=== PATIENT | male | born 1965 | race African-American/Black ===

== ENCOUNTER 2017-07-16 15:56 | Inpatient (IN) | payer OTHER ==
[~2017-07-16] VITALS: Ht 170.2 cm; Wt 66.2 kg
[2017-07-16 15:57] VITALS: BP 150/80; PULSE 122; RESP 24; TEMP 98.9; O2SAT 97
[2017-07-16] MEDS ORDERED: SODIUM CHLORIDE 0.9% FLUSH 10 ML FLUSH IV FLUSH PRN ×2 (16:00→19:00)
[2017-07-16 16:18] VITALS: RESP 24; O2SAT 97
--- NOTE | 2017-07-16 16:29 | PD ---
HPI Chief Complaint: Neuro Symptoms/ Deficits Time Seen by Provider: 16:00 Travel History International Travel<30 days: No Contact w/Intl Traveler<30days: No Traveled to known affect area: No History of Present Illness HPI Patient is a 51-year-old male who lives in abandoned house presents emergency department with 3 day history of right-sided extremity weakness, unclear as to when exactly his last seen normal time was. Patient's sister arrives and states that the family checks on him from time to time because he refuses to live with them they went to get him today to place [place] on his son's grave and found him to be significantly altered and was not able to ambulate and so they brought him into the emergency department to be seen. No headaches no nausea no vomiting no chest pain or shortness of breath. patient does not do regular checkups, he denies any head injury chest pain cough shortness of breath but he is a cigarette smoker. He had to be carried to the car so they can bring him in today. Symptoms are severe, right-sided, possibly for 3 days, context and associated signs symptoms as above. [facility] Past Medical History Medical History: Denies Significant Hx Past Surgical History Surgical History: No Previous Surgery Social History Alcohol Use: Yes (occassoanly ) Tobacco Use: Yes (1/2 pack ) Substance Use: No Allergies-Medications (Allergen,Severity, Reaction): Coded Allergies: No Known Allergies (Unverified , 07/16/17) Reported Meds & Prescriptions Reported Meds & Active Scripts Active No Active Prescriptions or Reported Medications Review of Systems Except as stated in HPI: all other systems reviewed are Neg Physical Exam Narrative GENERAL: Well-developed, thin but in no obvious distress, unkempt. SKIN: Focused skin assessment warm/dry. Fingernails on the left hand significantly longer than the right. HEAD: Atraumatic. Normocephalic. EYES: Pupils equal and round. No scleral icterus. No injection or drainage. ENT: No nasal bleeding or discharge. Mucous membranes pink and moist. NECK: Trachea midline. No JVD. CARDIOVASCULAR: Regular rate and rhythm. No murmur appreciated. RESPIRATORY: No accessory muscle use. Clear to auscultation. Breath sounds equal bilaterally. GASTROINTESTINAL: Abdomen soft, non-tender, nondistended. Hepatic and splenic margins not palpable. MUSCULOSKELETAL: No obvious deformities. No clubbing. No cyanosis. No edema. NEUROLOGICAL: Awake and alert. There is an obvious facial droop on the right side, patient having some confusion when asked to move his tongue side to side he moves his whole head, extraocular movements are intact. Patient is protecting his own airway and swallowing his secretions. Fermin significant weakness and pronator drift on the right upper extremity, he is able to move his right lower extremity against gravity but is not able to keep it elevated. His total NIH stroke scale is 7. PSYCHIATRIC: Appropriate mood and affect; insight and judgment normal. Data Data Last Documented VS Vital Signs Date Time Temp Pulse Resp B/P (MAP) Pulse Ox O2 Delivery O2 Flow Rate FiO2 07/16/17 16:18 24 97 07/16/17 15:57 98.9 122 150/80 (103) Orders Orders Electrocardiogram (07/16/17 16:00) Complete Blood Count With Diff (07/16/17 16:00) Comprehensive Metabolic Panel (07/16/17 16:00) Creatine Kinase (Cpk) (07/16/17 16:00) Prothrombin Time / Inr (Pt) (07/16/17 16:00) Act Partial Throm Time (Ptt) (07/16/17 16:00) Troponin I (07/16/17 16:00) Thyroid Stimulating Hormone (07/16/17 16:00) Urinalysis - C+S If Indicated (07/16/17 16:00) Chest, Single Ap (07/16/17 16:00) Ct Brain W/O Iv Contrast(Rout) (07/16/17 16:00) Blood Glucose (07/16/17 16:00) Ecg Monitoring (07/16/17 16:00) Iv Access Insert/Monitor (07/16/17 16:00) Oximetry (07/16/17 16:00) Sodium Chloride 0.9% Flush (Ns Flush) (07/16/17 16:00) Drug Screen, Random Urine (07/16/17 16:00) Alcohol (Ethanol) (07/16/17 16:00) Tylenol (Acetaminophen) (07/16/17 16:00) Salicylates (Aspirin) (07/16/17 16:00) Blood Culture (07/16/17 17:29) Ct Pulmonary Angiogram (07/16/17 ) Lactic Acid (07/16/17 17:29) Vancomycin Inj (Vancomycin Inj) (07/16/17 17:30) Piperacil-Tazo 4.5 Gm Premix (Zosyn 4.5 (07/16/17 17:30) Cath For Specimen (07/16/17 17:30) Dexamethasone Inj (Decadron Inj) (07/16/17 18:15) Type And Screen (07/16/17 18:12) Admit Order (Ed Use Only) (07/16/17 ) Consult Neurosurgery (07/16/17 ) Labs Laboratory Tests Test 07/16/17 16:15 07/16/17 18:05 07/16/17 18:15 White Blood Count 22.9 TH/MM3 Red Blood Count 3.12 MIL/MM3 Hemoglobin 7.7 GM/DL Hematocrit 24.6 % Mean Corpuscular Volume 78.8 FL Mean Corpuscular Hemoglobin 24.8 PG Mean Corpuscular Hemoglobin Concent 31.4 % Red Cell Distribution Width 19.9 % Platelet Count 942 TH/MM3 Mean Platelet Volume 6.0 FL Neutrophils (%) (Auto) 82.0 % Lymphocytes (%) (Auto) 11.9 % Monocytes (%) (Auto) 5.5 % Eosinophils (%) (Auto) 0.2 % Basophils (%) (Auto) 0.4 % Neutrophils # (Auto) 18.8 TH/MM3 Lymphocytes # (Auto) 2.7 TH/MM3 Monocytes # (Auto) 1.2 TH/MM3 Eosinophils # (Auto) 0.0 TH/MM3 Basophils # (Auto) 0.1 TH/MM3 CBC Comment DIFF FINAL Differential Comment Prothrombin Time 12.0 SEC Prothromb Time International Ratio 1.2 RATIO Activated Partial Thromboplast Time 34.9 SEC Blood Urea Nitrogen 3 MG/DL Creatinine 0.59 MG/DL Random Glucose 77 MG/DL Total Protein 8.2 GM/DL Albumin 2.1 GM/DL Calcium Level 8.9 MG/DL Alkaline Phosphatase 143 U/L Aspartate Amino Transf (AST/SGOT) 26 U/L Alanine Aminotransferase (ALT/SGPT) 11 U/L Total Bilirubin 0.2 MG/DL Sodium Level 134 MEQ/L Potassium Level 4.2 MEQ/L Chloride Level 98 MEQ/L Carbon Dioxide Level 24.0 MEQ/L Anion Gap 12 MEQ/L Estimat Glomerular Filtration Rate 176 ML/MIN Total Creatine Kinase 66 U/L Troponin I LESS THAN 0.02 NG/ML Thyroid Stimulating Hormone 3rd Gen 2.160 uIU/ML Salicylates Level 9.9 MG/DL Acetaminophen Level LESS THAN 2.0 MCG/ML Ethyl Alcohol Level 37 MG/DL Lactic Acid Level 1.3 mmol/L Urine Color YELLOW Urine Turbidity CLEAR Urine pH 5.5 Urine Specific [place] 1.006 Urine Protein NEG mg/dL Urine Glucose (UA) NEG mg/dL Urine Ketones NEG mg/dL Urine Occult Blood NEG Urine Nitrite NEG Urine Bilirubin NEG Urine Urobilinogen LESS THAN 2.0 MG/DL Urine Leukocyte Esterase NEG Urine RBC LESS THAN 1 /hpf Urine WBC LESS THAN 1 /hpf Urine Mucus FEW /lpf Microscopic Urinalysis Comment CATH-CULT NOT IND Urine Opiates Screen NEG Urine Barbiturates Screen NEG Urine Amphetamines Screen NEG Urine Benzodiazepines Screen NEG Urine Cocaine Screen NEG Urine Cannabinoids Screen NEG MDM Medical Decision Making Medical Screen Exam Complete: Yes Emergency Medical Condition: Yes Differential Diagnosis Acute stroke, hemorrhagic stroke, cerebral edema, lung cancer Narrative Course Patient room to the emergency department, again he lives in abandoned house and his family comes a check on him every few days, when they checked on him today they found him to have significant right-sided extremity weakness and inability to ambulate so they brought him to the emergency department. Unfortunately on workup of this patient has near white out of the upper lobe of his left chest, considerations were given for pneumonia and the patient was started on antibiotics as he does have a significantly elevated white blood cell count. He has not been febrile in the emergency department. The patient then underwent CAT scan of his head and his chest the chest shows complete atelectasis of the left upper lobe probably secondary to a proximal lung lesion , the patient also has a lesion on the left side of his brain with significant surrounding edema and some left to right shift. This certainly would explain his neurogenic findings. The patient was given 10 mg of Decadron. He was discussed with Dr. Megan Perez as well as Dr. Jordan Rushing for admission. The results were discussed with the patient and his family, the patient fairly flat affect after being told this information I do think he does have some mild encephalopathy, family is reasonably upset over the diagnosis, they are asking about prognosis in this time I am unable to provide him with a specific prognosis pending tissue diagnosis and metastatic workup. They verbalized understanding and agreement for admission. Critical Care Narrative Aggregate critical care time was 35 minutes. Time to perform other separately billable procedures was not included in the critical care time. My time did not include minutes spent treating any other patients simultaneously or on activities that did not directly contribute to the patient's treatment. The services I provided to this patient were to treat and/or prevent clinically significant deterioration that could result in: , disability, organ failure I provided critical care services requiring my management, as noted below: Chart data review, documentation time, medication orders and management, vital sign assessments/reviewing monitor data, ordering and reviewing lab tests, ordering and interpreting/reviewing x-rays and diagnostic studies, care of the patient and discussion of the patient with the admitting physicians. Diagnosis Primary Impression: Cerebral edema Additional Impression: Brain mass Admitting Information Admitting Physician Requests: Admit Scripts No Active Prescriptions or Reported Meds Condition: Will Cardenas MD Jul 16, 2017 16:29
--- NOTE | 2017-07-16 16:34 | RADRPT ---
EXAM DATE/TIME: 07/16/2017 16:10 [facility] COMPARISON: No previous studies available for comparison. INDICATIONS : Chest pain and shortness of breath. MEDICAL HISTORY : None. SURGICAL HISTORY : None. ENCOUNTER: Initial ACUITY: 1 day PAIN SCORE: 7/10 LOCATION: Right chest FINDINGS: Portable upright AP view of the chest demonstrates a normal-sized cardiac silhouette. There is comple te opacification of the left upper lung zone with mild volume loss. There is mild airspace opacity in the left lower lung zone. No pneumothorax or pleural effusion is identified. Right lung is clear. Shaw hue demonstrate no acute finding. CONCLUSION: Complete opacification of the left upper lung zone with mild left lung volume loss. Findings are susp icious for an obstructing mass or potentially severe consolidation. Suggest chest CT with IV contrast for further characterization. Oleg Green MD on July 16, 2017 at 16:28 Board Certified Radiologist. This report was verified electronically.
[2017-07-16 16:51] LABS: AUTOMATED NEUTROPHIL # 18.8 TH/MM3 (1.8-7.7); BASOPHIL # 0.1 TH/MM3 (0-0.2); BASOPHIL % 0.4 % (0.0-2.0); EOSINOPHIL % 0.2 % (0.0-4.0); HEMATOCRIT 24.6 % (39.0-51.0); HEMOGLOBIN 7.7 GM/DL (13.0-17.0); LYMPH % 11.9 % (9.0-44.0); LYMPHOCYTE # 2.7 TH/MM3 (1.0-4.8); MEAN CELL VOLUME 78.8 FL (80.0-100.0); MEAN CORPUSCULAR HEMOGLOBIN 24.8 PG (27.0-34.0); MEAN CORPUSCULAR HGB CONC 31.4 % (32.0-36.0); MONO % 5.5 % (0.0-8.0); MONOCYTE # 1.2 TH/MM3 (0-0.9); PLATELET COUNT 942 TH/MM3 (150-450); RED BLOOD COUNT 3.12 MIL/MM3 (4.50-5.90); RED CELL DISTRIBUTION WIDTH 19.9 % (11.6-17.2); WHITE BLOOD COUNT 22.9 TH/MM3 (4.0-11.0)
[2017-07-16 16:54] LABS: INTERNATIONAL NORMALIZED RATIO 1.2 RATIO
[2017-07-16 17:17] LABS: ALBUMIN 2.1 GM/DL (3.4-5.0); ALKALINE PHOSPHATASE 143 U/L (45-117); ALT (GPT) 11 U/L (12-78); AST (GOT) 26 U/L (15-37); BLOOD UREA NITROGEN 3 MG/DL (7-18); CALCIUM 8.9 MG/DL (8.5-10.1); CHLORIDE 98 MEQ/L (98-107); CREATININE 0.59 MG/DL (0.60-1.30); GLOMERULAR FILTRATION RATE 176 ML/MIN (>89); GLUCOSE,RANDOM 77 MG/DL (74-106); SODIUM (NA) 134 MEQ/L (136-145); TOTAL BILIRUBIN ADULT 0.2 MG/DL (0.2-1.0); TOTAL PROTEIN 8.2 GM/DL (6.4-8.2); TROPONIN I LESS THAN 0.02 NG/ML (0.02-0.05)
[2017-07-16 17:18] LABS: ACETAMINOPHEN LESS THAN 2.0 MCG/ML (10.0-30.0)
[2017-07-16] MEDS ORDERED: PIPERACIL-TAZO 4.5 GM PREMIX 100 ML IV ONE (17:30)
[2017-07-16] MEDS ORDERED: VANCOMYCIN INJ 1,000 MG in SODIUM CHLOR 0.9% 250 ML INJ 250 ML IV ONE (17:30)
[2017-07-16] MEDS ORDERED: IOHEXOL 350 MG/ML 10 ML VIAL (for RAD DIAG) IVCONTRAST ONE (17:45)
--- NOTE | 2017-07-16 18:03 | RADRPT ---
EXAM DATE/TIME: 07/16/2017 17:42 [facility] COMPARISON: CHEST SINGLE AP, July 16, 2017, 16:10. INDICATIONS : Right side weakness, right facial droop. RADIATION DOSE: 56.35 CTDIvol (mGy) MEDICAL HISTORY : None SURGICAL HISTORY : None. ENCOUNTER: Initial ACUITY: 3 days PAIN SCALE: 0/10 LOCATION: cranial TECHNIQUE: Multiple contiguous axial images were obtained of the head. Using automated exposure control and adj ustment of the mA and/or kV according to patient size, radiation dose was kept as low as reasonably a chievable to obtain optimal diagnostic quality images. DICOM format image data is available electro nically for review and comparison. FINDINGS: CEREBRUM: Ventricles are normal in size. There is a mild degree of atrophy. In the left frontoparietal high con vexity white matter there is an apparent mass measuring approximately 2.5 x 2.3 cm with surrounding v asogenic edema. The edema causes mild local mass effect. There is approximately 4 mm of [id number] midline shift superiorly. No downward herniation is present. No acute blood products are present. POSTERIOR FOSSA: The cerebellum and brainstem are intact. The 4th ventricle is midline. The cerebellopontine angle i s unremarkable. EXTRACRANIAL: Visualized sinuses are clear. SKULL: The calvaria is intact. No evidence of skull fracture. CONCLUSION: There is an apparent mass in the left frontoparietal high convexity white matter measuring approximat star 2.5 cm. There is marked surrounding vasogenic edema causing mild local mass effect and approximat star 4 mm of left to right midline shift. Given the chest x-ray findings, this is highly suspicious fo r a metastatic lesion. Oleg Green MD on July 16, 2017 at 17:58 Board Certified Radiologist. This report was verified electronically.
--- NOTE | 2017-07-16 18:10 | RADRPT ---
EXAM DATE/TIME: 07/16/2017 17:45 [facility] COMPARISON: CHEST SINGLE AP, July 16, 2017, 16:10. INDICATIONS : Shortness of breath; possible pulmonary embolus. IV CONTRAST: 70 cc Omnipaque 350 (iohexol) IV RADIATION DOSE: 9.88 CTDIvol (mGy) MEDICAL HISTORY : None SURGICAL HISTORY : None. ENCOUNTER: Initial ACUITY: 3 days PAIN SCALE: 0/10 LOCATION: chest TECHNIQUE: Volumetric scanning of the chest was performed using a pulmonary embolism protocol MIP images were re constructed. Using automated exposure control and adjustment of the mA and/or kV according to patien t size, radiation dose was kept as low as reasonably achievable to obtain optimal diagnostic quality images. DICOM format image data is available electronically for review and comparison. Follow-up recommendations for detected pulmonary nodules are based at a minimum on nodule size and pa tient risk factors according to Fleischner Society Guidelines. FINDINGS: PULMONARY ARTERIES: No filling defects are seen in the pulmonary arteries through the segmental level. LUNGS: The right lung is clear and well-aerated. There is evidence of central lobar emphysema. There is comp lete collapse of the left upper lung which is completely airless. The left lower lung is well-aerated . PLEURAE: There is no pleural thickening or pleural effusion. MEDIASTINUM: There is good visualization of the great vessels of the middle mediastinum. No evidence of mediastin al or hilar adenopathy/mass. MUSCULOSKELETAL: Within normal limits for patient age. MISCELLANEOUS: The visualized upper abdominal organs demonstrate no acute abnormality. CONCLUSION: 1. No evidence of pulmonary embolism. 2. Complete collapse and airlessness of the entire left upper lung. An endobronchial lesion in the le ft upper lobe bronchus causing obstruction is the primary consideration. Recommend bronchoscopy for f urther evaluation. 3. The right lung and left lower lung are grossly clear. There is some central lobar emphysema. Reginaldo Shahid MD on July 16, 2017 at 18:04 Board Certified Radiologist. This report was verified electronically.
[2017-07-16] MEDS ORDERED: DEXAMETHASONE SOD PHOS 20 MG/5 ML VIAL IV PUSH ONE (18:15)
[2017-07-16 18:38] VITALS: BP 123/84; PULSE 110; RESP 18; O2SAT 99
[2017-07-16 18:42] LABS: BILIRUBIN, URINE NEG (NEG); BLOOD, URINE NEG (NEG); GLUCOSE,URINE NEG (NEG); KETONE, URINE NEG (NEG); MUCUS URINE FEW /lpf (OCC); NITRITE,URINE NEG (NEG); PH, URINE 5.5 (5.0-8.5); URINE COLOR YELLOW (YELLW/STRAW); URINE LEUKOCYTE ESTERASE NEG (NEG)
[2017-07-16] MEDS ORDERED: MAGNESIUM HYDROXIDE SUSP 30 ML CUP PO PRN (19:00)
[2017-07-16] MEDS ORDERED: MISCELLANEOUS NURSING INFORMATION XX SCH (19:00)
[2017-07-16] MEDS ORDERED: LACTULOSE SYRUP 20 GM/30 ML CUP PO PRN (19:00)
[2017-07-16] MEDS ORDERED: ONDANSETRON HCL 4 MG/2 ML VIAL IV PUSH PRN (19:00)
[2017-07-16] MEDS ORDERED: BISACODYL 10 MG SUPP RECTAL PRN (19:00)
[2017-07-16] MEDS ORDERED: ACETAMINOPHEN 325 MG TAB PO PRN (19:00)
[2017-07-16] MEDS ORDERED: CHLORHEXIDINE GLUCONATE 2 % 1 PACK (2 CLOTHS) TOP PRN (19:00)
[2017-07-16] MEDS ORDERED: RESP: ALBUTEROL 2.5 MG/IPRATROPIUM 0.5 MG NEB (PRN) INH (19:00)
[2017-07-16] MEDS ORDERED: SENNOSIDES 8.6 MG TAB PO PRN (19:00)
[2017-07-16] MEDS ORDERED: TEMAZEPAM 15 MG CAP PO PRN (19:00)
[2017-07-16] MEDS ORDERED: HYDROmorphone HCL PF 2 MG/ML VIAL IV PRN (19:15)
[2017-07-16 20:08] VITALS: BP 123/84; PULSE 102; RESP 28; O2SAT 96
[2017-07-16] MEDS: SODIUM CHLOR 0.9% 1000 ML INJ 1,000 ML IV SCH (20:16)
--- NOTE | 2017-07-16 20:49 | HHI.HP ---
HPI Service Critical Care Medicine Primary Care Physician No Primary Care Physician Admission Diagnosis Brain mass, Lung mass, Cerebral edema. Diagnosis: Travel History International Travel<30 Days: No Contact w/Intl Traveler <30 Da: No Traveled to Known Affected Are: No History of Present Illness 51-year-old male who lives in abandoned house presents emergency department with 3 day history of right-sided extremity weakness, unclear as to when exactly his last seen normal time was. Patient's sister arrives and states that the family checks on him from time to time because he refuses to live with them they went to get him today to place barillas on his son's grave and found him to be significantly altered and was not able to ambulate and so they brought him into the emergency department to be seen. No headaches no nausea no vomiting no chest pain or shortness of breath. CT of the head shows a mass in the left frontoparietal white matter measuring approximately 2.5 cm with marked surrounding vasogenic edema. CT of the chest shows complete collapse and adolescence of the entire left upper lung due to most likely endobronchial lesion. Review of Systems Constitutional: DENIES: Diaphoretic episodes, Fatigue, Fever, Weight gain, Weight loss, Chills, Dizziness, Change in appetite, Night Sweats Endocrine: DENIES: Heat/cold intolerance, Polydipsia, Polyuria, Polyphagia Eyes: DENIES: Blurred vision, Diplopia, Eye inflammation, Eye pain, Vision loss , Photosensitivity, Double Vision Ears, nose, mouth, throat: DENIES: Tinnitus, Hearing loss, Vertigo, Nasal discharge, Oral lesions, Throat pain, Hoarseness, Ear Pain, Running Nose, Epistaxis, Sinus Pain, Toothache, Odynophagia Respiratory: COMPLAINS OF: Cough, Shortness of breath, DENIES: Apneas, Snoring , Wheezing, Hemoptysis, Sputum production Cardiovascular: DENIES: Chest pain, Palpitations, Syncope, Dyspnea on Exertion , PND, Lower Extremity Edema, Orthopnea, Claudication Gastrointestinal: DENIES: Abdominal pain, Black stools, Bloody stools, Constipation, Diarrhea, Nausea, Vomiting, Difficulty Swallowing, Anorexia Genitourinary: DENIES: Sexual dysfunction, Urinary frequency, Urinary incontinence, Urgency, Hematuria, Dysuria, Nocturia, Penile Discharge, Testicular Pain, Testicular Swelling Musculoskeletal: DENIES: Joint pain, Muscle aches, Stiffness, Joint Swelling, Back pain, Neck pain Integumentary: DENIES: Abnormal pigmentation, Nail changes, Pruritus, Rash Hematologic/lymphatic: DENIES: Bruising, Lymphadenopathy Immunologic/allergic: DENIES: Eczema, Urticaria Neurologic: COMPLAINS OF: Abnormal gait, Localized weakness, Paresthesias, Poor Balance, DENIES: Headache, Seizures, Speech Problems, Tremor Psychiatric: DENIES: Anxiety, Confusion, Mood changes, Depression, Hallucinations, Agitation, Suicidal Ideation, Homicidal Ideation, Delusions Past Family Social History Allergies: Coded Allergies: No Known Allergies (Unverified , 07/16/17) Past Medical History No past medical history Past Surgical History No past surgical history Reported Medications Reported Meds & Active Scripts Active No Active Prescriptions or Reported Medications Active Ordered Medications Current Medications Medications (Trade) Dose Ordered Sig/Dillan Route PRN Reason Start Time Stop Time Status Last Admin Dose Admin Sodium Chloride (NS Flush) 2 ml UNSCH PRN IV FLUSH FLUSH AFTER USING IV ACCESS 07/16/17 16:00 07/16/17 18:26 Sodium Chloride 1,000 ml @ 84 mls/hr [id number] IV 07/16/17 18:48 07/16/17 20:16 Sodium Chloride (NS Flush) 2 ml UNSCH PRN IV FLUSH FLUSH AFTER USING IV ACCESS 07/16/17 19:00 Sodium Chloride (NS Flush) 2 ml BID IV FLUSH 07/16/17 21:00 Acetaminophen (Tylenol) 650 mg Q6H PRN PO PAIN 1-5 AND/OR FEVER >101F 07/16/17 19:00 Hydromorphone HCl (Dilaudid Pf Inj) 1 mg Q4H PRN IV PAIN 6-10 07/16/17 19:15 Famotidine (Pepcid Inj) 20 mg Q12HR IV PUSH 07/16/17 21:00 Ondansetron HCl (Zofran Inj) 4 mg Q6H PRN IV PUSH NAUSEA OR VOMITING 07/16/17 19:00 Temazepam (Restoril) 15 mg HS PRN PO INSOMNIA 07/16/17 19:00 Albuterol/ Ipratropium (Duoneb Neb) 1 ampule Q2HR NEB PRN INH WHEEZING 07/16/17 19:00 Heparin Sodium (Porcine) (Heparin Inj) 5,000 units Q8H SQ 07/16/17 22:00 Miscellaneous Information 1 [id number] XX 07/16/17 19:00 Chlorhexidine Gluconate (Chlorhexidine 2% Cloth) 3 pack Taper DAILY@04 TOP 07/17/17 04:00 07/13/18 03:59 Chlorhexidine Gluconate (Chlorhexidine 2% Cloth) 3 pack UNSCH PRN TOP HYGIENIC CARE 07/16/17 19:00 Senna/Docusate Sodium (Karlie-Colace) 1 tab BID PO 07/16/17 21:00 Magnesium Hydroxide (Milk Of Magnesia Liq) 30 ml Q12H PRN PO Mild constipation 07/16/17 19:00 Sennosides (Senokot) 17.2 mg Q12H PRN PO Moderate constipation 07/16/17 19:00 Bisacodyl (Dulcolax Supp) 10 mg DAILY PRN RECTAL SEVERE CONSITIPATION 07/16/17 19:00 Lactulose (Lactulose Liq) 30 ml DAILY PRN PO SEVERE CONSITIPATION 07/16/17 19:00 Dexamethasone Sodium Phosphate (Decadron Inj) 4 mg Q6HR IV PUSH 07/17/17 00:00 Family History Family history significant for coronary artery disease Social History Active smoker Drinks occasionally No illicit drug abuse Physical Exam Vital Signs Vital Signs Date Time Temp Pulse Resp B/P (MAP) Pulse Ox O2 Delivery O2 Flow Rate FiO2 07/16/17 20:08 102 28 123/84 (97) 96 Room Air 07/16/17 18:38 110 18 123/84 (97) 99 Room Air 07/16/17 16:18 24 97 07/16/17 15:57 98.9 122 24 150/80 (103) 97 Physical Exam GENERAL: Well-developed, thin but in no obvious distress. SKIN: Focused skin assessment warm/dry. Fingernails on the left hand significantly longer than the right. HEAD: Atraumatic. Normocephalic. EYES: Pupils equal and round. No scleral icterus. No injection or drainage. ENT: No nasal bleeding or discharge. Mucous membranes pink and moist. NECK: Trachea midline. No JVD. CARDIOVASCULAR: Regular rate and rhythm. No murmur appreciated. RESPIRATORY: No accessory muscle use. Clear to auscultation. Breath sounds equal bilaterally. GASTROINTESTINAL: Abdomen soft, non-tender, nondistended. Hepatic and splenic margins not palpable. MUSCULOSKELETAL: No obvious deformities. No clubbing. No cyanosis. No edema. NEUROLOGICAL: Awake and alert. There is an obvious facial droop on the right side, patient having some confusion when asked to move his tongue side to side he moves his whole head, extraocular movements are intact. Patient is protecting his own airway and swallowing his secretions. Fermin significant weakness and pronator drift on the right upper extremity, he is able to move his right lower extremity against gravity but is not able to keep it elevated. His total NIH stroke scale is 7 Laboratory Laboratory Tests Test 07/16/17 16:15 07/16/17 18:05 07/16/17 18:15 White Blood Count 22.9 Red Blood Count 3.12 Hemoglobin 7.7 Hematocrit 24.6 Mean Corpuscular Volume 78.8 Mean Corpuscular Hemoglobin 24.8 Mean Corpuscular Hemoglobin Concent 31.4 Red Cell Distribution Width 19.9 Platelet Count 942 Mean Platelet Volume 6.0 Neutrophils (%) (Auto) 82.0 Lymphocytes (%) (Auto) 11.9 Monocytes (%) (Auto) 5.5 Eosinophils (%) (Auto) 0.2 Basophils (%) (Auto) 0.4 Neutrophils # (Auto) 18.8 Lymphocytes # (Auto) 2.7 Monocytes # (Auto) 1.2 Eosinophils # (Auto) 0.0 Basophils # (Auto) 0.1 CBC Comment DIFF FINAL Differential Comment Prothrombin Time 12.0 Prothromb Time International Ratio 1.2 Activated Partial Thromboplast Time 34.9 Blood Urea Nitrogen 3 Creatinine 0.59 Random Glucose 77 Total Protein 8.2 Albumin 2.1 Calcium Level 8.9 Alkaline Phosphatase 143 Aspartate Amino Transf (AST/SGOT) 26 Alanine Aminotransferase (ALT/SGPT) 11 Total Bilirubin 0.2 Sodium Level 134 Potassium Level 4.2 Chloride Level 98 Carbon Dioxide Level 24.0 Anion Gap 12 Estimat Glomerular Filtration Rate 176 Total Creatine Kinase 66 Troponin I LESS THAN 0.02 Thyroid Stimulating Hormone 3rd Gen 2.160 Salicylates Level 9.9 Acetaminophen Level LESS THAN 2.0 Ethyl Alcohol Level 37 Lactic Acid Level 1.3 Urine Color YELLOW Urine Turbidity CLEAR Urine pH 5.5 Urine Specific Cascade 1.006 Urine Protein NEG Urine Glucose (UA) NEG Urine Ketones NEG Urine Occult Blood NEG Urine Nitrite NEG Urine Bilirubin NEG Urine Urobilinogen LESS THAN 2.0 Urine Leukocyte Esterase NEG Urine RBC LESS THAN 1 Urine WBC LESS THAN 1 Urine Mucus FEW Microscopic Urinalysis Comment CATH-CULT NOT IND Urine Opiates Screen NEG Urine Barbiturates Screen NEG Urine Amphetamines Screen NEG Urine Benzodiazepines Screen NEG Urine Cocaine Screen NEG Urine Cannabinoids Screen NEG Date/Time Source Procedure Growth Status 07/16/17 18:05 Blood Peripheral Aerobic Blood Culture Pending Received 07/16/17 18:05 Blood Peripheral Anaerobic Blood Culture Pending Received Result Diagram: 07/16/17 1615 07/16/17 1615 Imaging Last [address] 07/16/17 1600 Signed Impressions: Service Date/Time: Sunday, July 16, 2017 17:42 - CONCLUSION: There is an apparent mass in the left frontoparietal high convexity white matter measuring approximately 2.5 cm. There is marked surrounding vasogenic edema causing mild local mass effect and approximately 4 mm of left to right midline shift. Given the chest x-ray findings, this is highly suspicious for a metastatic lesion. Oleg Green MD Chest X-Ray 07/16/17 1600 Signed Impressions: Service Date/Time: Sunday, July 16, 2017 16:10 - CONCLUSION: Complete opacification of the left upper lung zone with mild left lung volume loss. Findings are suspicious for an obstructing mass or potentially severe consolidation. Suggest chest CT with IV contrast for further characterization. Oleg Green MD CT Angiography 07/16/17 0000 Signed Impressions: Service Date/Time: Sunday, July 16, 2017 17:45 - CONCLUSION: 1. No evidence of pulmonary embolism. 2. Complete collapse and airlessness of the entire left upper lung. An endobronchial lesion in the left upper lobe bronchus causing obstruction is the primary consideration. Recommend bronchoscopy for further evaluation. 3. The right lung and left lower lung are grossly clear. There is some central lobar emphysema. Reginaldo Shahid MD Septic Shock Reassessment Septic shock perfusion: reassessment completed Caprini VTE Risk Assessment Caprini VTE Risk Assessment: Mod/High Risk (score >= 2) Caprini Risk Assessment Model Point Value = 1 Point Value = 2 Point Value = 3 Point Value = 5 Age 41-60 Minor surgery BMI > 25 kg/m2 Swollen legs Varicose veins or History of unexplained or recurrent spontaneous Oral contraceptives or hormone replacement Sepsis (< 1 month) Serious lung disease, including pneumonia (< 1 month) Abnormal pulmonary function Acute myocardial infarction Congestive heart failure (< 1 month) History of inflammatory bowel disease Medical patient at bed rest Age 61-74 Arthroscopic surgery Major open surgery (> 45 min) Laparoscopic surgery (> 45 min) Malignancy Confined to bed (> 72 hours) Immobilizing plaster cast Central venous access Age >= 75 History of VTE Family history of VTE Factor V Leiden Prothrombin [id number] Lupus anticoagulant Anticardiolipin antibodies Elevated serum homocysteine Heparin-induced thrombocytopenia Other congenital or acquired thrombophilia Stroke (< 1 month) Elective arthroplasty Hip, pelvis, or leg fracture Acute spinal cord injury (< 1 month) Prophylaxis Regimen Total Risk Factor Score Risk Level Prophylaxis Regimen 0-1 Low Early ambulation 2 Moderate Order ONE of the following: *Sequential Compression Device (SCD) *Heparin 5000 units SQ BID 3-4 Higher Order ONE of the following medications: *Heparin 5000 units SQ TID *Enoxaparin/Lovenox 40 mg SQ daily (WT < 150 kg, CrCl > 30 mL/min) *Enoxaparin/Lovenox 30 mg SQ daily (WT < 150 kg, CrCl > 10-29 mL/min) *Enoxaparin/Lovenox 30 mg SQ BID (WT < 150 kg, CrCl > 30 mL/min) AND/OR *Sequential Compression Device (SCD) 5 or more Highest Order ONE of the following medications: *Heparin 5000 units SQ TID (Preferred with Epidurals) *Enoxaparin/Lovenox 40 mg SQ daily (WT < 150 kg, CrCl > 30 mL/min) *Enoxaparin/Lovenox 30 mg SQ daily (WT < 150 kg, CrCl > 10-29 mL/min) *Enoxaparin/Lovenox 30 mg SQ BID (WT < 150 kg, CrCl > 30 mL/min) AND *Sequential Compression Device (SCD) Assessment and Plan Assessment and Plan Altered mental status with hemiplegia - Metastatic brain disease - Decadron bolus in the ED - Continue Decadron 4 mg every 6 hours - Neurosurgical and palliative care consultation Lung mass - Most likely endobronchial malignancy - Pulmonary consultation Tobacco use disorder - DuoNeb scheduled and when necessary DVT GI prophylaxis - Teds SCDs - Subcutaneous heparin - Pepcid Critical Care: The total critical care time was 35 minutes. Time to perform other separately billable procedures was not included in the critical care time. Voda,Jordan MD Jul 16, 2017 8:49 pm
--- NOTE | 2017-07-16 21:12 | EKG ---
Date Performed: 07/16/2017 Time Performed: 16:03:19 PTAGE: 51 years EKG: SINUS TACHYCARDIA ABNORMAL RHYTHM ECG NO PREVIOUS TRACING DOCTOR: Clayton Dacosta Interpretating Date/Time 07/16/2017 21:11:50
[2017-07-16 22:00] VITALS: BP 124/67; PULSE 106; RESP 28; TEMP 99.2; O2SAT 95
[2017-07-16 22:50] VITALS: O2SAT 95
[2017-07-16] MEDS: DEXAMETHASONE SOD PHOS 4 MG/ML VIAL IV PUSH SCH (22:58)
[2017-07-16] MEDS: FAMOTIDINE 20 MG/2 ML VIAL IV PUSH SCH (22:58)
[2017-07-16] MEDS: SODIUM CHLORIDE 0.9% FLUSH 10 ML FLUSH IV FLUSH SCH (22:59)
[2017-07-16] MEDS: DOCUSATE SODIUM 50 MG/SENNA 8.6 MG TAB PO SCH (22:59)
[2017-07-16] MEDS: HEPARIN SODIUM - SQ 10,000 UNITS/ML VIAL SQ SCH (22:59)
[2017-07-17] VITALS (10 sets, daily range): BP systolic 84–134; BP diastolic 32–71; PULSE 76–109; RESP 18–26; TEMP 97.2–98.7; O2SAT 95–99
[2017-07-17] MEDS: CHLORHEXIDINE GLUCONATE 2 % 1 PACK (2 CLOTHS) TOP SCH (04:00)
[2017-07-17] MEDS: DEXAMETHASONE SOD PHOS 4 MG/ML VIAL IV PUSH SCH ×3 (04:13→17:19)
[2017-07-17] MEDS: HEPARIN SODIUM - SQ 10,000 UNITS/ML VIAL SQ SCH ×3 (04:13→20:59)
[2017-07-17] MEDS: SODIUM CHLOR 0.9% 1000 ML INJ 1,000 ML IV SCH ×2 (04:14→08:36)
[2017-07-17 05:10] LABS: AUTOMATED NEUTROPHIL # 23.1 TH/MM3 (1.8-7.7); BASOPHIL % 0.2 % (0.0-2.0); HEMATOCRIT 24.3 % (39.0-51.0); HEMOGLOBIN 7.5 GM/DL (13.0-17.0); LYMPH % 6.5 % (9.0-44.0); LYMPHOCYTE # 1.6 TH/MM3 (1.0-4.8); MEAN CELL VOLUME 79.1 FL (80.0-100.0); MEAN CORPUSCULAR HEMOGLOBIN 24.6 PG (27.0-34.0); MEAN CORPUSCULAR HGB CONC 31.1 % (32.0-36.0); MEAN PLATELET VOLUME 5.9 FL (7.0-11.0); MONO % 0.8 % (0.0-8.0); MONOCYTE # 0.2 TH/MM3 (0-0.9); NEUT % 92.5 % (16.0-70.0); PLATELET COUNT 909 TH/MM3 (150-450); RED BLOOD COUNT 3.07 MIL/MM3 (4.50-5.90); RED CELL DISTRIBUTION WIDTH 19.4 % (11.6-17.2)
[2017-07-17 05:23] LABS: INTERNATIONAL NORMALIZED RATIO 1.1 RATIO; PROTHROMBIN TIME - PATIENT 11.6 SEC (9.8-11.6)
[2017-07-17 05:29] LABS: AST (GOT) 14 U/L (15-37); BICARBONATE 26.3 MEQ/L (21.0-32.0); BLOOD UREA NITROGEN 5 MG/DL (7-18); CALCIUM 8.5 MG/DL (8.5-10.1); CHLORIDE 102 MEQ/L (98-107); CREATININE 0.53 MG/DL (0.60-1.30); GLOMERULAR FILTRATION RATE 199 ML/MIN (>89); GLUCOSE,RANDOM 153 MG/DL (74-106); MAGNESIUM 2.1 MG/DL (1.5-2.5); SODIUM (NA) 136 MEQ/L (136-145)
[2017-07-17 05:32] LABS: ALKALINE PHOSPHATASE 136 U/L (45-117); ALT (GPT) LESS THAN 6 U/L (12-78); PHOSPHORUS 3.1 MG/DL (2.5-4.9); TOTAL BILIRUBIN ADULT 0.2 MG/DL (0.2-1.0); TOTAL PROTEIN 7.8 GM/DL (6.4-8.2)
[2017-07-17] MEDS: SODIUM CHLORIDE 0.9% FLUSH 10 ML FLUSH IV FLUSH SCH ×2 (08:37→20:57)
[2017-07-17] MEDS: DOCUSATE SODIUM 50 MG/SENNA 8.6 MG TAB PO SCH ×2 (08:39→20:58)
[2017-07-17] MEDS: FAMOTIDINE 20 MG/2 ML VIAL IV PUSH SCH ×2 (08:39→20:57)
--- NOTE | 2017-07-17 13:13 | HHI.CCPN ---
Subjective Remarks/Hospital Course 51-year-old male who lives in abandoned house presents emergency department with 3 day history of right-sided extremity weakness, unclear as to when exactly his last seen normal time was. Patient's sister arrives and states that the family checks on him from time to time because he refuses to live with them they went to get him today to place barillas on his son's grave and found him to be significantly altered and was not able to ambulate and so they brought him into the emergency department to be seen. No headaches no nausea no vomiting no chest pain or shortness of breath. CT of the head shows a mass in the left frontoparietal white matter measuring approximately 2.5 cm with marked surrounding vasogenic edema. CT of the chest shows complete collapse and adolescence of the entire left upper lung due to most likely endobronchial lesion. 07/17: Patient appears to be new to our Health System. The left sided brain mass has considerable surrounding vasogenic edema, possible primary tumor or infection. Met from lung is also possible. Presently breathing comfortably and protecting airway. Evaluations are underway. Right arm weakness persists and cognitive function is impaired. Objective Vital Signs Date Time Temp Pulse Resp B/P (MAP) Pulse Ox O2 Delivery O2 Flow Rate FiO2 07/17/17 10:00 89 07/17/17 08:00 98.5 24 106/66 (79) 95 07/17/17 07:00 Room Air 21 Intake and Output 07/17/17 07/17/17 07/18/17 08:00 16:00 00:00 Intake Total 240 ml Balance 240 ml Result Diagram: 07/17/17 0405 07/17/17 0405 Imaging Last [address] 07/16/17 1600 Signed Impressions: Service Date/Time: Sunday, July 16, 2017 17:42 - CONCLUSION: There is an apparent mass in the left frontoparietal high convexity white matter measuring approximately 2.5 cm. There is marked surrounding vasogenic edema causing mild local mass effect and approximately 4 mm of left to right midline shift. Given the chest x-ray findings, this is highly suspicious for a metastatic lesion. Oleg Green MD Chest X-Ray 07/16/17 1600 Signed Impressions: Service Date/Time: Sunday, July 16, 2017 16:10 - CONCLUSION: Complete opacification of the left upper lung zone with mild left lung volume loss. Findings are suspicious for an obstructing mass or potentially severe consolidation. Suggest chest CT with IV contrast for further characterization. Oleg Green MD CT Angiography 07/16/17 0000 Signed Impressions: Service Date/Time: Sunday, July 16, 2017 17:45 - CONCLUSION: 1. No evidence of pulmonary embolism. 2. Complete collapse and airlessness of the entire left upper lung. An endobronchial lesion in the left upper lobe bronchus causing obstruction is the primary consideration. Recommend bronchoscopy for further evaluation. 3. The right lung and left lower lung are grossly clear. There is some central lobar emphysema. Reginaldo Shahid MD Objective Remarks GENERAL: Well-developed, no agitation or distress. SKIN: Focused skin assessment warm/dry. Fingernails on the left hand much longer than the right. HEAD: Atraumatic. Normocephalic. EYES: Pupils equal and round. No scleral icterus. No injection or drainage. ENT: No nasal bleeding or discharge. Mucous membranes pink and moist. NECK: Trachea midline. [place] widely patent. CARDIOVASCULAR: Regular rate and rhythm. No murmur appreciated. No JVD. RESPIRATORY: No accessory muscle use. Clear to auscultation. Breath sounds equal bilaterally. GASTROINTESTINAL: Abdomen soft, non-tender, nondistended. No guarding. MUSCULOSKELETAL: No obvious deformities. No clubbing. No cyanosis. No edema. NEUROLOGICAL: Awake and alert. Facial droop on the right side, patient confused. Has significant weakness and pronator drift on the right upper extremity, he is able to move his right lower extremity against gravity but is not able to keep it elevated. A/P Assessment and Plan Altered mental status with hemiplegia - Metastatic brain disease or primary tumor. Possibly infection. - Decadron bolus in the ED - Continue Decadron 4 mg every 6 hours - Neurosurgical and palliative care consultation Lung mass - Most AIRAM endobronchial malignancy - Pulmonary consultation - Possible lobar pneumonia, postobstructive or otherwise. - Check HIV status. - ABX coverage. Tobacco use disorder - DuoNeb scheduled and when necessary DVT GI prophylaxis - Teds SCDs - Subcutaneous heparin - Pepcid Overall impression: New to our system and no antecedent data available. Lots of edema around left hemispheric lesion. Tissue diagnosis required. Lung metastasis likely but isolated infection or primary malignancy possible. Transfer to floor, continue steroids. Maycol Mars MD Jul 17, 2017 13:13
[2017-07-17] MEDS ORDERED: Vancomycin Consult Pharmacy 1 EA OTHER SCH (13:15)
[2017-07-17] MEDS: CEFEPIME INJ 2,000 MG in SODIUM CHLORIDE 0.9% INJ 100 ML IV SCH (13:30)
[2017-07-17] MEDS ORDERED: VANCOMYCIN INJ 1,250 MG in SODIUM CHLOR 0.9% 250 ML INJ 250 ML IV SCH (14:00)
[2017-07-17] MEDS ORDERED: GADODIAMIDE PF 287 MG/ML 20 ML VIAL (for RAD MRI) IVCONTRAST ONE (14:46)
--- NOTE | 2017-07-17 15:16 | RADRPT ---
EXAM DATE/TIME: 07/17/2017 14:35 [facility] COMPARISON: CHEST SINGLE AP, July 16, 2017, 16:10. CT BRAIN W/O CONTRAST, July 16, 2017, 17:42. INDICATIONS : Right sided weakness. Inabilty to ambulate. CONTRAST: 15 cc Omniscan (gadodiamide) IV MEDICAL HISTORY : None. SURGICAL HISTORY : None. ENCOUNTER: Initial ACUITY: 2 day PAIN SCORE: 0/10 LOCATION: cranial TECHNIQUE: Multiplanar, multisequence MRI of the brain was performed both prior to and following the administrat ion of paramagnetic contrast. FINDINGS: CEREBRUM: The ventricles are normal for age. There is a prominent area of vasogenic edema involving the left po sterior parietal lobe. There is a ring enhancing mass occupying lesion in the left posterior parietal lobe measuring approximately 3.4 x 2.5 x 2.6 cm. This is highly suspicious for neoplastic disease. N o other enhancing mass occupying lesions are demonstrated. There is mild mass effect and midline shif t to the right by approximately 5 mm. No acute infarction is seen. WHITE MATTER: Prominent vasogenic edema in the left posterior parietal lobe. POSTERIOR FOSSA: The cerebellum and brainstem are intact. The 4th ventricle is midline. The cerebellopontine angle is unremarkable. The cerebellar tonsils are normal in position. DIFFUSION IMAGING: No focal areas of restricted diffusion are seen. No evidence of acute infarction. EXTRACRANIAL: The visualized portions of the orbits and paranasal sinuses are unremarkable. POST-CONTRAST: Large irregular ring-enhancing mass lesion in the left posterior parietal lobe surrounded by vasogeni c edema characteristic for neoplastic disease. CONCLUSION: 1. There is a irregular ring-enhancing lesion measuring approximately 3.4 cm in the left posterior pa rietal lobe surrounded by prominent vasogenic edema characteristic for neoplastic disease. Primary ve rsus metastatic disease are considerations. 2. Mild mass effect and midline shift to the right by approximately 5 mm. Reginaldo Shahid MD on July 17, 2017 at 15:10 Board Certified Radiologist. This report was verified electronically.
[2017-07-17] MEDS: VANCOMYCIN INJ 1,400 MG in SODIUM CHLORID 0.9% 500 ML INJ 500 ML IV SCH (15:46)
--- NOTE | 2017-07-17 15:47 | MB ---
cc: LILIANA MICHELLE M.D. DATE OF CONSULTATION: 07/17/2017. REASON FOR CONSULTATION: HISTORY OF PRESENT ILLNESS: The patient is a 51-year-old who is an active smoker who presented to the [facility] Emergency Department with a three day history of right-sided extremity weakness and with altered mental status. In addition, the patient had difficulty ambulating. He had a CT scan of the brain on arrival which showed a 2.5 cm mass in the left frontoparietal area with surrounding vasogenic edema and approximately 4 mm [id number] midline shift. Chest x-ray in the emergency department showed complete opacification of the left upper lung zone. He subsequently underwent a CT angiogram of the chest which showed no evidence of pulmonary embolism; however it showed complete collapse of the left upper lung and possible endobronchial lesion in the left upper lobe bronchus causing obstruction. The patient is an active smoker and he smokes three packs a week for about twenty years. He denies any prior history of lung disease. In addition, he denies any shortness of breath or hemoptysis. However he reports weight loss and decreased p.o. intake. Furthermore, he denies any nausea, vomiting or abdominal pain. His laboratory data on arrival showed leukocytosis with a WBC of 22.9 and anemia with hemoglobin level of 7.7. The patient was admitted to the surgical ICU where he was started on Decadron 4 milligrams IV q. 6 for his brain mass. He was evaluated by neurosurgery and the plan was to proceed with MRI of the brain with and without contrast. PAST MEDICAL HISTORY: The patient has not seen a physician for years and denies any history of hypertension or diabetes. PAST SURGICAL HISTORY: Unremarkable. ALLERGIES: NO KNOWN DRUG ALLERGIES. SOCIAL HISTORY: Active smoker where he smokes three packs of cigarettes a week for about twenty years. Occasional drinker. Denies any illicit drug use. FAMILY HISTORY: Significant for coronary artery disease. In addition, his father had breast cancer. REPORTED MEDICATIONS: None. REVIEW OF SYSTEMS: The review of systems is as per the history of present illness, and the rest of the review of systems is unremarkable. PHYSICAL EXAMINATION: GENERAL: A 51-year-old male lying in bed in no acute distress. VITAL SIGNS: Temperature 98.5, pulse of 89, respiratory rate 24, blood pressure 106/56, saturation 95% on room air. HEAD, EYES, EARS, NOSE, THROAT: Normocephalic and atraumatic. Pupils equal, round and reactive to light and accommodation. Extraocular muscles intact. Conjunctivae are pink. Nonicteric sclerae. Oral mucosa within normal limits. NECK: The neck is supple. No jugular venous distention, adenopathy or thyromegaly. Trachea in the midline. CARDIOVASCULAR: Regular rate and rhythm. Normal S1-S2. No murmurs, rubs or gallops noted. PULMONARY: Diminished breath sounds on the left. No crackles or wheezing. ABDOMEN: The abdomen is soft, nontender and no distention. Positive bowel sounds. EXTREMITIES: No cyanosis, clubbing or edema. NEUROLOGIC: Awake, alert, weakness in the right lower extremity noted. LABORATORY DATA: White blood cell count 25, hemoglobin 7.5, hematocrit 24, platelet count of 909,000. Sodium 136, potassium 4.2, chloride 102, carbon dioxide 26, BUN 5, creatinine 0.5, glucose 153. INR 1.1. PT 36. PTT 11.6. RADIOGRAPHIC STUDIES: CT angiogram of the chest showed no evidence of PE. Complete collapse of the left upper lobe. CT scan of the brain showed a 2.5 cm mass in the left frontoparietal area with surrounding vasogenic edema and 4 mm midline shift left to right. IMPRESSION: 1. 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 Need to rule out endobronchial lesion in the left upper lobe bronchus causing obstruction. 2. 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 3. active tobacco use. 4. Leukocytosis. 5. Post obstructive pneumonia. 6. Anemia. RECOMMENDATIONS: 1. Discussed the CT chest findings with the patient and he is agreeable to proceed with a fiberoptic bronchoscopy with bronchial brushing and transbronchial biopsy. We will need to rule out endobronchial lesion in left upper lobe bronchus causing obstruction. 2. Continue with bronchodilators on a p.r.n. basis. 3. Continue with IV steroids for the brain mass with surrounding vasogenic edema. He is currently on Decadron 4 mg IV q. 6. 4. Agree with broad-spectrum antibiotics for possible postobstructive pneumonia. He was placed on cefepime and vancomycin. Monitor for signs of infection which include fever and WBC. Follow up on blood cultures from July 16. Will obtain Strep pneumoniae and Legionella urinary antigen. 5. Patient was seen by neurosurgery and scheduled to undergo MRI of the brain with and without contrast. He will likely need resection of his brain mass if it is an isolated lesion. Discussed with Dr. Perez. 6. Will consult the medical oncology service and continue with staging workup. 7. The patient was counseled regarding smoking cessation. 8. Will keep the patient n.p.o. after midnight for bronchoscopy tomorrow. Case was discussed with the nursing staff. Thank you for consultation and for allowing us participate in this patient's care. MD MEGAN Souza/NATIVIDAD /1:54 PM /3:30 PM MTDD
--- NOTE | 2017-07-17 15:57 | MB ---
cc: RAMIRO WEBER M.D. DATE OF CONSULTATION: 07/17/2017. REASON FOR CONSULTATION: Left brain mass. HISTORY OF PRESENT ILLNESS: This is a 51-year-old -[place] gentleman who presented to the emergency room last night with complaints of right-sided weakness along with confusion. He relates that the symptoms started about ten days ago, although worse over the last three days. CT of the head obtained reveals a 2.5 cm left posterior frontoparietal lobe mass with surrounding vasogenic edema. A CT angiography of the chest reveals a collapse of the left upper lobe with an endotracheal mass likely obstructing the bronchus, although no pulmonary embolus was seen. He also appears to have some emphysematous changes. He has been admitted to the intensive care unit and started on Decadron and neurosurgery consultation requested. PAST MEDICAL HISTORY: He denies any medical problems. MEDICATIONS: None. SOCIAL HISTORY: Reportedly he is homeless. He does smoke a pack of cigarettes a day and relates that he drinks alcohol on an occasional basis, although admits to the emergency room physician that he has six alcohol beverages a day. He is single. REVIEW OF SYSTEMS: Complains of shortness of breath and cough. Complains of right-sided weakness. Complaints of headache. Complains of unsteadiness in his gait. The rest of the review of systems is negative. FAMILY HISTORY: Significant for coronary artery disease. No reported history of cancer. LABORATORY FINDINGS: White blood cell count 25, hemoglobin 7.5, platelet count 909,000. PT 11.6, INR 1.1, PTT 36. Sodium 136, potassium 4.2, BUN 5, creatinine 0.53, glucose 153. PHYSICAL EXAMINATION: VITAL SIGNS: Temperature 98.5, pulse is 89, respiratory rate 24, blood pressure 106/66, oxygen saturations 95% on room air. HEAD, EYES, EARS, NOSE, THROAT: Normocephalic, atraumatic with no Cleaning or raccoon sign. NECK: Neck is supple with no guarding or rigidity. Trachea midline. No lymphadenopathy. CHEST: Clear bilaterally. HEART: Regular rate rhythm, normal S1-S2. ABDOMEN: Abdomen soft and nontender. No hepatosplenomegaly. EXTREMITIES: No cyanosis, edema or deformities. SKIN: Warm and dry with no rash or pustules. GENERAL: He has extensive elongated nails with dirt and an unkempt appearance. This is a middle-aged -[place] gentleman laying in bed in no acute distress eating his lunch with his left hand. NEUROLOGICAL EXAMINATION: He is awake, alert. He knows he is in the hospital but not the exact date. He states his name. Pupils are equal and reactive. He has a right facial droop. Tongue is midline. He moves his left arm and leg with roughly good strength. His right upper extremity is 2/5 strength. Unable to extend his hand or wrist. The right lower extremity is 4-/5 strength. Positive Babinski. Appreciates light touch sensation bilaterally. Slight dysarthric speech. IMPRESSION: 1. Left posterior frontoparietal lobe mass with surrounding vasogenic edema. This is very concerning for a metastatic lesion especially given the possibility of a left lung mass along with obstructive pneumonia and collapsed lung. The possibilities include an abscess with primary brain mass also needs to be entertained. 2. Left upper lobe collapse with obstruction and COPD. The patient is a chronic smoker, which increases his risk for lung cancer. PLAN: 1. He will be continued on Decadron for the vasogenic edema along with gastrointestinal stress ulcer prophylaxis and DVT prophylaxis. 2. MRI scan of the brain will be obtained to rule out any additional masses as well as systemic workup with abdomen and pelvis CT scan. 3. Physical therapy and occupational therapy consult to prevent further deconditioning and weakness. 4. Further treatment plan will be outlined depending on the systemic workup as well as MRI scan of the brain. MD LEONARD Garcia/NATIVIDAD /2:33 PM /3:44 PM
[2017-07-17 17:30] LABS: INTERNATIONAL NORMALIZED RATIO 1.2 RATIO; PROTHROMBIN TIME - PATIENT 11.9 SEC (9.8-11.6)
[2017-07-17] MEDS: levETIRAcetam 500 MG TAB PO SCH (20:57)
[2017-07-18] VITALS: BP 105/60; PULSE 92; RESP 18; TEMP 97.2; O2SAT 95
[2017-07-18] MEDS: CEFEPIME INJ 2,000 MG in SODIUM CHLORIDE 0.9% INJ 100 ML IV SCH ×2 (00:30→12:02)
[2017-07-18] MEDS: DEXAMETHASONE SOD PHOS 4 MG/ML VIAL IV PUSH SCH ×4 (00:30→17:42)
[2017-07-18 04:00] VITALS: BP 118/71; PULSE 95; RESP 18; TEMP 97.5; O2SAT 97
[2017-07-18] MEDS: CHLORHEXIDINE GLUCONATE 2 % 1 PACK (2 CLOTHS) TOP SCH (04:00)
[2017-07-18] MEDS: VANCOMYCIN INJ 1,400 MG in SODIUM CHLORID 0.9% 500 ML INJ 500 ML IV SCH ×2 (05:30→18:00)
[2017-07-18] MEDS: HEPARIN SODIUM - SQ 10,000 UNITS/ML VIAL SQ SCH ×3 (05:31→20:40)
[2017-07-18] MEDS: SODIUM CHLOR 0.9% 1000 ML INJ 1,000 ML IV SCH ×2 (06:08→11:56)
[2017-07-18] MEDS: DOCUSATE SODIUM 50 MG/SENNA 8.6 MG TAB PO SCH ×2 (07:09→20:38)
[2017-07-18] MEDS: SODIUM CHLORIDE 0.9% FLUSH 10 ML FLUSH IV FLUSH SCH ×2 (07:09→20:37)
[2017-07-18 07:15] LABS: RETIC # 131.4 MIL/L (20.0-150.0); RETIC % 4.4 % (0.4-3.0)
[2017-07-18] MEDS: levETIRAcetam 500 MG TAB PO SCH ×2 (07:18→20:38)
[2017-07-18] MEDS: FAMOTIDINE 20 MG/2 ML VIAL IV PUSH SCH ×2 (07:18→20:38)
--- NOTE | 2017-07-18 07:35 | MB ---
cc: JANET BOYKIN DATE OF CONSULTATION 07/17/2017 DATE OF 1965 REASON FOR CONSULTATION Patient with brain mass and lung mass. HISTORY OF PRESENT ILLNESS This is a 51-year-old homeless male who has not had medical care for quite some time. He has a history of tobacco abuse of approximately one pack per years for greater than 30 years. He now presents to the emergency department with right-sided weakness, confusion and difficulty with his gait. In the emergency department, he had CT imaging of the head which revealed a 2.5 cm left posterior frontotemporal mass with surrounding lymphogenic edema. He had a CT angiogram as well off the chest which showed a collapse of the left upper lobe with an endotracheal mass obstructing the bronchus. Pulmonary embolism was not seen. The patient was admitted to the hospital and he has been started on steroids. The patient has had an evaluation by neurosurgery. Currently he is awake and alert. He denies any pain. He denies any dyspnea. He has not had any hemoptysis. He has not had any cough. REVIEW OF SYSTEMS A comprehensive review of systems was completed which is negative except as described in the HPI. PAST MEDICAL HISTORY None. He has not had seen a physician for quite some time. PAST SURGICAL HISTORY None MEDICATIONS Inpatient medications include: 1. Keppra 500 mg p.o. q.12 h. 2. Vancomycin q.12 h 3. Cefepime 4. Dexamethasone 4 mg q.6 h. 5. Pepcid 20 mg IV q.12 h 6. Senna Docusate 1 tablet p.o. b.i.d. 7. Dilaudid 1 mg IV q.4 h. 8. Tylenol 650 p.o. q.6 h. 9. Zofran 4 mg IV q.6 h 10. Restoril 15 mg p.o. q.h.s. 11. DuoNebs 1 ampule 2 hours as needed 12. Milk of magnesia 30 cc p.o. q.12 h 13. Senna 17.2 mg p.o. q. 12 hours. 14. Bisacodyl 10 mg p.r.n. 15. Lactulose p.r.n. ALLERGIES NO KNOWN DRUG ALLERGIES. FAMILY HISTORY Reviewed and is noncontributory. SOCIAL HISTORY He smokes one-pack of cigarettes per day. Occasional alcohol use. No illicit drug use. He is homeless. PHYSICAL EXAMINATION VITAL SIGNS: Blood pressure is 120/71, pulse is in the 100's, temperature is 97.5, O2 sats are 99% on room air. GENERAL: Well-developed, well-nourished male in no apparent distress. HEENT: Pupils are equal, round, react to light. EOMI. No oral thrush. No oral lesions. NECK: Supple. No JVD, no bruits or lymphadenopathy. CHEST: Clear is clear to auscultation bilaterally. CARDIAC: S1-S2 regular rate and rhythm. ABDOMEN: Soft, nontender, nondistended. Bowel sounds are present. EXTREMITIES: Right lower extremity strength 4/5, left lower extremity strength 5/5, upper extremities are both 5/5 in strength. No loss of proprioception. LYMPH NODE EXAM: No lymphadenopathy noted on exam. IMAGING STUDIES Brain MRI was reviewed. There is a prominent area of vasogenic edema involving the left posterior parietal lobe. There is a ring-enhancing lesion occupying the left posterior parietal lobe measuring 3.4 x 2.5 x 2.6 cm. There is mild mass effect and midline shift to the right approximately [address] angiogram was also reviewed. There is no evidence of pulmonary embolism. There is collapse of the entire left upper lung. Endobronchial lesion is in the left upper lobe. There is no mediastinal adenopathy. ASSESSMENT/PLAN This is a 51-year-old male with a history of tobacco abuse and no other past medical history. He is homeless. He came to the emergency room with right lower extremity weakness and difficulty with his gait. 1. Intracranial mass which is 3.4 x 2.5 x 2.6 cm. There is vasogenic edema in the left posterior parietal lobe. There is a small amount of midline shift approximately 5 mm. The patient also has a bronchiogenic mass involving the left upper lobe. Given his past smoking history, this is highly suspicious for metastatic bronchogenic carcinoma. He has a solitary lesion in the brain. I had a long discussion with him. I explained to him that he likely has metastatic carcinoma. I believe that the best approach to treating his brain lesion would be consideration for resection. I will defer this to Dr. Perez. Continue antiseizure medications and steroids. I would hold off on biopsying the lung lesion if he is considered for craniotomy and resection of the mass which we will be able to obtain a diagnosis. He will also require radiation treatment postoperatively. I did discuss with him the fact that this appears to be stage IV disease which is not curative. He want to pursue aggressive therapy. I explained to him that stage IV lung carcinoma is treated with systemic chemotherapy. I will have further conversation with the patient once we have established a diagnosis. Continued supportive care. Further evaluation per neurosurgery. 2. Tobacco abuse counseling was done 3. Severe microcytic anemia, hemoglobin is 7.5 and MCV 79. We will obtain anemia studies. He is likely iron deficient. Also obtain a stool hemoccult. There is no evidence of hemolysis. His total bilirubin is 0.2. We will check LDH and haptoglobin. 4. Thrombocythemia. This is likely reactive from anemia as well as underlying malignancy. 5. Leukocytosis with a white blood cell count of 25, reactive versus underlying infection. I agree with IV antibiotics. Thank you for allowing me to participate in the care of this patient. I will continue to follow this patient along. MD ANABEL Garcia/RONNY /11:52 PM /7:18 AM
[2017-07-18 07:44] LABS: % SATURATION IRON PROFILE 11.5 % (20-50); IRON (FE) 27 MCG/DL (65-175); TOTAL IRON BINDING CAPACITY 235 MCG/DL (250-450)
[2017-07-18 08:00] VITALS: BP 114/69; PULSE 84; RESP 18; TEMP 98.4; O2SAT 98
[2017-07-18] MEDS ORDERED: DIATRIZOATE MEGLUM/DIATRIZOATE SOD 9 ML CUP PO ONE (08:51)
[2017-07-18 10:23] LABS: HEPATITIS B CORE AB IGM NEGATIVE (NEGATIVE)
--- NOTE | 2017-07-18 11:07 | HHI.PR ---
Subjective Remarks f/u for AMS due to mass patient is AAO X2. Patient stated he is doing better. weakness has improved. his niece and sister at the bedside during the interview. denied any changes in sensation but his sister said he still has abnormal sensation. denied any N/V, emesis, new focal neurological deficits, or visual changes. no other events. Objective Vitals Vital Signs Date Time Temp Pulse Resp B/P (MAP) Pulse Ox O2 Delivery O2 Flow Rate FiO2 07/18/17 08:00 98.4 84 18 114/69 (84) 98 07/18/17 04:00 97.5 95 18 118/71 (87) 97 07/18/17 00:00 97.2 92 18 105/60 (75) 95 07/17/17 20:00 97.2 101 18 109/59 (76) 97 07/17/17 19:10 Room Air 07/17/17 17:30 97.5 104 18 120/71 (87) 99 07/17/17 16:00 101 07/17/17 16:00 98.3 89 22 134/68 (90) 96 07/17/17 12:00 98.5 84 26 84/32 (49) 99 07/17/17 12:00 109 I/O 07/17/17 07/17/17 07/17/17 07/18/17 07/18/17 07/18/17 07:00 15:00 23:00 07:00 15:00 23:00 Intake Total 240 ml 600 ml 500 ml Output Total 500 ml Balance 240 ml 100 ml 500 ml Intake Oral 240 ml 600 ml IV Total 500 ml Output Urine Total 500 ml # Voids 2 # Bowel Movements 0 Result Diagram: 07/17/17 0405 07/17/17 0405 Objective Remarks GENERAL: in NAD CARDIOVASCULAR: Regular rate and rhythm without murmurs, gallops, or rubs. RESPIRATORY: Breath sounds equal bilaterally. No accessory muscle use. GASTROINTESTINAL: Abdomen soft, non-tender, nondistended. MUSCULOSKELETAL: NEURO: AAO x2. did not know date. patient grossly moves all extremity. Medications and IVs Current Medications Sodium Chloride (NS Flush) 2 ml UNSCH PRN IV FLUSH FLUSH AFTER USING IV ACCESS Last administered on 07/16/17at 18:26; Start 07/16/17 at 16:00; Stop 07/17/17 at 13:30; Status DC Vancomycin HCl 1000 mg/Sodium Chloride 250 ml @ 250 mls/hr ONCE ONCE IV Last administered on 07/16/17at 18:26; Start 07/16/17 at 17:30; Stop 07/16/17 at 18:29 ; Status DC Piperacillin Sod/ Tazobactam Sod 100 ml @ 200 mls/hr ONCE ONCE IV Last administered on 07/16/17at 18:10; Start 07/16/17 at 17:30; Stop 07/16/17 at 17:59 ; Status DC Dexamethasone Sodium Phosphate (Decadron Inj) 10 mg ONCE ONCE IV PUSH Last administered on 07/16/17at 18:25; Start 07/16/17 at 18:15; Stop 07/16/17 at 18:16 ; Status DC Sodium Chloride 1,000 ml @ 84 mls/hr [id number] IV Last administered on at 08:36; Start 07/16/17 at 18:48 Sodium Chloride (NS Flush) 2 ml UNSCH PRN IV FLUSH FLUSH AFTER USING IV ACCESS ; Start 07/16/17 at 19:00 Sodium Chloride (NS Flush) 2 ml BID IV FLUSH Last administered on 07/17/17at 20: 57; Start 07/16/17 at 21:00 Acetaminophen (Tylenol) 650 mg Q6H PRN PO PAIN 1-5 AND/OR FEVER >101F; Start at 19:00 Hydromorphone HCl (Dilaudid Pf Inj) 1 mg Q4H PRN IV PAIN 6-10; Start 07/16/17 at 19:15 Famotidine (Pepcid Inj) 20 mg Q12HR IV PUSH Last administered on 07/18/17at 07: 18; Start 07/16/17 at 21:00 Ondansetron HCl (Zofran Inj) 4 mg Q6H PRN IV PUSH NAUSEA OR VOMITING; Start at 19:00 Temazepam (Restoril) 15 mg HS PRN PO INSOMNIA; Start 07/16/17 at 19:00 Albuterol/ Ipratropium (Duoneb Neb) 1 ampule Q2HR NEB PRN INH WHEEZING; Start 07/16/17 at 19:00 Heparin Sodium (Porcine) (Heparin Inj) 5,000 units Q8H SQ Last administered on 07/18/17at 05:31; Start 07/16/17 at 22:00 Miscellaneous Information 1 [id number] Last administered on 07/16/17at 22:59; Start 07/16/17 at 19:00 Chlorhexidine Gluconate (Chlorhexidine 2% Cloth) 3 pack Taper DAILY@04 TOP ; Start 07/17/17 at 04:00; Stop 07/13/18 at 03:59 Chlorhexidine Gluconate (Chlorhexidine 2% Cloth) 3 pack UNSCH PRN TOP HYGIENIC CARE; Start 07/16/17 at 19:00 Senna/Docusate Sodium (Karlie-Colace) 1 tab BID PO Last administered on at 20:58; Start 07/16/17 at 21:00 Magnesium Hydroxide (Milk Of Magnesia Liq) 30 ml Q12H PRN PO Mild constipation ; Start 07/16/17 at 19:00 Sennosides (Senokot) 17.2 mg Q12H PRN PO Moderate constipation; Start 07/16/17 at 19:00 Bisacodyl (Dulcolax Supp) 10 mg DAILY PRN RECTAL SEVERE CONSITIPATION; Start at 19:00 Lactulose (Lactulose Liq) 30 ml DAILY PRN PO SEVERE CONSITIPATION; Start at 19:00 Dexamethasone Sodium Phosphate (Decadron Inj) 4 mg Q6HR IV PUSH Last administered on 07/18/17at 05:31; Start 07/17/17 at 00:00 Pharmacy Profile Note 0 ml @ 0 mls/hr UNSCH OTHER ; Start 07/17/17 at 13:15 Cefepime HCl 2000 mg/Sodium Chloride 100 ml @ 200 mls/hr Q12H IV Last administered on 07/18/17at 00:30; Start 07/17/17 at 13:30 Vancomycin HCl 1250 mg/Sodium Chloride 262.5 ml @ 250 mls/hr Q12H IV ; Start at 14:00; Status Cancel Vancomycin HCl 1400 mg/Sodium Chloride 514 ml @ 250 mls/hr Q12H IV Last administered on 07/18/17at 05:30; Start 07/17/17 at 15:00 Miscellaneous Information SPECIFIC LAB TO BE ... ONCE ONCE .XX ; Start 07/19 at 02:45; Stop 07/19/17 at 02:46 Gadodiamide (Omniscan Pf Inj) 15 ml STK-MED ONCE IVCONTRAST Last administered on 07/17/17at 14:46; Start 07/17/17 at 14:46; Stop 07/17/17 at 14:47; Status DC Levetriacetam (Keppra) 500 mg Q12HR PO Last administered on 07/18/17at 07:18; Start 07/17/17 at 21:00 Diatrizoate Meglum/ Diatrizoate Sod ( Gastrojamila Liq) 18 ml ONCE ONCE PO Last administered on 07/18/17at 10:05; Start 07/18/17 at 08:51; Stop 07/18/17 at 09:31; Status DC A/P Assessment and Plan Altered mental status with hemiplegia due to brain mass -improving. on decadron. MRI of brain ordered and reviewed. Neurosurgeon on board and ff. -per NS not a candidate for surgery and radiation oncologist consulted. - Continue Decadron 4 mg every 6 hours - pending palliative care consult. Lung mass, most likely mets - pulm and oncologist consulted. -patient consulted for bronch today. Tobacco use disorder - DuoNeb scheduled and when necessary DVT GI prophylaxis - Teds SCDs - Subcutaneous heparin - Pepcid extensive discussion with patient's sister Dana Umanzor who stated she signed papers for healthy care proxy if he cannot make the medical decision. Saray Noble MD Jul 18, 2017 11:07
[2017-07-18 12:00] VITALS: BP 114/62; PULSE 82; RESP 18; TEMP 98.7; O2SAT 96
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
--- NOTE | 2017-07-18 14:54 | HHI.NSPN ---
(Amari He) History Chief Complaint: Weakness RUE more than RLE. Brain mass. (Amari He) Interval History This is a 51-year-old -Chinese gentleman who presented to the emergency room last night with complaints of right-sided weakness along with confusion. He relates that the symptoms started about ten days ago, although worse over the last three days. CT of the head obtained reveals a 2.5 cm left posterior frontoparietal lobe mass with surrounding vasogenic edema. A CT angiography of the chest reveals a collapse of the left upper lobe with an endotracheal mass likely obstructing the bronchus, although no pulmonary embolus was seen. He also appears to have some emphysematous changes. He has been admitted to the intensive care unit and started on Decadron and neurosurgery consultation requested. 07/18/17: Pt awake and alert. Denies any headaches or paresthesias. No n/v. Strength in RUE improving. (Amari He) Review of Systems General: Negative for: fever, chills, insomnia Respiratory: Negative for: cough, sputum Cardiovascular: Negative for: chest pain Gastrointestinal: Negative for: nausea, vomitting, diarrhea, constipation ( Amari He) Exam Results Vital Signs Date Time Temp Pulse Resp B/P (MAP) Pulse Ox O2 Delivery O2 Flow Rate FiO2 07/18/17 12:00 98.7 82 18 114/62 (79) 96 07/17/17 19:10 Room Air 07/17/17 07:00 21 Intake and Output 07/18/17 07/18/17 07/19/17 08:00 16:00 00:00 Intake Total 600 ml Balance 600 ml (Amari He) Physical Examination General: Pt resting comfortably in bed in NAD. Eyes: Pupils 3mm bilaterally reactive bilaterally. Resp: CTA bilaterally. Heart: NSR no murmurs Abd: Soft positive bs Skin: No cyanosis or erythema Muscle: Weakness in RUE more than RLE. Neuro: Pt awake and alert. Pupils 3mm bilaterally reactive bilaterally. Follows commands well. Answers questions appropriately. (Amari He) Lab, Micro, Other Results Last Impressions Brain MRI 07/17/17 0000 Signed Impressions: Service Date/Time: Monday, July 17, 2017 14:35 - CONCLUSION: 1. There is a irregular ring-enhancing lesion measuring approximately 3.4 cm in the left posterior parietal lobe surrounded by prominent vasogenic edema characteristic for neoplastic disease. Primary versus metastatic disease are considerations. 2. Mild mass effect and midline shift to the right by approximately 5 mm. Reginaldo Shahid MD Head CT 07/16/17 1600 Signed Impressions: Service Date/Time: Sunday, July 16, 2017 17:42 - CONCLUSION: There is an apparent mass in the left frontoparietal high convexity white matter measuring approximately 2.5 cm. There is marked surrounding vasogenic edema causing mild local mass effect and approximately 4 mm of left to right midline shift. Given the chest x-ray findings, this is highly suspicious for a metastatic lesion. Oleg Green MD Chest X-Ray 07/16/17 1600 Signed Impressions: Service Date/Time: Sunday, July 16, 2017 16:10 - CONCLUSION: Complete opacification of the left upper lung zone with mild left lung volume loss. Findings are suspicious for an obstructing mass or potentially severe consolidation. Suggest chest CT with IV contrast for further characterization. Oleg Green MD CT Angiography 07/16/17 0000 Signed Impressions: Service Date/Time: Sunday, July 16, 2017 17:45 - CONCLUSION: 1. No evidence of pulmonary embolism. 2. Complete collapse and airlessness of the entire left upper lung. An endobronchial lesion in the left upper lobe bronchus causing obstruction is the primary consideration. Recommend bronchoscopy for further evaluation. 3. The right lung and left lower lung are grossly clear. There is some central lobar emphysema. Reginaldo Shahid MD Laboratory Tests Test 07/17/17 16:46 07/18/17 06:47 Prothrombin Time 11.9 SEC Prothromb Time International Ratio 1.2 RATIO HIV (1&2) Antibody NEGATIVE Reticulocyte Count 4.4 % Absolute Reticulocyte Count 131.4 MIL/L Haptoglobin 381 MG/DL Iron Level 27 MCG/DL Total Iron Binding Capacity 235 MCG/DL Percent Iron Saturation 11.5 % Transferrin 168 MG/DL Lactate Dehydrogenase 125 U/L Hepatitis B Surface Antigen NEGATIVE Hepatitis B Core IgM Antibody NEGATIVE Hepatitis C Antibody NEGATIVE 07/18/17 07/18/17 07/19/17 15:00 23:00 07:00 Intake Total 600 ml Balance 600 ml IV Total 600 ml (Amari He) Medical Decision Making Impression and Plan A: 51 y/o M with left posterior frontoparietal lobe mass with surrounding vasogenic edema. This is very concerning for a metastatic lesion especially given the possibility of a left lung mass along with obstructive pneumonia and collapsed lung. The possibilities include an abscess with primary brain mass also needs to be entertained. 2. Left upper lobe collapse with obstruction and COPD. The patient is a chronic smoker, which increases his risk for lung cancer. PLAN: 1. He will be continued on Decadron for the vasogenic edema along with gastrointestinal stress ulcer prophylaxis and DVT prophylaxis. 2. Pt going for Bronchoscopy with biopsy of lung mass today. He is also going for a CT for further workup. 3. Physical therapy and occupational therapy consult to prevent further deconditioning and weakness. 4. Radiation oncology consult We would not recommend brain mass resection given that the mass is on the motor cortex and surgery would carry a risk of worsening weakness. Pt will have a bronchoscopy today with biopsy for pathology. Radiation oncology will be consulted and pts brain mass can be treated with possibly SRS radiation treatment. Plan was formulated with Dr. Perez. (Amari He) Attending Statement The exam, history, and the medical decision-making described in the above note were completed with the assistance of the mid-level provider. I reviewed and agree with the findings presented. I attest that I had a [id number] encounter with the patient on the same day, and personally performed and documented my assessment and findings in the medical record. The left posterior frontal parietal mass is the subcortical approaching of the ventricle involving the motor cortex in the dominant hemisphere. Surgical resection carries significant risks for speech and motor deficits. We'll consult radiation oncology to see if he is a candidate for radiosurgery or IMRT. Consider biopsying pulmonary or any systemic lesions for pathologic confirmation and obtain CT abdomen/pelvis for evaluation of metastatic disease. (Chaim Perez MD) Amari He Jul 18, 2017 14:54 Cahim Perez MD Jul 18, 2017 18:05
--- NOTE | 2017-07-18 15:55 | PD.ONC.PN ---
Objective Data Date Time Temp Pulse Resp B/P (MAP) Pulse Ox O2 Delivery O2 Flow Rate FiO2 07/18/17 12:00 98.7 82 18 114/62 (79) 96 07/18/17 08:00 98.4 84 18 114/69 (84) 98 07/18/17 04:00 97.5 95 18 118/71 (87) 97 07/18/17 00:00 97.2 92 18 105/60 (75) 95 07/17/17 20:00 97.2 101 18 109/59 (76) 97 07/17/17 19:10 Room Air 07/17/17 17:30 97.5 104 18 120/71 (87) 99 07/17/17 16:00 101 07/17/17 16:00 98.3 89 22 134/68 (90) 96 07/18/17 07/18/17 07/18/17 07:00 15:00 23:00 Intake Total 600 ml Balance 600 ml Result Diagram: 07/17/17 0405 07/17/17 0405 Laboratory Results Laboratory Tests Test 07/17/17 16:46 07/18/17 06:47 Prothrombin Time 11.9 SEC Prothromb Time International Ratio 1.2 RATIO HIV (1&2) Antibody NEGATIVE Reticulocyte Count 4.4 % Absolute Reticulocyte Count 131.4 MIL/L Haptoglobin 381 MG/DL Iron Level 27 MCG/DL Total Iron Binding Capacity 235 MCG/DL Percent Iron Saturation 11.5 % Transferrin 168 MG/DL Lactate Dehydrogenase 125 U/L Hepatitis B Surface Antigen NEGATIVE Hepatitis B Core IgM Antibody NEGATIVE Hepatitis C Antibody NEGATIVE Culture Results Microbiology Date/Time Source Procedure Growth Status 07/16/17 18:05 Blood Peripheral Aerobic Blood Culture - Preliminary NO GROWTH IN 2 DAYS Resulted 07/16/17 18:05 Blood Peripheral Anaerobic Blood Culture - Preliminary NO GROWTH IN 2 DAYS Resulted 07/16/17 18:00 Blood Peripheral Aerobic Blood Culture - Preliminary NO GROWTH IN 2 DAYS Resulted 07/16/17 18:00 Blood Peripheral Anaerobic Blood Culture - Preliminary NO GROWTH IN 2 DAYS Resulted Administered Medications Medications (Trade) Dose Ordered Sig/Dillan Route PRN Reason Start Time Stop Time Status Last Admin Dose Admin Sodium Chloride 1,000 ml @ 84 mls/hr [id number] IV 07/16/17 18:48 07/18/17 11:56 Sodium Chloride (NS Flush) 2 ml BID IV FLUSH 2/24/18 21:00 07/17/17 20:57 Famotidine (Pepcid Inj) 20 mg Q12HR IV PUSH 07/16/17 21:00 07/18/17 07:18 Heparin Sodium (Porcine) (Heparin Inj) 5,000 units Q8H SQ 07/16/17 22:00 07/18/17 05:31 Miscellaneous Information 1 Q361D XX 07/16/17 19:00 07/16/17 22:59 Senna/Docusate Sodium (Karlie-Colace) 1 tab BID PO 07/16/17 21:00 07/17/17 20:58 Dexamethasone Sodium Phosphate (Decadron Inj) 4 mg Q6HR IV PUSH 07/17/17 00:00 07/18/17 11:56 Cefepime HCl 2000 mg/Sodium Chloride 100 ml @ 200 mls/hr Q12H IV 07/17/17 13:30 07/18/17 12:02 Vancomycin HCl 1400 mg/Sodium Chloride 514 ml @ 250 mls/hr Q12H IV 07/17/17 15:00 07/18/17 05:30 Levetriacetam (Keppra) 500 mg Q12HR PO 07/17/17 21:00 07/18/17 07:18 Objective Remarks GENERAL: Well-nourished, well-developed patient. SKIN: Warm and dry. HEAD: Normocephalic. EYES: No scleral icterus. No injection or drainage. NECK: Supple, trachea midline. No JVD or lymphadenopathy. LYMPHATIC: No adenopathy. CARDIOVASCULAR: Regular rate and rhythm without murmurs. RESPIRATORY: Breath sounds equal bilaterally. No accessory muscle use. GASTROINTESTINAL: Abdomen soft, non-tender, nondistended. EXTREMITIES: No cyanosis, or edema. MUSCULOSKELETAL: Adequate muscle tone. NEUROLOGICAL: No obvious focal deficit. Awake, alert, and oriented x3. PSYCHIATRIC: Appropriate mood and affect; insight and judgment normal. Stephane Sexton MD Jul 18, 2017 15:55
--- NOTE | 2017-07-18 16:22 | HHI.PR ---
Subjective Remarks ALERT NO SOB Objective Vital Signs Date Time Temp Pulse Resp B/P (MAP) Pulse Ox O2 Delivery O2 Flow Rate FiO2 07/18/17 12:00 98.7 82 18 114/62 (79) 96 07/18/17 08:00 98.4 84 18 114/69 (84) 98 07/18/17 04:00 97.5 95 18 118/71 (87) 97 07/18/17 00:00 97.2 92 18 105/60 (75) 95 07/17/17 20:00 97.2 101 18 109/59 (76) 97 07/17/17 19:10 Room Air 07/17/17 17:30 97.5 104 18 120/71 (87) 99 I/O 07/17/17 07/17/17 07/17/17 07/18/17 07/18/17 07/18/17 07:00 15:00 23:00 07:00 15:00 23:00 Intake Total 240 ml 600 ml 600 ml Output Total 500 ml Balance 240 ml 100 ml 600 ml Intake Oral 240 ml 600 ml IV Total 600 ml Output Urine Total 500 ml # Voids 2 3 # Bowel Movements 0 2 Result Diagram: 07/17/1740407/17/17404 Objective Remarks GENERAL: SKIN: Warm and dry. HEAD: Atraumatic. Normocephalic. EYES: Pupils equal and round. No scleral icterus. No injection or drainage. ENT: No nasal bleeding or discharge. Mucous membranes pink and moist. NECK: Trachea midline. No JVD. CARDIOVASCULAR: Regular rate and rhythm. RESPIRATORY: No accessory muscle use. Clear to auscultation. Breath sounds equal bilaterally. GASTROINTESTINAL: Abdomen soft, non-tender, nondistended. Hepatic and splenic margins not palpable. MUSCULOSKELETAL: Extremities without clubbing, cyanosis, or edema. No obvious deformities. NEUROLOGICAL: Awake and alert. No obvious cranial nerve deficits. Motor grossly within normal limits. Five out of 5 muscle strength in the arms and legs. Normal speech. PSYCHIATRIC: Appropriate mood and affect; insight and judgment normal. Assessment and Plan Assessment and Plan Vital Signs Date Time Temp Pulse Resp B/P (MAP) Pulse Ox O2 Delivery O2 Flow Rate FiO2 07/18/17 12:00 98.7 82 18 114/62 (79) 96 07/18/17 08:00 98.4 84 18 114/69 (84) 98 07/18/17 04:00 97.5 95 18 118/71 (87) 97 07/18/17 00:00 97.2 92 18 105/60 (75) 95 07/17/17 20:00 97.2 101 18 109/59 (76) 97 07/17/17 19:10 Room Air 07/17/17 17:30 97.5 104 18 120/71 (87) 99 GENERAL: SKIN: Warm and dry. HEAD: Atraumatic. Normocephalic. EYES: Pupils equal and round. No scleral icterus. No injection or drainage. ENT: No nasal bleeding or discharge. Mucous membranes pink and moist. NECK: Trachea midline. No JVD. CARDIOVASCULAR: Regular rate and rhythm. RESPIRATORY: No accessory muscle use. Clear to auscultation. Breath sounds equal bilaterally. GASTROINTESTINAL: Abdomen soft, non-tender, nondistended. Hepatic and splenic margins not palpable. MUSCULOSKELETAL: Extremities without clubbing, cyanosis, or edema. No obvious deformities. NEUROLOGICAL: Awake and alert. No obvious cranial nerve deficits. Motor grossly within normal limits. Five out of 5 muscle strength in the arms and legs. Normal speech. PSYCHIATRIC: Appropriate mood and affect; insight and judgment normal. 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
[2017-07-18 16:35] VITALS: O2SAT 98
[2017-07-18] MEDS ORDERED: DO NOT ADM ANY ANTICOAGULANT DRUGS PRN (16:36)
[2017-07-18] MEDS ORDERED: MIDAZOLAM HCL 2 MG/2 ML VIAL ONE (16:44)
[2017-07-18] MEDS ORDERED: IRON SUCROSE INJ 200 MG in SODIUM CHLORIDE 0.9% INJ 100 ML IV SCH (17:00)
--- NOTE | 2017-07-18 17:27 | RADRPT ---
EXAM DATE/TIME: 07/18/2017 16:50 [facility] COMPARISON: CT PULMONARY ANGIOGRAM, July 16, 2017, 17:45. CHEST SINGLE AP, July 16, 2017, 16:10. INDICATIONS : Status post bronchoscopy. MEDICAL HISTORY : None. SURGICAL HISTORY : None. ENCOUNTER: Subsequent ACUITY: 3 days PAIN SCORE: Non-responsive. LOCATION: Bilateral chest FINDINGS: Portable upright AP view of the chest demonstrates a normal-sized cardiac silhouette. Endotracheal tu be distal tip measures 5.8 centimeters from the fernandez. There is persistent complete opacification of the left upper lobe with signs of volume loss. There is mild consolidation in the left lower lung zo ne. These findings are stable. Right lung is clear. No pneumothorax is visualized. Bones demonstrate no acute finding. CONCLUSION: Stable appearance of the chest with complete consolidation of the left upper lobe with volume loss. T here is no pneumothorax. Oleg Green MD on July 18, 2017 at 17:24 Board Certified Radiologist. This report was verified electronically.
--- NOTE | 2017-07-18 18:34 | MR ---
cc: Carol Medina MD DATE: 07/18/2017 PROCEDURE: Fiberoptic bronchoscopy, flexible. REASON FOR BRONCHOSCOPY: Left upper lung mass, underlying malignancy suspect. Fiberoptic bronchoscopy performed via LMA. Vocal cords intact. Trachea mildly hyperemic, fernandez sharp, thick mucoid secretions throughout the tracheobronchial tree noted. Right mainstem bronchus, right upper, middle and lower lobes, left main bronchus above the bifurcation of upper and lower lobes is near totally occluded by mass lesion originating from the left upper lung. The left lower lung appears patent from a distance. Did not attempt to pass the scope past the mass. Washings, brushings, biopsy of the mass lesion for cytology for both brush and wash and pathology for the biopsy, which was done x 2 with minimal bleeding. Procedure was terminated. Patient transferred to recovery in stable condition. IMPRESSION: 1. Mass, left main bronchus as above. 2. Samples obtained as above. 3. Procedure well tolerated. 4. Patient transferred to recovery in stable condition. Carol Medina MD WWW/MESFIN , 04:24 PM , 06:32 PM MTDD
[2017-07-18] MEDS: IRON SUCROSE INJ 200 MG in SODIUM CHLORIDE 0.9% INJ 100 ML IV SCH (20:37)
[2017-07-18] MEDS ORDERED: IOHEXOL 350 MG/ML 10 ML VIAL (for RAD DIAG) IVCONTRAST ONE (21:08)
[2017-07-18 21:27] VITALS: BP 124/74; PULSE 92; RESP 18; TEMP 97.2; O2SAT 95
--- NOTE | 2017-07-18 21:46 | RADRPT ---
EXAM DATE/TIME: 07/18/2017 20:57 [facility] COMPARISON: No previous studies available for comparison. INDICATIONS : Brain mass, evalaute for metastatic disease. IV CONTRAST: 90 cc Omnipaque 350 (iohexol) IV ORAL CONTRAST: Prescribed oral contrast ingested. RADIATION DOSE: 6.45 CTDIvol (mGy) ; Patient motion MEDICAL HISTORY : Brain mass. SURGICAL HISTORY : None. ENCOUNTER: Initial ACUITY: 1 day PAIN SCALE: 0/10 LOCATION: Abdomen. TECHNIQUE: Volumetric scanning of the abdomen and pelvis was performed. Using automated exposure control and ad justment of the mA and/or kV according to patient size, radiation dose was kept as low as reasonably achievable to obtain optimal diagnostic quality images. DICOM format image data is available electro nically for review and comparison. FINDINGS: Lung bases demonstrate atelectasis within the lingula. Mild emphysema. No acute findings in the liver, spleen, adrenals, kidneys or pancreas. Tiny nonobstructing bilateral renal calculi. No calcified gallstones. No free fluid. No bowel obstruction. No adenopathy. There is abnormal periosteal reaction along the proximal femoral and to lesser extent in the pelvis p robably representing hypertrophic pulmonary osteoarthropathy which is associated with bronchogenic ca rcinoma. CONCLUSION: 1. No acute findings within the abdomen and pelvis. 2. 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 3. Tiny nonobstructing bilateral renal calculi. Jaquan Norton MD on July 18, 2017 at 21:41 Board Certified Radiologist. This report was verified electronically.
[2017-07-19 01:00] VITALS: BP 100/55; PULSE 92; RESP 18; TEMP 97.3; O2SAT 96
[2017-07-19] MEDS: DEXAMETHASONE SOD PHOS 4 MG/ML VIAL IV PUSH SCH ×4 (01:03→17:59)
[2017-07-19] MEDS: CEFEPIME INJ 2,000 MG in SODIUM CHLORIDE 0.9% INJ 100 ML IV SCH ×2 (01:04→13:16)
[2017-07-19] MEDS ORDERED: PHARMACY ORDERED LAB ONE (02:45)
[2017-07-19] MEDS: VANCOMYCIN INJ 1,400 MG in SODIUM CHLORID 0.9% 500 ML INJ 500 ML IV SCH (03:10)
[2017-07-19] MEDS: CHLORHEXIDINE GLUCONATE 2 % 1 PACK (2 CLOTHS) TOP SCH (04:00)
[2017-07-19 05:41] VITALS: BP 119/67; PULSE 86; RESP 18; TEMP 98.3; O2SAT 96
[2017-07-19] MEDS: SODIUM CHLOR 0.9% 1000 ML INJ 1,000 ML IV SCH ×2 (06:23→18:00)
[2017-07-19] MEDS: HEPARIN SODIUM - SQ 10,000 UNITS/ML VIAL SQ SCH ×3 (06:31→20:50)
[2017-07-19 07:29] LABS: CREATININE 0.65 MG/DL (0.60-1.30)
[2017-07-19 07:59] VITALS: BP 122/78; PULSE 80; RESP 19; TEMP 98; O2SAT 96
[2017-07-19] MEDS: SODIUM CHLORIDE 0.9% FLUSH 10 ML FLUSH IV FLUSH SCH ×2 (09:00→20:49)
[2017-07-19] MEDS: levETIRAcetam 500 MG TAB PO SCH ×2 (10:24→20:49)
[2017-07-19] MEDS: FAMOTIDINE 20 MG/2 ML VIAL IV PUSH SCH ×2 (10:24→20:50)
[2017-07-19] MEDS: DOCUSATE SODIUM 50 MG/SENNA 8.6 MG TAB PO SCH ×2 (10:24→20:50)
--- NOTE | 2017-07-19 11:07 | HHI.PR ---
Subjective Remarks f/u for brain mass patient feels like he is getting stronger. no complaints. Denied any GOLDSMITH, visual changes, N/V or new focal neurological deficits. Objective Vitals Vital Signs Date Time Temp Pulse Resp B/P (MAP) Pulse Ox O2 Delivery O2 Flow Rate FiO2 07/19/17 07:59 98.0 80 19 122/78 (93) 96 07/19/17 05:41 98.3 86 18 119/67 (84) 96 07/19/17 01:00 97.3 92 18 100/55 (70) 96 07/18/17 21:27 97.2 92 18 124/74 (91) 95 07/18/17 17:45 97.8 93 18 120/73 (89) 99 Nasal Cannula 3 07/18/17 17:30 91 18 108/71 (83) 99 Nasal Cannula 3 07/18/17 17:15 93 17 110/73 (85) 99 Nasal Cannula 3 07/18/17 17:00 92 17 101/60 (74) 99 Nasal Cannula 3 07/18/17 16:45 92 14 101/60 (74) 99 Mechanical Ventilator 40 07/18/17 16:35 98 50 07/18/17 16:31 97.7 91 14 105/63 (77) 99 Mechanical Ventilator 50 07/18/17 12:00 98.7 82 18 114/62 (79) 96 I/O 07/18/17 07/18/17 07/18/17 07/19/17 07/19/17 07/19/17 07:00 15:00 23:00 07:00 15:00 23:00 Intake Total 600 ml 110 ml 1220 ml Output Total 500 ml Balance 600 ml 110 ml 720 ml IV Total 600 ml 110 ml 1220 ml Output Urine Total 500 ml # Voids 3 1 # Bowel Movements 2 1 Result Diagram: 07/17/17 0405 07/19/17 0250 Objective Remarks GENERAL: in NAD CARDIOVASCULAR: Regular rate and rhythm without murmurs, gallops, or rubs. RESPIRATORY: Breath sounds equal bilaterally. No accessory muscle use. GASTROINTESTINAL: Abdomen soft, non-tender, nondistended. MUSCULOSKELETAL: NEURO: AAO x2. did not know date. patient grossly moves all extremity. Medications and IVs Current Medications Sodium Chloride (NS Flush) 2 ml UNSCH PRN IV FLUSH FLUSH AFTER USING IV ACCESS Last administered on 07/16/17at 18:26; Start 07/16/17 at 16:00; Stop 07/17/17 at 13:30; Status DC Vancomycin HCl 1000 mg/Sodium Chloride 250 ml @ 250 mls/hr ONCE ONCE IV Last administered on 07/16/17at 18:26; Start 07/16/17 at 17:30; Stop 07/16/17 at 18:29 ; Status DC Piperacillin Sod/ Tazobactam Sod 100 ml @ 200 mls/hr ONCE ONCE IV Last administered on 07/16/17at 18:10; Start 07/16/17 at 17:30; Stop 07/16/17 at 17:59 ; Status DC Dexamethasone Sodium Phosphate (Decadron Inj) 10 mg ONCE ONCE IV PUSH Last administered on 07/16/17at 18:25; Start 07/16/17 at 18:15; Stop 07/16/17 at 18:16 ; Status DC Sodium Chloride 1,000 ml @ 84 mls/hr [id number] IV Last administered on at 11:56; Start 07/16/17 at 18:48 Sodium Chloride (NS Flush) 2 ml UNSCH PRN IV FLUSH FLUSH AFTER USING IV ACCESS ; Start 07/16/17 at 19:00 Sodium Chloride (NS Flush) 2 ml BID IV FLUSH Last administered on 07/19/17at 09: 00; Start 07/16/17 at 21:00 Acetaminophen (Tylenol) 650 mg Q6H PRN PO PAIN 1-5 AND/OR FEVER >101F; Start at 19:00 Hydromorphone HCl (Dilaudid Pf Inj) 1 mg Q4H PRN IV PAIN 6-10; Start 07/16/17 at 19:15 Famotidine (Pepcid Inj) 20 mg Q12HR IV PUSH Last administered on 07/19/17at 10: 24; Start 07/16/17 at 21:00 Ondansetron HCl (Zofran Inj) 4 mg Q6H PRN IV PUSH NAUSEA OR VOMITING; Start at 19:00 Temazepam (Restoril) 15 mg HS PRN PO INSOMNIA; Start 07/16/17 at 19:00 Albuterol/ Ipratropium (Duoneb Neb) 1 ampule Q2HR NEB PRN INH WHEEZING Last administered on 07/18/17at 16:49; Start 07/16/17 at 19:00 Heparin Sodium (Porcine) (Heparin Inj) 5,000 units Q8H SQ Last administered on 07/19/17at 06:31; Start 07/16/17 at 22:00 Miscellaneous Information 1 Q361D XX Last administered on 07/16/17at 22:59; Start 07/16/17 at 19:00 Chlorhexidine Gluconate (Chlorhexidine 2% Cloth) 3 pack Taper DAILY@04 TOP ; Start 07/17/17 at 04:00; Stop 07/13/18 at 03:59 Chlorhexidine Gluconate (Chlorhexidine 2% Cloth) 3 pack UNSCH PRN TOP HYGIENIC CARE; Start 07/16/17 at 19:00 Senna/Docusate Sodium (Karlie-Colace) 1 tab BID PO Last administered on at 10:24; Start 07/16/17 at 21:00 Magnesium Hydroxide (Milk Of Magnesia Liq) 30 ml Q12H PRN PO Mild constipation ; Start 07/16/17 at 19:00 Sennosides (Senokot) 17.2 mg Q12H PRN PO Moderate constipation; Start 07/16/17 at 19:00 Bisacodyl (Dulcolax Supp) 10 mg DAILY PRN RECTAL SEVERE CONSITIPATION; Start at 19:00 Lactulose (Lactulose Liq) 30 ml DAILY PRN PO SEVERE CONSITIPATION; Start at 19:00 Dexamethasone Sodium Phosphate (Decadron Inj) 4 mg Q6HR IV PUSH Last administered on 07/19/17at 06:31; Start 07/17/17 at 00:00 Pharmacy Profile Note 0 ml @ 0 mls/hr UNSCH OTHER ; Start 07/17/17 at 13:15 Cefepime HCl 2000 mg/Sodium Chloride 100 ml @ 200 mls/hr Q12H IV Last administered on 07/19/17at 01:04; Start 07/17/17 at 13:30 Vancomycin HCl 1250 mg/Sodium Chloride 262.5 ml @ 250 mls/hr Q12H IV ; Start at 14:00; Status Cancel Vancomycin HCl 1400 mg/Sodium Chloride 514 ml @ 250 mls/hr Q12H IV Last administered on 07/19/17at 03:10; Start 07/17/17 at 15:00; Stop 07/19/17 at 09:09 ; Status DC Miscellaneous Information SPECIFIC LAB TO BE CITLALI... ONCE ONCE .XX Last administered on 07/19/17at 03:10; Start 07/19/17 at 02:45; Stop 07/19/17 at 02:46 ; Status DC Gadodiamide (Omniscan Pf Inj) 15 ml STK-MED ONCE IVCONTRAST Last administered on 07/17/17at 14:46; Start 07/17/17 at 14:46; Stop 07/17/17 at 14:47; Status DC Levetriacetam (Keppra) 500 mg Q12HR PO Last administered on 07/19/17at 10:24; Start 07/17/17 at 21:00 Diatrizoate Meglum/ Diatrizoate Sod ( Gastroview Liq) 18 ml ONCE ONCE PO Last administered on 07/18/17at 10:05; Start 07/18/17 at 08:51; Stop 07/18/17 at 09:31; Status DC Iron Sucrose 200 mg/Sodium Chloride 110 ml @ 110 mls/hr DAILY IV ; Start at 17:00; Stop 07/18/17 at 18:08; Status DC Midazolam HCl (Versed Inj) 2 mg STK-MED ONCE .ROUTE ; Start 07/18/17 at 16:44; Stop 07/18/17 at 16:45; Status DC Fentanyl Citrate (fentaNYL INJ) 100 mcg STK-MED ONCE .ROUTE ; Start 07/18/17 at 16:44; Stop 07/18/17 at 16:45; Status DC Miscellaneous Information ALL NURSING DEPARTME... UNSCH PRN .XX SEE LABEL COMMENTS; Start 07/18/17 at 16:36; Stop 07/19/17 at 16:35 Iron Sucrose 200 mg/Sodium Chloride 110 ml @ 110 mls/hr HS IV Last administered on 07/18/17at 20:37; Start 07/18/17 at 21:00; Stop 07/20/17 at 21:59 Iohexol (Omnipaque 350 Inj) 90 ml STK-MED ONCE IVCONTRAST ; Start 07/18/17 at 21 :08; Stop 07/18/17 at 21:09; Status DC Vancomycin HCl 1250 mg/Sodium Chloride 262.5 ml @ 250 mls/hr Q12H IV ; Start at 15:00 Miscellaneous Information SPECIFIC LAB TO BE DRAWN:VANCO TROUGH DATE... ONCE ONCE .XX ; Start 07/21/17 at 02:45; Stop 07/21/17 at 02:46 A/P Assessment and Plan Altered mental status with hemiplegia due to brain mass -improving. on decadron. MRI of brain ordered and reviewed. Neurosurgeon on board and ff. -per NS not a candidate for surgery and radiation oncologist consulted. - Continue Decadron 4 mg every 6 hours - palliative care ff. Lung mass, most likely mets - pulm and oncologist consulted. -s/p bronchoscopy on 07/18. Tobacco use disorder - DuoNeb scheduled and when necessary DVT GI prophylaxis - Teds SCDs - Subcutaneous heparin - Pepcid Discharge Planning in the event patient can no longer make decision his sister Dana Umanzor is the health care proxy Saray Noble MD Jul 19, 2017 11:07
--- NOTE | 2017-07-19 11:23 | HHI.HCPN ---
Reason for visit a. To assist with evaluation and management of symptoms including:Confusion , pain, debility b. To assist medical decision maker(s) with: better understanding of current medical conditions; weighing benefits/burdens of medical treatment options; making medical treatment decisions. Subjective/Interval History Patient seen and examined in his room on 5 N. Patient is awake, alert and oriented to self, place, situation but was unable to name the president, situation with some confusion. Patient was able to answer most questions appropriately like knowing that the javier is blue. Patient is able to follow commands with all 4 extremities, he has noticeable weakness to the right upper extremity and right lower extremity. Speech is clear. Patient denies pain or headache. Vital signs are stable and currently he is on room air saturating 96% , no signs of dyspnea noted. Patient underwent bronchoscopy and lung biopsy on 07/19/2017 without complications. Pathology pending. 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 Addressed code status, discussed CPR limitations and benefits. Patient elected to be a full code at this time. Patient said, "i would not like to be kept alive if i am suffering. My sister knows me well and she will know to do what is best for me". Encouraged patient to continue having conversations with his sister regarding what his wishes are regarding end of life. Patient confirmed that he has never completed advance directives. At this time patient is interested in completing the Health care surrogate (HCS) form. Patient designated his sister Dana Umanzor as his HCS and his nierce Tammy Umanzor as his alternate HCS. Patient`s sister thought that patient had signed HCS form before but the only form signed were consents for procedure. Assisted patient with completing HCS form and he signed. At this time, patient is hopeful that he can go through treatment that he will be offered.Telephone conversation with patient`s sister updating her on patient`s status. Family/friend interactions Family at bedside . Advance Directives Living Will: Never completed Health Care Surrogate: Copy in medical record Durable Power of Machine Tack Puller: Never completed Advance Directive Specifics Date completed: 07/19/2017 . Health Care Surrogate(s): Sister-healthcare surrogate-Dana Umanzor-[phone] /[phone] Critical access hospital surrogate-Dana Umanzor [phone] . Objective Vital Signs Date Time Temp Pulse Resp B/P (MAP) Pulse Ox O2 Delivery O2 Flow Rate FiO2 07/19/17 07:59 98.0 80 19 122/78 (93) 96 07/19/17 05:41 98.3 86 18 119/67 (84) 96 07/19/17 01:00 97.3 92 18 100/55 (70) 96 07/18/17 21:27 97.2 92 18 124/74 (91) 95 07/18/17 17:45 97.8 93 18 120/73 (89) 99 Nasal Cannula 3 07/18/17 17:30 91 18 108/71 (83) 99 Nasal Cannula 3 07/18/17 17:15 93 17 110/73 (85) 99 Nasal Cannula 3 07/18/17 17:00 92 17 101/60 (74) 99 Nasal Cannula 3 07/18/17 16:45 92 14 101/60 (74) 99 Mechanical Ventilator 40 07/18/17 16:35 98 50 07/18/17 16:31 97.7 91 14 105/63 (77) 99 Mechanical Ventilator 50 07/18/17 12:00 98.7 82 18 114/62 (79) 96 Intake & Output 07/19/17 07/19/17 07:00 19:00 Intake Total 1330 ml Output Total 500 ml Balance 830 ml IV Total 1330 ml Output Urine Total 500 ml # Voids 1 # Bowel Movements 1 Physical Exam CONSTITUTIONAL/GENERAL: This is an adequately nourished patient, in no apparent distress. TUBES/LINES/DRAINS: PIV SKIN: No jaundice, rashes, or lesions. Ecchymoses on upper extremities. No wounds seen anteriorly. Skin temperature appropriate. Not diaphoretic. HEAD: Atraumatic. Normocephalic. EYES: Pupils equal and round and reactive. Extraocular motions intact. No scleral icterus. No injection or drainage. Fundi not examined. ENT: Hearing grossly normal. Nose without bleeding or purulent drainage. NECK: Trachea midline. Supple, nontender. CARDIOVASCULAR: Regular rate and rhythm without murmurs, gallops, or rubs. No JVD. Peripheral pulses symmetric. RESPIRATORY/CHEST: Symmetric, unlabored respirations. Unable to auscultate breath sounds to AIRAM otherwise diminished in other crocker. No wheezes, rales, or rhonchi. GASTROINTESTINAL: Abdomen soft, non-tender, nondistended No guarding. Bowel sounds present. GENITOURINARY: Without palpable bladder distension. Finley catheter in place. MUSCULOSKELETAL: Extremities without clubbing, cyanosis, or edema. No joint tenderness or effusion noted. No calf tenderness. No mottling or clubbing. NEUROLOGICAL: Awake and alert. Motor and sensory grossly within normal limits. Follows commands with left side. RUE weaker than RLE PSYCHIATRIC: No obvious anxiety/depression. no apparent hallucinations or other psychotic thought process. Diagnostic Tests Laboratory Laboratory Tests Test 07/16/17 16:15 07/16/17 18:05 07/16/17 18:15 07/16/17 22:00 White Blood Count 22.9 TH/MM3 (4.0-11.0) Red Blood Count 3.12 MIL/MM3 (4.50-5.90) Hemoglobin 7.7 GM/DL (13.0-17.0) Hematocrit 24.6 % (39.0-51.0) Mean Corpuscular Volume 78.8 FL (80.0-100.0) Mean Corpuscular Hemoglobin 24.8 PG (27.0-34.0) Mean Corpuscular Hemoglobin Concent 31.4 % (32.0-36.0) Red Cell Distribution Width 19.9 % (11.6-17.2) Platelet Count 942 TH/MM3 (150-450) Mean Platelet Volume 6.0 FL (7.0-11.0) Neutrophils (%) (Auto) 82.0 % (16.0-70.0) Lymphocytes (%) (Auto) 11.9 % (9.0-44.0) Monocytes (%) (Auto) 5.5 % (0.0-8.0) Eosinophils (%) (Auto) 0.2 % (0.0-4.0) Basophils (%) (Auto) 0.4 % (0.0-2.0) Neutrophils # (Auto) 18.8 TH/MM3 (1.8-7.7) Lymphocytes # (Auto) 2.7 TH/MM3 (1.0-4.8) Monocytes # (Auto) 1.2 TH/MM3 (0-0.9) Eosinophils # (Auto) 0.0 TH/MM3 (0-0.4) Basophils # (Auto) 0.1 TH/MM3 (0-0.2) CBC Comment DIFF FINAL Differential Comment Prothrombin Time 12.0 SEC (9.8-11.6) Prothromb Time International Ratio 1.2 RATIO Activated Partial Thromboplast Time 34.9 SEC (24.3-30.1) Blood Urea Nitrogen 3 MG/DL (7-18) Creatinine 0.59 MG/DL (0.60-1.30) Random Glucose 77 MG/DL (74-106) Total Protein 8.2 GM/DL (6.4-8.2) Albumin 2.1 GM/DL (3.4-5.0) Calcium Level 8.9 MG/DL (8.5-10.1) Alkaline Phosphatase 143 U/L (45-117) Aspartate Amino Transf (AST/SGOT) 26 U/L (15-37) Alanine Aminotransferase (ALT/SGPT) 11 U/L (12-78) Total Bilirubin 0.2 MG/DL (0.2-1.0) Sodium Level 134 MEQ/L (136-145) Potassium Level 4.2 MEQ/L (3.5-5.1) Chloride Level 98 MEQ/L (98-107) Carbon Dioxide Level 24.0 MEQ/L (21.0-32.0) Anion Gap 12 MEQ/L (5-15) Estimat Glomerular Filtration Rate 176 ML/MIN (>89) Total Creatine Kinase 66 U/L (39-308) Troponin I LESS THAN 0.02 NG/ML Thyroid Stimulating Hormone 3rd Gen 2.160 uIU/ML (0.358-3.740) Salicylates Level 9.9 MG/DL (2.8-20.0) Acetaminophen Level LESS THAN 2.0 MCG/ML Ethyl Alcohol Level 37 MG/DL (0-5) Lactic Acid Level 1.3 mmol/L (0.4-2.0) Urine Color YELLOW (YELLW/STRAW) Urine Turbidity CLEAR (CLEAR) Urine pH 5.5 (5.0-8.5) Urine Specific [place] 1.006 (1.002-1.035) Urine Protein NEG mg/dL (NEG-TRACE) Urine Glucose (UA) NEG mg/dL (NEG) Urine Ketones NEG mg/dL (NEG) Urine Occult Blood NEG (NEG) Urine Nitrite NEG (NEG) Urine Bilirubin NEG (NEG) Urine Urobilinogen LESS THAN 2.0 MG/DL (LESS Urine Leukocyte Esterase NEG (NEG) Urine RBC LESS THAN 1 /hpf (0-3) Urine WBC LESS THAN 1 /hpf (0-5) Urine Mucus FEW /lpf (OCC) Microscopic Urinalysis Comment CATH-CULT NOT IND Urine Opiates Screen NEG (NEG) Urine Barbiturates Screen NEG (NEG) Urine Amphetamines Screen NEG (NEG) Urine Benzodiazepines Screen NEG (NEG) Urine Cocaine Screen NEG (NEG) Urine Cannabinoids Screen NEG (NEG) Nasal Screen MRSA (PCR) MRSA NOT DETECTED (NOT Test 07/17/17 04:05 07/17/17 16:46 07/18/17 06:47 07/19/17 02:50 White Blood Count 25.0 TH/MM3 (4.0-11.0) Red Blood Count 3.07 MIL/MM3 (4.50-5.90) Hemoglobin 7.5 GM/DL (13.0-17.0) Hematocrit 24.3 % (39.0-51.0) Mean Corpuscular Volume 79.1 FL (80.0-100.0) Mean Corpuscular Hemoglobin 24.6 PG (27.0-34.0) Mean Corpuscular Hemoglobin Concent 31.1 % (32.0-36.0) Red Cell Distribution Width 19.4 % (11.6-17.2) Platelet Count 909 TH/MM3 (150-450) Mean Platelet Volume 5.9 FL (7.0-11.0) Neutrophils (%) (Auto) 92.5 % (16.0-70.0) Lymphocytes (%) (Auto) 6.5 % (9.0-44.0) Monocytes (%) (Auto) 0.8 % (0.0-8.0) Eosinophils (%) (Auto) 0.0 % (0.0-4.0) Basophils (%) (Auto) 0.2 % (0.0-2.0) Neutrophils # (Auto) 23.1 TH/MM3 (1.8-7.7) Lymphocytes # (Auto) 1.6 TH/MM3 (1.0-4.8) Monocytes # (Auto) 0.2 TH/MM3 (0-0.9) Eosinophils # (Auto) 0.0 TH/MM3 (0-0.4) Basophils # (Auto) 0.0 TH/MM3 (0-0.2) CBC Comment DIFF FINAL Differential Comment Prothrombin Time 11.6 SEC (9.8-11.6) 11.9 SEC (9.8-11.6) Prothromb Time International Ratio 1.1 RATIO 1.2 RATIO Activated Partial Thromboplast Time 36.0 SEC (24.3-30.1) Blood Urea Nitrogen 5 MG/DL (7-18) Creatinine 0.53 MG/DL (0.60-1.30) 0.65 MG/DL (0.60-1.30) Random Glucose 153 MG/DL (74-106) Total Protein 7.8 GM/DL (6.4-8.2) Albumin 2.0 GM/DL (3.4-5.0) Calcium Level 8.5 MG/DL (8.5-10.1) Phosphorus Level 3.1 MG/DL (2.5-4.9) Magnesium Level 2.1 MG/DL (1.5-2.5) Alkaline Phosphatase 136 U/L (45-117) Aspartate Amino Transf (AST/SGOT) 14 U/L (15-37) Alanine Aminotransferase (ALT/SGPT) LESS THAN 6 U/L (12-78) Total Bilirubin 0.2 MG/DL (0.2-1.0) Sodium Level 136 MEQ/L (136-145) Potassium Level 4.2 MEQ/L (3.5-5.1) Chloride Level 102 MEQ/L (98-107) Carbon Dioxide Level 26.3 MEQ/L (21.0-32.0) Anion Gap 8 MEQ/L (5-15) Estimat Glomerular Filtration Rate 199 ML/MIN (>89) 157 ML/MIN (>89) HIV (1&2) Antibody NEGATIVE (NEGATIVE) Reticulocyte Count 4.4 % (0.4-3.0) Absolute Reticulocyte Count 131.4 MIL/L (20.0-150.0) Haptoglobin 381 MG/DL (30-200) Iron Level 27 MCG/DL (65-175) Total Iron Binding Capacity 235 MCG/DL (250-450) Percent Iron Saturation 11.5 % (20-50) Transferrin 168 MG/DL (200-360) Lactate Dehydrogenase 125 U/L (87-241) Hepatitis B Surface Antigen NEGATIVE (NEGATIVE) Hepatitis B Core IgM Antibody NEGATIVE (NEGATIVE) Hepatitis C Antibody NEGATIVE (NEGATIVE) Vancomycin Level Trough 17.1 MCG/ML (5.0-10.0) Result Diagram: 07/17/17 0405 07/19/17 0250 Microbiology Microbiology Date/Time Source Procedure Growth Status 07/16/17 18:05 Blood Peripheral Aerobic Blood Culture - Preliminary NO GROWTH IN 2 DAYS Resulted 07/16/17 18:05 Blood Peripheral Anaerobic Blood Culture - Preliminary NO GROWTH IN 2 DAYS Resulted 07/16/17 18:00 Blood Peripheral Aerobic Blood Culture - Preliminary NO GROWTH IN 2 DAYS Resulted 07/16/17 18:00 Blood Peripheral Anaerobic Blood Culture - Preliminary NO GROWTH IN 2 DAYS Resulted 07/18/17 19:05 Stool Stool Stool Occult Blood (LIDIA) - Final HEMOCCULT POSITIVE Complete Imaging Last Impressions Chest X-Ray 07/18/17 0000 Signed Impressions: Service Date/Time: Tuesday, July 18, 2017 16:50 - CONCLUSION: Stable appearance of the chest with complete consolidation of the left upper lobe with volume loss. There is no pneumothorax. Oleg Green MD Abdomen/Pelvis CT 07/18/17 0000 Signed Impressions: Service Date/Time: Tuesday, July 18, 2017 20:57 - CONCLUSION: 1. No acute findings within the abdomen and pelvis. 2. 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 3. Tiny nonobstructing bilateral renal calculi. Jaquan Norton MD Brain MRI 07/17/17 0000 Signed Impressions: Service Date/Time: Monday, July 17, 2017 14:35 - CONCLUSION: 1. There is a irregular ring-enhancing lesion measuring approximately 3.4 cm in the left posterior parietal lobe surrounded by prominent vasogenic edema characteristic for neoplastic disease. Primary versus metastatic disease are considerations. 2. Mild mass effect and midline shift to the right by approximately 5 mm. Reginaldo Shahid MD Head CT 07/16/17 1600 Signed Impressions: Service Date/Time: Sunday, July 16, 2017 17:42 - CONCLUSION: There is an apparent mass in the left frontoparietal high convexity white matter measuring approximately 2.5 cm. There is marked surrounding vasogenic edema causing mild local mass effect and approximately 4 mm of left to right midline shift. Given the chest x-ray findings, this is highly suspicious for a metastatic lesion. Oleg Green MD CT Angiography 07/16/17 0000 Signed Impressions: Service Date/Time: Tuesday, July 16, 2017 17:45 - CONCLUSION: 1. No evidence of pulmonary embolism. 2. Complete collapse and airlessness of the entire left upper lung. An endobronchial lesion in the left upper lobe bronchus causing obstruction is the primary consideration. Recommend bronchoscopy for further evaluation. 3. The right lung and left lower lung are grossly clear. There is some central lobar emphysema. Reginaldo Shahid MD Procedures 07/18/17-bronchoscopy with biopsy . Assessment and Plan Disease Oriented Problem List: (1) Brain mass (2) Lung mass (3) Tobacco use disorder Symptom Scale: (1) Confusion 0-10 Scale: Unable to quantify (2) Debility 0-10 Scale: Unable to quantify Comment: Progressive . Pertinent Non-Medical Issues Psychosocial:Patient was born and raised in [place]. Patient's highest level of education is sixth-grade. Patient has 4 brothers and 1 sister. Patient never . He had 2 sons both name after him. One son Virgil Umanzor Jr mostly at age 32 from a motor cycle accident. His other son who is also named Virgil Umanzor Jr is currently incarcerated at [facility]. Spiritual: No islam affiliation Legal: Completed healthcare surrogate form Ethical issues impacting care: None identified at this time . Important Contacts Sister-healthcare surrogate-Dana Umanzor-[phone] /[phone] Niece-alternate healthcare surrogate-Dana Umanzor [phone] . Prognosis Mr. Umanzor is a 51 years old male was brought to the emergency department by his family on 07/16/17 after they noted that he had right sided extremity weakness with confusion and difficulty with ambulation. Patient was found to have an endobronchial lesion in his left upper lobe is well is seen intracranial lesion with vasogenic edema. Patient remains at risk for further complications, deterioration and decline. . Code Status: Full Code Plan PLAN: Legal decision maker: Given that patient came in with some confusion, though slightly improving. Recommending shared decision making with his sister Dana Umanzor who is his designated Health Care Surrogate. Goals: Remain Aggressive CODE STATUS: Full Code Addressed code status, discussed CPR limitations and benefits. Patient elected to be a full code at this time. Patient said, "i would not like to be kept alive if i am suffering. My sister knows me well and she will know to do what is best for me". Encouraged patient to continue having conversations with his sister regarding what his wishes are regarding end of life. Patient confirmed that he has never completed advance directives. At this time patient is interested in completing the Health care surrogate (HCS) form. Patient designated his sister Dana Umanzor as his HCS and his nierce Tammy Umanzor as his alternate HCS. Patient`s sister thought that patient had signed HCS form before but the only form signed were consents for procedure. Assisted patient with completing HCS form and he signed. At this time, patient is hopeful that he can go through treatment that he will be offered.Telephone conversation with patient`s sister updating her on patient`s status. SYMPTOMS: * Confusion: Patient came in with complaints of confusion. CT head revealed eft posterior frontoparietal lobe mass with surrounding vasogenic edema causing 4mm of left to right midline shift. Patient oriented to self, place, situation with some confusion. Patient was able to answer more questions appropriately today. Patient on Decadron. no recommendations at this time. * Pain: Patient has a brain mass and lung mass. Patient is at risk for headaches. Hydromorphone 1 mg Q 4 HRS PRN available. Patient has not required use of hydromorphone. Patient denies pain at this time. No recommendations at this time * Debility: Progressive. Patient has been increasingly getting weak and having difficulty with ambulation. Came in with right sided weakness. Weight loss he has been reported. Patient is showing some improvement with his right side. Recommending consulting physical therapy . Patient may also benefit from occupational therapy services. Palliative care will continue to follow the patient during hospital course as condition evolves, to assist patient/decision-maker with understanding of their medical conditions, weighing benefits/burdens of treatment options, for clarification of goals of treatment. Additionally will assist with any symptoms of palliative concern. Attestation To help prompt me to consider important information that might be impacting today's encounter and assessment, information from prior notes written by myself or my colleagues may have been "brought forward" into today's note. My signature on this note, however, is an attestation that I personally performed the exam, history, and/or decision-making noted today, and, unless otherwise indicated, the interactions with patient, family, and staff as well as the review of records all occurred today. I also attest that the listed assessment and stated plan reflect my best clinical judgment today based on the combination of historical information, prior notes, and today's exam/ interactions. When time spent is documented, it refers only to time spent today by the signer, or if indicated, combined time spent today by collaborating physician/nurse practitioner. Brian Valadez Jul 19, 2017 11:23
[2017-07-19 12:00] VITALS: BP 112/59; PULSE 94; RESP 16; TEMP 97.6; O2SAT 96
--- NOTE | 2017-07-19 15:45 | HHI.NSPN ---
(Amari He) History Chief Complaint: Weakness RUE more than RLE. Brain mass. (Amari He) Interval History This is a 51-year-old -[place] gentleman who presented to the emergency room last night with complaints of right-sided weakness along with confusion. He relates that the symptoms started about ten days ago, although worse over the last three days. CT of the head obtained reveals a 2.5 cm left posterior frontoparietal lobe mass with surrounding vasogenic edema. A CT angiography of the chest reveals a collapse of the left upper lobe with an endotracheal mass likely obstructing the bronchus, although no pulmonary embolus was seen. He also appears to have some emphysematous changes. He has been admitted to the intensive care unit and started on Decadron and neurosurgery consultation requested. 07/18/17: Pt awake and alert. Denies any headaches or paresthesias. No n/v. Strength in RUE improving. 07/19/17: Pt awake and alert. Denies headaches, n/v. He has right sided weakness. (Amari He) Review of Systems General: Negative for: fever, chills, insomnia Respiratory: Negative for: shortness of breath, cough, sputum Cardiovascular: Negative for: chest pain Gastrointestinal: Negative for: nausea, vomitting, diarrhea, constipation ( Amari He) Exam Results Vital Signs Date Time Temp Pulse Resp B/P (MAP) Pulse Ox O2 Delivery O2 Flow Rate FiO2 07/19/17 12:00 97.6 94 16 112/59 (76) 96 07/18/17 17:45 Nasal Cannula 3 07/18/17 16:45 40 Intake and Output 07/19/17 07/19/17 07/20/17 08:00 16:00 00:00 Intake Total 1220 ml Output Total 500 ml Balance 720 ml (Amari He) Physical Examination General: Pt resting comfortably in bed in NAD. Eyes: Pupils 3mm bilaterally reactive bilaterally. Resp: CTA bilaterally. Heart: NSR no murmurs Abd: Soft positive bs Skin: No cyanosis or erythema Muscle: Weakness in RUE more than RLE. Neuro: Pt awake and alert. Pupils 3mm bilaterally reactive bilaterally. Follows commands well. Answers questions appropriately. (Amari He) Lab, Micro, Other Results Last Impressions Chest X-Ray 07/18/17 0000 Signed Impressions: Service Date/Time: Tuesday, July 18, 2017 16:50 - CONCLUSION: Stable appearance of the chest with complete consolidation of the left upper lobe with volume loss. There is no pneumothorax. Oleg Green MD Abdomen/Pelvis CT 07/18/17 0000 Signed Impressions: Service Date/Time: Tuesday, July 18, 2017 20:57 - CONCLUSION: 1. No acute findings within the abdomen and pelvis. 2. 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 3. Tiny nonobstructing bilateral renal calculi. Jaquan Norton MD Brain MRI 07/17/17 0000 Signed Impressions: Service Date/Time: Monday, July 17, 2017 14:35 - CONCLUSION: 1. There is a irregular ring-enhancing lesion measuring approximately 3.4 cm in the left posterior parietal lobe surrounded by prominent vasogenic edema characteristic for neoplastic disease. Primary versus metastatic disease are considerations. 2. Mild mass effect and midline shift to the right by approximately 5 mm. Reginaldo Shahid MD Head CT 07/16/17 1600 Signed Impressions: Service Date/Time: Sunday, July 16, 2017 17:42 - CONCLUSION: There is an apparent mass in the left frontoparietal high convexity white matter measuring approximately 2.5 cm. There is marked surrounding vasogenic edema causing mild local mass effect and approximately 4 mm of left to right midline shift. Given the chest x-ray findings, this is highly suspicious for a metastatic lesion. Oleg Green MD CT Angiography 07/16/17 0000 Signed Impressions: Service Date/Time: Sunday, July 16, 2017 17:45 - CONCLUSION: 1. No evidence of pulmonary embolism. 2. Complete collapse and airlessness of the entire left upper lung. An endobronchial lesion in the left upper lobe bronchus causing obstruction is the primary consideration. Recommend bronchoscopy for further evaluation. 3. The right lung and left lower lung are grossly clear. There is some central lobar emphysema. Reginaldo Shahid MD Laboratory Tests Test 07/19/17 02:50 Creatinine 0.65 MG/DL Estimat Glomerular Filtration Rate 157 ML/MIN Vancomycin Level Trough 17.1 MCG/ML (Amari He) Medical Decision Making Impression and Plan A: 51 y/o M with left posterior frontoparietal lobe mass with surrounding vasogenic edema. This is very concerning for a metastatic lesion especially given the possibility of a left lung mass along with obstructive pneumonia and collapsed lung. The possibilities include an abscess with primary brain mass also needs to be entertained. 2. Left upper lobe collapse with obstruction and COPD. The patient is a chronic smoker, which increases his risk for lung cancer. PLAN: 1. He will be continued on Decadron for the vasogenic edema along with gastrointestinal stress ulcer prophylaxis and DVT prophylaxis. 2. Pt going for Bronchoscopy with biopsy of lung mass today. He is also going for a CT for further workup. 3. Physical therapy and occupational therapy consult to prevent further deconditioning and weakness. 4. Follow pathology results. We would not recommend brain mass resection given that the mass is on the motor cortex and surgery would carry a risk of worsening weakness. (Amari He) Attending Statement The exam, history, and the medical decision-making described in the above note were completed with the assistance of the mid-level provider. I reviewed and agree with the findings presented. I attest that I had a [id number] encounter with the patient on the same day, and personally performed and documented my assessment and findings in the medical record. Await endobronchial biopsy results. Continue with current treatment. (Chaim Perez MD) Amari He Jul 19, 2017 15:45 Chaim Perez MD Jul 19, 2017 16:58
[2017-07-19] MEDS: VANCOMYCIN INJ 1,250 MG in SODIUM CHLOR 0.9% 250 ML INJ 250 ML IV SCH (16:28)
[2017-07-19 16:35] VITALS: BP 121/75; PULSE 99; RESP 18; TEMP 98; O2SAT 97
--- NOTE | 2017-07-19 16:50 | HHI.PR ---
Subjective Remarks ALERT NO SOB Objective Vital Signs Date Time Temp Pulse Resp B/P (MAP) Pulse Ox O2 Delivery O2 Flow Rate FiO2 07/19/17 16:35 98.0 99 18 121/75 (90) 97 07/19/17 12:00 97.6 94 16 112/59 (76) 96 07/19/17 07:59 98.0 80 19 122/78 (93) 96 07/19/17 05:41 98.3 86 18 119/67 (84) 96 07/19/17 01:00 97.3 92 18 100/55 (70) 96 07/18/17 21:27 97.2 92 18 124/74 (91) 95 07/18/17 17:45 97.8 93 18 120/73 (89) 99 Nasal Cannula 3 07/18/17 17:30 91 18 108/71 (83) 99 Nasal Cannula 3 07/18/17 17:15 93 17 110/73 (85) 99 Nasal Cannula 3 07/18/17 17:00 92 17 101/60 (74) 99 Nasal Cannula 3 I/O 07/18/17 07/18/17 07/18/17 07/19/17 07/19/17 07/19/17 07:00 15:00 23:00 07:00 15:00 23:00 Intake Total 600 ml 110 ml 1220 ml Output Total 500 ml Balance 600 ml 110 ml 720 ml IV Total 600 ml 110 ml 1220 ml Output Urine Total 500 ml # Voids 3 1 # Bowel Movements 2 1 Result Diagram: 07/17/17 0405 07/19/17 0250 Objective Remarks GENERAL: SKIN: Warm and dry. HEAD: Atraumatic. Normocephalic. EYES: Pupils equal and round. No scleral icterus. No injection or drainage. ENT: No nasal bleeding or discharge. Mucous membranes pink and moist. NECK: Trachea midline. No JVD. CARDIOVASCULAR: Regular rate and rhythm. RESPIRATORY: No accessory muscle use. Clear to auscultation. Breath sounds equal bilaterally. GASTROINTESTINAL: Abdomen soft, non-tender, nondistended. Hepatic and splenic margins not palpable. MUSCULOSKELETAL: Extremities without clubbing, cyanosis, or edema. No obvious deformities. NEUROLOGICAL: Awake and alert. No obvious cranial nerve deficits. Motor grossly within normal limits. Five out of 5 muscle strength in the arms and legs. Normal speech. PSYCHIATRIC: Appropriate mood and affect; insight and judgment normal. Assessment and Plan Assessment and Plan Vital Signs Date Time Temp Pulse Resp B/P (MAP) Pulse Ox O2 Delivery O2 Flow Rate FiO2 07/18/17 12:00 98.7 82 18 114/62 (79) 96 07/18/17 08:00 98.4 84 18 114/69 (84) 98 07/18/17 04:00 97.5 95 18 118/71 (87) 97 07/18/17 00:00 97.2 92 18 105/60 (75) 95 07/17/17 20:00 97.2 101 18 109/59 (76) 97 07/17/17 19:10 Room Air 07/17/17 17:30 97.5 104 18 120/71 (87) 99 GENERAL: SKIN: Warm and dry. HEAD: Atraumatic. Normocephalic. EYES: Pupils equal and round. No scleral icterus. No injection or drainage. ENT: No nasal bleeding or discharge. Mucous membranes pink and moist. NECK: Trachea midline. No JVD. CARDIOVASCULAR: Regular rate and rhythm. RESPIRATORY: No accessory muscle use. Clear to auscultation. Breath sounds equal bilaterally. GASTROINTESTINAL: Abdomen soft, non-tender, nondistended. Hepatic and splenic margins not palpable. MUSCULOSKELETAL: Extremities without clubbing, cyanosis, or edema. No obvious deformities. NEUROLOGICAL: Awake and alert. No obvious cranial nerve deficits. Motor grossly within normal limits. Five out of 5 muscle strength in the arms and legs. Normal speech. PSYCHIATRIC: Appropriate mood and affect; insight and judgment normal. Carol Medina MD Jul 19, 2017 16:50
--- NOTE | 2017-07-19 18:51 | HHI.PR ---
Subjective Remarks ALERT NO SOB Objective GENERAL: SKIN: Warm and dry. HEAD: Atraumatic. Normocephalic. EYES: Pupils equal and round. No scleral icterus. No injection or drainage. ENT: No nasal bleeding or discharge. Mucous membranes pink and moist. NECK: Trachea midline. No JVD. CARDIOVASCULAR: Regular rate and rhythm. RESPIRATORY: No accessory muscle use. Clear to auscultation. Breath sounds equal bilaterally. GASTROINTESTINAL: Abdomen soft, non-tender, nondistended. Hepatic and splenic margins not palpable. MUSCULOSKELETAL: Extremities without clubbing, cyanosis, or edema. No obvious deformities. NEUROLOGICAL: Awake and alert. No obvious cranial nerve deficits. Motor grossly within normal limits. Five out of 5 muscle strength in the arms and legs. Normal speech. PSYCHIATRIC: Appropriate mood and affect; insight and judgment normal. Vital Signs Date Time Temp Pulse Resp B/P (MAP) Pulse Ox O2 Delivery O2 Flow Rate FiO2 07/19/17 16:35 98.0 99 18 121/75 (90) 97 07/19/17 12:00 97.6 94 16 112/59 (76) 96 07/19/17 07:59 98.0 80 19 122/78 (93) 96 07/19/17 05:41 98.3 86 18 119/67 (84) 96 07/19/17 01:00 97.3 92 18 100/55 (70) 96 07/18/17 21:27 97.2 92 18 124/74 (91) 95 I/O 07/18/17 07/18/17 07/18/17 07/19/17 07/19/17 07/19/17 07:00 15:00 23:00 07:00 15:00 23:00 Intake Total 600 ml 110 ml 1220 ml Output Total 500 ml Balance 600 ml 110 ml 720 ml IV Total 600 ml 110 ml 1220 ml Output Urine Total 500 ml # Voids 3 1 # Bowel Movements 2 1 Result Diagram: 07/17/17 0405 07/19/17 0250 Objective Remarks GENERAL: SKIN: Warm and dry. HEAD: Atraumatic. Normocephalic. EYES: Pupils equal and round. No scleral icterus. No injection or drainage. ENT: No nasal bleeding or discharge. Mucous membranes pink and moist. NECK: Trachea midline. No JVD. CARDIOVASCULAR: Regular rate and rhythm. RESPIRATORY: No accessory muscle use. Clear to auscultation. Breath sounds equal bilaterally. GASTROINTESTINAL: Abdomen soft, non-tender, nondistended. Hepatic and splenic margins not palpable. MUSCULOSKELETAL: Extremities without clubbing, cyanosis, or edema. No obvious deformities. NEUROLOGICAL: Awake and alert. No obvious cranial nerve deficits. Motor grossly within normal limits. Five out of 5 muscle strength in the arms and legs. Normal speech. PSYCHIATRIC: Appropriate mood and affect; insight and judgment normal. Assessment and Plan Assessment and Plan Vital Signs Date Time Temp Pulse Resp B/P (MAP) Pulse Ox O2 Delivery O2 Flow Rate FiO2 07/18/17 12:00 98.7 82 18 114/62 (79) 96 07/18/17 08:00 98.4 84 18 114/69 (84) 98 07/18/17 04:00 97.5 95 18 118/71 (87) 97 07/18/17 00:00 97.2 92 18 105/60 (75) 95 07/17/17 20:00 97.2 101 18 109/59 (76) 97 07/17/17 19:10 Room Air 07/17/17 17:30 97.5 104 18 120/71 (87) 99 GENERAL: SKIN: Warm and dry. HEAD: Atraumatic. Normocephalic. EYES: Pupils equal and round. No scleral icterus. No injection or drainage. ENT: No nasal bleeding or discharge. Mucous membranes pink and moist. NECK: Trachea midline. No JVD. CARDIOVASCULAR: Regular rate and rhythm. RESPIRATORY: No accessory muscle use. Clear to auscultation. Breath sounds equal bilaterally. GASTROINTESTINAL: Abdomen soft, non-tender, nondistended. Hepatic and splenic margins not palpable. MUSCULOSKELETAL: Extremities without clubbing, cyanosis, or edema. No obvious deformities. NEUROLOGICAL: Awake and alert. No obvious cranial nerve deficits. Motor grossly within normal limits. Five out of 5 muscle strength in the arms and legs. Normal speech. PSYCHIATRIC: Appropriate mood and affect; insight and judgment normal. Carol Medina MD Jul 19, 2017 18:51
[2017-07-19 20:00] VITALS: BP 114/64; PULSE 92; RESP 18; TEMP 98.3; O2SAT 97
[2017-07-19] MEDS: IRON SUCROSE INJ 200 MG in SODIUM CHLORIDE 0.9% INJ 100 ML IV SCH (20:49)
[2017-07-20] VITALS (9 sets, daily range): BP systolic 108–139; BP diastolic 64–84; PULSE 67–93; RESP 17–18; TEMP 97.4–97.8; O2SAT 94–99
[2017-07-20] MEDS: CEFEPIME INJ 2,000 MG in SODIUM CHLORIDE 0.9% INJ 100 ML IV SCH ×2 (00:19→15:57)
[2017-07-20] MEDS: DEXAMETHASONE SOD PHOS 4 MG/ML VIAL IV PUSH SCH ×2 (00:20→05:21)
[2017-07-20] MEDS: VANCOMYCIN INJ 1,250 MG in SODIUM CHLOR 0.9% 250 ML INJ 250 ML IV SCH (03:21)
[2017-07-20] MEDS: CHLORHEXIDINE GLUCONATE 2 % 1 PACK (2 CLOTHS) TOP SCH ×2 (03:25→22:13)
[2017-07-20] MEDS: HEPARIN SODIUM - SQ 10,000 UNITS/ML VIAL SQ SCH (05:20)
[2017-07-20] MEDS: SODIUM CHLOR 0.9% 1000 ML INJ 1,000 ML IV SCH ×2 (05:24→18:08)
[2017-07-20] MEDS: levETIRAcetam 500 MG TAB PO SCH ×2 (08:14→22:13)
[2017-07-20] MEDS: DOCUSATE SODIUM 50 MG/SENNA 8.6 MG TAB PO SCH ×2 (08:14→22:13)
[2017-07-20] MEDS: SODIUM CHLORIDE 0.9% FLUSH 10 ML FLUSH IV FLUSH SCH ×2 (09:00→22:12)
[2017-07-20] MEDS: FAMOTIDINE 20 MG/2 ML VIAL IV PUSH SCH (09:00)
--- NOTE | 2017-07-20 10:32 | MB ---
cc: Skip Hong MD DATE OF CONSULT: 07/19/2017 PREOPERATIVE DIAGNOSIS: 1. 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 CHIEF COMPLAINT: Left-sided weakness. REASON FOR VISIT: Patient being evaluated for salvage therapeutic options. HISTORY OF PRESENT ILLNESS: This is a 51-year-old -[place] male who was noted to have weakness of the right upper and lower extremities where the weakening became worse over time. Upon evaluation in the emergency room, he was noted to have a mass within the brain. He has had further workup with CTs of the chest, which have revealed a possible endobronchial mass on the right lung with collapse of part of the lung. Patient has had biopsies of the lung mass, which are pending. Patient has been evaluated by neurosurgery, which had not recommended any surgical resection of the brain mass and they have recommended evaluation by radiation. Consult has been placed for me to evaluate the patient regarding possible therapeutic options. PAST MEDICAL HISTORY: As above, although patient has not had any other pertinent history. MEDICATIONS: Acetaminophen, albuterol, Dulcolax, dexamethasone, Pepcid, heparin, Dilaudid, lactulose, Keppra, ondansetron, Karlie-Colace, Senokot, Restoril, vancomycin. ALLERGIES: NO KNOWN DRUG ALLERGIES. FAMILY HISTORY: No history of carcinoma in the family. SOCIAL HISTORY: The patient has smoked a pack of cigarettes per day for over 20 years. Denies any major ETOH intake. REVIEW OF SYSTEMS: CONSTITUTIONAL: Patient denies any major decrease of appetite or decrease of weight in the recent months. ALLERGIC: no allergic reactions. EYES: Denies any double vision. ENT: Denies any difficulty or pain on swallowing. NECK: Unremarkable. INTEGUMENTARY: Unremarkable. CARDIOVASCULAR: Denies any chest pain or signs of VT. RESPIRATORY: Unremarkable. Denies any shortness of breath or hemoptysis. GASTROINTESTINAL: Unremarkable. GENITOURINARY: Unremarkable. MUSCULOSKELETAL: Unremarkable. NEUROLOGICAL: Patient admits to weakness of the right upper and lower extremity. He said the right lower extremity has recovered some. He has had some difficulty with the right upper extremity. Family member, which is a niece in the room says that he also has some issues with memory and some confusion, which is intermittent. PSYCHIATRIC: Unremarkable. ENDOCRINE: Unremarkable. HEMATOLOGIC: Unremarkable. PHYSICAL EXAMINATION: GENERAL: Patient oriented x3, in no acute distress or discomfort at time of the evaluation. VITAL SIGNS: Temperature 97.6, pulse 94, respiratory rate 16, blood pressure 112/59, pulse ox 96% on room air. BACK: On palpation and percussion of posterior back, no pain was elicited within joints or muscles. LUNGS: Clear to auscultation with decreased ventilatory respiratory effort, more so on the right upper lobe. HEART: Regular in rate and rhythm without murmurs. NECK: Palpation of neck and bilateral supraclavicular areas reveals no lymph nodes. ABDOMEN: Palpation of abdominal cavity reveals no hepatosplenomegaly, no pain elicited, and no periumbilical masses. EXTREMITIES: No lower extremity edema detected. On the upper extremities, there is clubbing of the fingers of the hands. The hands seem to be slightly swollen, but no clinical signs of DVT are detected. No clinical signs of superior vena cava syndrome noted. NEUROLOGICAL: No decrease in cognitive function. 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 Sensation is normal. SKIN: No rash. No other positive findings. SURGICAL PATHOLOGY: Pending. RADIOLOGY: CT of the brain on 07/16/2017 reviewed. MRI of the brain 07/17/2017. Impression: There is an irregular brain-enhancing lesion measuring approximately 3.4 cm in the left posterior parietal lobe surrounding by pulmonary and vascular edema characteristic for neoplastic disease. mass effect and midline shift to the right by approximately 5 mm. This imaging study has been independently reviewed by me. CT angiography 07/16/2017. Impression: No evidence of pulmonary embolism. Complete collapse and airlessness of the entire left upper lung. An endobronchial lesion in the left upper lobe bronchus causing obstruction is the primary consideration. The right lung and left lower lung are grossly clear. There is some central lobular emphysema. This imaging study has been independently reviewed my me. CT abdomen and pelvis 07/18/2017. 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 ASSESSMENT: A 51-year-old -[place] male with a diagnosis of metastatic disease of the brain, probably lung primary. Pathology pending. Patient being evaluated for salvage therapeutic options. PLAN: I had a discussion with the patient and his niece in regards to his presenting condition. I advised him that I would like to move ahead with radiosurgery to the brain. I will have to probably fractionate due to size and I will do 3 treatments. He was advised that at some point may have to do some radiation to the lung. I would like to wait for the surgical pathology to be positive in order to proceed with the radiation therapy, but I will move forward with the planning process for the radiation therapy. I discussed the merits of radiation therapy side effects and complications that include but not limited to weakness and fatigue, decreased blood counts, edema of the skin, necrosis of the skin, loss of hair which may be permanent, bone damage and fracture, brain damage, brain necrosis which may require long use of steroids or resection, brain leukoencephalopathy, changes in short-term and long-term memory. He says he already has problems with short-term and long-term memory, also pain and decreased or loss of hearing, loss of vision, decrease vision. After a thorough discussion they understood everything that was explained, and the patient wanted to move forward with treatments. The patient is to come to our department with simulation treatment planning consent. He was advised if I could be of any further assistance that please let me know, otherwise will proceed as above. MD TERRI Jerome/naldo , 03:28 PM , 04:17 PM YUMIKO
--- NOTE | 2017-07-20 11:17 | HHI.HCPN ---
Reason for visit a. To assist with evaluation and management of symptoms including:Confusion , pain, debility b. To assist medical decision maker(s) with: better understanding of current medical conditions; weighing benefits/burdens of medical treatment options; making medical treatment decisions. Subjective/Interval History Patient seen and examined in his room in the presence of a friend. Patient is in bed, awake, alert and oriented to self, place, situation with some forgetfulness. 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 Patient denies pain and shortness of breath. Radiation oncology Dr. Hui consulted, recommended radiation therapy. Patient and his sister Dana who is his HCS agreeable with treatment plan. Pathology for lung biopsy still pending. Vital signs stable. Telephone conversation with patient`s HCS- Updated on medical status. Pulmonology, Oncology, Neurosurgery following. Family/friend interactions Telephone conversation with patient`s sister. . Advance Directives Living Will: Never completed Health Care Surrogate: Copy in medical record Durable Power of Office Machine Installer: Never completed Advance Directive Specifics Date completed: 07/19/2017 . Health Care Surrogate(s): Sister-healthcare surrogate-aDna Umanzor-[phone] /[phone] Niece-alternate healthcare surrogate-Dana Umanzor [phone] . Objective Vital Signs Date Time Temp Pulse Resp B/P (MAP) Pulse Ox O2 Delivery O2 Flow Rate FiO2 07/20/17 08:31 97.4 67 17 139/84 (102) 94 07/20/17 04:00 97.8 74 18 126/79 (95) 96 07/20/17 00:00 97.7 86 18 114/70 (85) 96 07/19/17 20:00 98.3 92 18 114/64 (81) 97 07/19/17 16:35 98.0 99 18 121/75 (90) 97 07/19/17 12:00 97.6 94 16 112/59 (76) 96 Intake & Output 07/20/17 07/20/17 07:00 19:00 Intake Total 1210 ml Balance 1210 ml IV Total 1210 ml # Voids 3 Physical Exam CONSTITUTIONAL/GENERAL: This is an adequately nourished patient, in no apparent distress. Denies pain. TUBES/LINES/DRAINS: PIV SKIN: No jaundice, rashes, or lesions. Ecchymoses on upper extremities. No wounds seen anteriorly. Skin temperature appropriate. Not diaphoretic. HEAD: Atraumatic. Normocephalic. EYES: Pupils equal and round and reactive. Extraocular motions intact. No scleral icterus. No injection or drainage. Fundi not examined. ENT: Hearing grossly normal. Nose without bleeding or purulent drainage. Throat without visible erythema, exudates, masses, or lesions. NECK: Trachea midline. Supple, nontender. CARDIOVASCULAR: Regular rate and rhythm without murmurs, gallops, or rubs. No JVD. Peripheral pulses symmetric. RESPIRATORY/CHEST: Symmetric, unlabored respirations. Unable to auscultate breath sounds to AIRAM otherwise diminished in other crocker. No wheezes, rales, or rhonchi. GASTROINTESTINAL: Abdomen soft, non-tender, nondistended No guarding. Bowel sounds present. GENITOURINARY: Without palpable bladder distension. Finley catheter in place. MUSCULOSKELETAL: Extremities without clubbing, cyanosis, or edema. No joint tenderness or effusion noted. No calf tenderness. No mottling or clubbing. NEUROLOGICAL: Awake and alert. Motor and sensory grossly within normal limits. Follows commands with left side. RUE weaker than RLE PSYCHIATRIC: No obvious anxiety/depression. no apparent hallucinations or other psychotic thought process. Diagnostic Tests Laboratory Laboratory Tests Test 07/17/17 16:46 07/18/17 06:47 07/19/17 02:50 Prothrombin Time 11.9 SEC (9.8-11.6) Prothromb Time International Ratio 1.2 RATIO HIV (1&2) Antibody NEGATIVE (NEGATIVE) Reticulocyte Count 4.4 % (0.4-3.0) Absolute Reticulocyte Count 131.4 MIL/L (20.0-150.0) Haptoglobin 381 MG/DL (30-200) Iron Level 27 MCG/DL (65-175) Total Iron Binding Capacity 235 MCG/DL (250-450) Percent Iron Saturation 11.5 % (20-50) Transferrin 168 MG/DL (200-360) Lactate Dehydrogenase 125 U/L (87-241) Hepatitis B Surface Antigen NEGATIVE (NEGATIVE) Hepatitis B Core IgM Antibody NEGATIVE (NEGATIVE) Hepatitis C Antibody NEGATIVE (NEGATIVE) Creatinine 0.65 MG/DL (0.60-1.30) Estimat Glomerular Filtration Rate 157 ML/MIN (>89) Vancomycin Level Trough 17.1 MCG/ML (5.0-10.0) Result Diagram: 07/17/17 0405 07/19/17 0250 Microbiology Microbiology Date/Time Source Procedure Growth Status 07/19/17 06:52 Stool Stool Stool Occult Blood ([facility]) - Final HEMOCCULT NEGATIVE Complete 07/18/17 19:05 Stool Stool Stool Occult Blood ([facility]) - Final HEMOCCULT POSITIVE Complete Procedures 07/18/17-bronchoscopy with biopsy . Assessment and Plan Disease Oriented Problem List: (1) Brain mass (2) Lung mass (3) Tobacco use disorder Symptom Scale: (1) Confusion 0-10 Scale: Unable to quantify (2) Debility 0-10 Scale: Unable to quantify Comment: Progressive . Pertinent Non-Medical Issues Psychosocial:Patient was born and raised in [place]. Patient's highest level of education is sixth-grade. Patient has 4 brothers and 1 sister. Patient never . He had 2 sons both name after him. One son Virgil Umanzor Jr mostly at age 32 from a motor cycle accident. His other son who is also named Virgil Umanzor Jr is currently incarcerated at [facility]. Spiritual: No yarsanism affiliation Legal: Completed healthcare surrogate form Ethical issues impacting care: None identified at this time . Important Contacts Sister-healthcare surrogate-Dana Umanzor-[phone] /[phone] Niece-alternate healthcare surrogate-Dana Umanzor [phone] . Prognosis Mr. Umanzor is a 51 years old male was brought to the emergency department by his family on 07/16/17 after they noted that he had right sided extremity weakness with confusion and difficulty with ambulation. Patient was found to have an endobronchial lesion in his left upper lobe is well is seen intracranial lesion with vasogenic edema. Patient remains at risk for further complications, deterioration and decline. . Code Status: Full Code Plan PLAN: Legal decision maker: Given that patient came in with some confusion, though slightly improving. Recommending shared decision making with his sister Dana Umanzor who is his designated Health Care Surrogate. Goals: Remain Aggressive CODE STATUS: Full Code Patient and his HCS want to proceed with radiation therapy. SYMPTOMS: * Confusion: Patient came in with complaints of confusion. CT head revealed eft posterior frontoparietal lobe mass with surrounding vasogenic edema causing 4mm of left to right midline shift. Patient oriented to self, place, situation with some confusion. Patient on Decadron. no recommendations at this time. * Pain: Patient has a brain mass and lung mass. Patient is at risk for headaches. Hydromorphone 1 mg Q 4 HRS PRN available. Patient has not required use of hydromorphone. Patient denies pain at this time. No recommendations at this time * Debility: Progressive. Patient has been increasingly getting weak and having difficulty with ambulation. Came in with right sided weakness. Weight loss he has been reported. Patient is showing some improvement with his right side. Recommending consulting physical therapy and occupational therapy services. Palliative care will continue to follow the patient during hospital course as condition evolves, to assist patient/decision-maker with understanding of their medical conditions, weighing benefits/burdens of treatment options, for clarification of goals of treatment. Additionally will assist with any symptoms of palliative concern. Attestation To help prompt me to consider important information that might be impacting today's encounter and assessment, information from prior notes written by myself or my colleagues may have been "brought forward" into today's note. My signature on this note, however, is an attestation that I personally performed the exam, history, and/or decision-making noted today, and, unless otherwise indicated, the interactions with patient, family, and staff as well as the review of records all occurred today. I also attest that the listed assessment and stated plan reflect my best clinical judgment today based on the combination of historical information, prior notes, and today's exam/ interactions. When time spent is documented, it refers only to time spent today by the signer, or if indicated, combined time spent today by collaborating physician/nurse practitioner. Brian Valadez Jul 20, 2017 11:17
--- NOTE | 2017-07-20 12:21 | HHI.PR ---
Subjective Remarks Follow-up for brain lung mass with right-sided weakness Patient has no complaints. Denies any GI bleed. Fecal occult blood was ordered last night unsure why since he denied any bloody stools. Denies any headache, visual changes, nausea, vomiting, or no new focal neurological deficits. Objective Vitals Vital Signs Date Time Temp Pulse Resp B/P (MAP) Pulse Ox O2 Delivery O2 Flow Rate FiO2 07/20/17 12:15 97.6 90 17 108/64 (79) 94 07/20/17 08:31 97.4 67 17 139/84 (102) 94 07/20/17 04:00 97.8 74 18 126/79 (95) 96 07/20/17 00:00 97.7 86 18 114/70 (85) 96 07/19/17 20:00 98.3 92 18 114/64 (81) 97 07/19/17 16:35 98.0 99 18 121/75 (90) 97 I/O 07/19/17 07/19/17 07/19/17 07/20/17 07/20/17 07/20/17 07:00 15:00 23:00 07:00 15:00 23:00 Intake Total 1220 ml 110 ml 1100 ml Output Total 500 ml 250 ml Balance 720 ml 110 ml 1100 ml -250 ml IV Total 1220 ml 110 ml 1100 ml Output Urine Total 500 ml 250 ml # Voids 1 3 # Bowel Movements 1 Result Diagram: 07/17/17 0405 07/19/17 0250 Objective Remarks GENERAL: in NAD CARDIOVASCULAR: Regular rate and rhythm without murmurs, gallops, or rubs. RESPIRATORY: Breath sounds equal bilaterally. No accessory muscle use. GASTROINTESTINAL: Abdomen soft, non-tender, nondistended. MUSCULOSKELETAL: NEURO: AAO x2. did not know date. patient grossly moves all extremity. 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 right LE 4/5 strength. left sided strength 5/5. Medications and IVs Current Medications Sodium Chloride (NS Flush) 2 ml UNSCH PRN IV FLUSH FLUSH AFTER USING IV ACCESS Last administered on 07/16/17at 18:26; Start 07/16/17 at 16:00; Stop 07/17/17 at 13:30; Status DC Vancomycin HCl 1000 mg/Sodium Chloride 250 ml @ 250 mls/hr ONCE ONCE IV Last administered on 07/16/17 18:26; Start 07/16/17 at 17:30; Stop 07/16/17 at 18:29 ; Status DC Piperacillin Sod/ Tazobactam Sod 100 ml @ 200 mls/hr ONCE ONCE IV Last administered on 07/16/17at 18:10; Start 07/16/17 at 17:30; Stop 07/16/17 at 17:59 ; Status DC Dexamethasone Sodium Phosphate (Decadron Inj) 10 mg ONCE ONCE IV PUSH Last administered on 07/16/17at 18:25; Start 07/16/17 at 18:15; Stop 07/16/17 at 18:16 ; Status DC Sodium Chloride 1,000 ml @ 84 mls/hr [id number] IV Last administered on at 05:24; Start 07/16/17 at 18:48 Sodium Chloride (NS Flush) 2 ml UNSCH PRN IV FLUSH FLUSH AFTER USING IV ACCESS ; Start 07/16/17 at 19:00 Sodium Chloride (NS Flush) 2 ml BID IV FLUSH Last administered on 07/19/17at 20: 49; Start 07/16/17 at 21:00 Acetaminophen (Tylenol) 650 mg Q6H PRN PO PAIN 1-5 AND/OR FEVER >101F; Start at 19:00 Hydromorphone HCl (Dilaudid Pf Inj) 1 mg Q4H PRN IV PAIN 6-10; Start 07/16/17 at 19:15 Famotidine (Pepcid Inj) 20 mg Q12HR IV PUSH Last administered on 07/19/17at 20: 50; Start 07/16/17 at 21:00 Ondansetron HCl (Zofran Inj) 4 mg Q6H PRN IV PUSH NAUSEA OR VOMITING; Start at 19:00 Temazepam (Restoril) 15 mg HS PRN PO INSOMNIA; Start 07/16/17 at 19:00 Albuterol/ Ipratropium (Duoneb Neb) 1 ampule Q2HR NEB PRN INH WHEEZING Last administered on 07/18/17at 16:49; Start 07/16/17 at 19:00 Heparin Sodium (Porcine) (Heparin Inj) 5,000 units Q8H SQ Last administered on 07/20/17at 05:20; Start 07/16/17 at 22:00 Miscellaneous Information 1 Q361D XX Last administered on 07/16/17at 22:59; Start 07/16/17 at 19:00 Chlorhexidine Gluconate (Chlorhexidine 2% Cloth) 3 pack Taper DAILY@04 TOP ; Start 07/17/17 at 04:00; Stop 07/13/18 at 03:59 Chlorhexidine Gluconate (Chlorhexidine 2% Cloth) 3 pack UNSCH PRN TOP HYGIENIC CARE; Start 07/16/17 at 19:00 Senna/Docusate Sodium (Karlie-Colace) 1 tab BID PO Last administered on at 08:14; Start 07/16/17 at 21:00 Magnesium Hydroxide (Milk Of Magnesia Liq) 30 ml Q12H PRN PO Mild constipation ; Start 07/16/17 at 19:00 Sennosides (Senokot) 17.2 mg Q12H PRN PO Moderate constipation; Start 07/16/17 at 19:00 Bisacodyl (Dulcolax Supp) 10 mg DAILY PRN RECTAL SEVERE CONSITIPATION; Start at 19:00 Lactulose (Lactulose Liq) 30 ml DAILY PRN PO SEVERE CONSITIPATION; Start at 19:00 Dexamethasone Sodium Phosphate (Decadron Inj) 4 mg Q6HR IV PUSH Last administered on 07/20/17at 05:21; Start 07/17/17 at 00:00; Stop 07/20/17 at 09:52 ; Status DC Pharmacy Profile Note 0 ml @ 0 mls/hr UNSCH OTHER ; Start 07/17/17 at 13:15 Cefepime HCl 2000 mg/Sodium Chloride 100 ml @ 200 mls/hr Q12H IV Last administered on 07/20/17at 00:19; Start 07/17/17 at 13:30 Vancomycin HCl 1250 mg/Sodium Chloride 262.5 ml @ 250 mls/hr Q12H IV ; Start at 14:00; Status Cancel Vancomycin HCl 1400 mg/Sodium Chloride 514 ml @ 250 mls/hr Q12H IV Last administered on 07/19/17at 03:10; Start 07/17/17 at 15:00; Stop 07/19/17 at 09:09 ; Status DC Miscellaneous Information SPECIFIC LAB TO BE CITLALI... ONCE ONCE .XX Last administered on 07/19/17at 03:10; Start 07/19/17 at 02:45; Stop 07/19/17 at 02:46 ; Status DC Gadodiamide (Omniscan Pf Inj) 15 ml STK-MED ONCE IVCONTRAST Last administered on 07/17/17at 14:46; Start 07/17/17 at 14:46; Stop 07/17/17 at 14:47; Status DC Levetriacetam (Keppra) 500 mg Q12HR PO Last administered on 07/20/17at 08:14; Start 07/17/17 at 21:00 Diatrizoate Meglum/ Diatrizoate Sod ( Gastrojamila Liq) 18 ml ONCE ONCE PO Last administered on 07/18/17at 10:05; Start 07/18/17 at 08:51; Stop 07/18/17 at 09:31; Status DC Iron Sucrose 200 mg/Sodium Chloride 110 ml @ 110 mls/hr DAILY IV ; Start at 17:00; Stop 07/18/17 at 18:08; Status DC Midazolam HCl (Versed Inj) 2 mg STK-MED ONCE .ROUTE ; Start 07/18/17 at 16:44; Stop 07/18/17 at 16:45; Status DC Fentanyl Citrate (fentaNYL INJ) 100 mcg STK-MED ONCE .ROUTE ; Start 07/18/17 at 16:44; Stop 07/18/17 at 16:45; Status DC Miscellaneous Information ALL NURSING DEPARTME... UNSCH PRN .XX SEE LABEL COMMENTS; Start 07/18/17 at 16:36; Stop 07/19/17 at 16:35; Status DC Iron Sucrose 200 mg/Sodium Chloride 110 ml @ 110 mls/hr HS IV Last administered on 07/19/17at 20:49; Start 07/18/17 at 21:00; Stop 07/20/17 at 21:59 Iohexol (Omnipaque 350 Inj) 90 ml STK-MED ONCE IVCONTRAST ; Start 07/18/17 at 21 :08; Stop 07/18/17 at 21:09; Status DC Vancomycin HCl 1250 mg/Sodium Chloride 262.5 ml @ 250 mls/hr Q12H IV Last administered on 07/20/17at 03:21; Start 07/19/17 at 15:00 Miscellaneous Information SPECIFIC LAB TO BE DRAWN:VANCO TROUGH DATE... ONCE ONCE .XX ; Start 07/21/17 at 02:45; Stop 07/21/17 at 02:46 Iohexol (Omnipaque 350 Inj) 80 ml STK-MED ONCE IVCONTRAST Last administered on 07/16/17at 17:45; Start 07/16/17 at 17:45; Stop 07/19/17 at 13:28; Status DC Dexamethasone (Decadron) 4 mg Q8HR PO ; Start 07/20/17 at 14:00 A/P Assessment and Plan Altered mental status with hemiplegia due to brain mass -improving. on decadron. MRI of brain shows brain mass. Neurosurgeon on board and ff. -per NS not a candidate for surgery and radiation oncologist consulted. - Continue Decadron 4 mg every 6 hours - palliative care ff. Lung mass, most likely mets - pulm and oncologist consulted. -s/p bronchoscopy on 07/18 pending biopsy results. Severe microcytic anemia, hemoglobin is 7.5 and MCV 79. -Stable. No active bleeding. -Oncologist following. Most likely iron deficiency. Management per oncologist. Leukocytosis -Most likely reactive due to malignancy. No signs of infection. Thrombocytosis -Most likely secondary to malignancy. Tobacco use disorder - DuoNeb scheduled and when necessary DVT GI prophylaxis - Teds SCDs - Subcutaneous heparin - Pepcid Discharge Planning in the event patient can no longer make decision his sister Dana Umanzor is the health care proxy Saray Noble MD Jul 20, 2017 12:21
[2017-07-20 14:17] LABS: HEMATOCRIT 22.5 % (39.0-51.0); MEAN CORPUSCULAR HEMOGLOBIN 24.6 PG (27.0-34.0); MEAN CORPUSCULAR HGB CONC 30.4 % (32.0-36.0); MEAN PLATELET VOLUME 5.9 FL (7.0-11.0); PLATELET COUNT 876 TH/MM3 (150-450); RED BLOOD COUNT 2.78 MIL/MM3 (4.50-5.90); RED CELL DISTRIBUTION WIDTH 19.6 % (11.6-17.2); WHITE BLOOD COUNT 52.9 TH/MM3 (4.0-11.0)
[2017-07-20 14:21] LABS: HEMOGLOBIN 6.8 GM/DL (13.0-17.0)
[2017-07-20 15:02] LABS: BICARBONATE 26.9 MEQ/L (21.0-32.0); CALCIUM 8.4 MG/DL (8.5-10.1); CREATININE 0.63 MG/DL (0.60-1.30)
[2017-07-20] MEDS: DEXAMETHASONE 4 MG TAB PO SCH ×2 (16:02→22:13)
--- NOTE | 2017-07-20 16:05 | HHI.PR ---
Subjective Remarks ALERT NO SOB Objective Vital Signs Date Time Temp Pulse Resp B/P (MAP) Pulse Ox O2 Delivery O2 Flow Rate FiO2 07/20/17 12:15 97.6 90 17 108/64 (79) 94 07/20/17 08:31 97.4 67 17 139/84 (102) 94 07/20/17 04:00 97.8 74 18 126/79 (95) 96 07/20/17 00:00 97.7 86 18 114/70 (85) 96 07/19/17 20:00 98.3 92 18 114/64 (81) 97 07/19/17 16:35 98.0 99 18 121/75 (90) 97 I/O 07/19/17 07/19/17 07/19/17 07/20/17 07/20/17 07/20/17 07:00 15:00 23:00 07:00 15:00 23:00 Intake Total 1220 ml 110 ml 1100 ml Output Total 500 ml 250 ml Balance 720 ml 110 ml 1100 ml -250 ml IV Total 1220 ml 110 ml 1100 ml Output Urine Total 500 ml 250 ml # Voids 1 3 # Bowel Movements 1 Result Diagram: 07/20/17 1350 07/20/17 1350 Objective Remarks GENERAL: SKIN: Warm and dry. HEAD: Atraumatic. Normocephalic. EYES: Pupils equal and round. No scleral icterus. No injection or drainage. ENT: No nasal bleeding or discharge. Mucous membranes pink and moist. NECK: Trachea midline. No JVD. CARDIOVASCULAR: Regular rate and rhythm. RESPIRATORY: No accessory muscle use. Clear to auscultation. Breath sounds equal bilaterally. GASTROINTESTINAL: Abdomen soft, non-tender, nondistended. Hepatic and splenic margins not palpable. MUSCULOSKELETAL: Extremities without clubbing, cyanosis, or edema. No obvious deformities. NEUROLOGICAL: Awake and alert. No obvious cranial nerve deficits. Motor grossly within normal limits. Five out of 5 muscle strength in the arms and legs. Normal speech. PSYCHIATRIC: Appropriate mood and affect; insight and judgment normal. Assessment and Plan Assessment and Plan Vital Signs Date Time Temp Pulse Resp B/P (MAP) Pulse Ox O2 Delivery O2 Flow Rate FiO2 07/18/17 12:00 98.7 82 18 114/62 (79) 96 07/18/17 08:00 98.4 84 18 114/69 (84) 98 07/18/17 04:00 97.5 95 18 118/71 (87) 97 07/18/17 00:00 97.2 92 18 105/60 (75) 95 07/17/17 20:00 97.2 101 18 109/59 (76) 97 07/17/17 19:10 Room Air 07/17/17 17:30 97.5 104 18 120/71 (87) 99 GENERAL: SKIN: Warm and dry. HEAD: Atraumatic. Normocephalic. EYES: Pupils equal and round. No scleral icterus. No injection or drainage. ENT: No nasal bleeding or discharge. Mucous membranes pink and moist. NECK: Trachea midline. No JVD. CARDIOVASCULAR: Regular rate and rhythm. RESPIRATORY: No accessory muscle use. Clear to auscultation. Breath sounds equal bilaterally. GASTROINTESTINAL: Abdomen soft, non-tender, nondistended. Hepatic and splenic margins not palpable. MUSCULOSKELETAL: Extremities without clubbing, cyanosis, or edema. No obvious deformities. NEUROLOGICAL: Awake and alert. No obvious cranial nerve deficits. Motor grossly within normal limits. Five out of 5 muscle strength in the arms and legs. Normal speech. PSYCHIATRIC: Appropriate mood and affect; insight and judgment normal. PATH , PROBABLE [place] [facility] CYTOLOGY PENDING Carol Medina MD Jul 20, 2017 16:05
[2017-07-20] MEDS ORDERED: SODIUM CHLOR 0.9% 250 ML INJ 250 ML IV ONE (16:15)
[2017-07-20] MEDS ORDERED: POTASSIUM CHLORIDE 25 MEQ EFFERVESCENT TAB PO ONE (16:30)
[2017-07-20] MEDS: IRON SUCROSE INJ 200 MG in SODIUM CHLORIDE 0.9% INJ 100 ML IV SCH (21:00)
[2017-07-20] MEDS: FAMOTIDINE 20 MG TAB PO SCH (22:13)
[2017-07-21] VITALS: BP_SYST 119; BP_SYST 130; BP_DIAS 68; BP_DIAS 74; PULSE 79; PULSE 93; RESP 18; TEMP 97.4; TEMP 97.6; O2SAT 96; O2SAT 99
[2017-07-21 02:06] LABS: HEMATOCRIT 23.8 % (39.0-51.0); HEMOGLOBIN 7.7 GM/DL (13.0-17.0); MEAN CELL VOLUME 80.9 FL (80.0-100.0); MEAN CORPUSCULAR HEMOGLOBIN 26.1 PG (27.0-34.0); MEAN CORPUSCULAR HGB CONC 32.3 % (32.0-36.0); MEAN PLATELET VOLUME 5.9 FL (7.0-11.0); PLATELET COUNT 764 TH/MM3 (150-450); RED BLOOD COUNT 2.94 MIL/MM3 (4.50-5.90); RED CELL DISTRIBUTION WIDTH 18.9 % (11.6-17.2)
[2017-07-21 02:21] LABS: CALCIUM 8.6 MG/DL (8.5-10.1); CREATININE 0.57 MG/DL (0.60-1.30)
[2017-07-21] MEDS ORDERED: PHARMACY ORDERED LAB ONE (02:45)
[2017-07-21 04:00] VITALS: BP 127/74; PULSE 72; RESP 18; TEMP 97.3; O2SAT 100
[2017-07-21] MEDS: DEXAMETHASONE 4 MG TAB PO SCH ×4 (05:23→22:01)
[2017-07-21] MEDS: SODIUM CHLOR 0.9% 1000 ML INJ 1,000 ML IV SCH ×3 (06:03→17:58)
[2017-07-21 08:00] VITALS: BP 106/59; PULSE 72; RESP 16; TEMP 97.5; O2SAT 96
[2017-07-21] MEDS: levETIRAcetam 500 MG TAB PO SCH ×2 (08:01→22:00)
[2017-07-21] MEDS: SODIUM CHLORIDE 0.9% FLUSH 10 ML FLUSH IV FLUSH SCH ×2 (08:01→21:00)
[2017-07-21] MEDS: DOCUSATE SODIUM 50 MG/SENNA 8.6 MG TAB PO SCH ×2 (08:01→22:00)
[2017-07-21] MEDS: FAMOTIDINE 20 MG TAB PO SCH ×2 (08:02→22:01)
--- NOTE | 2017-07-21 08:49 | HHI.PR ---
Subjective Remarks in no acute distress. denies pain. somewhat weak on the right side. Objective Vitals Vital Signs Date Time Temp Pulse Resp B/P (MAP) Pulse Ox O2 Delivery O2 Flow Rate FiO2 07/21/17 04:00 97.3 72 18 127/74 (91) 100 07/21/17 00:00 97.6 79 18 119/74 (89) 99 07/20/17 23:00 97.4 77 17 119/71 96 07/20/17 22:30 97.4 86 17 121/69 96 07/20/17 22:08 97.6 90 18 122/72 97 07/20/17 20:00 97.4 93 18 130/68 (88) 96 07/20/17 16:33 97.7 82 18 124/76 (92) 99 07/20/17 12:15 97.6 90 17 108/64 (79) 94 I/O 07/20/17 07/20/17 07/20/17 07/21/17 07/21/17 07/21/17 07:00 15:00 23:00 07:00 15:00 23:00 Intake Total 1100 ml 245 ml 405 ml Output Total 250 ml Balance 1100 ml -250 ml 245 ml 405 ml Intake Oral 240 ml IV Total 1100 ml Packed Cells 400 ml Blood Product IV Normal Saline Flush 5 ml 5 ml Output Urine Total 250 ml # Voids 3 3 5 # Bowel Movements 1 3 Result Diagram: 07/21/17 0139 07/21/17 0139 Imaging Last Impressions Chest X-Ray 07/18/17 0000 Signed Impressions: Service Date/Time: Tuesday, July 18, 2017 16:50 - CONCLUSION: Stable appearance of the chest with complete consolidation of the left upper lobe with volume loss. There is no pneumothorax. Oleg Green MD Abdomen/Pelvis CT 07/18/17 0000 Signed Impressions: Service Date/Time: Tuesday, July 18, 2017 20:57 - CONCLUSION: 1. No acute findings within the abdomen and pelvis. 2. 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 3. Tiny nonobstructing bilateral renal calculi. Jaquan Norton MD Brain MRI 07/17/17 0000 Signed Impressions: Service Date/Time: Monday, July 17, 2017 14:35 - CONCLUSION: 1. There is a irregular ring-enhancing lesion measuring approximately 3.4 cm in the left posterior parietal lobe surrounded by prominent vasogenic edema characteristic for neoplastic disease. Primary versus metastatic disease are considerations. 2. Mild mass effect and midline shift to the right by approximately 5 mm. Reginaldo Shahid MD Head CT 07/16/17 1600 Signed Impressions: Service Date/Time: Sunday, July 16, 2017 17:42 - CONCLUSION: There is an apparent mass in the left frontoparietal high convexity white matter measuring approximately 2.5 cm. There is marked surrounding vasogenic edema causing mild local mass effect and approximately 4 mm of left to right midline shift. Given the chest x-ray findings, this is highly suspicious for a metastatic lesion. Oleg Green MD CT Angiography 07/16/17 0000 Signed Impressions: Service Date/Time: Sunday, July 16, 2017 17:45 - CONCLUSION: 1. No evidence of pulmonary embolism. 2. Complete collapse and airlessness of the entire left upper lung. An endobronchial lesion in the left upper lobe bronchus causing obstruction is the primary consideration. Recommend bronchoscopy for further evaluation. 3. The right lung and left lower lung are grossly clear. There is some central lobar emphysema. Reginaldo Shahid MD Objective Remarks GENERAL: This is a well-nourished, well-developed patient, in no apparent distress. CARDIOVASCULAR: Regular rate and regular rhythm without murmurs, gallops, or rubs. RESPIRATORY: Clear to auscultation. Breath sounds equal bilaterally. No wheezes , rales, or rhonchi. GASTROINTESTINAL: Abdomen soft, non-tender, nondistended. Normal, active bowel sounds MUSCULOSKELETAL: Extremities without clubbing, cyanosis, or edema. NEURO: awake and alert- mildly weak on the right side. Medications and IVs Inpatient Medications Acetaminophen (Tylenol) 650 mg Q6H PRN PO PAIN 1-5 AND/OR FEVER >101F; Start at 19:00 Albuterol/ Ipratropium (Duoneb Neb) 1 ampule Q2HR NEB PRN INH WHEEZING Last administered on 07/18/17at 16:49; Start 07/16/17 at 19:00 Bisacodyl (Dulcolax Supp) 10 mg DAILY PRN RECTAL SEVERE CONSITIPATION; Start at 19:00 Cefepime HCl 2000 mg/Sodium Chloride 100 ml @ 200 mls/hr Q12H IV Last administered on 07/20/17at 15:57; Start 07/17/17 at 13:30; Stop 07/20/17 at 16:12 ; Status DC Chlorhexidine Gluconate (Chlorhexidine 2% Cloth) 3 pack UNSCH PRN TOP HYGIENIC CARE; Start 07/16/17 at 19:00 Dexamethasone (Decadron) 4 mg Q8HR PO Last administered on 07/21/17at 05:23; Start 07/20/17 at 14:00 Dexamethasone Sodium Phosphate (Decadron Inj) 4 mg Q6HR IV PUSH Last administered on 07/20/17at 05:21; Start 07/17/17 at 00:00; Stop 07/20/17 at 09:52 ; Status DC Diatrizoate Meglum/ Diatrizoate Sod ( Gastroview Liq) 18 ml ONCE ONCE PO Last administered on 07/18/17at 10:05; Start 07/18/17 at 08:51; Stop 07/18/17 at 09:31; Status DC Famotidine (Pepcid Inj) 20 mg Q12HR IV PUSH Last administered on 07/20/17at 09: 00; Start 07/16/17 at 21:00; Stop 07/20/17 at 14:24; Status DC Famotidine (Pepcid) 20 mg BID PO Last administered on 07/21/17at 08:02; Start at 21:00 Heparin Sodium (Porcine) (Heparin Inj) 5,000 units Q8H SQ Last administered on 07/20/17at 05:20; Start 07/16/17 at 22:00; Stop 07/20/17 at 16:12; Status DC Hydromorphone HCl (Dilaudid Pf Inj) 1 mg Q4H PRN IV PAIN 6-10; Start 07/16/17 at 19:15 Iron Sucrose 200 mg/Sodium Chloride 110 ml @ 110 mls/hr HS IV Last administered on 07/19/17at 20:49; Start 07/18/17 at 21:00; Stop 07/20/17 at 21:59 ; Status DC Lactulose (Lactulose Liq) 30 ml DAILY PRN PO SEVERE CONSITIPATION; Start at 19:00 Levetriacetam (Keppra) 500 mg Q12HR PO Last administered on 07/21/17at 08:01; Start 07/17/17 at 21:00 Magnesium Hydroxide (Milk Of Magnmarika Liq) 30 ml Q12H PRN PO Mild constipation ; Start 07/16/17 at 19:00 Miscellaneous Information ALL NURSING DEPARTME... UNSCH PRN .XX SEE LABEL COMMENTS; Start 07/18/17 at 16:36; Stop 07/19/17 at 16:35; Status DC Ondansetron HCl (Zofran Inj) 4 mg Q6H PRN IV PUSH NAUSEA OR VOMITING; Start at 19:00 Pharmacy Profile Note 0 ml @ 0 mls/hr UNSCH OTHER ; Start 07/17/17 at 13:15; Stop 07/20/17 at 16:12; Status DC Piperacillin Sod/ Tazobactam Sod 100 ml @ 200 mls/hr ONCE ONCE IV Last administered on 07/16/17at 18:10; Start 07/16/17 at 17:30; Stop 07/16/17 at 17:59 ; Status DC Potassium Bicarb/ Potassium Chloride (K-Lyte Cl Eff) 50 meq ONCE ONCE PO Last administered on 07/20/17at 18:37; Start 07/20/17 at 16:30; Stop 07/20/17 at 16:37; Status DC Senna/Docusate Sodium (Karlie-Colace) 1 tab BID PO Last administered on at 22:13; Start 07/16/17 at 21:00 Sennosides (Senokot) 17.2 mg Q12H PRN PO Moderate constipation; Start 07/16/17 at 19:00 Sodium Chloride 250 ml @ 15 mls/hr ONCE ONCE IV Last administered on at 22:12; Start 07/20/17 at 16:15; Stop 07/21/17 at 08:54 Sodium Chloride (NS Flush) 2 ml BID IV FLUSH Last administered on 07/20/17at 22: 12; Start 07/16/17 at 21:00 Temazepam (Restoril) 15 mg HS PRN PO INSOMNIA; Start 07/16/17 at 19:00 Vancomycin HCl 1000 mg/Sodium Chloride 250 ml @ 250 mls/hr ONCE ONCE IV Last administered on 07/16/17at 18:26; Start 07/16/17 at 17:30; Stop 07/16/17 at 18:29 ; Status DC Vancomycin HCl 1250 mg/Sodium Chloride 262.5 ml @ 250 mls/hr Q12H IV Last administered on 07/20/17at 03:21; Start 07/19/17 at 15:00; Stop 07/20/17 at 16:12 ; Status DC Vancomycin HCl 1400 mg/Sodium Chloride 514 ml @ 250 mls/hr Q12H IV Last administered on 07/19/17at 03:10; Start 07/17/17 at 15:00; Stop 07/19/17 at 09:09 ; Status DC A/P Assessment and Plan Altered mental status with hemiplegia due to brain mass -improving. - MRI of brain shows brain mass. Neurosurgeon on board and ff. -per NS not a candidate for surgery and radiation oncologist consulted. - Continue Decadron and Keppra - palliative care ff. -consult PT/OT. Lung mass, most likely mets - pulm and oncologist consulted. -s/p bronchoscopy on 07/18 - pathology ; suspicious for adneocarcinoma. Severe microcytic anemia, hemoglobin is 7.5 and MCV 79. -Stable. No active bleeding. -Oncologist following. Most likely iron deficiency. Management per oncologist. Leukocytosis -Most likely reactive due to malignancy. No signs of infection. Thrombocytosis -Most likely secondary to malignancy. Tobacco use disorder - DuoNeb scheduled and when necessary DVT GI prophylaxis - Teds SCDs - Pepcid Discharge Planning pending PT/OT evaluation and clearance from the consultants. Quyen Doshi MD Jul 21, 2017 08:49
--- NOTE | 2017-07-21 10:59 | PD.ONC.PN ---
Subjective Subjective Remarks Afebrile overnight. Patient resting in bed in nad. No visitors at bedside. No complaints. Objective Data Date Time Temp Pulse Resp B/P (MAP) Pulse Ox O2 Delivery O2 Flow Rate FiO2 07/21/17 08:00 97.5 72 16 106/59 (75) 96 07/21/17 04:00 97.3 72 18 127/74 (91) 100 07/21/17 00:00 97.6 79 18 119/74 (89) 99 07/20/17 23:00 97.4 77 17 119/71 96 07/20/17 22:30 97.4 86 17 121/69 96 07/20/17 22:08 97.6 90 18 122/72 97 07/20/17 20:00 97.4 93 18 130/68 (88) 96 07/20/17 16:33 97.7 82 18 124/76 (92) 99 07/20/17 12:15 97.6 90 17 108/64 (79) 94 07/21/17 07/21/17 07/21/17 07:00 15:00 23:00 Intake Total 405 ml 450 ml Balance 405 ml 450 ml Result Diagram: 07/21/17 0139 07/21/17138 Laboratory Results Laboratory Tests Test 07/20/17 13:50 07/21/17 01:39 White Blood Count 52.9 TH/MM3 51.0 TH/MM3 Red Blood Count 2.78 MIL/MM3 2.94 MIL/MM3 Hemoglobin 6.8 GM/DL 7.7 GM/DL Hematocrit 22.5 % 23.8 % Mean Corpuscular Volume 81.0 FL 80.9 FL Mean Corpuscular Hemoglobin 24.6 PG 26.1 PG Mean Corpuscular Hemoglobin Concent 30.4 % 32.3 % Red Cell Distribution Width 19.6 % 18.9 % Platelet Count 876 TH/MM3 764 TH/MM3 Mean Platelet Volume 5.9 FL 5.9 FL Blood Urea Nitrogen 8 MG/DL 9 MG/DL Creatinine 0.63 MG/DL 0.57 MG/DL Random Glucose 103 MG/DL 108 MG/DL Calcium Level 8.4 MG/DL 8.6 MG/DL Sodium Level 141 MEQ/L 139 MEQ/L Potassium Level 3.1 MEQ/L 4.2 MEQ/L Chloride Level 106 MEQ/L 105 MEQ/L Carbon Dioxide Level 26.9 MEQ/L 27.0 MEQ/L Anion Gap 8 MEQ/L 7 MEQ/L Estimat Glomerular Filtration Rate 163 ML/MIN 183 ML/MIN Culture Results Microbiology Date/Time Source Procedure Growth Status 07/19/17 06:52 Stool Stool Stool Occult Blood (LIDIA) - Final HEMOCCULT NEGATIVE Complete 07/18/17 19:05 Stool Stool Stool Occult Blood ([facility]IDIA) - Final HEMOCCULT POSITIVE Complete Administered Medications Medications (Trade) Dose Ordered Sig/Dillan Route PRN Reason Start Time Stop Time Status Last Admin Dose Admin Sodium Chloride 1,000 ml @ 84 mls/hr [id number] IV 07/16/17 18:48 07/20/17 18:08 Sodium Chloride (NS Flush) 2 ml BID IV FLUSH 07/16/17 21:00 07/20/17 22:12 Albuterol/ Ipratropium (Duoneb Neb) 1 ampule Q2HR NEB PRN INH WHEEZING 07/16/17 19:00 07/18/17 16:49 Miscellaneous Information 1 Q361D XX 07/16/17 19:00 07/16/17 22:59 Senna/Docusate Sodium (Karlie-Colace) 1 tab BID PO 07/16/17 21:00 07/20/17 22:13 Levetriacetam (Keppra) 500 mg Q12HR PO 07/17/17 21:00 07/21/17 08:01 Dexamethasone (Decadron) 4 mg Q8HR PO 07/20/17 14:00 07/21/17 10:46 Famotidine (Pepcid) 20 mg BID PO 07/20/17 21:00 07/21/17 08:02 Objective Remarks GENERAL: Middle aged male, sitting up in bed in [facility]. SKIN: Warm and dry. HEAD: Normocephalic. EYES: No injection or drainage. NECK: Supple, trachea midline. CARDIOVASCULAR: Regular rate and rhythm RESPIRATORY: Breath sounds equal bilaterally. No accessory muscle use. GASTROINTESTINAL: Abdomen soft, non-tender, nondistended. EXTREMITIES: No cyanosis, MUSCULOSKELETAL: Adequate muscle tone. NEUROLOGICAL: awake and alert, normal speech. 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 --will need systemic chemotherapy and lung irradiation at some point as well. (2) Microcytic anemia ICD Codes: D50.9 - Iron deficiency anemia, unspecified Plan: --iron studies show low TIBC, serum iron and percent saturation and mildly elevated ferritin, more consistent with anemia of chronic disease or a mixed picture. --monitor and transfuse as needed. --Hemoccult negative. (3) Thrombocythemia ICD Codes: D47.3 - Essential (hemorrhagic) thrombocythemia Plan: -- likely reactive from anemia as well as underlying malignancy. (4) Leukocytosis ICD Codes: D72.829 - Elevated white blood cell count, unspecified Plan: --reactive versus underlying infection. --also contributing PO Decadron. Assessment 51y/o male with new diagnosis stage IV adenocarcinoma of lung primary. HPI (brought forward for continuity of care): 51-year-old homeless male who has not had medical care for quite some time. +tobacco abuse 30 pack years. presented to the emergency department with right-sided weakness, confusion and difficulty with his gait. CT head + 2.5 cm left posterior frontotemporal mass with surrounding lymphogenic edema. CT angiogram chest showed a collapse of the left upper lobe with an endotracheal mass obstructing the bronchus. Plan 1. discussed pathology with patient. discussed plan for brain irradiation and that he will also need systemic chemotherapy and eventual lung irradiation as well. Patient expressed understanding and agreement with plan. 2. we discussed that bc he does not currently have insurance, it might take him awhile to get into the clinic. therefore, we may start chemotherapy inpatient. 3. continue Decadron. monitor neurology status. Attending Statement The exam, history, and the medical decision-making described in the above note were completed with the assistance of the mid-level provider. I reviewed and agree with the findings presented. I attest that I had a [id number] encounter with the patient on the same day, and personally performed and documented my assessment and findings in the medical record. Port placement for anticipated systemic chemotherapy stereotactic XRT to brain lesion d/w with dr. [place] d/w patient and his family CoLinda burr Jul 21, 2017 10:59 Stephane Sexton MD Jul 21, 2017 22:41
--- NOTE | 2017-07-21 11:31 | HHI.HCPN ---
Reason for visit a. To assist with evaluation and management of symptoms including:Confusion , pain, debility b. To assist medical decision maker(s) with: better understanding of current medical conditions; weighing benefits/burdens of medical treatment options; making medical treatment decisions. Subjective/Interval History Patient awake, oriented to self, place and confused to time. Patient denies pain or headache during this visit. Pathology results showing atypical glandular epithelial cells, highly suspicious for adenocarcinoma. Per hematology oncology note, there is plan for brain irradiation and systemic chemotherapy which may be started inpatient. Occupational therapy following recommended continued therapy in rehab. Activity increased to out of bed with assistance. Pulmonology, Oncology following. . Family/friend interactions No family at bedside. . Advance Directives Living Will: Never completed Health Care Surrogate: Copy in medical record Durable Power of Pluck Trimmer: Never completed Advance Directive Specifics Date completed: 07/19/2017 . Health Care Surrogate(s): Sister-healthcare surrogate-Dana Umanzor-[phone] /[phone] Niece-alternate healthcare surrogate-Noé, Dana [phone] . Objective Vital Signs Date Time Temp Pulse Resp B/P (MAP) Pulse Ox O2 Delivery O2 Flow Rate FiO2 07/21/17 08:00 97.5 72 16 106/59 (75) 96 07/21/17 04:00 97.3 72 18 127/74 (91) 100 07/21/17 00:00 97.6 79 18 119/74 (89) 99 07/20/17 23:00 97.4 77 17 119/71 96 07/20/17 22:30 97.4 86 17 121/69 96 07/20/17 22:08 97.6 90 18 122/72 97 07/20/17 20:00 97.4 93 18 130/68 (88) 96 07/20/17 16:33 97.7 82 18 124/76 (92) 99 07/20/17 12:15 97.6 90 17 108/64 (79) 94 Intake & Output 07/21/17 07/21/17 07:00 19:00 Intake Total 410 ml 450 ml Balance 410 ml 450 ml IV Total 450 ml Packed Cells 400 ml Blood Product IV Normal Saline Flush 10 ml # Voids 5 # Bowel Movements 1 3 Physical Exam CONSTITUTIONAL/GENERAL: This is an adequately nourished patient, in no apparent distress. Denies pain. TUBES/LINES/DRAINS: PIV SKIN: No jaundice, rashes, or lesions. Ecchymoses on upper extremities. No wounds seen anteriorly. Skin temperature appropriate. Not diaphoretic. HEAD: Atraumatic. Normocephalic. EYES: Pupils equal and round and reactive. Extraocular motions intact. No scleral icterus. No injection or drainage. Fundi not examined. ENT: Hearing grossly normal. Nose without bleeding or purulent drainage. Throat without visible erythema, exudates, masses, or lesions. NECK: Trachea midline. Supple, nontender. CARDIOVASCULAR: Regular rate and rhythm without murmurs, gallops, or rubs. No JVD. Peripheral pulses symmetric. RESPIRATORY/CHEST: Symmetric, unlabored respirations. Unable to auscultate breath sounds to AIRAM otherwise diminished in other crocker. No wheezes, rales, or rhonchi. GASTROINTESTINAL: Abdomen soft, non-tender, nondistended No guarding. Bowel sounds present. GENITOURINARY: Without palpable bladder distension. Finley catheter in place. MUSCULOSKELETAL: Extremities without clubbing, cyanosis, or edema. No joint tenderness or effusion noted. No calf tenderness. No mottling or clubbing. NEUROLOGICAL: Awake and alert. Motor and sensory grossly within normal limits. Follows commands with left side. RUE weaker than RLE PSYCHIATRIC: No obvious anxiety/depression. no apparent hallucinations or other psychotic thought process. Diagnostic Tests Laboratory Laboratory Tests Test 07/19/17 02:50 07/20/17 13:50 07/21/17 01:39 Creatinine 0.65 MG/DL (0.60-1.30) 0.63 MG/DL (0.60-1.30) 0.57 MG/DL (0.60-1.30) Estimat Glomerular Filtration Rate 157 ML/MIN (>89) 163 ML/MIN (>89) 183 ML/MIN (>89) Vancomycin Level Trough 17.1 MCG/ML (5.0-10.0) White Blood Count 52.9 TH/MM3 (4.0-11.0) 51.0 TH/MM3 (4.0-11.0) Red Blood Count 2.78 MIL/MM3 (4.50-5.90) 2.94 MIL/MM3 (4.50-5.90) Hemoglobin 6.8 GM/DL (13.0-17.0) 7.7 GM/DL (13.0-17.0) Hematocrit 22.5 % (39.0-51.0) 23.8 % (39.0-51.0) Mean Corpuscular Volume 81.0 FL (80.0-100.0) 80.9 FL (80.0-100.0) Mean Corpuscular Hemoglobin 24.6 PG (27.0-34.0) 26.1 PG (27.0-34.0) Mean Corpuscular Hemoglobin Concent 30.4 % (32.0-36.0) 32.3 % (32.0-36.0) Red Cell Distribution Width 19.6 % (11.6-17.2) 18.9 % (11.6-17.2) Platelet Count 876 TH/MM3 (150-450) 764 TH/MM3 (150-450) Mean Platelet Volume 5.9 FL (7.0-11.0) 5.9 FL (7.0-11.0) Blood Urea Nitrogen 8 MG/DL (7-18) 9 MG/DL (7-18) Random Glucose 103 MG/DL (74-106) 108 MG/DL (74-106) Calcium Level 8.4 MG/DL (8.5-10.1) 8.6 MG/DL (8.5-10.1) Sodium Level 141 MEQ/L (136-145) 139 MEQ/L (136-145) Potassium Level 3.1 MEQ/L (3.5-5.1) 4.2 MEQ/L (3.5-5.1) Chloride Level 106 MEQ/L (98-107) 105 MEQ/L (98-107) Carbon Dioxide Level 26.9 MEQ/L (21.0-32.0) 27.0 MEQ/L (21.0-32.0) Anion Gap 8 MEQ/L (5-15) 7 MEQ/L (5-15) Result Diagram: 07/21/1713807/21/17 0139 Microbiology Microbiology Date/Time Source Procedure Growth Status 07/19/17 06:52 Stool Stool Stool Occult Blood (LIDIA) - Final HEMOCCULT NEGATIVE Complete 07/18/17 19:05 Stool Stool Stool Occult Blood (LIDIA) - Final HEMOCCULT POSITIVE Complete Procedures 07/18/17-bronchoscopy with biopsy . Other Pathology LUNG, LEFT MAIN BRONCHUS, BRUSHIN07/19/17 - ATYPICAL GLANDULAR EPITHELIAL CELLS, SUSPICIOUS FOR ADENOCARCINOMA. . Assessment and Plan Disease Oriented Problem List: (1) Brain mass (2) Lung mass (3) Tobacco use disorder Symptom Scale: (1) Confusion 0-10 Scale: Unable to quantify (2) Debility 0-10 Scale: Unable to quantify Comment: Progressive . Pertinent Non-Medical Issues Psychosocial:Patient was born and raised in [place]. Patient's highest level of education is sixth-grade. Patient has 4 brothers and 1 sister. Patient never . He had 2 sons both name after him. One son Virgil Umanzor Jr mostly at age 32 from a motor cycle accident. His other son who is also named Virgil Umanzor Jr is currently incarcerated [facility]. Spiritual: No amish affiliation Legal: Completed healthcare surrogate form Ethical issues impacting care: None identified at this time . Important Contacts Sister-healthcare surrogate-Dana Umanzor-[phone] /[phone] Niece-alternate healthcare surrogate-Dana Umanzor [phone] . Prognosis Mr. Umanzor is a 51 years old male was brought to the emergency department by his family on 07/16/17 after they noted that he had right sided extremity weakness with confusion and difficulty with ambulation. Patient was found to have an endobronchial lesion in his left upper lobe is well is seen intracranial lesion with vasogenic edema. Patient remains at risk for further complications, deterioration and decline. . Code Status: Full Code Plan PLAN: Legal decision maker: Given that patient came in with some confusion, though slightly improving. Recommending shared decision making with his sister Dana Umanzor who is his designated Health Care Surrogate. Goals: Remain Aggressive CODE STATUS: Full Code SYMPTOMS: * Confusion: Patient came in with complaints of confusion. CT head revealed eft posterior frontoparietal lobe mass with surrounding vasogenic edema causing 4mm of left to right midline shift. Patient oriented to self, place with some confusion. Plan for brain irradiation therapy. Patient on Decadron. no recommendations at this time. * Pain: Patient has a brain mass and lung mass. Patient is at risk for headaches. Hydromorphone 1 mg Q 4 HRS PRN available. Patient has not required use of hydromorphone. No recommendations at this time * Debility: Progressive. Patient has been increasingly getting weak and having difficulty with ambulation. Weight loss he has been reported. Occupational therapy consulted. Activity increased to out of bed with assistance. Recommending consulting physical therapy. Palliative care will continue to follow the patient during hospital course as condition evolves, to assist patient/decision-maker with understanding of their medical conditions, weighing benefits/burdens of treatment options, for clarification of goals of treatment. Additionally will assist with any symptoms of palliative concern. Attestation To help prompt me to consider important information that might be impacting today's encounter and assessment, information from prior notes written by myself or my colleagues may have been "brought forward" into today's note. My signature on this note, however, is an attestation that I personally performed the exam, history, and/or decision-making noted today, and, unless otherwise indicated, the interactions with patient, family, and staff as well as the review of records all occurred today. I also attest that the listed assessment and stated plan reflect my best clinical judgment today based on the combination of historical information, prior notes, and today's exam/ interactions. When time spent is documented, it refers only to time spent today by the signer, or if indicated, combined time spent today by collaborating physician/nurse practitioner. Brian Valadez Jul 21, 2017 11:31
[2017-07-21 12:00] VITALS: BP 112/64; PULSE 84; RESP 18; TEMP 97.5; O2SAT 94
[2017-07-21] MEDS: IRON SUCROSE INJ 200 MG in SODIUM CHLORIDE 0.9% INJ 100 ML IV SCH (12:26)
[2017-07-21 16:00] VITALS: BP 115/71; PULSE 87; RESP 16; TEMP 97.4; O2SAT 96
--- NOTE | 2017-07-21 17:38 | HHI.PR ---
Subjective Remarks ALERT NO SOB Objective Vital Signs Date Time Temp Pulse Resp B/P (MAP) Pulse Ox O2 Delivery O2 Flow Rate FiO2 07/21/17 12:00 97.5 84 18 112/64 (80) 94 07/21/17 08:00 97.5 72 16 106/59 (75) 96 07/21/17 04:00 97.3 72 18 127/74 (91) 100 07/21/17 00:00 97.6 79 18 119/74 (89) 99 07/20/17 23:00 97.4 77 17 119/71 96 07/20/17 22:30 97.4 86 17 121/69 96 07/20/17 22:08 97.6 90 18 122/72 97 07/20/17 20:00 97.4 93 18 130/68 (88) 96 I/O 07/20/17 07/20/17 07/20/17 07/21/17 07/21/17 07/21/17 07:00 15:00 23:00 07:00 15:00 23:00 Intake Total 1100 ml 245 ml 405 ml 450 ml Output Total 250 ml Balance 1100 ml -250 ml 245 ml 405 ml 450 ml Intake Oral 240 ml IV Total 1100 ml 450 ml Packed Cells 400 ml Blood Product IV Normal Saline Flush 5 ml 5 ml Output Urine Total 250 ml # Voids 3 3 5 # Bowel Movements 1 3 Result Diagram: 07/21/1713807/21/17138 Objective Remarks GENERAL: SKIN: Warm and dry. HEAD: Atraumatic. Normocephalic. EYES: Pupils equal and round. No scleral icterus. No injection or drainage. ENT: No nasal bleeding or discharge. Mucous membranes pink and moist. NECK: Trachea midline. No JVD. CARDIOVASCULAR: Regular rate and rhythm. RESPIRATORY: No accessory muscle use. Clear to auscultation. Breath sounds equal bilaterally. GASTROINTESTINAL: Abdomen soft, non-tender, nondistended. Hepatic and splenic margins not palpable. MUSCULOSKELETAL: Extremities without clubbing, cyanosis, or edema. No obvious deformities. NEUROLOGICAL: Awake and alert. No obvious cranial nerve deficits. Motor grossly within normal limits. Five out of 5 muscle strength in the arms and legs. Normal speech. PSYCHIATRIC: Appropriate mood and affect; insight and judgment normal. Assessment and Plan Assessment and Plan Vital Signs Date Time Temp Pulse Resp B/P (MAP) Pulse Ox O2 Delivery O2 Flow Rate FiO2 07/18/17 12:00 98.7 82 18 114/62 (79) 96 07/18/17 08:00 98.4 84 18 114/69 (84) 98 07/18/17 04:00 97.5 95 18 118/71 (87) 97 07/18/17 00:00 97.2 92 18 105/60 (75) 95 07/17/17 20:00 97.2 101 18 109/59 (76) 97 07/17/17 19:10 Room Air 07/17/17 17:30 97.5 104 18 120/71 (87) 99 GENERAL: SKIN: Warm and dry. HEAD: Atraumatic. Normocephalic. EYES: Pupils equal and round. No scleral icterus. No injection or drainage. ENT: No nasal bleeding or discharge. Mucous membranes pink and moist. NECK: Trachea midline. No JVD. CARDIOVASCULAR: Regular rate and rhythm. RESPIRATORY: No accessory muscle use. Clear to auscultation. Breath sounds equal bilaterally. GASTROINTESTINAL: Abdomen soft, non-tender, nondistended. Hepatic and splenic margins not palpable. MUSCULOSKELETAL: Extremities without clubbing, cyanosis, or edema. No obvious deformities. NEUROLOGICAL: Awake and alert. No obvious cranial nerve deficits. Motor grossly within normal limits. Five out of 5 muscle strength in the arms and legs. Normal speech. PSYCHIATRIC: Appropriate mood and affect; insight and judgment normal. ADENO CA LUNG, BRAIN MEDS , STAGE 4 PLAN FOR RT, CHEMOTHERAPY WILL SIIGN OFF F/U O/P Carol Medina MD Jul 21, 2017 17:38
[2017-07-21 21:58] VITALS: BP 113/75; PULSE 88; RESP 18; TEMP 97.1; O2SAT 96
[2017-07-22 00:30] VITALS: BP 117/67; PULSE 67; RESP 17; TEMP 98.7; O2SAT 97
[2017-07-22] MEDS: CHLORHEXIDINE GLUCONATE 2 % 1 PACK (2 CLOTHS) TOP SCH (04:00)
[2017-07-22 04:50] VITALS: BP 115/70; PULSE 66; RESP 18; TEMP 98.2; O2SAT 96
[2017-07-22] MEDS: SODIUM CHLOR 0.9% 1000 ML INJ 1,000 ML IV SCH ×2 (05:03→17:53)
[2017-07-22] MEDS: DEXAMETHASONE 4 MG TAB PO SCH ×3 (06:14→20:49)
[2017-07-22] MEDS: IRON SUCROSE INJ 200 MG in SODIUM CHLORIDE 0.9% INJ 100 ML IV SCH (07:36)
[2017-07-22] MEDS: levETIRAcetam 500 MG TAB PO SCH ×2 (07:36→20:49)
[2017-07-22] MEDS: FAMOTIDINE 20 MG TAB PO SCH ×2 (07:36→20:49)
[2017-07-22] MEDS: SODIUM CHLORIDE 0.9% FLUSH 10 ML FLUSH IV FLUSH SCH ×2 (07:37→20:49)
[2017-07-22] MEDS: DOCUSATE SODIUM 50 MG/SENNA 8.6 MG TAB PO SCH ×2 (07:37→20:49)
[2017-07-22 08:00] VITALS: BP 117/74; PULSE 79; RESP 16; TEMP 97.3; O2SAT 97
[2017-07-22 08:31] LABS: AUTOMATED NEUTROPHIL # 42.9 TH/MM3 (1.8-7.7); BASOPHIL % 0.1 % (0.0-2.0); HEMATOCRIT 24.4 % (39.0-51.0); HEMOGLOBIN 7.6 GM/DL (13.0-17.0); LYMPH % 4.4 % (9.0-44.0); LYMPHOCYTE # 2.1 TH/MM3 (1.0-4.8); MEAN CELL VOLUME 83.7 FL (80.0-100.0); MEAN CORPUSCULAR HEMOGLOBIN 26.2 PG (27.0-34.0); MEAN CORPUSCULAR HGB CONC 31.3 % (32.0-36.0); MONOCYTE # 1.9 TH/MM3 (0-0.9); NEUT % 91.5 % (16.0-70.0); PLATELET COUNT 769 TH/MM3 (150-450); RED BLOOD COUNT 2.91 MIL/MM3 (4.50-5.90); RED CELL DISTRIBUTION WIDTH 19.3 % (11.6-17.2); WHITE BLOOD COUNT 46.8 TH/MM3 (4.0-11.0)
--- NOTE | 2017-07-22 09:19 | HHI.PR ---
Subjective Remarks in no acute distress. denies pain. no new complaints. Objective Vitals Vital Signs Date Time Temp Pulse Resp B/P (MAP) Pulse Ox O2 Delivery O2 Flow Rate FiO2 07/22/17 04:50 98.2 66 18 115/70 (85) 96 07/22/17 00:30 98.7 67 17 117/67 (84) 97 07/21/17 21:58 97.1 88 18 113/75 (88) 96 07/21/17 16:00 97.4 87 16 115/71 (86) 96 07/21/17 12:00 97.5 84 18 112/64 (80) 94 I/O 07/21/17 07/21/17 07/21/17 07/22/17 07/22/17 07/22/17 07:00 15:00 23:00 07:00 15:00 23:00 Intake Total 405 ml 450 ml 500 ml 1850 ml Output Total 400 ml Balance 405 ml 450 ml 100 ml 1850 ml Intake Oral 500 ml 1850 ml IV Total 450 ml Packed Cells 400 ml Blood Product IV Normal Saline Flush 5 ml Output Urine Total 400 ml # Voids 5 3 # Bowel Movements 1 3 0 0 Result Diagram: 07/22/17 0652 07/21/17 0139 Imaging Last Impressions Chest X-Ray 07/18/17 0000 Signed Impressions: Service Date/Time: Tuesday, July 18, 2017 16:50 - CONCLUSION: Stable appearance of the chest with complete consolidation of the left upper lobe with volume loss. There is no pneumothorax. Oleg Green MD Abdomen/Pelvis CT 07/18/17 0000 Signed Impressions: Service Date/Time: Tuesday, July 18, 2017 20:57 - CONCLUSION: 1. No acute findings within the abdomen and pelvis. 2. 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 3. Tiny nonobstructing bilateral renal calculi. Jaquan Norton MD Brain MRI 07/17/17 0000 Signed Impressions: Service Date/Time: Monday, July 17, 2017 14:35 - CONCLUSION: 1. There is a irregular ring-enhancing lesion measuring approximately 3.4 cm in the left posterior parietal lobe surrounded by prominent vasogenic edema characteristic for neoplastic disease. Primary versus metastatic disease are considerations. 2. Mild mass effect and midline shift to the right by approximately 5 mm. Reginaldo Shahid MD Head CT 07/16/17 1600 Signed Impressions: Service Date/Time: Sunday, July 16, 2017 17:42 - CONCLUSION: There is an apparent mass in the left frontoparietal high convexity white matter measuring approximately 2.5 cm. There is marked surrounding vasogenic edema causing mild local mass effect and approximately 4 mm of left to right midline shift. Given the chest x-ray findings, this is highly suspicious for a metastatic lesion. Oleg Green MD CT Angiography 07/16/17 0000 Signed Impressions: Service Date/Time: Sunday, July 16, 2017 17:45 - CONCLUSION: 1. No evidence of pulmonary embolism. 2. Complete collapse and airlessness of the entire left upper lung. An endobronchial lesion in the left upper lobe bronchus causing obstruction is the primary consideration. Recommend bronchoscopy for further evaluation. 3. The right lung and left lower lung are grossly clear. There is some central lobar emphysema. Reginaldo Shahid MD Objective Remarks GENERAL: This is a well-nourished, well-developed patient, in no apparent distress. CARDIOVASCULAR: Regular rate and regular rhythm without murmurs, gallops, or rubs. RESPIRATORY: Clear to auscultation. Breath sounds equal bilaterally. No wheezes , rales, or rhonchi. GASTROINTESTINAL: Abdomen soft, non-tender, nondistended. Normal, active bowel sounds MUSCULOSKELETAL: Extremities without clubbing, cyanosis, or edema. NEURO: awake and alert- mildly weak on the right side. Medications and IVs Inpatient Medications Acetaminophen (Tylenol) 650 mg Q6H PRN PO PAIN 1-5 AND/OR FEVER >101F; Start at 19:00 Albuterol/ Ipratropium (Duoneb Neb) 1 ampule Q2HR NEB PRN INH WHEEZING Last administered on 07/18/17at 16:49; Start 07/16/17 at 19:00 Bisacodyl (Dulcolax Supp) 10 mg DAILY PRN RECTAL SEVERE CONSITIPATION; Start at 19:00 Cefepime HCl 2000 mg/Sodium Chloride 100 ml @ 200 mls/hr Q12H IV Last administered on 07/20/17at 15:57; Start 07/17/17 at 13:30; Stop 07/20/17 at 16:12 ; Status DC Chlorhexidine Gluconate (Chlorhexidine 2% Cloth) 3 pack UNSCH PRN TOP HYGIENIC CARE; Start 07/16/17 at 19:00 Dexamethasone (Decadron) 4 mg Q8HR PO Last administered on 07/22/17at 06:14; Start 07/20/17 at 14:00 Dexamethasone Sodium Phosphate (Decadron Inj) 4 mg Q6HR IV PUSH Last administered on 07/20/17at 05:21; Start 07/17/17 at 00:00; Stop 07/20/17 at 09:52 ; Status DC Diatrizoate Meglum/ Diatrizoate Sod ( Gastroview Liq) 18 ml ONCE ONCE PO Last administered on 07/18/17at 10:05; Start 07/18/17 at 08:51; Stop 07/18/17 at 09:31; Status DC Famotidine (Pepcid Inj) 20 mg Q12HR IV PUSH Last administered on 07/20/17at 09: 00; Start 07/16/17 at 21:00; Stop 07/20/17 at 14:24; Status DC Famotidine (Pepcid) 20 mg BID PO Last administered on 07/22/17at 07:36; Start at 21:00 Heparin Sodium (Porcine) (Heparin Inj) 5,000 units Q8H SQ Last administered on 07/20/17at 05:20; Start 07/16/17 at 22:00; Stop 07/20/17 at 16:12; Status DC Hydromorphone HCl (Dilaudid Pf Inj) 1 mg Q4H PRN IV PAIN 6-10; Start 07/16/17 at 19:15 Iron Sucrose 200 mg/Sodium Chloride 110 ml @ 110 mls/hr DAILY IV Last administered on 07/22/17at 07:36; Start 07/21/17 at 13:00; Stop 07/23/17 at 09:59 Lactulose (Lactulose Liq) 30 ml DAILY PRN PO SEVERE CONSITIPATION; Start at 19:00 Levetriacetam (Keppra) 500 mg Q12HR PO Last administered on 07/22/17at 07:36; Start 07/17/17 at 21:00 Magnesium Hydroxide (Milk Of Magnesia Liq) 30 ml Q12H PRN PO Mild constipation ; Start 07/16/17 at 19:00 Miscellaneous Information ALL NURSING DEPARTME... UNSCH PRN .XX SEE LABEL COMMENTS; Start 07/18/17 at 16:36; Stop 07/19/17 at 16:35; Status DC Ondansetron HCl (Zofran Inj) 4 mg Q6H PRN IV PUSH NAUSEA OR VOMITING; Start at 19:00 Pharmacy Profile Note 0 ml @ 0 mls/hr UNSCH OTHER ; Start 07/17/17 at 13:15; Stop 07/20/17 at 16:12; Status DC Piperacillin Sod/ Tazobactam Sod 100 ml @ 200 mls/hr ONCE ONCE IV Last administered on 07/16/17at 18:10; Start 07/16/17 at 17:30; Stop 07/16/17 at 17:59 ; Status DC Potassium Bicarb/ Potassium Chloride (K-Lyte Cl Eff) 50 meq ONCE ONCE PO Last administered on 07/20/17at 18:37; Start 07/20/17 at 16:30; Stop 07/20/17 at 16:37; Status DC Senna/Docusate Sodium (Karlie-Colace) 1 tab BID PO Last administered on at 22:13; Start 07/16/17 at 21:00 Sennosides (Senokot) 17.2 mg Q12H PRN PO Moderate constipation; Start 07/16/17 at 19:00 Sodium Chloride 250 ml @ 15 mls/hr ONCE ONCE IV Last administered on at 22:12; Start 07/20/17 at 16:15; Stop 07/21/17 at 08:54; Status DC Sodium Chloride (NS Flush) 2 ml BID IV FLUSH Last administered on 07/20/17at 22: 12; Start 07/16/17 at 21:00 Temazepam (Restoril) 15 mg HS PRN PO INSOMNIA; Start 07/16/17 at 19:00 Vancomycin HCl 1000 mg/Sodium Chloride 250 ml @ 250 mls/hr ONCE ONCE IV Last administered on 07/16/17at 18:26; Start 07/16/17 at 17:30; Stop 07/16/17 at 18:29 ; Status DC Vancomycin HCl 1250 mg/Sodium Chloride 262.5 ml @ 250 mls/hr Q12H IV Last administered on 07/20/17at 03:21; Start 07/19/17 at 15:00; Stop 07/20/17 at 16:12 ; Status DC Vancomycin HCl 1400 mg/Sodium Chloride 514 ml @ 250 mls/hr Q12H IV Last administered on 07/19/17at 03:10; Start 07/17/17 at 15:00; Stop 07/19/17 at 09:09 ; Status DC A/P Assessment and Plan Altered mental status with hemiplegia due to brain mass -improving. - MRI of brain shows brain mass. Neurosurgeon on board and ff. -per NS not a candidate for surgery and radiation oncologist consulted. - Continue Decadron and Keppra - palliative care ff. -consulted PT/OT. lung cancer ( adenocarcinoma) with mets. - pulmonary and oncologist consulted. -s/p bronchoscopy on 07/18 - pathology ; suspicious for adenocarcinoma. -oncology and radiation oncology following; for chemo and radiation. -IR consulted for port placement. Severe microcytic anemia, hemoglobin is 7.5 and MCV 79. -Stable. No active bleeding. -Oncologist following. Most likely iron deficiency. -started on IV Iron. Leukocytosis -Most likely reactive due to malignancy/steroids. No signs of infection. Thrombocytosis -Most likely secondary to malignancy. Tobacco use disorder - DuoNeb scheduled and when necessary DVT GI prophylaxis - Teds SCDs - Pepcid Discharge Planning possible chemo as inpatient since the patient doesn't have insurance. d/w . Quyen Doshi MD Jul 22, 2017 09:19
[2017-07-22 10:08] LABS: BANDS 1 % (0-6); CORRECTED NUCLEATED RBC 2 /100 WBC (0-0); LYMPHOCYTES 7 % (9-44); MONOCYTES 6 % (0-8); MYELOCYTES 1 % (0-0); NEUTROPHIL # MANUAL DIFF 40.7 TH/MM3 (1.8-7.7); NUCLEATED RED BLOOD CELL 2 (0-0); POLYS (SEG NEUTROPHILS) 85 % (16-70); TOXIC GRANULATION 1+ (NORMAL)
[2017-07-22 12:00] VITALS: BP 114/71; PULSE 77; RESP 17; TEMP 97.9; O2SAT 98
--- NOTE | 2017-07-22 13:39 | HHI.HCPN ---
Reason for visit a. To assist with evaluation and management of symptoms including:Confusion , pain, debility b. To assist medical decision maker(s) with: better understanding of current medical conditions; weighing benefits/burdens of medical treatment options; making medical treatment decisions. Subjective/Interval History Patient awake, alert and oriented to self and place confused to time. Patient is in bed watching TV. Denies pain. Physical therapy with occupational therapy consulted. Vital signs stable. Patient awaiting transfer to hematology oncology floor. . Family/friend interactions No family at bedside . Advance Directives Living Will: Never completed Health Care Surrogate: Copy in medical record Durable Power of Tool Engineer: Never completed Advance Directive Specifics Date completed: 07/19/2017 . Health Care Surrogate(s): Sister-healthcare surrogate-Dana Umanzor-[phone] /[phone] Niece-alternate healthcare surrogate-Dana Umanzor [phone] . Objective Vital Signs Date Time Temp Pulse Resp B/P (MAP) Pulse Ox O2 Delivery O2 Flow Rate FiO2 07/22/17 08:00 97.3 79 16 117/74 (88) 97 07/22/17 04:50 98.2 66 18 115/70 (85) 96 07/22/17 00:30 98.7 67 17 117/67 (84) 97 07/21/17 21:58 97.1 88 18 113/75 (88) 96 07/21/17 16:00 97.4 87 16 115/71 (86) 96 Intake & Output 07/22/17 07/22/17 07:00 19:00 Intake Total 2350 ml Output Total 400 ml Balance 1950 ml Intake Oral 2350 ml Output Urine Total 400 ml # Voids 3 # Bowel Movements 0 Physical Exam CONSTITUTIONAL/GENERAL: This is an adequately nourished patient, in no apparent distress. Denies pain. TUBES/LINES/DRAINS: PIV SKIN: No jaundice, rashes, or lesions. Ecchymoses on upper extremities. No wounds seen anteriorly. Skin temperature appropriate. Not diaphoretic. HEAD: Atraumatic. Normocephalic. EYES: Pupils equal and round and reactive. Extraocular motions intact. No scleral icterus. No injection or drainage. Fundi not examined. ENT: Hearing grossly normal. Nose without bleeding or purulent drainage. Throat without visible erythema, exudates, masses, or lesions. NECK: Trachea midline. Supple, nontender. CARDIOVASCULAR: Regular rate and rhythm without murmurs, gallops, or rubs. No JVD. Peripheral pulses symmetric. RESPIRATORY/CHEST: Symmetric, unlabored respirations. Unable to auscultate breath sounds to AIRAM otherwise diminished in other crocker. No wheezes, rales, or rhonchi. GASTROINTESTINAL: Abdomen soft, non-tender, nondistended No guarding. Bowel sounds present. GENITOURINARY: Without palpable bladder distension. Finley catheter in place. MUSCULOSKELETAL: Extremities without clubbing, cyanosis, or edema. No joint tenderness or effusion noted. No calf tenderness. No mottling or clubbing. NEUROLOGICAL: Awake and alert. Motor and sensory grossly within normal limits. Follows commands with left side. RUE weaker than RLE PSYCHIATRIC: No obvious anxiety/depression. no apparent hallucinations or other psychotic thought process. Diagnostic Tests Laboratory Laboratory Tests Test 07/20/17 13:50 07/21/17 01:39 07/22/17 06:52 White Blood Count 52.9 TH/MM3 (4.0-11.0) 51.0 TH/MM3 (4.0-11.0) 46.8 TH/MM3 (4.0-11.0) Red Blood Count 2.78 MIL/MM3 (4.50-5.90) 2.94 MIL/MM3 (4.50-5.90) 2.91 MIL/MM3 (4.50-5.90) Hemoglobin 6.8 GM/DL (13.0-17.0) 7.7 GM/DL (13.0-17.0) 7.6 GM/DL (13.0-17.0) Hematocrit 22.5 % (39.0-51.0) 23.8 % (39.0-51.0) 24.4 % (39.0-51.0) Mean Corpuscular Volume 81.0 FL (80.0-100.0) 80.9 FL (80.0-100.0) 83.7 FL (80.0-100.0) Mean Corpuscular Hemoglobin 24.6 PG (27.0-34.0) 26.1 PG (27.0-34.0) 26.2 PG (27.0-34.0) Mean Corpuscular Hemoglobin Concent 30.4 % (32.0-36.0) 32.3 % (32.0-36.0) 31.3 % (32.0-36.0) Red Cell Distribution Width 19.6 % (11.6-17.2) 18.9 % (11.6-17.2) 19.3 % (11.6-17.2) Platelet Count 876 TH/MM3 (150-450) 764 TH/MM3 (150-450) 769 TH/MM3 (150-450) Mean Platelet Volume 5.9 FL (7.0-11.0) 5.9 FL (7.0-11.0) 6.0 FL (7.0-11.0) Blood Urea Nitrogen 8 MG/DL (7-18) 9 MG/DL (7-18) Creatinine 0.63 MG/DL (0.60-1.30) 0.57 MG/DL (0.60-1.30) Random Glucose 103 MG/DL (74-106) 108 MG/DL (74-106) Calcium Level 8.4 MG/DL (8.5-10.1) 8.6 MG/DL (8.5-10.1) Sodium Level 141 MEQ/L (136-145) 139 MEQ/L (136-145) Potassium Level 3.1 MEQ/L (3.5-5.1) 4.2 MEQ/L (3.5-5.1) Chloride Level 106 MEQ/L (98-107) 105 MEQ/L (98-107) Carbon Dioxide Level 26.9 MEQ/L (21.0-32.0) 27.0 MEQ/L (21.0-32.0) Anion Gap 8 MEQ/L (5-15) 7 MEQ/L (5-15) Estimat Glomerular Filtration Rate 163 ML/MIN (>89) 183 ML/MIN (>89) Neutrophils (%) (Auto) 91.5 % (16.0-70.0) Lymphocytes (%) (Auto) 4.4 % (9.0-44.0) Monocytes (%) (Auto) 4.0 % (0.0-8.0) Eosinophils (%) (Auto) 0.0 % (0.0-4.0) Basophils (%) (Auto) 0.1 % (0.0-2.0) Neutrophils # (Auto) 42.9 TH/MM3 (1.8-7.7) Lymphocytes # (Auto) 2.1 TH/MM3 (1.0-4.8) Monocytes # (Auto) 1.9 TH/MM3 (0-0.9) Eosinophils # (Auto) 0.0 TH/MM3 (0-0.4) Basophils # (Auto) 0.0 TH/MM3 (0-0.2) CBC Comment AUTO DIFF Differential Total Cells Counted 100 Neutrophils % (Manual) 85 % (16-70) Band Neutrophils % 1 % (0-6) Lymphocytes % 7 % (9-44) Monocytes % 6 % (0-8) Neutrophils # (Manual) 40.7 TH/MM3 (1.8-7.7) Myelocytes 1 % (0-0) Nucleated Red Blood Cells 2 /100 WBC (0-0) Differential Comment FINAL DIFF MANUAL Toxic Granulation 1+ (NORMAL) Platelet Estimate HIGH (NORMAL) Platelet Morphology Comment NORMAL (NORMAL) Polychromasia 3.0 % (0.0-1.9) Result Diagram: 07/22/17 0652 07/21/17 0139 Procedures 07/18/17-bronchoscopy with biopsy . Assessment and Plan Disease Oriented Problem List: (1) Brain mass (2) Lung mass (3) Tobacco use disorder Symptom Scale: (1) Confusion 0-10 Scale: Unable to quantify (2) Debility 0-10 Scale: Unable to quantify Comment: Progressive . Pertinent Non-Medical Issues Psychosocial:Patient was born and raised in [place]. Patient's highest level of education is sixth-grade. Patient has 4 brothers and 1 sister. Patient never . He had 2 sons both name after him. One son Virgil Umanzor Jr mostly at age 32 from a motor cycle accident. His other son who is also named Virgil Umanzor Jr is currently incarcerated at [facility]. Spiritual: No zoroastrianism affiliation Legal: Completed healthcare surrogate form Ethical issues impacting care: None identified at this time . Important Contacts Sister-healthcare surrogate-Noé, Kngfjop-[phone] /[phone] Niece-alternate healthcare surrogate-Dana Umanzor [phone] . Prognosis Mr. Umanzor is a 51 years old male was brought to the emergency department by his family on 07/16/17 after they noted that he had right sided extremity weakness with confusion and difficulty with ambulation. Patient was found to have an endobronchial lesion in his left upper lobe is well is seen intracranial lesion with vasogenic edema. Patient remains at risk for further complications, deterioration and decline. . Code Status: Full Code Plan PLAN: Legal decision maker: Given that patient came in with some confusion, though slightly improving. Recommending shared decision making with his sister Dana Umanzor who is his designated Health Care Surrogate. Goals: No change in goals, remain Aggressive CODE STATUS: Full Code SYMPTOMS: * Confusion: Patient came in with complaints of confusion. CT head revealed eft posterior frontoparietal lobe mass with surrounding vasogenic edema causing 4mm of left to right midline shift. Patient oriented to self, place with some confusion. Plan for brain irradiation therapy. Patient on Decadron. no recommendations at this time. * Pain: Patient has a brain mass and lung mass. Newly diagnosed stage IV lung cancer with metastases to the brain. Patient is at risk for headaches. Hydromorphone 1 mg Q 4 HRS PRN available. Patient has not required use of hydromorphone. No recommendations at this time * Debility: Progressive. Patient has been increasingly getting weak and having difficulty with ambulation. Weight loss he has been reported. Occupational therapy consulted. Activity increased to out of bed with assistance. Physical therapy consulted. Palliative care will continue to follow the patient during hospital course as condition evolves, to assist patient/decision-maker with understanding of their medical conditions, weighing benefits/burdens of treatment options, for clarification of goals of treatment. Additionally will assist with any symptoms of palliative concern. Attestation To help prompt me to consider important information that might be impacting today's encounter and assessment, information from prior notes written by myself or my colleagues may have been "brought forward" into today's note. My signature on this note, however, is an attestation that I personally performed the exam, history, and/or decision-making noted today, and, unless otherwise indicated, the interactions with patient, family, and staff as well as the review of records all occurred today. I also attest that the listed assessment and stated plan reflect my best clinical judgment today based on the combination of historical information, prior notes, and today's exam/ interactions. When time spent is documented, it refers only to time spent today by the signer, or if indicated, combined time spent today by collaborating physician/nurse practitioner. Brian Valadez Jul 22, 2017 13:39
--- NOTE | 2017-07-22 15:47 | HHI.PR ---
Subjective Remarks ALERT NO SOB SITTING UP IN CHAIR Objective Vital Signs Date Time Temp Pulse Resp B/P (MAP) Pulse Ox O2 Delivery O2 Flow Rate FiO2 07/22/17 12:00 97.9 77 17 114/71 (85) 98 07/22/17 08:00 97.3 79 16 117/74 (88) 97 07/22/17 04:50 98.2 66 18 115/70 (85) 96 07/22/17 00:30 98.7 67 17 117/67 (84) 97 07/21/17 21:58 97.1 88 18 113/75 (88) 96 07/21/17 16:00 97.4 87 16 115/71 (86) 96 I/O 07/21/17 07/21/17 07/21/17 07/22/17 07/22/17 07/22/17 07:00 15:00 23:00 07:00 15:00 23:00 Intake Total 405 ml 450 ml 500 ml 1850 ml Output Total 400 ml Balance 405 ml 450 ml 100 ml 1850 ml Intake Oral 500 ml 1850 ml IV Total 450 ml Packed Cells 400 ml Blood Product IV Normal Saline Flush 5 ml Output Urine Total 400 ml # Voids 5 3 # Bowel Movements 1 3 0 0 Result Diagram: 07/22/17 0652 07/21/17 0139 Objective Remarks GENERAL: SKIN: Warm and dry. HEAD: Atraumatic. Normocephalic. EYES: Pupils equal and round. No scleral icterus. No injection or drainage. ENT: No nasal bleeding or discharge. Mucous membranes pink and moist. NECK: Trachea midline. No JVD. CARDIOVASCULAR: Regular rate and rhythm. RESPIRATORY: No accessory muscle use. Clear to auscultation. Breath sounds equal bilaterally. GASTROINTESTINAL: Abdomen soft, non-tender, nondistended. Hepatic and splenic margins not palpable. MUSCULOSKELETAL: Extremities without clubbing, cyanosis, or edema. No obvious deformities. NEUROLOGICAL: Awake and alert. No obvious cranial nerve deficits. Motor grossly within normal limits. Five out of 5 muscle strength in the arms and legs. Normal speech. PSYCHIATRIC: Appropriate mood and affect; insight and judgment normal. Assessment and Plan Assessment and Plan Vital Signs Date Time Temp Pulse Resp B/P (MAP) Pulse Ox O2 Delivery O2 Flow Rate FiO2 07/18/17 12:00 98.7 82 18 114/62 (79) 96 07/18/17 08:00 98.4 84 18 114/69 (84) 98 07/18/17 04:00 97.5 95 18 118/71 (87) 97 07/18/17 00:00 97.2 92 18 105/60 (75) 95 07/17/17 20:00 97.2 101 18 109/59 (76) 97 07/17/17 19:10 Room Air 07/17/17 17:30 97.5 104 18 120/71 (87) 99 GENERAL: SKIN: Warm and dry. HEAD: Atraumatic. Normocephalic. EYES: Pupils equal and round. No scleral icterus. No injection or drainage. ENT: No nasal bleeding or discharge. Mucous membranes pink and moist. NECK: Trachea midline. No JVD. CARDIOVASCULAR: Regular rate and rhythm. RESPIRATORY: No accessory muscle use. Clear to auscultation. Breath sounds equal bilaterally. GASTROINTESTINAL: Abdomen soft, non-tender, nondistended. Hepatic and splenic margins not palpable. MUSCULOSKELETAL: Extremities without clubbing, cyanosis, or edema. No obvious deformities. NEUROLOGICAL: Awake and alert. No obvious cranial nerve deficits. Motor grossly within normal limits. Five out of 5 muscle strength in the arms and legs. Normal speech. PSYCHIATRIC: Appropriate mood and affect; insight and judgment normal. ADENO CA LUNG, BRAIN MEDS , STAGE 4 PLAN FOR RT, CHEMOTHERAPY WILL SIIGN OFF F/U O/P Carol Medina MD Jul 22, 2017 15:47
[2017-07-22 16:00] VITALS: BP 115/69; PULSE 69; RESP 17; TEMP 97.6; O2SAT 99
[2017-07-22 20:00] VITALS: BP 112/69; PULSE 76; RESP 17; TEMP 97; O2SAT 96
[2017-07-23] VITALS (20 sets, daily range): BP systolic 112–121; BP diastolic 69–81; PULSE 69–94; RESP 16–18; TEMP 97.4–98.2; O2SAT 96–99
[2017-07-23] MEDS: CHLORHEXIDINE GLUCONATE 2 % 1 PACK (2 CLOTHS) TOP SCH (04:00)
[2017-07-23] MEDS: DEXAMETHASONE 4 MG TAB PO SCH ×3 (06:27→21:46)
[2017-07-23] MEDS: SODIUM CHLOR 0.9% 1000 ML INJ 1,000 ML IV SCH ×2 (06:28→17:30)
[2017-07-23] MEDS: FAMOTIDINE 20 MG TAB PO SCH ×2 (08:01→21:46)
[2017-07-23] MEDS: levETIRAcetam 500 MG TAB PO SCH ×2 (08:01→21:46)
[2017-07-23] MEDS: SODIUM CHLORIDE 0.9% FLUSH 10 ML FLUSH IV FLUSH SCH ×2 (08:03→21:47)
[2017-07-23] MEDS: DOCUSATE SODIUM 50 MG/SENNA 8.6 MG TAB PO SCH ×2 (08:03→21:46)
[2017-07-23] MEDS: IRON SUCROSE INJ 200 MG in SODIUM CHLORIDE 0.9% INJ 100 ML IV SCH (10:31)
--- NOTE | 2017-07-23 12:40 | HHI.PR ---
Subjective Remarks Patient seen this morning around 10 AM. Says he is feeling all right. Denies any chest pain or shortness of breath. Denies any headache. Objective Vital Signs Date Time Temp Pulse Resp B/P (MAP) Pulse Ox O2 Delivery O2 Flow Rate FiO2 07/23/17 12:01 75 07/23/17 11:23 97.4 91 18 117/81 (93) 97 07/23/17 11:00 77 07/23/17 10:00 82 07/23/17 09:00 74 07/23/17 08:00 76 07/23/17 07:57 97.5 79 18 121/81 (94) 97 07/23/17 07:00 73 07/23/17 05:03 98.1 78 16 115/75 (88) 96 07/23/17 04:00 81 07/23/17 02:17 72 07/23/17 00:30 98.2 77 18 117/79 (92) 96 07/23/17 00:00 98.0 69 17 112/69 (83) 96 07/22/17 20:00 97.0 76 17 112/69 (83) 96 07/22/17 16:00 97.6 69 17 115/69 (84) 99 I/O 07/22/17 07/22/17 07/22/17 07/23/17 07/23/17 07/23/17 07:00 15:00 23:00 07:00 15:00 23:00 Intake Total 1850 ml 992 ml 975 ml 120 ml Output Total 700 ml 625 ml Balance 1850 ml 992 ml 275 ml -505 ml Intake Oral 1850 ml 975 ml 120 ml IV Total 992 ml Output Urine Total 700 ml 625 ml # Voids 3 2 # Bowel Movements 0 1 Result Diagram: 07/22/17 0652 07/21/17 0139 Objective Remarks GENERAL: Patient sitting up in chair. Appears comfortable. SKIN: Warm and dry. HEAD: Normocephalic. EYES: No scleral icterus. No injection or drainage. NECK: Supple, trachea midline. No JVD. CARDIOVASCULAR: Regular rate and rhythm without murmurs, gallops, or rubs. RESPIRATORY: Breath sounds equal bilaterally. No accessory muscle use. GASTROINTESTINAL: Abdomen soft, non-tender, nondistended. MUSCULOSKELETAL: No cyanosis, or edema. BACK: Nontender without obvious deformity. No CVA tenderness. A/P Assessment and Plan //Altered mental status with hemiplegia due to brain mass -improving. - MRI of brain shows brain mass. Neurosurgeon on board and ff. -per NS not a candidate for surgery and radiation oncologist consulted. - Continue Decadron and Keppra - palliative care ff. -consulted PT/OT. //lung cancer ( adenocarcinoma) with mets. - pulmonary and oncologist consulted. -s/p bronchoscopy on 07/18 - pathology ; suspicious for adenocarcinoma. -oncology and radiation oncology following; for chemo and radiation. -IR consulted for port placement. Pending. = Likely to receive chemotherapy during inpatient stay. Appreciate oncology assistance. //Severe microcytic anemia, hemoglobin is 7.5 and MCV 79. -Stable. No active bleeding. -Oncologist following. Most likely iron deficiency. -started on IV Iron. //Leukocytosis -Most likely reactive due to malignancy/steroids. No signs of infection. //Thrombocytosis -Most likely secondary to malignancy. //Tobacco use disorder - DuoNeb scheduled and when necessary //Anemia. Hemoglobin stable at 7.6. Secondary to cancer. Hematology following. Appreciate assistance. DVT GI prophylaxis - Teds SCDs - Pepcid Discharge Planning Pending oncology clearance. Atif Greenberg MD Jul 23, 2017 12:40
[2017-07-24] VITALS (26 sets, daily range): BP systolic 109–118; BP diastolic 68–84; PULSE 72–98; RESP 16–18; TEMP 97.7–98.8; O2SAT 96–99
[2017-07-24] MEDS: CHLORHEXIDINE GLUCONATE 2 % 1 PACK (2 CLOTHS) TOP SCH ×2 (04:00→21:33)
[2017-07-24] MEDS: SODIUM CHLOR 0.9% 1000 ML INJ 1,000 ML IV SCH (04:52)
[2017-07-24] MEDS: DEXAMETHASONE 4 MG TAB PO SCH ×3 (06:34→21:29)
[2017-07-24] MEDS: SODIUM CHLORIDE 0.9% FLUSH 10 ML FLUSH IV FLUSH SCH ×2 (07:22→20:29)
[2017-07-24] MEDS: DOCUSATE SODIUM 50 MG/SENNA 8.6 MG TAB PO SCH ×2 (08:06→20:29)
[2017-07-24] MEDS: levETIRAcetam 500 MG TAB PO SCH ×2 (09:27→20:28)
[2017-07-24] MEDS: FAMOTIDINE 20 MG TAB PO SCH ×2 (09:27→20:28)
[2017-07-24 09:39] LABS: HEMATOCRIT 30.4 % (39.0-51.0); HEMOGLOBIN 9.5 GM/DL (13.0-17.0); MEAN CELL VOLUME 84.2 FL (80.0-100.0); MEAN CORPUSCULAR HEMOGLOBIN 26.3 PG (27.0-34.0); MEAN CORPUSCULAR HGB CONC 31.2 % (32.0-36.0); MEAN PLATELET VOLUME 5.7 FL (7.0-11.0); PLATELET COUNT 766 TH/MM3 (150-450); RED BLOOD COUNT 3.61 MIL/MM3 (4.50-5.90); RED CELL DISTRIBUTION WIDTH 20.1 % (11.6-17.2); WHITE BLOOD COUNT 46.7 TH/MM3 (4.0-11.0)
[2017-07-24 10:09] LABS: BANDS 3 % (0-6); LYMPHOCYTES 1 % (9-44); NEUTROPHIL # MANUAL DIFF 46.2 TH/MM3 (1.8-7.7); POLYS (SEG NEUTROPHILS) 96 % (16-70); TOXIC VACUOLATION PRESENT (NONE SEEN)
[2017-07-24 10:11] LABS: TOXIC GRANULATION 1+ (NORMAL)
[2017-07-24 10:14] LABS: ALBUMIN 2.7 GM/DL (3.4-5.0); BICARBONATE 28.2 MEQ/L (21.0-32.0); CALCIUM 8.9 MG/DL (8.5-10.1); CREATININE 0.6 MG/DL (0.60-1.30); PHOSPHORUS 3.4 MG/DL (2.5-4.9)
--- NOTE | 2017-07-24 22:03 | HHI.PR ---
Subjective Remarks Patient seen this morning around 10 AM. Says he is feeling all right. Denies any chest pain or shortness of breath. Denies any nausea or vomiting. No acute issues per nursing. Objective Vital Signs Date Time Temp Pulse Resp B/P (MAP) Pulse Ox O2 Delivery O2 Flow Rate FiO2 07/24/17 20:20 98.8 84 18 117/79 (92) 99 07/24/17 18:05 80 07/24/17 17:07 90 07/24/17 16:00 90 07/24/17 15:17 97.7 88 18 113/68 (83) 98 07/24/17 15:00 85 07/24/17 14:00 98 07/24/17 13:00 90 07/24/17 12:00 88 07/24/17 11:29 98.3 88 18 109/84 (92) 97 07/24/17 11:00 85 07/24/17 10:00 89 07/24/17 09:00 88 07/24/17 08:00 78 07/24/17 07:35 98.1 77 18 113/76 (88) 98 07/24/17 07:00 75 07/24/17 04:48 98.1 72 16 112/77 (89) 96 07/24/17 04:00 80 07/24/17 00:26 98.2 81 16 118/77 (91) 99 07/24/17 00:00 81 I/O 07/23/17 07/23/17 07/23/17 07/24/17 07/24/17 07/24/17 07:00 15:00 23:00 07:00 15:00 23:00 Intake Total 120 ml 110 ml 2320 ml 620 ml 600 ml 840 ml Output Total 625 ml 1550 ml 1350 ml 500 ml Balance -505 ml 110 ml 770 ml -730 ml 600 ml 340 ml Intake Oral 120 ml 1320 ml 460 ml 840 ml IV Total 110 ml 1000 ml 160 ml 600 ml Output Urine Total 625 ml 1550 ml 1350 ml 500 ml # Voids 2 # Bowel Movements 2 1 Result Diagram: 07/24/17 0932 07/24/17 0932 Objective Remarks GENERAL: Patient sitting up in chair. Appears comfortable.exam unchanged. SKIN: Warm and dry. HEAD: Normocephalic. EYES: No scleral icterus. No injection or drainage. NECK: Supple, trachea midline. No JVD. CARDIOVASCULAR: Regular rate and rhythm without murmurs, gallops, or rubs. RESPIRATORY: Breath sounds equal bilaterally. No accessory muscle use. GASTROINTESTINAL: Abdomen soft, non-tender, nondistended. MUSCULOSKELETAL: No cyanosis, or edema. BACK: Nontender without obvious deformity. No CVA tenderness. A/P Assessment and Plan //Altered mental status with hemiplegia due to brain mass -improving. - MRI of brain shows brain mass. Neurosurgeon on board and ff. -per NS not a candidate for surgery and radiation oncologist consulted. - Continue Decadron and Keppra - palliative care ff. -consulted PT/OT. Recommends home health. //lung cancer ( adenocarcinoma) with mets. - pulmonary and oncologist consulted. -s/p bronchoscopy on 07/18 - pathology ; suspicious for adenocarcinoma. -oncology and radiation oncology following; for chemo and radiation. -IR consulted for port placement. Pending. = Likely to receive chemotherapy during inpatient stay. Appreciate oncology assistance. //Severe microcytic anemia, hemoglobin is 7.5 and MCV 79. -Stable. No active bleeding. -Oncologist following. Most likely iron deficiency. -started on IV Iron. = 3/. Hemoglobin improved to the nines after IV iron supplementation. Appreciate hematology assistance. //Leukocytosis -Most likely reactive due to malignancy/steroids. No signs of infection. //Thrombocytosis -Most likely secondary to malignancy. //Tobacco use disorder - DuoNeb scheduled and when necessary //Anemia. Hemoglobin stable at 7.6. Secondary to cancer. Hematology following. Appreciate assistance. DVT GI prophylaxis - Teds SCDs - Pepcid Discharge Planning difficult discharge due to self pay. SSI pending. Pending oncology clearance. Atif Greenberg MD Jul 24, 2017 22:03
[2017-07-25] VITALS (26 sets, daily range): BP systolic 99–118; BP diastolic 62–82; PULSE 68–103; RESP 16–20; TEMP 97.3–98.9; O2SAT 92–98
[2017-07-25] MEDS: DEXAMETHASONE 4 MG TAB PO SCH ×3 (06:18→22:34)
[2017-07-25] MEDS ORDERED: VANCOMYCIN INJ 1,000 MG in SODIUM CHLOR 0.9% 250 ML INJ 250 ML IV SCH (08:30)
[2017-07-25] MEDS ORDERED: ceFAZolin 2 GM PREMIX 50 ML IV SCH (08:30)
[2017-07-25] MEDS: FAMOTIDINE 20 MG TAB PO SCH ×2 (09:00→22:34)
[2017-07-25] MEDS: SODIUM CHLORIDE 0.9% FLUSH 10 ML FLUSH IV FLUSH SCH ×2 (09:00→22:39)
[2017-07-25] MEDS: DOCUSATE SODIUM 50 MG/SENNA 8.6 MG TAB PO SCH ×2 (09:00→22:34)
[2017-07-25] MEDS: levETIRAcetam 500 MG TAB PO SCH ×2 (09:06→22:34)
[2017-07-25] MEDS ORDERED: MIDAZOLAM HCL 2 MG/2 ML VIAL ONE (10:34)
[2017-07-25] MEDS ORDERED: LIDOCAINE 1%/EPINEPHrine 1:100,000 SOLN 30 ML VIAL ONE (10:53)
--- NOTE | 2017-07-25 12:45 | PD.RAD ---
Post Procedure Progress Note Pre Procedure Diagnosis: (1) Leukocytosis Post Procedure Diagnosis: (1) Leukocytosis Procedure Date: Jul 25, 2017 Supervising Radiologist: Fredy Quinn Proceduralist/Assist: RT Layla(R), RT Jackie(R) Anesthesia: Conscious Sedation Plan of Activity Patient to Unit: Nursing Unit Patient Condition: Fair See PACS Report for procedural detail/treatment Central Venous Access Device Procedure 1 Right Internal Jugular Infusaport Placement single lumen Fredy Quinn MD Jul 25, 2017 12:45
--- NOTE | 2017-07-25 13:48 | RADRPT ---
EXAM DATE/TIME: 07/25/2017 11:38 [facility] COMPARISON: No previous studies available for comparison. INDICATIONS : Patient presents with lung cancer in need of port placement. MEDICAL HISTORY : NA SURGICAL HISTORY : NA ENCOUNTER: Initial ACUITY: 2 weeks PAIN SCORE: 0/10 FLUORO TIME: 0.5 minutes IMAGE SERIES: 1 SEDATION TIME: 15 minutes ACCESS: Right internal jugular vein SEDATION: 1.) 3 mg midazolam (Versed) IV 2.) 150 mcg fentanyl (Sublimaze) IV Prophylactic antibiotics were administered with appropriate pre-procedure timing. Vancomycin within 2 hours of procedure, Ancef (or alternative) within 1 hour of procedure. DEVICE: 1. 8 Turk[place] single lumen cm Bard Power Port PROCEDURE : 1. Continuous pulse oximetry and EKG monitoring. 2. Intravenous conscious sedation. 3. Ultrasound guidance for venous access. 4. Fluoroscopic guided implantable central venous port placement. The patient was placed supine. The neck was prepped in sterile fashion. Full sterile technique was u sed, including cap, mask, sterile gloves and gown, and a large sterile sheet. Hand hygiene and 2% ch lorhexidine Betadine was utilized per protocol for cutaneous antisepsis with appropriate dry time for site. Sterile gel and sterile probe cover were utilized for ultrasound guidance. The skin and sub cutaneous tissues were infiltrated with local anesthetic solution. Under direct ultrasound guidance, central venous access was accomplished in the targeted vessel. The ultrasound images depicting access guidance were stored and saved to PACS for permanent record. A s ubcutaneous pocket was created using blunt dissection. The port was introduced to the pocket. The c atheter tubing was fed through a subcutaneous tunnel to the venotomy site. The catheter tubing was c ut to a suitable length and then was introduced through a valved Peel-Away sheath and positioned with catheter tubing tip at the cavo-atrial junction level. The pocket incision was closed with subcutic ular Vicryl suture. Steri-Strips were applied. The port was flushed and locked with heparin solutio n per protocol. Sterile dressing was applied to the site. The patient tolerated the procedure well. Conscious sedation was performed with the prescribed dosages and duration as above in the presence of an independent trained radiology nurse to assist in the monitoring of the patient. EKG and oximetry remained stable throughout the procedure. The patient tolerated the procedure well and there were no complications. The patient was sent to post anesthesia recovery in stable condition. CONCLUSION: Uncomplicated ultrasound and fluoroscopic guided implanted central venous port catheter placement as described in detail above. An 8 Turkmen Power port was placed. Fredy Quinn MD on July 25, 2017 at 13:46 Board Certified Radiologist. This report was verified electronically.
--- NOTE | 2017-07-25 15:42 | HHI.HCPN ---
Reason for visit a. To assist with evaluation and management of symptoms including:Confusion , pain, debility b. To assist medical decision maker(s) with: better understanding of current medical conditions; weighing benefits/burdens of medical treatment options; making medical treatment decisions. Subjective/Interval History Patient is alert and oriented to self, place and confused to time. Patient was transferred to heme-oncology floor. Patient is eating lunch. Patient endorsing good appetite. Showing no signs of distress or discomfort. Patient denies pain. Patient has not required Hydromorphone since 07/16/17. Vital signs stable. Patient underwent placement of right internal jugular Infusa-Port by interventional radiology today. Case discussed with Linda Beltran PA-C. Patient will most likely receive stereotactic XRT to brain lesion and systemic chemotherapy outpatient. Case management following. [employer] assisting with application for disability. Telephone conversation with patient`s sister Dana. Updated her on patient`s status. . Family/friend interactions Telephone conversation with patient's sister. . Advance Directives Living Will: Never completed Health Care Surrogate: Copy in medical record Durable Power of Feltmaker And Weigher: Never completed Advance Directive Specifics Date completed: 07/19/2017 . Health Care Surrogate(s): Sister-healthcare surrogate-Dana Umanzor-[phone] /[phone] Niece-alternate healthcare surrogate-Dana Umanzor [phone] . Objective Vital Signs Date Time Temp Pulse Resp B/P (MAP) Pulse Ox O2 Delivery O2 Flow Rate FiO2 07/25/17 12:45 69 19 99/65 (76) 93 07/25/17 12:15 68 19 104/63 (77) 92 07/25/17 11:45 70 19 102/67 (79) 95 07/25/17 11:30 97.9 69 18 113/67 (82) 92 07/25/17 09:01 98.9 76 20 103/72 (82) 97 07/25/17 08:00 74 07/25/17 06:10 73 07/25/17 05:04 69 07/25/17 04:05 73 07/25/17 03:48 98.2 78 16 108/82 (91) 98 07/25/17 03:03 68 07/25/17 02:00 81 07/25/17 01:06 81 07/25/17 00:00 84 07/24/17 23:57 97.9 81 16 114/77 (89) 97 07/24/17 23:08 79 07/24/17 22:01 84 07/24/17 21:10 79 07/24/17 20:20 98.8 84 18 117/79 (92) 99 07/24/17 20:06 93 07/24/17 19:04 94 07/24/17 18:05 80 07/24/17 17:07 90 07/24/17 16:00 90 07/24/17 15:17 97.7 88 18 113/68 (83) 98 Intake & Output 07/25/17 07/25/17 07:00 19:00 Intake Total 240 ml Output Total 1100 ml 401 ml Balance -860 ml -401 ml Intake Oral 240 ml Output Urine Total 1100 ml 400 ml Stool Total 1 ml Physical Exam CONSTITUTIONAL/GENERAL: This is an adequately nourished patient, in no apparent distress. Denies pain. TUBES/LINES/DRAINS: PIV, Right IJ Infusaport SKIN: No jaundice, rashes, or lesions. Ecchymoses on upper extremities. No wounds seen anteriorly. Skin temperature appropriate. Not diaphoretic. HEAD: Atraumatic. Normocephalic. EYES: Pupils equal and round and reactive. Extraocular motions intact. No scleral icterus. No injection or drainage. Fundi not examined. ENT: Hearing grossly normal. Nose without bleeding or purulent drainage. Throat without visible erythema, exudates, masses, or lesions. NECK: Trachea midline. Supple, nontender. CARDIOVASCULAR: Regular rate and rhythm without murmurs, gallops, or rubs. No JVD. Peripheral pulses symmetric. RESPIRATORY/CHEST: Symmetric, unlabored respirations. Unable to auscultate breath sounds to AIRAM otherwise diminished in other crocker. No wheezes, rales, or rhonchi. GASTROINTESTINAL: Abdomen soft, non-tender, nondistended No guarding. Bowel sounds present. GENITOURINARY: Without palpable bladder distension. MUSCULOSKELETAL: Extremities without clubbing, cyanosis, or edema. No joint tenderness or effusion noted. No calf tenderness. No mottling or clubbing. NEUROLOGICAL: Awake and alert. Motor and sensory grossly within normal limits. Follows commands with left side. RUE weaker than RLE PSYCHIATRIC: No obvious anxiety/depression. no apparent hallucinations or other psychotic thought process. . Diagnostic Tests Laboratory Laboratory Tests Test 07/24/17 09:32 White Blood Count 46.7 TH/MM3 (4.0-11.0) Red Blood Count 3.61 MIL/MM3 (4.50-5.90) Hemoglobin 9.5 GM/DL (13.0-17.0) Hematocrit 30.4 % (39.0-51.0) Mean Corpuscular Volume 84.2 FL (80.0-100.0) Mean Corpuscular Hemoglobin 26.3 PG (27.0-34.0) Mean Corpuscular Hemoglobin Concent 31.2 % (32.0-36.0) Red Cell Distribution Width 20.1 % (11.6-17.2) Platelet Count 766 TH/MM3 (150-450) Mean Platelet Volume 5.7 FL (7.0-11.0) CBC Comment AUTO DIFF Differential Total Cells Counted 100 Neutrophils % (Manual) 96 % (16-70) Band Neutrophils % 3 % (0-6) Lymphocytes % 1 % (9-44) Neutrophils # (Manual) 46.2 TH/MM3 (1.8-7.7) Differential Comment FINAL DIFF MANUAL Toxic Granulation 1+ (NORMAL) Toxic Vacuolation PRESENT (NONE SEEN) Platelet Estimate HIGH (NORMAL) Platelet Morphology Comment NORMAL (NORMAL) Polychromasia 2.0 % (0.0-1.9) Blood Urea Nitrogen 11 MG/DL (7-18) Creatinine 0.60 MG/DL (0.60-1.30) Random Glucose 116 MG/DL (74-106) Albumin 2.7 GM/DL (3.4-5.0) Calcium Level 8.9 MG/DL (8.5-10.1) Phosphorus Level 3.4 MG/DL (2.5-4.9) Magnesium Level 2.0 MG/DL (1.5-2.5) Sodium Level 137 MEQ/L (136-145) Potassium Level 4.1 MEQ/L (3.5-5.1) Chloride Level 101 MEQ/L (98-107) Carbon Dioxide Level 28.2 MEQ/L (21.0-32.0) Anion Gap 8 MEQ/L (5-15) Estimat Glomerular Filtration Rate 172 ML/MIN (>89) Result Diagram: 07/24/17 0932 07/24/17 0932 Imaging Last 48 hours Impressions Port Line Insertion 07/25/17 0000 Signed Impressions: Service Date/Time: Tuesday, July 25, 2017 11:38 - CONCLUSION: Uncomplicated ultrasound and fluoroscopic guided implanted central venous port catheter placement as described in detail above. An 8 Thai Power port was placed. Fredy Quinn MD Procedures 07/18/17-bronchoscopy with biopsy 07/25/2017-Right IJ [id number] placement . Assessment and Plan Disease Oriented Problem List: (1) Brain mass (2) Lung mass (3) Tobacco use disorder Symptom Scale: (1) Confusion 0-10 Scale: Unable to quantify Comment: Brain mass . (2) Debility 0-10 Scale: Unable to quantify Comment: Progressive . (3) Pain Comment: Patient has a brain and lung masses. Patient is at risk for headaches. . Pertinent Non-Medical Issues Psychosocial:Patient was born and raised in [place]. Patient's highest level of education is sixth-grade. Patient has 4 brothers and 1 sister. Patient never . He had 2 sons both name after him. One son Virgil Umanzor Jr mostly at age 32 from a motor cycle accident. His other son who is also named Virgil Umanzor Jr is [facility]. Spiritual: No hinduism affiliation Legal: Completed healthcare surrogate form Ethical issues impacting care: None identified at this time . Important Contacts Sister-healthcare surrogate-Dana Umanzor-[phone] /[phone] Niece-alternate healthcare surrogate-Dana Umanzor [phone] . Prognosis Mr. Umanzor is a 51 years old male was brought to the emergency department by his family on 07/16/17 after they noted that he had right sided extremity weakness with confusion and difficulty with ambulation. Patient was found to have an endobronchial lesion in his left upper lobe is well is seen intracranial lesion with vasogenic edema. Patient remains at risk for further complications, deterioration and decline. . Code Status: Full Code Plan PLAN: Legal decision maker: Given that patient came in with some confusion, though slightly improving. Recommending shared decision making with his sister Dana Umanzor who is his designated Health Care Surrogate. Goals: No change in goals, remain Aggressive CODE STATUS: Full Code SYMPTOMS: * Confusion: Patient came in with complaints of confusion. CT head revealed eft posterior frontoparietal lobe mass with surrounding vasogenic edema causing 4mm of left to right midline shift. Patient oriented to self, place with some confusion. Plan for brain irradiation therapy. Patient on Decadron. no recommendations at this time. * Pain: Patient has a brain mass and lung mass. Patient is at risk for headaches. Hydromorphone 1 mg Q 4 HRS PRN available. Patient has not required use of hydromorphone. No recommendations at this time * Debility: Progressive. Patient has been increasingly getting weak and having difficulty with ambulation. Weight loss he has been reported. Occupational therapy consulted. Activity increased to out of bed with assistance. Physical therapy consulted. Palliative care will continue to follow the patient during hospital course as condition evolves, to assist patient/decision-maker with understanding of their medical conditions, weighing benefits/burdens of treatment options, for clarification of goals of treatment. Additionally will assist with any symptoms of palliative concern. Attestation To help prompt me to consider important information that might be impacting today's encounter and assessment, information from prior notes written by myself or my colleagues may have been "brought forward" into today's note. My signature on this note, however, is an attestation that I personally performed the exam, history, and/or decision-making noted today, and, unless otherwise indicated, the interactions with patient, family, and staff as well as the review of records all occurred today. I also attest that the listed assessment and stated plan reflect my best clinical judgment today based on the combination of historical information, prior notes, and today's exam/ interactions. When time spent is documented, it refers only to time spent today by the signer, or if indicated, combined time spent today by collaborating physician/nurse practitioner. Brian Valadez Jul 25, 2017 15:42
--- NOTE | 2017-07-25 16:43 | HHI.PR ---
Subjective Remarks Follow-up for brain and lung cancer Patient has no complaints. He just got back from radiation. He stated he feels like he is getting stronger. His nurse at the bedside during the interview. She stated that he can walk to the restroom but there is assistance. Objective Vitals Vital Signs Date Time Temp Pulse Resp B/P (MAP) Pulse Ox O2 Delivery O2 Flow Rate FiO2 07/25/17 12:45 69 19 99/65 (76) 93 07/25/17 12:15 68 19 104/63 (77) 92 07/25/17 11:45 70 19 102/67 (79) 95 07/25/17 11:30 97.9 69 18 113/67 (82) 92 07/25/17 09:01 98.9 76 20 103/72 (82) 97 07/25/17 08:00 74 07/25/17 06:10 73 07/25/17 05:04 69 07/25/17 04:05 73 07/25/17 03:48 98.2 78 16 108/82 (91) 98 07/25/17 03:03 68 07/25/17 02:00 81 07/25/17 01:06 81 07/25/17 00:00 84 07/24/17 23:57 97.9 81 16 114/77 (89) 97 07/24/17 23:08 79 07/24/17 22:01 84 07/24/17 21:10 79 07/24/17 20:20 98.8 84 18 117/79 (92) 99 07/24/17 20:06 93 07/24/17 19:04 94 07/24/17 18:05 80 07/24/17 17:07 90 I/O 07/24/17 07/24/17 07/24/17 07/25/17 07/25/17 07/25/17 07:00 15:00 23:00 07:00 15:00 23:00 Intake Total 620 ml 600 ml 840 ml 240 ml 240 ml Output Total 1350 ml 500 ml 1100 ml 401 ml 300 ml Balance -730 ml 600 ml 340 ml -860 ml -401 ml -60 ml Intake Oral 460 ml 840 ml 240 ml 240 ml IV Total 160 ml 600 ml Output Urine Total 1350 ml 500 ml 1100 ml 400 ml 300 ml Stool Total 1 ml # Voids 2 # Bowel Movements 1 Result Diagram: 07/24/17 0932 07/24/17 0932 Objective Remarks GENERAL: in NAD CARDIOVASCULAR: Regular rate and rhythm without murmurs, gallops, or rubs. RESPIRATORY: Breath sounds equal bilaterally. No accessory muscle use. GASTROINTESTINAL: Abdomen soft, non-tender, nondistended. MUSCULOSKELETAL: NEURO: AAO x2. did not know date. patient grossly moves all extremity. right hand rawhide bone roller decrease. right LE 4/5 strength. left sided strength 5/5. Medications and IVs Current Medications Sodium Chloride (NS Flush) 2 ml UNSCH PRN IV FLUSH FLUSH AFTER USING IV ACCESS Last administered on 07/16/17at 18:26; Start 07/16/17 at 16:00; Stop 07/17/17 at 13:30; Status DC Vancomycin HCl 1000 mg/Sodium Chloride 250 ml @ 250 mls/hr ONCE ONCE IV Last administered on 07/16/17at 18:26; Start 07/16/17 at 17:30; Stop 07/16/17 at 18:29 ; Status DC Piperacillin Sod/ Tazobactam Sod 100 ml @ 200 mls/hr ONCE ONCE IV Last administered on 07/16/17at 18:10; Start 07/16/17 at 17:30; Stop 07/16/17 at 17:59 ; Status DC Dexamethasone Sodium Phosphate (Decadron Inj) 10 mg ONCE ONCE IV PUSH Last administered on 07/16/17at 18:25; Start 07/16/17 at 18:15; Stop 07/16/17 at 18:16 ; Status DC Sodium Chloride 1,000 ml @ 84 mls/hr [id number] IV Last administered on 07/24/17at 04:52; Start 07/16/17 at 18:48; Stop 07/24/17 at 10:39; Status DC Sodium Chloride (NS Flush) 2 ml UNSCH PRN IV FLUSH FLUSH AFTER USING IV ACCESS ; Start 07/16/17 at 19:00 Sodium Chloride (NS Flush) 2 ml BID IV FLUSH Last administered on 07/25/17at 09: 00; Start 07/16/17 at 21:00 Acetaminophen (Tylenol) 650 mg Q6H PRN PO PAIN 1-5 AND/OR FEVER >101F; Start at 19:00 Hydromorphone HCl (Dilaudid Pf Inj) 1 mg Q4H PRN IV PAIN 6-10; Start 07/16/17 at 19:15 Famotidine (Pepcid Inj) 20 mg Q12HR IV PUSH Last administered on 07/20/17at 09: 00; Start 07/16/17 at 21:00; Stop 07/20/17 at 14:24; Status DC Ondansetron HCl (Zofran Inj) 4 mg Q6H PRN IV PUSH NAUSEA OR VOMITING; Start at 19:00 Temazepam (Restoril) 15 mg HS PRN PO INSOMNIA; Start 07/16/17 at 19:00 Albuterol/ Ipratropium (Duoneb Neb) 1 ampule Q2HR NEB PRN INH WHEEZING Last administered on 07/18/17at 16:49; Start 07/16/17 at 19:00 Heparin Sodium (Porcine) (Heparin Inj) 5,000 units Q8H SQ Last administered on 07/20/17at 05:20; Start 07/16/17 at 22:00; Stop 07/20/17 at 16:12; Status DC Miscellaneous Information 1 [id number] Last administered on 07/16/17at 22:59; Start 07/16/17 at 19:00 Chlorhexidine Gluconate (Chlorhexidine 2% Cloth) Taper DAILY@04 TOP ; Start at 04:00; Stop 07/13/18 at 03:59 Chlorhexidine Gluconate (Chlorhexidine 2% Cloth) 3 pack UNSCH PRN TOP HYGIENIC CARE; Start 07/16/17 at 19:00 Senna/Docusate Sodium (Karlie-Colace) 1 tab BID PO Last administered on 07/24/17at 20:29; Start 07/16/17 at 21:00 Magnesium Hydroxide (Milk Of Magnesia Liq) 30 ml Q12H PRN PO Mild constipation ; Start 07/16/17 at 19:00 Sennosides (Senokot) 17.2 mg Q12H PRN PO Moderate constipation; Start 07/16/17 at 19:00 Bisacodyl (Dulcolax Supp) 10 mg DAILY PRN RECTAL SEVERE CONSITIPATION; Start at 19:00 Lactulose (Lactulose Liq) 30 ml DAILY PRN PO SEVERE CONSITIPATION; Start at 19:00 Dexamethasone Sodium Phosphate (Decadron Inj) 4 mg Q6HR IV PUSH Last administered on 07/20/17at 05:21; Start 07/17/17 at 00:00; Stop 07/20/17 at 09:52 ; Status DC Pharmacy Profile Note 0 ml @ 0 mls/hr UNSCH OTHER ; Start 07/17/17 at 13:15; Stop 07/20/17 at 16:12; Status DC Cefepime HCl 2000 mg/Sodium Chloride 100 ml @ 200 mls/hr Q12H IV Last administered on 07/20/17at 15:57; Start 07/17/17 at 13:30; Stop 07/20/17 at 16:12 ; Status DC Vancomycin HCl 1250 mg/Sodium Chloride 262.5 ml @ 250 mls/hr Q12H IV ; Start at 14:00; Status Cancel Vancomycin HCl 1400 mg/Sodium Chloride 514 ml @ 250 mls/hr Q12H IV Last administered on 07/19/17at 03:10; Start 07/17/17 at 15:00; Stop 07/19/17 at 09:09 ; Status DC Miscellaneous Information SPECIFIC LAB TO BE CITLALI... ONCE ONCE .XX Last administered on 07/19/17at 03:10; Start 07/19/17 at 02:45; Stop 07/19/17 at 02:46 ; Status DC Gadodiamide (Omniscan Pf Inj) 15 ml STK-MED ONCE IVCONTRAST Last administered on 07/17/17at 14:46; Start 07/17/17 at 14:46; Stop 07/17/17 at 14:47; Status DC Levetriacetam (Keppra) 500 mg Q12HR PO Last administered on 07/25/17at 09:06; Start 07/17/17 at 21:00 Diatrizoate Meglum/ Diatrizoate Sod ( Gastrojamila Liq) 18 ml ONCE ONCE PO Last administered on 07/18/17at 10:05; Start 07/18/17 at 08:51; Stop 07/18/17 at 09:31; Status DC Iron Sucrose 200 mg/Sodium Chloride 110 ml @ 110 mls/hr DAILY IV ; Start at 17:00; Stop 07/18/17 at 18:08; Status DC Midazolam HCl (Versed Inj) 2 mg STK-MED ONCE .ROUTE ; Start 07/18/17 at 16:44; Stop 07/18/17 at 16:45; Status DC Fentanyl Citrate (fentaNYL INJ) 100 mcg STK-MED ONCE .ROUTE ; Start 07/18/17 at 16:44; Stop 07/18/17 at 16:45; Status DC Miscellaneous Information ALL NURSING DEPARTME... UNSCH PRN .XX SEE LABEL COMMENTS; Start 07/18/17 at 16:36; Stop 07/19/17 at 16:35; Status DC Iron Sucrose 200 mg/Sodium Chloride 110 ml @ 110 mls/hr HS IV Last administered on 07/19/17at 20:49; Start 07/18/17 at 21:00; Stop 07/20/17 at 21:59 ; Status DC Iohexol (Omnipaque 350 Inj) 90 ml STK-MED ONCE IVCONTRAST ; Start 07/18/17 at 21 :08; Stop 07/18/17 at 21:09; Status DC Vancomycin HCl 1250 mg/Sodium Chloride 262.5 ml @ 250 mls/hr Q12H IV Last administered on 07/20/17at 03:21; Start 07/19/17 at 15:00; Stop 07/20/17 at 16:12 ; Status DC Miscellaneous Information SPECIFIC LAB TO BE DRAWN:VANCO TROUGH DATE... ONCE ONCE .XX ; Start 07/21/17 at 02:45; Stop 07/21/17 at 02:46; Status Cancel Iohexol (Omnipaque 350 Inj) 80 ml STK-MED ONCE IVCONTRAST Last administered on 07/16/17at 17:45; Start 07/16/17 at 17:45; Stop 07/19/17 at 13:28; Status DC Dexamethasone (Decadron) 4 mg Q8HR PO Last administered on 07/25/17at 15:17; Start 07/20/17 at 14:00 Famotidine (Pepcid) 20 mg BID PO Last administered on 07/24/17at 20:28; Start at 21:00 Sodium Chloride 250 ml @ 15 mls/hr ONCE ONCE IV Last administered on at 22:12; Start 07/20/17 at 16:15; Stop 07/21/17 at 08:54; Status DC Potassium Bicarb/ Potassium Chloride (K-Lyte Cl Eff) 50 meq ONCE ONCE PO Last administered on 07/20/17 18:37; Start 07/20/17 at 16:30; Stop 07/20/17 at 16:37; Status DC Iron Sucrose 200 mg/Sodium Chloride 110 ml @ 110 mls/hr DAILY IV Last administered on 07/23/17 10:31; Start 07/21/17 at 13:00; Stop 07/23/17 at 09:59; Status DC Cefazolin Sodium/ Dextrose 50 ml @ 100 mls/hr INTERNATIONAL RECRUITER IV Last administered on 07/25/17 10:56; Start 07/25/17 at 08:30; Stop 07/28/17 at 08:29 Vancomycin HCl 1000 mg/Sodium Chloride 250 ml @ 250 mls/hr INTERNATIONAL RECRUITER IV Last administered on 07/25/17 09:32; Start 07/25/17 at 08:30; Stop 07/28/17 at 08:29 Heparin Sodium (Porcine) (*HEPARIN CENTRAL FLUSH PERIprocedural ONLY) 500 units STK-MED ONCE IV FLUSH Last administered on 07/25/17 11:10; Start 07/25/17 at 10: 30; Stop 07/25/17 at 10:31; Status DC Fentanyl Citrate (fentaNYL INJ) 200 mcg STK-MED ONCE .ROUTE Last administered on 07/25/17 10:34; Start 07/25/17 at 10:34; Stop 07/25/17 at 10:35; Status DC Midazolam HCl (Versed Inj) 4 mg STK-MED ONCE .ROUTE Last administered on 10:34; Start 07/25/17 at 10:34; Stop 07/25/17 at 10:35; Status DC Lidocaine/ Epinephrine (Xylocaine-Epi 1%-1:100,000 Inj) 30 ml STK-MED ONCE .ROUTE Last administered on 07/25/17 11:00; Start 07/25/17 at 10:53; Stop at 10:54; Status DC A/P Assessment and Plan This is a 51-year-old male presented with altered mental status and right hemiplegia Altered mental status with hemiplegia due to brain mass -improving. - MRI of brain shows brain mass. Neurosurgeon on board and ff. -per NS not a candidate for surgery and radiation oncologist consulted. - Continue Decadron and Keppra - palliative care ff. -consulted PT/OT. Recommends home health. lung cancer ( adenocarcinoma) with mets. - pulmonary and oncologist consulted. -s/p bronchoscopy on 07/18 - pathology ; suspicious for adenocarcinoma. -oncology and radiation oncology following; for chemo and radiation. -IR consulted for port placement. Pending. - Likely to receive chemotherapy during inpatient stay. Appreciate oncology assistance. Severe microcytic anemia, hemoglobin is 7.5 and MCV 79. -Stable. No active bleeding. -Oncologist following. Most likely iron deficiency. -started on IV Iron. Hemoglobin improving now 9.5. Leukocytosis -Most likely reactive due to malignancy/steroids. No signs of infection. Thrombocytosis -Most likely secondary to malignancy. Tobacco use disorder - DuoNeb scheduled and when necessary DVT GI prophylaxis - Teds SCDs - Pepcid Discharge Planning SSI pending. Patient is homeless and we need to remain in the hospital for treatment. Saray Noble MD Jul 25, 2017 16:43
[2017-07-25] MEDS: CHLORHEXIDINE GLUCONATE 2 % 1 PACK (2 CLOTHS) TOP SCH (22:52)
[2017-07-26] VITALS (27 sets, daily range): BP systolic 96–116; BP diastolic 64–79; PULSE 64–105; RESP 16–22; TEMP 97.6–99.6; O2SAT 95–99
[2017-07-26] MEDS: DEXAMETHASONE 4 MG TAB PO SCH ×3 (05:53→22:19)
[2017-07-26] MEDS: DOCUSATE SODIUM 50 MG/SENNA 8.6 MG TAB PO SCH ×2 (08:19→21:00)
[2017-07-26] MEDS: levETIRAcetam 500 MG TAB PO SCH ×2 (08:26→22:20)
[2017-07-26] MEDS: FAMOTIDINE 20 MG TAB PO SCH ×2 (08:26→22:19)
[2017-07-26] MEDS: SODIUM CHLORIDE 0.9% FLUSH 10 ML FLUSH IV FLUSH SCH ×2 (09:00→22:20)
--- NOTE | 2017-07-26 11:47 | HHI.PR ---
Subjective Remarks Follow-up for liver and brain cancer Patient has no complaints. He had his port placed yesterday. Per oncologist patient can be discharged and follow-up as outpatient for radiation and chemo. Patient is homeless. I spoke to his sister who stated that she is living and public housing and receiving assistance from the government and that she is not allowed to have an extra person live with her and she breaks this will rule she could be homeless herself. Patient continues to require some assistance with his ADLs and IADLs. I spoke with physical therapist to reevaluate patient. I also spoke with case management to follow-up on this issue due to concerns that patient does have a port placed and that he is homeless. Objective Vitals Vital Signs Date Time Temp Pulse Resp B/P (MAP) Pulse Ox O2 Delivery O2 Flow Rate FiO2 07/26/17 08:24 98.3 77 22 109/73 (85) 98 07/26/17 08:00 67 07/26/17 06:06 70 07/26/17 05:01 64 07/26/17 04:40 98.6 66 16 96/64 (75) 97 07/26/17 04:06 66 07/26/17 03:00 72 07/26/17 02:00 73 07/26/17 01:02 71 07/26/17 00:18 97.6 75 18 112/71 (85) 98 07/26/17 00:08 74 07/25/17 23:00 71 07/25/17 22:09 76 07/25/17 21:02 85 07/25/17 20:54 97.4 89 18 118/71 (87) 98 07/25/17 20:04 95 07/25/17 19:10 103 07/25/17 18:00 94 07/25/17 17:19 97.3 92 18 109/62 (78) 98 07/25/17 17:00 90 07/25/17 16:00 83 07/25/17 15:00 86 07/25/17 14:00 86 07/25/17 12:45 69 19 99/65 (76) 93 07/25/17 12:15 68 19 104/63 (77) 92 07/25/17 11:45 70 19 102/67 (79) 95 I/O 07/25/17 07/25/17 07/25/17 07/26/17 3/6/18 3/6/18 07:00 15:00 23:00 07:00 15:00 23:00 Intake Total 240 ml 960 ml 240 ml Output Total 1100 ml 401 ml 700 ml 1000 ml Balance -860 ml -401 ml 260 ml -760 ml Intake Oral 240 ml 960 ml 240 ml Output Urine Total 1100 ml 400 ml 700 ml 1000 ml Stool Total 1 ml # Voids 1 # Bowel Movements 1 Result Diagram: 07/24/1793107/24/17931 Objective Remarks GENERAL: in NAD SKIN: port in place. CARDIOVASCULAR: Regular rate and rhythm without murmurs, gallops, or rubs. RESPIRATORY: Breath sounds equal bilaterally. No accessory muscle use. GASTROINTESTINAL: Abdomen soft, non-tender, nondistended. MUSCULOSKELETAL: NEURO: AAO x3. patient grossly moves all extremity. 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 right LE 4/5 strength. left sided strength 5/5. Medications and IVs Current Medications Sodium Chloride (NS Flush) 2 ml UNSCH PRN IV FLUSH FLUSH AFTER USING IV ACCESS Last administered on 07/16/17 18:26; Start 07/16/17 at 16:00; Stop 07/17/17 at 13:30; Status DC Vancomycin HCl 1000 mg/Sodium Chloride 250 ml @ 250 mls/hr ONCE ONCE IV Last administered on 07/16/17 18:26; Start 07/16/17 at 17:30; Stop 07/16/17 at 18:29 ; Status DC Piperacillin Sod/ Tazobactam Sod 100 ml @ 200 mls/hr ONCE ONCE IV Last administered on 07/16/17at 18:10; Start 07/16/17 at 17:30; Stop 07/16/17 at 17:59 ; Status DC Dexamethasone Sodium Phosphate (Decadron Inj) 10 mg ONCE ONCE IV PUSH Last administered on 07/16/17 18:25; Start 07/16/17 at 18:15; Stop 07/16/17 at 18:16 ; Status DC Sodium Chloride 1,000 ml @ 84 mls/hr [id number] IV Last administered on 07/24/17 04:52; Start 07/16/17 at 18:48; Stop 07/24/17 at 10:39; Status DC Sodium Chloride (NS Flush) 2 ml UNSCH PRN IV FLUSH FLUSH AFTER USING IV ACCESS ; Start 07/16/17 at 19:00 Sodium Chloride (NS Flush) 2 ml BID IV FLUSH Last administered on 07/26/17at 09: 00; Start 07/16/17 at 21:00 Acetaminophen (Tylenol) 650 mg Q6H PRN PO PAIN 1-5 AND/OR FEVER >101F; Start at 19:00 Hydromorphone HCl (Dilaudid Pf Inj) 1 mg Q4H PRN IV PAIN 6-10; Start 07/16/17 at 19:15 Famotidine (Pepcid Inj) 20 mg Q12HR IV PUSH Last administered on 07/20/17at 09: 00; Start 07/16/17 at 21:00; Stop 07/20/17 at 14:24; Status DC Ondansetron HCl (Zofran Inj) 4 mg Q6H PRN IV PUSH NAUSEA OR VOMITING; Start at 19:00 Temazepam (Restoril) 15 mg HS PRN PO INSOMNIA; Start 07/16/17 at 19:00 Albuterol/ Ipratropium (Duoneb Neb) 1 ampule Q2HR NEB PRN INH WHEEZING Last administered on 07/18/17at 16:49; Start 07/16/17 at 19:00 Heparin Sodium (Porcine) (Heparin Inj) 5,000 units Q8H SQ Last administered on 07/20/17at 05:20; Start 07/16/17 at 22:00; Stop 07/20/17 at 16:12; Status DC Miscellaneous Information 1 Q361D XX Last administered on 07/16/17at 22:59; Start 07/16/17 at 19:00 Chlorhexidine Gluconate (Chlorhexidine 2% Cloth) Taper DAILY@04 TOP ; Start at 04:00; Stop 07/13/18 at 03:59 Chlorhexidine Gluconate (Chlorhexidine 2% Cloth) 3 pack UNSCH PRN TOP HYGIENIC CARE; Start 07/16/17 at 19:00 Senna/Docusate Sodium (Karlie-Colace) 1 tab BID PO Last administered on 07/25/17at 22:34; Start 07/16/17 at 21:00 Magnesium Hydroxide (Milk Of Magnesia Liq) 30 ml Q12H PRN PO Mild constipation ; Start 07/16/17 at 19:00 Sennosides (Senokot) 17.2 mg Q12H PRN PO Moderate constipation; Start 07/16/17 at 19:00 Bisacodyl (Dulcolax Supp) 10 mg DAILY PRN RECTAL SEVERE CONSITIPATION; Start at 19:00 Lactulose (Lactulose Liq) 30 ml DAILY PRN PO SEVERE CONSITIPATION; Start at 19:00 Dexamethasone Sodium Phosphate (Decadron Inj) 4 mg Q6HR IV PUSH Last administered on 07/20/17at 05:21; Start 07/17/17 at 00:00; Stop 07/20/17 at 09:52 ; Status DC Pharmacy Profile Note 0 ml @ 0 mls/hr UNSCH OTHER ; Start 07/17/17 at 13:15; Stop 07/20/17 at 16:12; Status DC Cefepime HCl 2000 mg/Sodium Chloride 100 ml @ 200 mls/hr Q12H IV Last administered on 07/20/17at 15:57; Start 07/17/17 at 13:30; Stop 07/20/17 at 16:12 ; Status DC Vancomycin HCl 1250 mg/Sodium Chloride 262.5 ml @ 250 mls/hr Q12H IV ; Start at 14:00; Status Cancel Vancomycin HCl 1400 mg/Sodium Chloride 514 ml @ 250 mls/hr Q12H IV Last administered on 07/19/17at 03:10; Start 07/17/17 at 15:00; Stop 07/19/17 at 09:09 ; Status DC Miscellaneous Information SPECIFIC LAB TO BE CITLALI... ONCE ONCE .XX Last administered on 07/19/17at 03:10; Start 07/19/17 at 02:45; Stop 07/19/17 at 02:46 ; Status DC Gadodiamide (Omniscan Pf Inj) 15 ml STK-MED ONCE IVCONTRAST Last administered on 07/17/17at 14:46; Start 07/17/17 at 14:46; Stop 07/17/17 at 14:47; Status DC Levetriacetam (Keppra) 500 mg Q12HR PO Last administered on 07/26/17at 08:26; Start 07/17/17 at 21:00 Diatrizoate Meglum/ Diatrizoate Sod ( Gastrojamila Liq) 18 ml ONCE ONCE PO Last administered on 07/18/17at 10:05; Start 07/18/17 at 08:51; Stop 07/18/17 at 09:31; Status DC Iron Sucrose 200 mg/Sodium Chloride 110 ml @ 110 mls/hr DAILY IV ; Start at 17:00; Stop 07/18/17 at 18:08; Status DC Midazolam HCl (Versed Inj) 2 mg STK-MED ONCE .ROUTE ; Start 07/18/17 at 16:44; Stop 07/18/17 at 16:45; Status DC Fentanyl Citrate (fentaNYL INJ) 100 mcg STK-MED ONCE .ROUTE ; Start 07/18/17 at 16:44; Stop 07/18/17 at 16:45; Status DC Miscellaneous Information ALL NURSING DEPARTME... UNSCH PRN .XX SEE LABEL COMMENTS; Start 07/18/17 at 16:36; Stop 07/19/17 at 16:35; Status DC Iron Sucrose 200 mg/Sodium Chloride 110 ml @ 110 mls/hr HS IV Last administered on 07/19/17at 20:49; Start 07/18/17 at 21:00; Stop 07/20/17 at 21:59 ; Status DC Iohexol (Omnipaque 350 Inj) 90 ml STK-MED ONCE IVCONTRAST ; Start 07/18/17 at 21 :08; Stop 07/18/17 at 21:09; Status DC Vancomycin HCl 1250 mg/Sodium Chloride 262.5 ml @ 250 mls/hr Q12H IV Last administered on 07/20/17at 03:21; Start 07/19/17 at 15:00; Stop 07/20/17 at 16:12 ; Status DC Miscellaneous Information SPECIFIC LAB TO BE DRAWN:VANCO TROUGH DATE... ONCE ONCE .XX ; Start 07/21/17 at 02:45; Stop 07/21/17 at 02:46; Status Cancel Iohexol (Omnipaque 350 Inj) 80 ml STK-MED ONCE IVCONTRAST Last administered on 07/16/17at 17:45; Start 07/16/17 at 17:45; Stop 07/19/17 at 13:28; Status DC Dexamethasone (Decadron) 4 mg Q8HR PO Last administered on 07/26/17at 05:53; Start 07/20/17 at 14:00 Famotidine (Pepcid) 20 mg BID PO Last administered on 07/26/17at 08:26; Start at 21:00 Sodium Chloride 250 ml @ 15 mls/hr ONCE ONCE IV Last administered on at 22:12; Start 07/20/17 at 16:15; Stop 07/21/17 at 08:54; Status DC Potassium Bicarb/ Potassium Chloride (K-Lyte Cl Eff) 50 meq ONCE ONCE PO Last administered on 07/20/17at 18:37; Start 07/20/17 at 16:30; Stop 07/20/17 at 16:37; Status DC Iron Sucrose 200 mg/Sodium Chloride 110 ml @ 110 mls/hr DAILY IV Last administered on 07/23/17at 10:31; Start 07/21/17 at 13:00; Stop 07/23/17 at 09:59; Status DC Cefazolin Sodium/ Dextrose 50 ml @ 100 mls/hr CELL POURER IV Last administered on 07/25/17 10:56; Start 07/25/17 at 08:30; Stop 07/28/17 at 08:29 Vancomycin HCl 1000 mg/Sodium Chloride 250 ml @ 250 mls/hr CELL POURER IV Last administered on 07/25/17at 09:32; Start 07/25/17 at 08:30; Stop 07/28/17 at 08:29 Heparin Sodium (Porcine) (*HEPARIN CENTRAL FLUSH PERIprocedural ONLY) 500 units STK-MED ONCE IV FLUSH Last administered on 07/25/17at 11:10; Start 07/25/17 at 10: 30; Stop 07/25/17 at 10:31; Status DC Fentanyl Citrate (fentaNYL INJ) 200 mcg STK-MED ONCE .ROUTE Last administered on 07/25/17 10:34; Start 07/25/17 at 10:34; Stop 07/25/17 at 10:35; Status DC Midazolam HCl (Versed Inj) 4 mg STK-MED ONCE .ROUTE Last administered on 10:34; Start 07/25/17 at 10:34; Stop 3/5/18 at 10:35; Status DC Lidocaine/ Epinephrine (Xylocaine-Epi 1%-1:100,000 Inj) 30 ml STK-MED ONCE .ROUTE Last administered on 07/25/17at 11:00; Start 07/25/17 at 10:53; Stop at 10:54; Status DC A/P Assessment and Plan This is a 51-year-old male presented with altered mental status and right hemiplegia Altered mental status with hemiplegia due to brain mass -improving. - MRI of brain shows brain mass. Neurosurgeon on board and ff. -per NS not a candidate for surgery and radiation oncologist consulted. - Continue Decadron and Keppra - palliative care ff. -consulted PT/OT. Recommends home health. lung cancer ( adenocarcinoma) with mets. - pulmonary and oncologist consulted. -s/p bronchoscopy on 07/18 - pathology ; suspicious for adenocarcinoma. -oncology and radiation oncology following; for chemo and radiation. -Status post port placement on 07/25/2017 by IR - Likely to receive chemotherapy during inpatient stay. Appreciate oncology assistance. Severe microcytic anemia, hemoglobin is 7.5 and MCV 79. -Stable. No active bleeding. -Oncologist following. Most likely iron deficiency. -started on IV Iron. Hemoglobin improving now 9.5. Leukocytosis -Most likely reactive due to malignancy/steroids. No signs of infection. Thrombocytosis -Most likely secondary to malignancy. Tobacco use disorder - DuoNeb scheduled and when necessary DVT GI prophylaxis - Teds SCDs - Pepcid Discharge Planning SSI pending. Patient cleared by oncologist for discharge. Patient still requires some assistance with his ADLs. Will need to do aggressive therapy while in the hospital. He is also homeless and has a port in place. Concern for increased risk of infection. Discussed case with physical therapist, case management, and patient's nurse. Saray Noble MD Jul 26, 2017 11:47
[2017-07-26] MEDS: CHLORHEXIDINE GLUCONATE 2 % 1 PACK (2 CLOTHS) TOP SCH (22:22)
[2017-07-27] VITALS (18 sets, daily range): BP systolic 109–125; BP diastolic 68–76; PULSE 73–96; RESP 16–20; TEMP 97.3–98.2; O2SAT 95–99
[2017-07-27] MEDS: DEXAMETHASONE 4 MG TAB PO SCH ×3 (06:05→21:52)
[2017-07-27] MEDS: DOCUSATE SODIUM 50 MG/SENNA 8.6 MG TAB PO SCH ×2 (09:00→21:52)
[2017-07-27] MEDS: levETIRAcetam 500 MG TAB PO SCH ×2 (09:26→21:52)
[2017-07-27] MEDS: SODIUM CHLORIDE 0.9% FLUSH 10 ML FLUSH IV FLUSH SCH ×2 (09:27→21:53)
[2017-07-27] MEDS: FAMOTIDINE 20 MG TAB PO SCH ×2 (09:27→21:52)
--- NOTE | 2017-07-27 10:45 | HHI.PR ---
Subjective Remarks Follow-up for lung and brain cancer Patient had no complaints. When I examined the patient he was drench in sweat. Patient stated that he started to have fevers and chills this morning. Patient has not had this issues prior. Otherwise he had no other concerns. Remains afebrile. Objective Vitals Vital Signs Date Time Temp Pulse Resp B/P (MAP) Pulse Ox O2 Delivery O2 Flow Rate FiO2 07/27/17 10:26 77 07/27/17 09:31 98.1 85 20 118/75 (89) 95 07/27/17 06:04 74 07/27/17 05:03 91 07/27/17 04:09 97.3 76 18 109/68 (82) 95 07/27/17 04:05 82 07/27/17 03:05 80 07/27/17 02:04 78 07/27/17 01:03 79 07/27/17 00:44 98.2 73 18 122/72 (89) 99 07/27/17 00:00 83 07/26/17 23:07 79 07/26/17 22:00 90 07/26/17 21:06 100 07/26/17 20:49 99.6 98 18 116/68 (84) 95 07/26/17 20:05 89 07/26/17 19:04 105 07/26/17 18:00 103 07/26/17 16:23 98.5 85 20 113/79 (90) 99 07/26/17 16:00 89 07/26/17 15:00 84 07/26/17 14:00 80 07/26/17 13:00 84 07/26/17 12:00 75 07/26/17 11:00 90 I/O 07/26/17 07/26/17 07/26/17 07/27/17 07/27/17 07/27/17 07:00 15:00 23:00 07:00 15:00 23:00 Intake Total 240 ml 720 ml 360 ml Output Total 1000 ml 700 ml 200 ml Balance -760 ml 20 ml 160 ml Intake Oral 240 ml 720 ml 360 ml Output Urine Total 1000 ml 600 ml 200 ml Stool Total 100 ml # Voids 3 # Bowel Movements 1 Result Diagram: 07/24/1732 07/24/17 0932 Objective Remarks GENERAL: in NAD but drenched in sweat. SKIN: port in place. CARDIOVASCULAR: Regular rate and rhythm without murmurs, gallops, or rubs. RESPIRATORY: Breath sounds equal bilaterally. No accessory muscle use. GASTROINTESTINAL: Abdomen soft, non-tender, nondistended. MUSCULOSKELETAL: NEURO: AAO x3. patient grossly moves all extremity. 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 right LE 4/5 strength. left sided strength 5/5. Medications and IVs Current Medications Sodium Chloride (NS Flush) 2 ml UNSCH PRN IV FLUSH FLUSH AFTER USING IV ACCESS Last administered on 07/16/17 18:26; Start 07/16/17 at 16:00; Stop 07/17/17 at 13:30; Status DC Vancomycin HCl 1000 mg/Sodium Chloride 250 ml @ 250 mls/hr ONCE ONCE IV Last administered on 07/16/17 18:26; Start 07/16/17 at 17:30; Stop 07/16/17 at 18:29 ; Status DC Piperacillin Sod/ Tazobactam Sod 100 ml @ 200 mls/hr ONCE ONCE IV Last administered on 07/16/17at 18:10; Start 07/16/17 at 17:30; Stop 07/16/17 at 17:59 ; Status DC Dexamethasone Sodium Phosphate (Decadron Inj) 10 mg ONCE ONCE IV PUSH Last administered on 07/16/17 18:25; Start 07/16/17 at 18:15; Stop 07/16/17 at 18:16 ; Status DC Sodium Chloride 1,000 ml @ 84 mls/hr [id number] IV Last administered on 07/24/17at 04:52; Start 07/16/17 at 18:48; Stop 07/24/17 at 10:39; Status DC Sodium Chloride (NS Flush) 2 ml UNSCH PRN IV FLUSH FLUSH AFTER USING IV ACCESS ; Start 07/16/17 at 19:00 Sodium Chloride (NS Flush) 2 ml BID IV FLUSH Last administered on 07/27/17at 09: 27; Start 07/16/17 at 21:00 Acetaminophen (Tylenol) 650 mg Q6H PRN PO PAIN 1-5 AND/OR FEVER >101F; Start at 19:00 Hydromorphone HCl (Dilaudid Pf Inj) 1 mg Q4H PRN IV PAIN 6-10; Start 07/16/17 at 19:15 Famotidine (Pepcid Inj) 20 mg Q12HR IV PUSH Last administered on 07/20/17at 09: 00; Start 07/16/17 at 21:00; Stop 07/20/17 at 14:24; Status DC Ondansetron HCl (Zofran Inj) 4 mg Q6H PRN IV PUSH NAUSEA OR VOMITING; Start at 19:00 Temazepam (Restoril) 15 mg HS PRN PO INSOMNIA; Start 07/16/17 at 19:00 Albuterol/ Ipratropium (Duoneb Neb) 1 ampule Q2HR NEB PRN INH WHEEZING Last administered on 07/18/17at 16:49; Start 07/16/17 at 19:00 Heparin Sodium (Porcine) (Heparin Inj) 5,000 units Q8H SQ Last administered on 07/20/17at 05:20; Start 07/16/17 at 22:00; Stop 07/20/17 at 16:12; Status DC Miscellaneous Information 1 Q361D XX Last administered on 07/16/17at 22:59; Start 07/16/17 at 19:00 Chlorhexidine Gluconate (Chlorhexidine 2% Cloth) Taper DAILY@04 TOP ; Start at 04:00; Stop 07/13/18 at 03:59 Chlorhexidine Gluconate (Chlorhexidine 2% Cloth) 3 pack UNSCH PRN TOP HYGIENIC CARE; Start 07/16/17 at 19:00 Senna/Docusate Sodium (Karlie-Colace) 1 tab BID PO Last administered on 07/25/17at 22:34; Start 07/16/17 at 21:00 Magnesium Hydroxide (Milk Of Magnesia Liq) 30 ml Q12H PRN PO Mild constipation ; Start 07/16/17 at 19:00 Sennosides (Senokot) 17.2 mg Q12H PRN PO Moderate constipation; Start 07/16/17 at 19:00 Bisacodyl (Dulcolax Supp) 10 mg DAILY PRN RECTAL SEVERE CONSITIPATION; Start at 19:00 Lactulose (Lactulose Liq) 30 ml DAILY PRN PO SEVERE CONSITIPATION; Start at 19:00 Dexamethasone Sodium Phosphate (Decadron Inj) 4 mg Q6HR IV PUSH Last administered on 07/20/17at 05:21; Start 07/17/17 at 00:00; Stop 07/20/17 at 09:52 ; Status DC Pharmacy Profile Note 0 ml @ 0 mls/hr UNSCH OTHER ; Start 07/17/17 at 13:15; Stop 07/20/17 at 16:12; Status DC Cefepime HCl 2000 mg/Sodium Chloride 100 ml @ 200 mls/hr Q12H IV Last administered on 07/20/17at 15:57; Start 07/17/17 at 13:30; Stop 07/20/17 at 16:12 ; Status DC Vancomycin HCl 1250 mg/Sodium Chloride 262.5 ml @ 250 mls/hr Q12H IV ; Start at 14:00; Status Cancel Vancomycin HCl 1400 mg/Sodium Chloride 514 ml @ 250 mls/hr Q12H IV Last administered on 07/19/17at 03:10; Start 07/17/17 at 15:00; Stop 07/19/17 at 09:09 ; Status DC Miscellaneous Information SPECIFIC LAB TO BE CITLALI... ONCE ONCE .XX Last administered on 07/19/17at 03:10; Start 07/19/17 at 02:45; Stop 07/19/17 at 02:46 ; Status DC Gadodiamide (Omniscan Pf Inj) 15 ml STK-MED ONCE IVCONTRAST Last administered on 07/17/17at 14:46; Start 07/17/17 at 14:46; Stop 07/17/17 at 14:47; Status DC Levetriacetam (Keppra) 500 mg Q12HR PO Last administered on 07/27/17at 09:26; Start 07/17/17 at 21:00 Diatrizoate Meglum/ Diatrizoate Sod ( Gastroview Liq) 18 ml ONCE ONCE PO Last administered on 07/18/17at 10:05; Start 07/18/17 at 08:51; Stop 07/18/17 at 09:31; Status DC Iron Sucrose 200 mg/Sodium Chloride 110 ml @ 110 mls/hr DAILY IV ; Start at 17:00; Stop 07/18/17 at 18:08; Status DC Midazolam HCl (Versed Inj) 2 mg STK-MED ONCE .ROUTE ; Start 07/18/17 at 16:44; Stop 07/18/17 at 16:45; Status DC Fentanyl Citrate (fentaNYL INJ) 100 mcg STK-MED ONCE .ROUTE ; Start 07/18/17 at 16:44; Stop 07/18/17 at 16:45; Status DC Miscellaneous Information ALL NURSING DEPARTME... UNSCH PRN .XX SEE LABEL COMMENTS; Start 07/18/17 at 16:36; Stop 07/19/17 at 16:35; Status DC Iron Sucrose 200 mg/Sodium Chloride 110 ml @ 110 mls/hr HS IV Last administered on 07/19/17at 20:49; Start 07/18/17 at 21:00; Stop 07/20/17 at 21:59 ; Status DC Iohexol (Omnipaque 350 Inj) 90 ml STK-MED ONCE IVCONTRAST ; Start 07/18/17 at 21 :08; Stop 07/18/17 at 21:09; Status DC Vancomycin HCl 1250 mg/Sodium Chloride 262.5 ml @ 250 mls/hr Q12H IV Last administered on 07/20/17at 03:21; Start 07/19/17 at 15:00; Stop 07/20/17 at 16:12 ; Status DC Miscellaneous Information SPECIFIC LAB TO BE DRAWN:VANCO TROUGH DATE... ONCE ONCE .XX ; Start 07/21/17 at 02:45; Stop 07/21/17 at 02:46; Status Cancel Iohexol (Omnipaque 350 Inj) 80 ml STK-MED ONCE IVCONTRAST Last administered on 07/16/17at 17:45; Start 07/16/17 at 17:45; Stop 07/19/17 at 13:28; Status DC Dexamethasone (Decadron) 4 mg Q8HR PO Last administered on 07/27/17at 06:05; Start 07/20/17 at 14:00 Famotidine (Pepcid) 20 mg BID PO Last administered on 07/27/17at 09:27; Start at 21:00 Sodium Chloride 250 ml @ 15 mls/hr ONCE ONCE IV Last administered on at 22:12; Start 07/20/17 at 16:15; Stop 07/21/17 at 08:54; Status DC Potassium Bicarb/ Potassium Chloride (K-Lyte Cl Eff) 50 meq ONCE ONCE PO Last administered on 07/20/17 18:37; Start 07/20/17 at 16:30; Stop 07/20/17 at 16:37; Status DC Iron Sucrose 200 mg/Sodium Chloride 110 ml @ 110 mls/hr DAILY IV Last administered on 07/23/17 10:31; Start 07/21/17 at 13:00; Stop 07/23/17 at 09:59; Status DC Cefazolin Sodium/ Dextrose 50 ml @ 100 mls/hr SENIOR APPLICATIONS ARCHITECT IV Last administered on 07/25/17 10:56; Start 07/25/17 at 08:30; Stop 07/28/17 at 08:29 Vancomycin HCl 1000 mg/Sodium Chloride 250 ml @ 250 mls/hr SENIOR APPLICATIONS ARCHITECT IV Last administered on 07/25/17 09:32; Start 07/25/17 at 08:30; Stop 07/28/17 at 08:29 Heparin Sodium (Porcine) (*HEPARIN CENTRAL FLUSH PERIprocedural ONLY) 500 units STK-MED ONCE IV FLUSH Last administered on 07/25/17 11:10; Start 07/25/17 at 10: 30; Stop 07/25/17 at 10:31; Status DC Fentanyl Citrate (fentaNYL INJ) 200 mcg STK-MED ONCE .ROUTE Last administered on 07/25/17 10:34; Start 07/25/17 at 10:34; Stop 07/25/17 at 10:35; Status DC Midazolam HCl (Versed Inj) 4 mg STK-MED ONCE .ROUTE Last administered on 10:34; Start 07/25/17 at 10:34; Stop 07/25/17 at 10:35; Status DC Lidocaine/ Epinephrine (Xylocaine-Epi 1%-1:100,000 Inj) 30 ml STK-MED ONCE .ROUTE Last administered on 07/25/17 11:00; Start 07/25/17 at 10:53; Stop at 10:54; Status DC A/P Assessment and Plan This is a 51-year-old male presented with altered mental status and right hemiplegia Fevers/chills -Patient is afebrile at the moment but found drenched in sweat. Pretty significant. -We will need to rule out any infectious etiology. -We will get a CBC, BMP, chest x-ray, lactic acid, and UA. -We will also get blood cultures. Altered mental status with hemiplegia due to brain mass -improving. - MRI of brain shows brain mass. Neurosurgeon on board and ff. -per NS not a candidate for surgery and radiation oncologist consulted. - Continue Decadron and Keppra - palliative care ff. -consulted PT/OT. Recommends home health. lung cancer ( adenocarcinoma) with mets. - pulmonary and oncologist consulted. -s/p bronchoscopy on 07/18 - pathology ; suspicious for adenocarcinoma. -oncology and radiation oncology following; for chemo and radiation. -Status post port placement on 07/25/2017 by IR - Likely to receive chemotherapy during inpatient stay. Appreciate oncology assistance. Severe microcytic anemia, hemoglobin is 7.5 and MCV 79. -Stable. No active bleeding. -Oncologist following. Most likely iron deficiency. -started on IV Iron. Hemoglobin improving now 9.5. Leukocytosis -Most likely reactive due to malignancy/steroids. No signs of infection. Thrombocytosis -Most likely secondary to malignancy. Tobacco use disorder - DuoNeb scheduled and when necessary DVT GI prophylaxis - Teds SCDs - Pepcid Discharge Planning SSI pending. Patient is cleared by oncologist for discharge. Patient found to have subjective fever/chills and drenched in sweat. Will need to do a fever workup. Saray Noble MD Jul 27, 2017 10:45
--- NOTE | 2017-07-27 11:51 | RADRPT ---
EXAM DATE/TIME: 07/27/2017 11:14 [facility] COMPARISON: CT PULMONARY ANGIOGRAM, July 16, 2017, 17:45. CHEST SINGLE AP, July 18, 2017, 16:50. INDICATIONS : Fever. MEDICAL HISTORY : brain mass SURGICAL HISTORY : None. ENCOUNTER: Initial ACUITY: 1 week PAIN SCORE: 0/10 LOCATION: Bilateral chest FINDINGS: The examination demonstrates a large mass filling the left lung apex. This is similar to previous wendy ed 07/18/17. There is [id number] in place in the right chest. The ports in excellent position. The right lung i s clear. The heart is normal in size. The bony structures are grossly intact. CONCLUSION: 1. Large mass filling the left lung apex. The remainder of the pulmonary parenchyma is clear. 2. [id number] in satisfactory position. Jason Aguirre MD on July 27, 2017 at 11:48 Board Certified Radiologist. This report was verified electronically.
[2017-07-27 14:03] LABS: BILIRUBIN, URINE NEG (NEG); BLOOD, URINE NEG (NEG); GLUCOSE,URINE NEG (NEG); KETONE, URINE NEG (NEG); MUCUS URINE FEW /lpf (OCC); NITRITE,URINE NEG (NEG); SQUAMOUS EPITHELIAL CELL URINE <1 /hpf (0-5); URINE COLOR YELLOW (YELLW/STRAW); URINE LEUKOCYTE ESTERASE NEG (NEG)
[2017-07-27 14:35] LABS: HEMATOCRIT 27.8 % (39.0-51.0); HEMOGLOBIN 8.7 GM/DL (13.0-17.0); MEAN CELL VOLUME 85.6 FL (80.0-100.0); MEAN CORPUSCULAR HEMOGLOBIN 26.6 PG (27.0-34.0); MEAN CORPUSCULAR HGB CONC 31.1 % (32.0-36.0); MEAN PLATELET VOLUME 5.8 FL (7.0-11.0); PLATELET COUNT 585 TH/MM3 (150-450); RED BLOOD COUNT 3.25 MIL/MM3 (4.50-5.90); RED CELL DISTRIBUTION WIDTH 25.8 % (11.6-17.2); WHITE BLOOD COUNT 41.5 TH/MM3 (4.0-11.0)
[2017-07-27 15:04] LABS: BICARBONATE 25.9 MEQ/L (21.0-32.0); CALCIUM 8.5 MG/DL (8.5-10.1); CREATININE 0.73 MG/DL (0.60-1.30)
--- NOTE | 2017-07-27 15:12 | HHI.HCPN ---
Reason for visit a. To assist with evaluation and management of symptoms including:Confusion , pain, debility b. To assist medical decision maker(s) with: better understanding of current medical conditions; weighing benefits/burdens of medical treatment options; making medical treatment decisions. Subjective/Interval History Patient awake, alert and partially oriented. Patient denies pain, headache. Endorses good appetite. Patient had low grade Temp yesterday 07/26/17 Tmax 99.6, otherwise vital signs stable. Per Dr Noble, patient was drenched in sweat this morning. Chest X ray today revealing large mass to the left lung apex, otherwise parenchyma is clear. Laboratory workup initiated to rule out infection. Patient was started on antibiotics on 07/25/17. Physical therapy following and recommending PT with home health. Case discussed with Dr. Noble. . Family/friend interactions No family at bedside. . Advance Directives Living Will: Never completed Health Care Surrogate: Copy in medical record Durable Power of Card Assembler: Never completed Advance Directive Specifics Date completed: 07/19/2017 . Health Care Surrogate(s): Sister-healthcare surrogate-Dana Umanzor-[phone] /[phone] Niece-alternate healthcare surrogate-Noé Dana [phone] . Objective Vital Signs Date Time Temp Pulse Resp B/P (MAP) Pulse Ox O2 Delivery O2 Flow Rate FiO2 07/27/17 13:04 98.2 93 18 125/76 (92) 99 07/27/17 10:26 77 07/27/17 09:31 98.1 85 20 118/75 (89) 95 07/27/17 06:04 74 07/27/17 05:03 91 07/27/17 04:09 97.3 76 18 109/68 (82) 95 07/27/17 04:05 82 07/27/17 03:05 80 07/27/17 02:04 78 07/27/17 01:03 79 07/27/17 00:44 98.2 73 18 122/72 (89) 99 07/27/17 00:00 83 07/26/17 23:07 79 07/26/17 22:00 90 07/26/17 21:06 100 07/26/17 20:49 99.6 98 18 116/68 (84) 95 07/26/17 20:05 89 07/26/17 19:04 105 07/26/17 18:00 103 07/26/17 16:23 98.5 85 20 113/79 (90) 99 07/26/17 16:00 89 07/26/17 15:00 84 Intake & Output 07/27/17 07/27/17 07:00 19:00 Intake Total 360 ml Output Total 200 ml Balance 160 ml Intake Oral 360 ml Output Urine Total 200 ml Physical Exam CONSTITUTIONAL/GENERAL: This is an adequately nourished patient, in no apparent distress. Denies pain. TUBES/LINES/DRAINS: PIV, Right IJ Infusaport SKIN: No jaundice, rashes, or lesions. Ecchymoses on upper extremities. No wounds seen anteriorly. Skin temperature appropriate. Not diaphoretic. HEAD: Atraumatic. Normocephalic. EYES: Pupils equal and round and reactive. Extraocular motions intact. No scleral icterus. No injection or drainage. Fundi not examined. ENT: Hearing grossly normal. Nose without bleeding or purulent drainage. Throat without visible erythema, exudates, masses, or lesions. NECK: Trachea midline. Supple, nontender. CARDIOVASCULAR: Regular rate and rhythm without murmurs, gallops, or rubs. No JVD. Peripheral pulses symmetric. RESPIRATORY/CHEST: Symmetric, unlabored respirations. Unable to auscultate breath sounds to AIRAM otherwise diminished in other crocker. No wheezes, rales, or rhonchi. GASTROINTESTINAL: Abdomen soft, non-tender, nondistended No guarding. Bowel sounds present. GENITOURINARY: Without palpable bladder distension. MUSCULOSKELETAL: Extremities without clubbing, cyanosis, or edema. No joint tenderness or effusion noted. No calf tenderness. No mottling or clubbing. NEUROLOGICAL: Awake and alert. Motor and sensory grossly within normal limits. Follows commands with left side. RUE weaker than RLE PSYCHIATRIC: No obvious anxiety/depression. no apparent hallucinations or other psychotic thought process. . Diagnostic Tests Laboratory Laboratory Tests Test 07/27/17 13:36 07/27/17 14:21 Urine Color YELLOW (YELLW/STRAW) Urine Turbidity CLEAR (CLEAR) Urine pH 7.0 (5.0-8.5) Urine Specific [place] 1.026 (1.002-1.035) Urine Protein TRACE mg/dL (NEG-TRACE) Urine Glucose (UA) NEG mg/dL (NEG) Urine Ketones NEG mg/dL (NEG) Urine Occult Blood NEG (NEG) Urine Nitrite NEG (NEG) Urine Bilirubin NEG (NEG) Urine Urobilinogen LESS THAN 2.0 MG/DL (LESS Urine Leukocyte Esterase NEG (NEG) Urine RBC 1 /hpf (0-3) Urine WBC 1 /hpf (0-5) Urine Squamous Epithelial Cells <1 /hpf (0-5) Urine Mucus FEW /lpf (OCC) Microscopic Urinalysis Comment CULT NOT INDICATED White Blood Count 41.5 TH/MM3 (4.0-11.0) Red Blood Count 3.25 MIL/MM3 (4.50-5.90) Hemoglobin 8.7 GM/DL (13.0-17.0) Hematocrit 27.8 % (39.0-51.0) Mean Corpuscular Volume 85.6 FL (80.0-100.0) Mean Corpuscular Hemoglobin 26.6 PG (27.0-34.0) Mean Corpuscular Hemoglobin Concent 31.1 % (32.0-36.0) Red Cell Distribution Width 25.8 % (11.6-17.2) Platelet Count 585 TH/MM3 (150-450) Mean Platelet Volume 5.8 FL (7.0-11.0) Result Diagram: 07/27/17 1421 07/24/17 0932 Microbiology Microbiology Date/Time Source Procedure Growth Status 07/27/17 14:21 Blood Peripheral Aerobic Blood Culture Pending Received 07/27/17 14:21 Blood Peripheral Anaerobic Blood Culture Pending Received 07/27/17 14:16 Blood Peripheral Aerobic Blood Culture Pending Received 07/27/17 14:16 Blood Peripheral Anaerobic Blood Culture Pending Received Imaging Last 48 hours Impressions Chest X-Ray 07/27/17 0000 Signed Impressions: Service Date/Time: Thursday, July 27, 2017 11:14 - CONCLUSION: 1. Large mass filling the left lung apex. The remainder of the pulmonary parenchyma is clear. 2. Ciryry-j-Dulv in satisfactory position. Jason Aguirre MD Procedures 07/18/17-bronchoscopy with biopsy 07/25/2017-Right IJ Vefuvo-z-Yimi placement . Assessment and Plan Disease Oriented Problem List: (1) Brain mass (2) Lung mass (3) Tobacco use disorder Symptom Scale: (1) Confusion 0-10 Scale: Unable to quantify Comment: Brain mass . (2) Debility 0-10 Scale: Unable to quantify Comment: Progressive . (3) Pain Comment: Patient has a brain and lung masses. Patient is at risk for headaches. . Pertinent Non-Medical Issues Psychosocial:Patient was born and raised in [place]. Patient's highest level of education is sixth-grade. Patient has 4 brothers and 1 sister. Patient never . He had 2 sons both name after him. One son Virgil Umanzor Jr mostly at age 32 from a motor cycle accident. His other son who is also named Virgil Umanzor Jr is currently incarcerated at [facility]. Spiritual: No hoahaoism affiliation Legal: Completed healthcare surrogate form Ethical issues impacting care: None identified at this time . Important Contacts Sister-healthcare surrogate-Dana Umanzor-[phone] /[phone] Niece-alternate healthcare surrogate-Dana Umanzor [phone] . Prognosis Mr. Umanzor is a 51 years old male was brought to the emergency department by his family on 07/16/17 after they noted that he had right sided extremity weakness with confusion and difficulty with ambulation. Patient was found to have an endobronchial lesion in his left upper lobe is well is seen intracranial lesion with vasogenic edema. Patient remains at risk for further complications, deterioration and decline. . Code Status: Full Code Plan PLAN: Legal decision maker: Given that patient came in with some confusion, though slightly improving. Recommending shared decision making with his sister Dana Umanzor who is his designated Health Care Surrogate. Goals: Remain Aggressive CODE STATUS: Full Code SYMPTOMS: * Confusion: Patient came in with complaints of confusion. CT head revealed eft posterior frontoparietal lobe mass with surrounding vasogenic edema causing 4mm of left to right midline shift. Patient oriented to self, place, situation with some confusion. Patient was able to answer more questions appropriately today. Patient on Decadron. no recommendations at this time. * Pain: Patient has a brain mass and lung mass. Patient is at risk for headaches. Hydromorphone 1 mg Q 4 HRS PRN available. Patient has not required use of hydromorphone. Patient denies pain at this time. No recommendations at this time * Debility: Progressive. Patient has been increasingly getting weak and having difficulty with ambulation. Came in with right sided weakness. Weight loss he has been reported. Patient is showing some improvement with his right side. Recommending consulting physical therapy . Patient may also benefit from occupational therapy services. Palliative care will continue to follow the patient during hospital course as condition evolves, to assist patient/decision-maker with understanding of their medical conditions, weighing benefits/burdens of treatment options, for clarification of goals of treatment. Additionally will assist with any symptoms of palliative concern. Attestation To help prompt me to consider important information that might be impacting today's encounter and assessment, information from prior notes written by myself or my colleagues may have been "brought forward" into today's note. My signature on this note, however, is an attestation that I personally performed the exam, history, and/or decision-making noted today, and, unless otherwise indicated, the interactions with patient, family, and staff as well as the review of records all occurred today. I also attest that the listed assessment and stated plan reflect my best clinical judgment today based on the combination of historical information, prior notes, and today's exam/ interactions. When time spent is documented, it refers only to time spent today by the signer, or if indicated, combined time spent today by collaborating physician/nurse practitioner. Brian Valadez Jul 27, 2017 15:12
--- NOTE | 2017-07-27 16:05 | PD.ONC.PN ---
Subjective Subjective Remarks Afebrile overnight. Patient resting in bed in nad. No complaints. Objective Data Date Time Temp Pulse Resp B/P (MAP) Pulse Ox O2 Delivery O2 Flow Rate FiO2 07/27/17 13:04 98.2 93 18 125/76 (92) 99 07/27/17 10:26 77 07/27/17 09:31 98.1 85 20 118/75 (89) 95 07/27/17 06:04 74 07/27/17 05:03 91 07/27/17 04:09 97.3 76 18 109/68 (82) 95 07/27/17 04:05 82 07/27/17 03:05 80 07/27/17 02:04 78 07/27/17 01:03 79 07/27/17 00:44 98.2 73 18 122/72 (89) 99 07/27/17 00:00 83 07/26/17 23:07 79 07/26/17 22:00 90 07/26/17 21:06 100 07/26/17 20:49 99.6 98 18 116/68 (84) 95 07/26/17 20:05 89 07/26/17 19:04 105 07/26/17 18:00 103 07/26/17 16:23 98.5 85 20 113/79 (90) 99 07/27/17 07/27/17 07/27/17 07:00 15:00 23:00 Intake Total 360 ml Output Total 200 ml Balance 160 ml Result Diagram: 07/27/17 1421 07/27/17 1421 Laboratory Results Laboratory Tests Test 07/27/17 13:36 07/27/17 14:21 Urine Color YELLOW Urine Turbidity CLEAR Urine pH 7.0 Urine Specific [place] 1.026 Urine Protein TRACE mg/dL Urine Glucose (UA) NEG mg/dL Urine Ketones NEG mg/dL Urine Occult Blood NEG Urine Nitrite NEG Urine Bilirubin NEG Urine Urobilinogen LESS THAN 2.0 MG/DL Urine Leukocyte Esterase NEG Urine RBC 1 /hpf Urine WBC 1 /hpf Urine Squamous Epithelial Cells <1 /hpf Urine Mucus FEW /lpf Microscopic Urinalysis Comment CULT NOT INDICATED White Blood Count 41.5 TH/MM3 Red Blood Count 3.25 MIL/MM3 Hemoglobin 8.7 GM/DL Hematocrit 27.8 % Mean Corpuscular Volume 85.6 FL Mean Corpuscular Hemoglobin 26.6 PG Mean Corpuscular Hemoglobin Concent 31.1 % Red Cell Distribution Width 25.8 % Platelet Count 585 TH/MM3 Mean Platelet Volume 5.8 FL Blood Urea Nitrogen 14 MG/DL Creatinine 0.73 MG/DL Random Glucose 178 MG/DL Calcium Level 8.5 MG/DL Sodium Level 138 MEQ/L Potassium Level 4.1 MEQ/L Chloride Level 103 MEQ/L Carbon Dioxide Level 25.9 MEQ/L Anion Gap 9 MEQ/L Estimat Glomerular Filtration Rate 137 ML/MIN Lactic Acid Level 3.7 mmol/L Culture Results Microbiology Date/Time Source Procedure Growth Status 07/27/17 14:21 Blood Peripheral Aerobic Blood Culture Pending Received 07/27/17 14:21 Blood Peripheral Anaerobic Blood Culture Pending Received 07/27/17 14:16 Blood Peripheral Aerobic Blood Culture Pending Received 07/27/17 14:16 Blood Peripheral Anaerobic Blood Culture Pending Received Imaging Studies Last 24 hours Impressions Chest X-Ray 07/27/17 0000 Signed Impressions: Service Date/Time: Thursday, July 27, 2017 11:14 - CONCLUSION: 1. Large mass filling the left lung apex. The remainder of the pulmonary parenchyma is clear. 2. Hfhndv-l-Edeb in satisfactory position. Jason Aguirre MD Administered Medications Medications (Trade) Dose Ordered Sig/Dillan Route PRN Reason Start Time Stop Time Status Last Admin Dose Admin Sodium Chloride (NS Flush) 2 ml BID IV FLUSH 07/16/17 21:00 07/27/17 09:27 Albuterol/ Ipratropium (Duoneb Neb) 1 ampule Q2HR NEB PRN INH WHEEZING 07/16/17 19:00 07/18/17 16:49 Miscellaneous Information 1 Q361D XX 07/16/17 19:00 07/16/17 22:59 Senna/Docusate Sodium (Karlie-Colace) 1 tab BID PO 07/16/17 21:00 07/25/17 22:34 Levetriacetam (Keppra) 500 mg Q12HR PO 07/17/17 21:00 07/27/17 09:26 Dexamethasone (Decadron) 4 mg Q8HR PO 07/20/17 14:00 07/27/17 13:05 Famotidine (Pepcid) 20 mg BID PO 07/20/17 21:00 07/27/17 09:27 Cefazolin Sodium/ Dextrose 50 ml @ 100 mls/hr PROFESSOR OF PRACTICE IV 07/25/17 08:30 07/28/17 08:29 07/25/17 10:56 Vancomycin HCl 1000 mg/Sodium Chloride 250 ml @ 250 mls/hr PROFESSOR OF PRACTICE IV 07/25/17 08:30 07/28/17 08:29 07/25/17 09:32 Objective Remarks GENERAL: Pleasant middle aged male, in nad. SKIN: Warm and dry. HEAD: Normocephalic. EYES: No scleral icterus. No injection or drainage. NECK: Supple, trachea midline. CARDIOVASCULAR: Regular rate and rhythm without murmurs. RESPIRATORY: Breath sounds equal bilaterally. No accessory muscle use. GASTROINTESTINAL: Abdomen soft, non-tender, nondistended. EXTREMITIES: No cyanosis, or edema. MUSCULOSKELETAL: Adequate muscle tone. NEUROLOGICAL: No obvious focal deficit. Awake, alert, and oriented x3. 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 --will need systemic chemotherapy and lung irradiation at some point as well. (2) Microcytic anemia ICD Codes: D50.9 - Iron deficiency anemia, unspecified Plan: --iron studies show low TIBC, serum iron and percent saturation and mildly elevated ferritin, more consistent with anemia of chronic disease or a mixed picture. --monitor and transfuse as needed. --Hemoccult negative. (3) Thrombocythemia ICD Codes: D47.3 - Essential (hemorrhagic) thrombocythemia Plan: -- likely reactive from anemia as well as underlying malignancy. (4) Leukocytosis ICD Codes: D72.829 - Elevated white blood cell count, unspecified Plan: --reactive versus underlying infection. --also contributing PO Decadron. Assessment 51y/o male with new diagnosis stage IV adenocarcinoma of lung primary. HPI (brought forward for continuity of care): 51-year-old homeless male who has not had medical care for quite some time. +tobacco abuse 30 pack years. presented to the emergency department with right-sided weakness, confusion and difficulty with his gait. CT head + 2.5 cm left posterior frontotemporal mass with surrounding lymphogenic edema. CT angiogram chest showed a collapse of the left upper lobe with an endotracheal mass obstructing the bronchus. Plan 1. face sheet faxed to new patient referrals. 2. follow up in clinic once discharged. Attending Statement patient seen earlier today in bed appears comfortable says that he had XRT today if discharge disposition not clear tomorrow - will give chemotherapy here in hospital Magdalene/Nadeem will ask path to check for PDL-1, EGFR, ROS-1 and ALK-fusion mutations Linda Beltran Jul 27, 2017 16:05 Stephane Sexton MD Jul 27, 2017 23:01
[2017-07-28] VITALS (27 sets, daily range): BP systolic 107–117; BP diastolic 68–76; PULSE 67–98; RESP 16–18; TEMP 97.6–98.6; O2SAT 96–99
[2017-07-28] MEDS: CHLORHEXIDINE GLUCONATE 2 % 1 PACK (2 CLOTHS) TOP SCH (04:00)
[2017-07-28] MEDS: DEXAMETHASONE 4 MG TAB PO SCH ×3 (04:36→22:59)
[2017-07-28 06:17] LABS: HEMATOCRIT 27.5 % (39.0-51.0); HEMOGLOBIN 9.1 GM/DL (13.0-17.0); MEAN CELL VOLUME 84.6 FL (80.0-100.0); MEAN CORPUSCULAR HEMOGLOBIN 27.9 PG (27.0-34.0); MEAN CORPUSCULAR HGB CONC 32.9 % (32.0-36.0); MEAN PLATELET VOLUME 5.8 FL (7.0-11.0); PLATELET COUNT 551 TH/MM3 (150-450); RED BLOOD COUNT 3.25 MIL/MM3 (4.50-5.90); RED CELL DISTRIBUTION WIDTH 24.9 % (11.6-17.2); WHITE BLOOD COUNT 38.2 TH/MM3 (4.0-11.0)
[2017-07-28 06:55] LABS: BICARBONATE 29.6 MEQ/L (21.0-32.0); CALCIUM 8.7 MG/DL (8.5-10.1); CREATININE 0.53 MG/DL (0.60-1.30)
[2017-07-28] MEDS: DOCUSATE SODIUM 50 MG/SENNA 8.6 MG TAB PO SCH ×2 (09:00→21:00)
[2017-07-28] MEDS: SODIUM CHLORIDE 0.9% FLUSH 10 ML FLUSH IV FLUSH SCH ×2 (09:10→23:00)
[2017-07-28] MEDS: FAMOTIDINE 20 MG TAB PO SCH ×2 (09:10→22:59)
[2017-07-28] MEDS: levETIRAcetam 500 MG TAB PO SCH ×2 (09:10→22:59)
--- NOTE | 2017-07-28 11:50 | HHI.PR ---
Subjective Remarks Follow-up for brain and lung cancer Patient stated he feels better today. He said that he had no episodes of fevers or chills. He has no complaints. No events overnight. Objective Vitals Vital Signs Date Time Temp Pulse Resp B/P (MAP) Pulse Ox O2 Delivery O2 Flow Rate FiO2 07/28/17 09:07 98.1 84 18 109/76 (87) 99 07/28/17 08:30 69 07/28/17 05:14 67 07/28/17 04:39 72 16 98 07/28/17 04:01 77 07/28/17 04:00 77 07/28/17 03:00 74 07/28/17 02:00 74 07/28/17 01:00 82 07/28/17 00:53 69 16 107/70 (82) 99 07/28/17 00:00 83 07/28/17 00:00 98 07/27/17 23:01 80 16 111/70 (84) 96 07/27/17 23:00 84 07/27/17 22:00 96 07/27/17 20:00 75 07/27/17 19:23 81 07/27/17 17:02 81 16 117/72 (87) 97 07/27/17 13:04 98.2 93 18 125/76 (92) 99 I/O 07/27/17 07/27/17 07/27/17 07/28/17 07/28/17 07/28/17 07:00 15:00 23:00 07:00 15:00 23:00 Intake Total 360 ml 720 ml Output Total 200 ml Balance 160 ml 720 ml Intake Oral 360 ml 720 ml Output Urine Total 200 ml Result Diagram: 07/28/17 0600 07/28/17 0600 Objective Remarks GENERAL: in NAD SKIN: port in place. CARDIOVASCULAR: Regular rate and rhythm without murmurs, gallops, or rubs. RESPIRATORY: Breath sounds equal bilaterally. No accessory muscle use. GASTROINTESTINAL: Abdomen soft, non-tender, nondistended. MUSCULOSKELETAL: NEURO: AAO x3. patient grossly moves all extremity. right hand biomedical specialist decrease. right LE 5/5 strength. left sided strength 5/5. Medications and IVs Current Medications Sodium Chloride (NS Flush) 2 ml UNSCH PRN IV FLUSH FLUSH AFTER USING IV ACCESS Last administered on 07/16/17 18:26; Start 07/16/17 at 16:00; Stop 07/17/17 at 13:30; Status DC Vancomycin HCl 1000 mg/Sodium Chloride 250 ml @ 250 mls/hr ONCE ONCE IV Last administered on 07/16/17at 18:26; Start 07/16/17 at 17:30; Stop 07/16/17 at 18:29 ; Status DC Piperacillin Sod/ Tazobactam Sod 100 ml @ 200 mls/hr ONCE ONCE IV Last administered on 07/16/17at 18:10; Start 07/16/17 at 17:30; Stop 07/16/17 at 17:59 ; Status DC Dexamethasone Sodium Phosphate (Decadron Inj) 10 mg ONCE ONCE IV PUSH Last administered on 07/16/17at 18:25; Start 07/16/17 at 18:15; Stop 07/16/17 at 18:16 ; Status DC Sodium Chloride 1,000 ml @ 84 mls/hr [id number] IV Last administered on 07/24/17at 04:52; Start 07/16/17 at 18:48; Stop 07/24/17 at 10:39; Status DC Sodium Chloride (NS Flush) 2 ml UNSCH PRN IV FLUSH FLUSH AFTER USING IV ACCESS ; Start 07/16/17 at 19:00 Sodium Chloride (NS Flush) 2 ml BID IV FLUSH Last administered on 07/28/17at 09: 10; Start 07/16/17 at 21:00 Acetaminophen (Tylenol) 650 mg Q6H PRN PO PAIN 1-5 AND/OR FEVER >101F; Start at 19:00 Hydromorphone HCl (Dilaudid Pf Inj) 1 mg Q4H PRN IV PAIN 6-10; Start 07/16/17 at 19:15 Famotidine (Pepcid Inj) 20 mg Q12HR IV PUSH Last administered on 07/20/17at 09: 00; Start 07/16/17 at 21:00; Stop 07/20/17 at 14:24; Status DC Ondansetron HCl (Zofran Inj) 4 mg Q6H PRN IV PUSH NAUSEA OR VOMITING; Start at 19:00 Temazepam (Restoril) 15 mg HS PRN PO INSOMNIA; Start 07/16/17 at 19:00 Albuterol/ Ipratropium (Duoneb Neb) 1 ampule Q2HR NEB PRN INH WHEEZING Last administered on 07/18/17at 16:49; Start 07/16/17 at 19:00 Heparin Sodium (Porcine) (Heparin Inj) 5,000 units Q8H SQ Last administered on 07/20/17at 05:20; Start 07/16/17 at 22:00; Stop 07/20/17 at 16:12; Status DC Miscellaneous Information 1 [id number] Last administered on 07/16/17at 22:59; Start 07/16/17 at 19:00 Chlorhexidine Gluconate (Chlorhexidine 2% Cloth) Taper DAILY@04 TOP ; Start at 04:00; Stop 07/13/18 at 03:59 Chlorhexidine Gluconate (Chlorhexidine 2% Cloth) 3 pack UNSCH PRN TOP HYGIENIC CARE; Start 07/16/17 at 19:00 Senna/Docusate Sodium (Karlie-Colace) 1 tab BID PO Last administered on 07/27/17at 21:52; Start 07/16/17 at 21:00 Magnesium Hydroxide (Milk Of Magnesia Liq) 30 ml Q12H PRN PO Mild constipation ; Start 07/16/17 at 19:00 Sennosides (Senokot) 17.2 mg Q12H PRN PO Moderate constipation; Start 07/16/17 at 19:00 Bisacodyl (Dulcolax Supp) 10 mg DAILY PRN RECTAL SEVERE CONSITIPATION; Start at 19:00 Lactulose (Lactulose Liq) 30 ml DAILY PRN PO SEVERE CONSITIPATION; Start at 19:00 Dexamethasone Sodium Phosphate (Decadron Inj) 4 mg Q6HR IV PUSH Last administered on 07/20/17at 05:21; Start 07/17/17 at 00:00; Stop 07/20/17 at 09:52 ; Status DC Pharmacy Profile Note 0 ml @ 0 mls/hr UNSCH OTHER ; Start 07/17/17 at 13:15; Stop 07/20/17 at 16:12; Status DC Cefepime HCl 2000 mg/Sodium Chloride 100 ml @ 200 mls/hr Q12H IV Last administered on 07/20/17at 15:57; Start 07/17/17 at 13:30; Stop 07/20/17 at 16:12 ; Status DC Vancomycin HCl 1250 mg/Sodium Chloride 262.5 ml @ 250 mls/hr Q12H IV ; Start at 14:00; Status Cancel Vancomycin HCl 1400 mg/Sodium Chloride 514 ml @ 250 mls/hr Q12H IV Last administered on 07/19/17at 03:10; Start 07/17/17 at 15:00; Stop 07/19/17 at 09:09 ; Status DC Miscellaneous Information SPECIFIC LAB TO BE CITLALI... ONCE ONCE .XX Last administered on 07/19/17at 03:10; Start 07/19/17 at 02:45; Stop 07/19/17 at 02:46 ; Status DC Gadodiamide (Omniscan Pf Inj) 15 ml STK-MED ONCE IVCONTRAST Last administered on 07/17/17at 14:46; Start 07/17/17 at 14:46; Stop 07/17/17 at 14:47; Status DC Levetriacetam (Keppra) 500 mg Q12HR PO Last administered on 07/28/17at 09:10; Start 07/17/17 at 21:00 Diatrizoate Meglum/ Diatrizoate Sod ( Gastroview Liq) 18 ml ONCE ONCE PO Last administered on 07/18/17at 10:05; Start 07/18/17 at 08:51; Stop 07/18/17 at 09:31; Status DC Iron Sucrose 200 mg/Sodium Chloride 110 ml @ 110 mls/hr DAILY IV ; Start at 17:00; Stop 07/18/17 at 18:08; Status DC Midazolam HCl (Versed Inj) 2 mg STK-MED ONCE .ROUTE ; Start 07/18/17 at 16:44; Stop 07/18/17 at 16:45; Status DC Fentanyl Citrate (fentaNYL INJ) 100 mcg STK-MED ONCE .ROUTE ; Start 07/18/17 at 16:44; Stop 07/18/17 at 16:45; Status DC Miscellaneous Information ALL NURSING DEPARTME... UNSCH PRN .XX SEE LABEL COMMENTS; Start 07/18/17 at 16:36; Stop 07/19/17 at 16:35; Status DC Iron Sucrose 200 mg/Sodium Chloride 110 ml @ 110 mls/hr HS IV Last administered on 07/19/17at 20:49; Start 07/18/17 at 21:00; Stop 07/20/17 at 21:59 ; Status DC Iohexol (Omnipaque 350 Inj) 90 ml STK-MED ONCE IVCONTRAST ; Start 07/18/17 at 21 :08; Stop 07/18/17 at 21:09; Status DC Vancomycin HCl 1250 mg/Sodium Chloride 262.5 ml @ 250 mls/hr Q12H IV Last administered on 07/20/17at 03:21; Start 07/19/17 at 15:00; Stop 07/20/17 at 16:12 ; Status DC Miscellaneous Information SPECIFIC LAB TO BE DRAWN:VANCO TROUGH DATE... ONCE ONCE .XX ; Start 07/21/17 at 02:45; Stop 07/21/17 at 02:46; Status Cancel Iohexol (Omnipaque 350 Inj) 80 ml STK-MED ONCE IVCONTRAST Last administered on 07/16/17at 17:45; Start 07/16/17 at 17:45; Stop 07/19/17 at 13:28; Status DC Dexamethasone (Decadron) 4 mg Q8HR PO Last administered on 07/28/17at 04:36; Start 07/20/17 at 14:00 Famotidine (Pepcid) 20 mg BID PO Last administered on 07/28/17at 09:10; Start at 21:00 Sodium Chloride 250 ml @ 15 mls/hr ONCE ONCE IV Last administered on at 22:12; Start 07/20/17 at 16:15; Stop 07/21/17 at 08:54; Status DC Potassium Bicarb/ Potassium Chloride (K-Lyte Cl Eff) 50 meq ONCE ONCE PO Last administered on 07/20/17at 18:37; Start 07/20/17 at 16:30; Stop 07/20/17 at 16:37; Status DC Iron Sucrose 200 mg/Sodium Chloride 110 ml @ 110 mls/hr DAILY IV Last administered on 07/23/17at 10:31; Start 07/21/17 at 13:00; Stop 07/23/17 at 09:59; Status DC Cefazolin Sodium/ Dextrose 50 ml @ 100 mls/hr COPY CUTTER IV Last administered on 07/25/17at 10:56; Start 07/25/17 at 08:30; Stop 07/28/17 at 08:29; Status DC Vancomycin HCl 1000 mg/Sodium Chloride 250 ml @ 250 mls/hr COPY CUTTER IV Last administered on 07/25/17at 09:32; Start 07/25/17 at 08:30; Stop 07/28/17 at 08:29; Status DC Heparin Sodium (Porcine) (*HEPARIN CENTRAL FLUSH PERIprocedural ONLY) 500 units STK-MED ONCE IV FLUSH Last administered on 07/25/17at 11:10; Start 07/25/17 at 10: 30; Stop 07/25/17 at 10:31; Status DC Fentanyl Citrate (fentaNYL INJ) 200 mcg STK-MED ONCE .ROUTE Last administered on 07/25/17at 10:34; Start 07/25/17 at 10:34; Stop 07/25/17 at 10:35; Status DC Midazolam HCl (Versed Inj) 4 mg STK-MED ONCE .ROUTE Last administered on at 10:34; Start 07/25/17 at 10:34; Stop 07/25/17 at 10:35; Status DC Lidocaine/ Epinephrine (Xylocaine-Epi 1%-1:100,000 Inj) 30 ml STK-MED ONCE .ROUTE Last administered on 07/25/17at 11:00; Start 07/25/17 at 10:53; Stop at 10:54; Status DC A/P Assessment and Plan This is a 51-year-old male presented with altered mental status and right hemiplegia Subjective fevers/chills -Patient is afebrile at the moment. This is most likely due to malignancy but since this is a new onset symptoms need to rule out infectious etiology. Chest x-ray shows large mass filling the left apical area. UA negative but will get urine cultures which is pending. Blood cultures are pending. -Lactic acid initially was 3.7 now 1.5 so improved. Altered mental status with hemiplegia due to brain mass -At baseline. - MRI of brain shows brain mass. Neurosurgeon on board and ff. -per NS not a candidate for surgery and radiation oncologist consulted. - Continue Decadron and Keppra - palliative care ff. -consulted PT/OT. Recommends home health. lung cancer ( adenocarcinoma) with mets. - pulmonary and oncologist consulted. -s/p bronchoscopy on 07/18 - pathology ; suspicious for adenocarcinoma. -oncology and radiation oncology following; for chemo and radiation. -Status post port placement on 07/25/2017 by IR -Patient most likely will get chemo/radiation tomorrow. Severe microcytic anemia, hemoglobin is 7.5 and MCV 79. -Stable. No active bleeding. -Oncologist following. Most likely iron deficiency. - on IV Iron. Hemoglobin improving now 9.5. Leukocytosis -Most likely reactive due to malignancy/steroids. No signs of infection. Thrombocytosis -Most likely secondary to malignancy. Tobacco use disorder - DuoNeb scheduled and when necessary DVT GI prophylaxis - Teds SCDs - Pepcid Discharge Planning SSI pending. Patient most likely will get chemo/radiation tomorrow. Saray Noble MD Jul 28, 2017 11:50
--- NOTE | 2017-07-28 12:28 | HHI.HCPN ---
Reason for visit a. To assist with evaluation and management of symptoms including:Confusion , pain, debility b. To assist medical decision maker(s) with: better understanding of current medical conditions; weighing benefits/burdens of medical treatment options; making medical treatment decisions. Subjective/Interval History Patient seen and examined in his room, patient is sleeping but easily arousable. Alert and partially oriented. Patient denies pain. Denies episode of fever and chills last night. Afebrile overnight and today. Laboratory workup today revealing WBC 38.2. Lactic acid improved to 1.5 from 3.7 yesterday. Urinalysis negative and culture not indicated. If patient is not discharged, oncology plans on starting chemotherapy Carbo/ Alimta. Case discussed with Linda Beltran PA-C. 1400hrs Telephone call from patient`s sister who is concerned about patient`s probable discharge soon because he has no where to go. Patient is homeless. Patient`s sister mentioned that she is trying to look for any community resources available for homeless people with cancer undergoing radiation or chemotherapy. Encouraged patient`s sister to communicate with regarding any information she has or any assistance offered with other organizations. Updated her on patient`s current medical status. . Family/friend interactions No family at bedside. . Advance Directives Living Will: Never completed Health Care Surrogate: Copy in medical record Durable Power of Cranberry Grower: Never completed Advance Directive Specifics Date completed: 07/19/2017 . Health Care Surrogate(s): Sister-healthcare surrogate-Zack UmanzorKngxzti-[phone] /[phone] Niece-alternate healthcare surrogate-Dana Umanzor [phone] . Objective Vital Signs Date Time Temp Pulse Resp B/P (MAP) Pulse Ox O2 Delivery O2 Flow Rate FiO2 07/28/17 12:00 97.6 90 16 110/68 (82) 96 07/28/17 09:07 98.1 84 18 109/76 (87) 99 07/28/17 08:30 69 07/28/17 05:14 67 07/28/17 04:39 72 16 98 07/28/17 04:01 77 07/28/17 04:00 77 07/28/17 03:00 74 07/28/17 02:00 74 3/8/18 01:00 82 07/28/17 00:53 69 16 107/70 (82) 99 07/28/17 00:00 83 07/28/17 00:00 98 07/27/17 23:01 80 16 111/70 (84) 96 07/27/17 23:00 84 07/27/17 22:00 96 07/27/17 20:00 75 07/27/17 19:23 81 07/27/17 17:02 81 16 117/72 (87) 97 07/27/17 13:04 98.2 93 18 125/76 (92) 99 Intake & Output 07/28/17 07/28/17 07:00 19:00 Intake Total 720 ml Balance 720 ml Intake Oral 720 ml Physical Exam CONSTITUTIONAL/GENERAL: This is an adequately nourished patient, in no apparent distress. Denies pain. TUBES/LINES/DRAINS: PIV, Right IJ Infusaport SKIN: No jaundice, rashes, or lesions. Ecchymoses on upper extremities. No wounds seen anteriorly. Skin temperature appropriate. Not diaphoretic. HEAD: Atraumatic. Normocephalic. EYES: Pupils equal and round and reactive. Extraocular motions intact. No scleral icterus. No injection or drainage. Fundi not examined. ENT: Hearing grossly normal. Nose without bleeding or purulent drainage. Throat without visible erythema, exudates, masses, or lesions. NECK: Trachea midline. Supple, nontender. CARDIOVASCULAR: Regular rate and rhythm without murmurs, gallops, or rubs. No JVD. Peripheral pulses symmetric. RESPIRATORY/CHEST: Symmetric, unlabored respirations. Unable to auscultate breath sounds to AIRAM otherwise diminished in other crocker. No wheezes, rales, or rhonchi. GASTROINTESTINAL: Abdomen soft, non-tender, nondistended No guarding. Bowel sounds present. GENITOURINARY: Without palpable bladder distension. MUSCULOSKELETAL: Extremities without clubbing, cyanosis, or edema. No joint tenderness or effusion noted. No calf tenderness. No mottling or clubbing. NEUROLOGICAL: Sleeping easily arousable. Follows commands with left side. RUE weaker than RLE PSYCHIATRIC: No obvious anxiety/depression. no apparent hallucinations or other psychotic thought process. . Diagnostic Tests Laboratory Laboratory Tests Test 07/27/17 13:36 07/27/17 14:21 07/28/17 06:00 Urine Color YELLOW (YELLW/STRAW) Urine Turbidity CLEAR (CLEAR) Urine pH 7.0 (5.0-8.5) Urine Specific [place] 1.026 (1.002-1.035) Urine Protein TRACE mg/dL (NEG-TRACE) Urine Glucose (UA) NEG mg/dL (NEG) Urine Ketones NEG mg/dL (NEG) Urine Occult Blood NEG (NEG) Urine Nitrite NEG (NEG) Urine Bilirubin NEG (NEG) Urine Urobilinogen LESS THAN 2.0 MG/DL (LESS Urine Leukocyte Esterase NEG (NEG) Urine RBC 1 /hpf (0-3) Urine WBC 1 /hpf (0-5) Urine Squamous Epithelial Cells <1 /hpf (0-5) Urine Mucus FEW /lpf (OCC) Microscopic Urinalysis Comment CULT NOT INDICATED White Blood Count 41.5 TH/MM3 (4.0-11.0) 38.2 TH/MM3 (4.0-11.0) Red Blood Count 3.25 MIL/MM3 (4.50-5.90) 3.25 MIL/MM3 (4.50-5.90) Hemoglobin 8.7 GM/DL (13.0-17.0) 9.1 GM/DL (13.0-17.0) Hematocrit 27.8 % (39.0-51.0) 27.5 % (39.0-51.0) Mean Corpuscular Volume 85.6 FL (80.0-100.0) 84.6 FL (80.0-100.0) Mean Corpuscular Hemoglobin 26.6 PG (27.0-34.0) 27.9 PG (27.0-34.0) Mean Corpuscular Hemoglobin Concent 31.1 % (32.0-36.0) 32.9 % (32.0-36.0) Red Cell Distribution Width 25.8 % (11.6-17.2) 24.9 % (11.6-17.2) Platelet Count 585 TH/MM3 (150-450) 551 TH/MM3 (150-450) Mean Platelet Volume 5.8 FL (7.0-11.0) 5.8 FL (7.0-11.0) Blood Urea Nitrogen 14 MG/DL (7-18) 11 MG/DL (7-18) Creatinine 0.73 MG/DL (0.60-1.30) 0.53 MG/DL (0.60-1.30) Random Glucose 178 MG/DL (74-106) 118 MG/DL (74-106) Calcium Level 8.5 MG/DL (8.5-10.1) 8.7 MG/DL (8.5-10.1) Sodium Level 138 MEQ/L (136-145) 136 MEQ/L (136-145) Potassium Level 4.1 MEQ/L (3.5-5.1) 4.3 MEQ/L (3.5-5.1) Chloride Level 103 MEQ/L (98-107) 100 MEQ/L (98-107) Carbon Dioxide Level 25.9 MEQ/L (21.0-32.0) 29.6 MEQ/L (21.0-32.0) Anion Gap 9 MEQ/L (5-15) 6 MEQ/L (5-15) Estimat Glomerular Filtration Rate 137 ML/MIN (>89) 198 ML/MIN (>89) Lactic Acid Level 3.7 mmol/L (0.4-2.0) 1.5 mmol/L (0.4-2.0) Result Diagram: 07/28/17 0600 07/28/17 0600 Microbiology Microbiology Date/Time Source Procedure Growth Status 07/27/17 14:21 Blood Peripheral Aerobic Blood Culture - Preliminary NO GROWTH IN 1 DAY Resulted 07/27/17 14:21 Blood Peripheral Anaerobic Blood Culture - Preliminary NO GROWTH IN 1 DAY Resulted 07/27/17 14:16 Blood Peripheral Aerobic Blood Culture - Preliminary NO GROWTH IN 1 DAY Resulted 07/27/17 14:16 Blood Peripheral Anaerobic Blood Culture - Preliminary NO GROWTH IN 1 DAY Resulted 07/27/17 13:36 Urine Clean Catch Urine Culture Pending Received Imaging Last 48 hours Impressions Chest X-Ray 07/27/17 0000 Signed Impressions: Service Date/Time: Thursday, July 27, 2017 11:14 - CONCLUSION: 1. Large mass filling the left lung apex. The remainder of the pulmonary parenchyma is clear. 2. Fwyowd-a-High in satisfactory position. Jason Aguirre MD Procedures 07/18/17-bronchoscopy with biopsy 07/25/2017-Right IJ [id number] placement . Assessment and Plan Disease Oriented Problem List: (1) Brain mass (2) Lung mass (3) Tobacco use disorder Symptom Scale: (1) Confusion 0-10 Scale: Unable to quantify Comment: Brain mass . (2) Debility 0-10 Scale: Unable to quantify Comment: Progressive . (3) Pain Comment: Patient has a brain and lung masses. Patient is at risk for headaches. . Pertinent Non-Medical Issues Psychosocial:Patient was born and raised in [place]. Patient's highest level of education is sixth-grade. Patient has 4 brothers and 1 sister. Patient never . He had 2 sons both name after him. One son Virgil Umanzor Jr mostly at age 32 from a motor cycle accident. His other son who is also named Virgil Umanzor Jr is currently incarcerated at [facility]. Spiritual: No scientologist affiliation Legal: Completed healthcare surrogate form Ethical issues impacting care: None identified at this time . Important Contacts Sister-healthcare surrogate-Dana Umanzor-[phone] /[phone] Niece-alternate healthcare surrogate-Dana Umanzor [phone] . Prognosis Mr. Umanzor is a 51 years old male was brought to the emergency department by his family on 07/16/17 after they noted that he had right sided extremity weakness with confusion and difficulty with ambulation. Patient was found to have an endobronchial lesion in his left upper lobe is well is seen intracranial lesion with vasogenic edema. Patient remains at risk for further complications, deterioration and decline. . Code Status: Full Code Plan PLAN: Legal decision maker: Given that patient came in with some confusion, though slightly improving. Recommending shared decision making with his sister Dana Umanzor who is his designated Health Care Surrogate. Goals: Remain Aggressive CODE STATUS: Full Code SYMPTOMS: * Confusion: Patient came in with complaints of confusion. CT head revealed eft posterior frontoparietal lobe mass with surrounding vasogenic edema causing 4mm of left to right midline shift. Patient oriented to self, place, situation with some confusion. Resolving. Patient on Decadron. no recommendations at this time. * Pain: Patient has a brain mass and lung mass. Patient is at risk for headaches. Hydromorphone 1 mg Q 4 HRS PRN available. Patient has not required use of hydromorphone. Patient denies pain at this time. No recommendations at this time * Debility: Progressive. Patient has been increasingly getting weak and having difficulty with ambulation. Came in with right sided weakness. Weight loss he has been reported. Patient is showing some improvement with his right side. Recommending consulting physical therapy . Patient may also benefit from occupational therapy services. Palliative care will continue to follow the patient during hospital course as condition evolves, to assist patient/decision-maker with understanding of their medical conditions, weighing benefits/burdens of treatment options, for clarification of goals of treatment. Additionally will assist with any symptoms of palliative concern. Attestation To help prompt me to consider important information that might be impacting today's encounter and assessment, information from prior notes written by myself or my colleagues may have been "brought forward" into today's note. My signature on this note, however, is an attestation that I personally performed the exam, history, and/or decision-making noted today, and, unless otherwise indicated, the interactions with patient, family, and staff as well as the review of records all occurred today. I also attest that the listed assessment and stated plan reflect my best clinical judgment today based on the combination of historical information, prior notes, and today's exam/ interactions. When time spent is documented, it refers only to time spent today by the signer, or if indicated, combined time spent today by collaborating physician/nurse practitioner. Brian Valadez Jul 28, 2017 12:28
--- NOTE | 2017-07-28 12:49 | PD.ONC.PN ---
Subjective Subjective Remarks Afebrile overnight. Patient resting in bed in nad. No complaints. denies shortness of breath, diaphoresis, diarrhea, nausea or vomiting. states he feels fine. Objective Data Date Time Temp Pulse Resp B/P (MAP) Pulse Ox O2 Delivery O2 Flow Rate FiO2 07/28/17 12:00 97.6 90 16 110/68 (82) 96 07/28/17 09:07 98.1 84 18 109/76 (87) 99 07/28/17 08:30 69 07/28/17 05:14 67 07/28/17 04:39 72 16 98 07/28/17 04:01 77 07/28/17 04:00 77 07/28/17 03:00 74 07/28/17 02:00 74 07/28/17 01:00 82 07/28/17 00:53 69 16 107/70 (82) 99 07/28/17 00:00 83 07/28/17 00:00 98 07/27/17 23:01 80 16 111/70 (84) 96 07/27/17 23:00 84 07/27/17 22:00 96 07/27/17 20:00 75 07/27/17 19:23 81 07/27/17 17:02 81 16 117/72 (87) 97 07/27/17 13:04 98.2 93 18 125/76 (92) 99 Result Diagram: 07/28/17 0600 07/28/17 0600 Laboratory Results Laboratory Tests Test 07/27/17 13:36 07/27/17 14:21 07/28/17 06:00 Urine Color YELLOW Urine Turbidity CLEAR Urine pH 7.0 Urine Specific [place] 1.026 Urine Protein TRACE mg/dL Urine Glucose (UA) NEG mg/dL Urine Ketones NEG mg/dL Urine Occult Blood NEG Urine Nitrite NEG Urine Bilirubin NEG Urine Urobilinogen LESS THAN 2.0 MG/DL Urine Leukocyte Esterase NEG Urine RBC 1 /hpf Urine WBC 1 /hpf Urine Squamous Epithelial Cells <1 /hpf Urine Mucus FEW /lpf Microscopic Urinalysis Comment CULT NOT INDICATED White Blood Count 41.5 TH/MM3 38.2 TH/MM3 Red Blood Count 3.25 MIL/MM3 3.25 MIL/MM3 Hemoglobin 8.7 GM/DL 9.1 GM/DL Hematocrit 27.8 % 27.5 % Mean Corpuscular Volume 85.6 FL 84.6 FL Mean Corpuscular Hemoglobin 26.6 PG 27.9 PG Mean Corpuscular Hemoglobin Concent 31.1 % 32.9 % Red Cell Distribution Width 25.8 % 24.9 % Platelet Count 585 TH/MM3 551 TH/MM3 Mean Platelet Volume 5.8 FL 5.8 FL Blood Urea Nitrogen 14 MG/DL 11 MG/DL Creatinine 0.73 MG/DL 0.53 MG/DL Random Glucose 178 MG/DL 118 MG/DL Calcium Level 8.5 MG/DL 8.7 MG/DL Sodium Level 138 MEQ/L 136 MEQ/L Potassium Level 4.1 MEQ/L 4.3 MEQ/L Chloride Level 103 MEQ/L 100 MEQ/L Carbon Dioxide Level 25.9 MEQ/L 29.6 MEQ/L Anion Gap 9 MEQ/L 6 MEQ/L Estimat Glomerular Filtration Rate 137 ML/MIN 198 ML/MIN Lactic Acid Level 3.7 mmol/L 1.5 mmol/L Culture Results Microbiology Date/Time Source Procedure Growth Status 07/27/17 14:21 Blood Peripheral Aerobic Blood Culture - Preliminary NO GROWTH IN 1 DAY Resulted 07/27/17 14:21 Blood Peripheral Anaerobic Blood Culture - Preliminary NO GROWTH IN 1 DAY Resulted 07/27/17 14:16 Blood Peripheral Aerobic Blood Culture - Preliminary NO GROWTH IN 1 DAY Resulted 07/27/17 14:16 Blood Peripheral Anaerobic Blood Culture - Preliminary NO GROWTH IN 1 DAY Resulted 07/27/17 13:36 Urine Clean Catch Urine Culture Pending Received Administered Medications Medications (Trade) Dose Ordered Sig/Dillan Route PRN Reason Start Time Stop Time Status Last Admin Dose Admin Sodium Chloride (NS Flush) 2 ml BID IV FLUSH 07/16/17 21:00 07/28/17 09:10 Albuterol/ Ipratropium (Duoneb Neb) 1 ampule Q2HR NEB PRN INH WHEEZING 07/16/17 19:00 07/18/17 16:49 Miscellaneous Information 1 Q361D XX 07/16/17 19:00 07/16/17 22:59 Senna/Docusate Sodium (Karlie-Colace) 1 tab BID PO 07/16/17 21:00 07/27/17 21:52 Levetriacetam (Keppra) 500 mg Q12HR PO 07/17/17 21:00 07/28/17 09:10 Dexamethasone (Decadron) 4 mg Q8HR PO 07/20/17 14:00 07/28/17 04:36 Famotidine (Pepcid) 20 mg BID PO 07/20/17 21:00 07/28/17 09:10 Objective Remarks GENERAL: Pleasant male, sitting up in bed in nad. SKIN: Warm and dry. HEAD: Normocephalic. EYES: No scleral icterus. No injection or drainage. NECK: Supple, trachea midline. CARDIOVASCULAR: Regular rate and rhythm RESPIRATORY: Breath sounds equal bilaterally. No accessory muscle use. GASTROINTESTINAL: Abdomen soft, non-tender, nondistended. EXTREMITIES: No cyanosis, or edema. MUSCULOSKELETAL: Adequate muscle tone. NEUROLOGICAL: awake and alert, normal speech. moving extremities. 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 --will need systemic chemotherapy and lung irradiation at some point as well. (2) Microcytic anemia ICD Codes: D50.9 - Iron deficiency anemia, unspecified Plan: --iron studies show low TIBC, serum iron and percent saturation and mildly elevated ferritin, more consistent with anemia of chronic disease or a mixed picture. --monitor and transfuse as needed. --Hemoccult negative. (3) Thrombocythemia ICD Codes: D47.3 - Essential (hemorrhagic) thrombocythemia Plan: -- likely reactive from anemia as well as underlying malignancy. (4) Leukocytosis ICD Codes: D72.829 - Elevated white blood cell count, unspecified Plan: --reactive versus underlying infection. --also contributing PO Decadron. Assessment 51y/o male with new diagnosis stage IV adenocarcinoma of lung primary. HPI (brought forward for continuity of care): 51-year-old homeless male who has not had medical care for quite some time. +tobacco abuse 30 pack years. presented to the emergency department with right-sided weakness, confusion and difficulty with his gait. CT head + 2.5 cm left posterior frontotemporal mass with surrounding lymphogenic edema. CT angiogram chest showed a collapse of the left upper lobe with an endotracheal mass obstructing the bronchus. Plan 1. will start chemotherapy inpatient tomorrow 2. monitor CBC, bmp. Linda Beltran Jul 28, 2017 12:49
[2017-07-28] MEDS ORDERED: CYANOCOBALAMIN 1000 MCG/ML VIAL IM ONE (15:45)
[2017-07-28] MEDS: FOLIC ACID 1 MG TAB PO SCH (16:31)
[2017-07-29] VITALS (22 sets, daily range): BP systolic 106–123; BP diastolic 66–77; PULSE 70–105; RESP 16–18; TEMP 98.3–98.6; O2SAT 97–99
[2017-07-29] MEDS: CHLORHEXIDINE GLUCONATE 2 % 1 PACK (2 CLOTHS) TOP SCH (00:20)
[2017-07-29] MEDS: DEXAMETHASONE 4 MG TAB PO SCH ×3 (04:30→20:11)
--- NOTE | 2017-07-29 08:39 | PD.ONC.PN ---
Subjective Subjective Remarks Afebrile overnight. Patient resting in bed in nad. No complaints. denies shortness of breath, nausea vomiting or diarrhea. denies bone pain. Objective Data Date Time Temp Pulse Resp B/P (MAP) Pulse Ox O2 Delivery O2 Flow Rate FiO2 07/29/17 08:00 98.5 70 16 106/66 (79) 99 07/29/17 05:17 98 07/29/17 04:27 98.6 78 16 108/68 (81) 98 07/29/17 03:06 80 07/29/17 02:12 86 07/29/17 00:20 86 16 123/71 (88) 98 07/29/17 00:00 100 07/29/17 00:00 86 07/28/17 23:00 88 07/28/17 22:00 92 07/28/17 21:00 88 07/28/17 20:30 98.3 89 16 115/69 (84) 98 07/28/17 20:00 87 07/28/17 20:00 92 07/28/17 19:00 88 07/28/17 18:00 90 07/28/17 17:00 88 07/28/17 16:00 91 07/28/17 16:00 98.6 91 18 117/71 (86) 98 07/28/17 15:00 88 07/28/17 14:00 94 07/28/17 13:00 78 07/28/17 12:00 90 07/28/17 12:00 97.6 90 16 110/68 (82) 96 07/28/17 11:00 82 07/28/17 10:00 92 07/28/17 09:07 98.1 84 18 109/76 (87) 99 07/28/17 09:00 82 07/29/17 07/29/17 07/29/17 07:00 15:00 23:00 Intake Total 240 ml Output Total 250 ml Balance -10 ml Result Diagram: 07/28/17 0600 07/28/17 06 Culture Results Microbiology Date/Time Source Procedure Growth Status 07/27/17 14:21 Blood Peripheral Aerobic Blood Culture - Preliminary NO GROWTH IN 1 DAY Resulted 07/27/17 14:21 Blood Peripheral Anaerobic Blood Culture - Preliminary NO GROWTH IN 1 DAY Resulted 07/27/17 14:16 Blood Peripheral Aerobic Blood Culture - Preliminary NO GROWTH IN 1 DAY Resulted 07/27/17 14:16 Blood Peripheral Anaerobic Blood Culture - Preliminary NO GROWTH IN 1 DAY Resulted 07/27/17 13:36 Urine Clean Catch Urine Culture - Preliminary NO GROWTH IN 24 HOURS. Resulted Administered Medications Medications (Trade) Dose Ordered Sig/Dillan Route PRN Reason Start Time Stop Time Status Last Admin Dose Admin Sodium Chloride (NS Flush) 2 ml BID IV FLUSH 07/16/17 21:00 07/28/17 23:00 Albuterol/ Ipratropium (Duoneb Neb) 1 ampule Q2HR NEB PRN INH WHEEZING 07/16/17 19:00 07/18/17 16:49 Miscellaneous Information 1 Q361D XX 07/16/17 19:00 07/16/17 22:59 Senna/Docusate Sodium (Karlie-Colace) 1 tab BID PO 07/16/17 21:00 07/27/17 21:52 Levetriacetam (Keppra) 500 mg Q12HR PO 07/17/17 21:00 07/28/17 22:59 Dexamethasone (Decadron) 4 mg Q8HR PO 07/20/17 14:00 07/29/17 04:30 Famotidine (Pepcid) 20 mg BID PO 07/20/17 21:00 07/28/17 22:59 Folic Acid (Folate) 1 mg DAILY PO 07/28/17 15:45 07/28/17 16:31 Objective Remarks GENERAL: Pleasant male, upright in bed watching TV in nad. SKIN: Warm and dry. HEAD: Normocephalic. EYES: No injection or drainage. NECK: Supple, trachea midline. CARDIOVASCULAR: Regular rate and rhythm RESPIRATORY: Breath sounds equal bilaterally. No accessory muscle use. GASTROINTESTINAL: Abdomen soft, non-tender, nondistended. EXTREMITIES: No cyanosis, or edema. MUSCULOSKELETAL: Adequate muscle tone. NEUROLOGICAL: awake, alert. normal speech. moving extremities. Assessment/Plan Problem List: (1) Adenocarcinoma of lung ICD Codes: C34.90 - Malignant neoplasm of unspecified part of unspecified bronchus or lung Plan: --this is a newly diagnosed stage IV lung cancer, adenocarcinoma with mets to the brain --will need brain XRT, radon is following and plans SRT --will give Carboplatin/Alimta (2) Microcytic anemia ICD Codes: D50.9 - Iron deficiency anemia, unspecified Plan: --iron studies show low TIBC, serum iron and percent saturation and mildly elevated ferritin, more consistent with anemia of chronic disease or a mixed picture. --monitor and transfuse as needed. --Hemoccult negative. (3) Thrombocythemia ICD Codes: D47.3 - Essential (hemorrhagic) thrombocythemia Plan: -- likely reactive from anemia as well as underlying malignancy. (4) Leukocytosis ICD Codes: D72.829 - Elevated white blood cell count, unspecified Plan: --reactive versus underlying infection. --also contributing PO Decadron. Assessment 51y/o male with new diagnosis stage IV adenocarcinoma of lung primary. HPI (brought forward for continuity of care): 51-year-old homeless male who has not had medical care for quite some time. +tobacco abuse 30 pack years. presented to the emergency department with right-sided weakness, confusion and difficulty with his gait. CT head + 2.5 cm left posterior frontotemporal mass with surrounding lymphogenic edema. CT angiogram chest showed a collapse of the left upper lobe with an endotracheal mass obstructing the bronchus. Plan 1. psychiatry has been consulted for patient competency. once patient has been seen, if psychiatry feels he is able to make his own decisions, will obtain consent and give Carboplatin/Alimta today 2. monitor CBC, CMP Attending Statement The exam, history, and the medical decision-making described in the above note were completed with the assistance of the mid-level provider. I reviewed and agree with the findings presented. I attest that I had a [id number] encounter with the patient on the same day, and personally performed and documented my assessment and findings in the medical record. resting in bed appears comfortable Stage IV lung Adenocarcinoma with brain mets deemed competent by Psych to make decisions he seems to understand his diagnosis and prognosis which is poor palliative chemotherapy being started I discussed potential side effects from systemic chemotherapy will be receiving Carbo/Alimta orders signed earlier currently getting pre hydration 500 cc NS discussed with nurse Patient seen around 5:00 pm Linda Beltran Jul 29, 2017 08:39 Stephane Sexton MD Jul 29, 2017 21:07
[2017-07-29] MEDS: DOCUSATE SODIUM 50 MG/SENNA 8.6 MG TAB PO SCH ×2 (09:00→20:30)
[2017-07-29] MEDS: FAMOTIDINE 20 MG TAB PO SCH ×2 (09:09→20:11)
[2017-07-29] MEDS: levETIRAcetam 500 MG TAB PO SCH ×2 (09:09→20:11)
[2017-07-29] MEDS: FOLIC ACID 1 MG TAB PO SCH (09:09)
[2017-07-29] MEDS: SODIUM CHLORIDE 0.9% FLUSH 10 ML FLUSH IV FLUSH SCH ×2 (09:11→20:11)
--- NOTE | 2017-07-29 11:58 | HHI.PR ---
Subjective Remarks Follow-up for lung and brain cancer Patient has no complaints. He pretty much says yes to everything. No events overnight. Objective Vitals Vital Signs Date Time Temp Pulse Resp B/P (MAP) Pulse Ox O2 Delivery O2 Flow Rate FiO2 07/29/17 11:00 79 07/29/17 10:00 76 07/29/17 09:00 72 07/29/17 08:00 73 07/29/17 08:00 98.5 70 16 106/66 (79) 99 07/29/17 07:00 74 07/29/17 05:17 98 07/29/17 04:27 98.6 78 16 108/68 (81) 98 07/29/17 03:06 80 07/29/17 02:12 86 07/29/17 00:20 86 16 123/71 (88) 98 07/29/17 00:00 100 07/29/17 00:00 86 07/28/17 23:00 88 07/28/17 22:00 92 07/28/17 21:00 88 07/28/17 20:30 98.3 89 16 115/69 (84) 98 07/28/17 20:00 87 07/28/17 20:00 92 07/28/17 19:00 88 07/28/17 18:00 90 07/28/17 17:00 88 07/28/17 16:00 91 07/28/17 16:00 98.6 91 18 117/71 (86) 98 07/28/17 15:00 88 07/28/17 14:00 94 07/28/17 13:00 78 07/28/17 12:00 90 07/28/17 12:00 97.6 90 16 110/68 (82) 96 I/O 07/28/17 07/28/17 07/28/17 07/29/17 07/29/17 07/29/17 07:00 15:00 23:00 07:00 15:00 23:00 Intake Total 2040 ml 240 ml Output Total 250 ml Balance 2040 ml -10 ml Intake Oral 2040 ml 240 ml Output Urine Total 250 ml # Voids 5 # Bowel Movements 3 Result Diagram: 07/28/17 0600 07/28/17 0600 Objective Remarks GENERAL: in NAD SKIN: port in place. CARDIOVASCULAR: Regular rate and rhythm without murmurs, gallops, or rubs. RESPIRATORY: Breath sounds equal bilaterally. No accessory muscle use. GASTROINTESTINAL: Abdomen soft, non-tender, nondistended. NEURO: AAO x3. patient grossly moves all extremity. 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 right LE 5/5 strength. left sided strength 5/5. Medications and IVs Current Medications Sodium Chloride (NS Flush) 2 ml UNSCH PRN IV FLUSH FLUSH AFTER USING IV ACCESS Last administered on 07/16/17 18:26; Start 07/16/17 at 16:00; Stop 07/17/17 at 13:30; Status DC Vancomycin HCl 1000 mg/Sodium Chloride 250 ml @ 250 mls/hr ONCE ONCE IV Last administered on 07/16/17at 18:26; Start 07/16/17 at 17:30; Stop 07/16/17 at 18:29 ; Status DC Piperacillin Sod/ Tazobactam Sod 100 ml @ 200 mls/hr ONCE ONCE IV Last administered on 07/16/17at 18:10; Start 07/16/17 at 17:30; Stop 07/16/17 at 17:59 ; Status DC Dexamethasone Sodium Phosphate (Decadron Inj) 10 mg ONCE ONCE IV PUSH Last administered on 07/16/17at 18:25; Start 07/16/17 at 18:15; Stop 07/16/17 at 18:16 ; Status DC Sodium Chloride 1,000 ml @ 84 mls/hr [id number] IV Last administered on 07/24/17at 04:52; Start 07/16/17 at 18:48; Stop 07/24/17 at 10:39; Status DC Sodium Chloride (NS Flush) 2 ml UNSCH PRN IV FLUSH FLUSH AFTER USING IV ACCESS ; Start 07/16/17 at 19:00 Sodium Chloride (NS Flush) 2 ml BID IV FLUSH Last administered on 07/29/17at 09: 11; Start 07/16/17 at 21:00 Acetaminophen (Tylenol) 650 mg Q6H PRN PO PAIN 1-5 AND/OR FEVER >101F; Start at 19:00 Hydromorphone HCl (Dilaudid Pf Inj) 1 mg Q4H PRN IV PAIN 6-10; Start 07/16/17 at 19:15 Famotidine (Pepcid Inj) 20 mg Q12HR IV PUSH Last administered on 07/20/17at 09: 00; Start 07/16/17 at 21:00; Stop 07/20/17 at 14:24; Status DC Ondansetron HCl (Zofran Inj) 4 mg Q6H PRN IV PUSH NAUSEA OR VOMITING; Start at 19:00 Temazepam (Restoril) 15 mg HS PRN PO INSOMNIA; Start 07/16/17 at 19:00 Albuterol/ Ipratropium (Duoneb Neb) 1 ampule Q2HR NEB PRN INH WHEEZING Last administered on 07/18/17at 16:49; Start 07/16/17 at 19:00 Heparin Sodium (Porcine) (Heparin Inj) 5,000 units Q8H SQ Last administered on 07/20/17at 05:20; Start 07/16/17 at 22:00; Stop 07/20/17 at 16:12; Status DC Miscellaneous Information 1 Q361D XX Last administered on 07/16/17at 22:59; Start 07/16/17 at 19:00 Chlorhexidine Gluconate (Chlorhexidine 2% Cloth) Taper DAILY@04 TOP ; Start at 04:00; Stop 07/13/18 at 03:59 Chlorhexidine Gluconate (Chlorhexidine 2% Cloth) 3 pack UNSCH PRN TOP HYGIENIC CARE; Start 07/16/17 at 19:00 Senna/Docusate Sodium (Karlie-Colace) 1 tab BID PO Last administered on 07/27/17at 21:52; Start 07/16/17 at 21:00 Magnesium Hydroxide (Milk Of Magnesia Liq) 30 ml Q12H PRN PO Mild constipation ; Start 07/16/17 at 19:00 Sennosides (Senokot) 17.2 mg Q12H PRN PO Moderate constipation; Start 07/16/17 at 19:00 Bisacodyl (Dulcolax Supp) 10 mg DAILY PRN RECTAL SEVERE CONSITIPATION; Start at 19:00 Lactulose (Lactulose Liq) 30 ml DAILY PRN PO SEVERE CONSITIPATION; Start at 19:00 Dexamethasone Sodium Phosphate (Decadron Inj) 4 mg Q6HR IV PUSH Last administered on 07/20/17at 05:21; Start 07/17/17 at 00:00; Stop 07/20/17 at 09:52 ; Status DC Pharmacy Profile Note 0 ml @ 0 mls/hr UNSCH OTHER ; Start 07/17/17 at 13:15; Stop 07/20/17 at 16:12; Status DC Cefepime HCl 2000 mg/Sodium Chloride 100 ml @ 200 mls/hr Q12H IV Last administered on 07/20/17at 15:57; Start 07/17/17 at 13:30; Stop 07/20/17 at 16:12 ; Status DC Vancomycin HCl 1250 mg/Sodium Chloride 262.5 ml @ 250 mls/hr Q12H IV ; Start at 14:00; Status Cancel Vancomycin HCl 1400 mg/Sodium Chloride 514 ml @ 250 mls/hr Q12H IV Last administered on 07/19/17at 03:10; Start 07/17/17 at 15:00; Stop 07/19/17 at 09:09 ; Status DC Miscellaneous Information SPECIFIC LAB TO BE CITLALI... ONCE ONCE .XX Last administered on 07/19/17at 03:10; Start 07/19/17 at 02:45; Stop 07/19/17 at 02:46 ; Status DC Gadodiamide (Omniscan Pf Inj) 15 ml STK-MED ONCE IVCONTRAST Last administered on 07/17/17at 14:46; Start 07/17/17 at 14:46; Stop 07/17/17 at 14:47; Status DC Levetriacetam (Keppra) 500 mg Q12HR PO Last administered on 07/29/17at 09:09; Start 07/17/17 at 21:00 Diatrizoate Meglum/ Diatrizoate Sod ( Gastroview Liq) 18 ml ONCE ONCE PO Last administered on 07/18/17at 10:05; Start 07/18/17 at 08:51; Stop 07/18/17 at 09:31; Status DC Iron Sucrose 200 mg/Sodium Chloride 110 ml @ 110 mls/hr DAILY IV ; Start at 17:00; Stop 07/18/17 at 18:08; Status DC Midazolam HCl (Versed Inj) 2 mg STK-MED ONCE .ROUTE ; Start 07/18/17 at 16:44; Stop 07/18/17 at 16:45; Status DC Fentanyl Citrate (fentaNYL INJ) 100 mcg STK-MED ONCE .ROUTE ; Start 07/18/17 at 16:44; Stop 07/18/17 at 16:45; Status DC Miscellaneous Information ALL NURSING DEPARTME... UNSCH PRN .XX SEE LABEL COMMENTS; Start 07/18/17 at 16:36; Stop 07/19/17 at 16:35; Status DC Iron Sucrose 200 mg/Sodium Chloride 110 ml @ 110 mls/hr HS IV Last administered on 07/19/17at 20:49; Start 07/18/17 at 21:00; Stop 07/20/17 at 21:59 ; Status DC Iohexol (Omnipaque 350 Inj) 90 ml STK-MED ONCE IVCONTRAST ; Start 07/18/17 at 21 :08; Stop 07/18/17 at 21:09; Status DC Vancomycin HCl 1250 mg/Sodium Chloride 262.5 ml @ 250 mls/hr Q12H IV Last administered on 07/20/17at 03:21; Start 07/19/17 at 15:00; Stop 07/20/17 at 16:12 ; Status DC Miscellaneous Information SPECIFIC LAB TO BE DRAWN:VANCO TROUGH DATE... ONCE ONCE .XX ; Start 07/21/17 at 02:45; Stop 07/21/17 at 02:46; Status Cancel Iohexol (Omnipaque 350 Inj) 80 ml STK-MED ONCE IVCONTRAST Last administered on 07/16/17at 17:45; Start 07/16/17 at 17:45; Stop 07/19/17 at 13:28; Status DC Dexamethasone (Decadron) 4 mg Q8HR PO Last administered on 07/29/17at 04:30; Start 07/20/17 at 14:00 Famotidine (Pepcid) 20 mg BID PO Last administered on 07/29/17at 09:09; Start at 21:00 Sodium Chloride 250 ml @ 15 mls/hr ONCE ONCE IV Last administered on at 22:12; Start 07/20/17 at 16:15; Stop 07/21/17 at 08:54; Status DC Potassium Bicarb/ Potassium Chloride (K-Lyte Cl Eff) 50 meq ONCE ONCE PO Last administered on 07/20/17 18:37; Start 07/20/17 at 16:30; Stop 07/20/17 at 16:37; Status DC Iron Sucrose 200 mg/Sodium Chloride 110 ml @ 110 mls/hr DAILY IV Last administered on 07/23/17 10:31; Start 07/21/17 at 13:00; Stop 07/23/17 at 09:59; Status DC Cefazolin Sodium/ Dextrose 50 ml @ 100 mls/hr FOAM DISPENSER IV Last administered on 07/25/17 10:56; Start 07/25/17 at 08:30; Stop 07/28/17 at 08:29; Status DC Vancomycin HCl 1000 mg/Sodium Chloride 250 ml @ 250 mls/hr FOAM DISPENSER IV Last administered on 07/25/17 09:32; Start 07/25/17 at 08:30; Stop 07/28/17 at 08:29; Status DC Heparin Sodium (Porcine) (*HEPARIN CENTRAL FLUSH PERIprocedural ONLY) 500 units STK-MED ONCE IV FLUSH Last administered on 07/25/17 11:10; Start 07/25/17 at 10: 30; Stop 07/25/17 at 10:31; Status DC Fentanyl Citrate (fentaNYL INJ) 200 mcg STK-MED ONCE .ROUTE Last administered on 07/25/17 10:34; Start 07/25/17 at 10:34; Stop 07/25/17 at 10:35; Status DC Midazolam HCl (Versed Inj) 4 mg STK-MED ONCE .ROUTE Last administered on 10:34; Start 07/25/17 at 10:34; Stop 07/25/17 at 10:35; Status DC Lidocaine/ Epinephrine (Xylocaine-Epi 1%-1:100,000 Inj) 30 ml STK-MED ONCE .ROUTE Last administered on 07/25/17 11:00; Start 07/25/17 at 10:53; Stop at 10:54; Status DC Cyanocobalamin (Vitamin B12 Inj) 1,000 mcg ONCE ONCE IM Last administered on 16:31; Start 07/28/17 at 15:45; Stop 07/28/17 at 16:03; Status DC Folic Acid (Folate) 1 mg DAILY PO Last administered on 07/29/17at 09:09; Start at 15:45 A/P Assessment and Plan This is a 51-year-old male presented with altered mental status and right hemiplegia Subjective fevers/chills -Patient is afebrile at the moment. This is most likely due to malignancy but since this is a new onset symptoms need to rule out infectious etiology. Chest x-ray shows large mass filling the left apical area. Blood and urine cultures negative. Altered mental status with hemiplegia due to brain mass -At baseline. - MRI of brain shows brain mass. Neurosurgeon on board and ff. -per NS not a candidate for surgery and radiation oncologist consulted. - Continue Decadron and Keppra - palliative care ff. -Psych was consulted and stated patient has a capacity to make medical decision. lung cancer ( adenocarcinoma) with mets. - pulmonary and oncologist consulted. -s/p bronchoscopy on 07/18 - pathology ; suspicious for adenocarcinoma. -oncology and radiation oncology following; for chemo and radiation. -Status post port placement on 07/25/2017 by IR -Per oncologist patient scheduled for chemo today. Severe microcytic anemia, hemoglobin is 7.5 and MCV 79. -Stable. No active bleeding. -Oncologist following. Most likely iron deficiency. - on IV Iron. Hemoglobin improving now 9.5. Leukocytosis -Most likely reactive due to malignancy/steroids. No signs of infection. Thrombocytosis -Most likely secondary to malignancy. Tobacco use disorder - DuoNeb scheduled and when necessary DVT GI prophylaxis - Teds SCDs - Pepcid Discharge Planning SSI pending. There is concerns that patient does not have a good sense of time and is very slow to process information. This will only get worse since he does have a brain mass. Because of his confusion with time and date this is not a safe discharge if transportation is not arranged for patient for his follow-up appointment. During MDR meeting case management [facility] stated that they can arrange all the transportation for patient's follow-up appointment so that he can get chemo therapy/radiation. If patient can get a bed and transportation can be arranged for patient to get his treatment patient can be discharged from the hospital after chemotherapy. Saray Noble MD Jul 29, 2017 11:58
--- NOTE | 2017-07-29 12:25 | PD.PSY.CON ---
Provisional Diagnosis Admission Date Jul 16, 2017 at 18:24 Virgilina I. Psychological factors affecting medical condition. Virgilina II. Deferred History of Present Illness Service Psychiatry Consult Requested By Medical . Reason for Consult For decision making capacity Primary Care Physician Unknown HPI The patient is a 51-year-old man, domiciled with his sister, unemployed, single, no social services aide, no previous significant history, no previous suicidal attempts, no present psychotic hospitalizations, medical history of lung cancer, anemia, hospitalized due to right hemiplegia, at the mental status. Patient consulted to psychiatry to address his decision-making capacity to participate in discharge planning. On psychiatric evaluation the patient is calm, cooperative, pleasant. The patient reports that the reason his hospitalizes because he had a stroke, and his "lungs are sick". He reports okay mood, denies depressive symptoms, denies anhedonia, he denies helplessness , hopelessness, denies worthlessness, he denies problems with sleep and appetite , he denies suicidal and homicidal ideation, he denies visual and auditory hallucinations. The patient is fully oriented 3 at this moment, no fluctuation of consciousness, no attention deficit present. Patient is logical , coherent and relevant. He reports that he is willing to continue medical care as recommended, try to make it to the appointments," even though you have to understand could be difficult for me". He denies the use of illicit drugs and alcohol. Review of Systems Constitutional: DENIES: Diaphoretic episodes, Fatigue, Fever, Weight gain, Weight loss, Chills, Dizziness, Change in appetite, Night Sweats Endocrine: DENIES: Heat/cold intolerance, Polydipsia, Polyuria, Polyphagia Eyes: DENIES: Blurred vision, Diplopia, Eye inflammation, Eye pain, Vision loss , Photosensitivity, Double Vision Ears, nose, mouth, throat: DENIES: Tinnitus, Hearing loss, Vertigo, Nasal discharge, Oral lesions, Throat pain, Hoarseness, Ear Pain, Running Nose, Epistaxis, Sinus Pain, Toothache, Odynophagia Respiratory: DENIES: Apneas, Cough, Snoring, Wheezing, Hemoptysis, Sputum production, Shortness of breath Cardiovascular: DENIES: Chest pain, Palpitations, Syncope, Dyspnea on Exertion , PND, Lower Extremity Edema, Orthopnea, Claudication Gastrointestinal: DENIES: Abdominal pain, Black stools, Bloody stools, Constipation, Diarrhea, Nausea, Vomiting, Difficulty Swallowing, Anorexia Genitourinary: DENIES: Sexual dysfunction, Urinary frequency, Urinary incontinence, Urgency, Hematuria, Dysuria, Nocturia, Penile Discharge, Testicular Pain, Testicular Swelling Musculoskeletal: DENIES: Joint pain, Muscle aches, Stiffness, Joint Swelling, Back pain, Neck pain Integumentary: DENIES: Abnormal pigmentation, Nail changes, Pruritus, Rash Hematologic/lymphatic: DENIES: Bruising, Lymphadenopathy Immunologic/allergic: DENIES: Eczema, Urticaria Neurologic: DENIES: Abnormal gait, Headache, Localized weakness, Paresthesias, Seizures, Speech Problems, Tremor, Poor Balance Psychiatric: DENIES: Anxiety, Confusion, Mood changes, Depression, Hallucinations, Agitation, Suicidal Ideation, Homicidal Ideation, Delusions Past Family Social History Coded Allergies: No Known Allergies (Unverified , 07/16/17) No Active Prescriptions or Reported Meds Current Medications Medications (Trade) Dose Ordered Sig/Dillan Route Start Time Stop Time Status Last Admin (NS Flush) 2 ml UNSCH PRN IV FLUSH 07/16/17 19:00 (NS Flush) 2 ml BID IV FLUSH 07/16/17 21:00 07/29/17 09:11 (Tylenol) 650 mg Q6H PRN PO 07/16/17 19:00 (Dilaudid Pf Inj) 1 mg Q4H PRN IV 07/16/17 19:15 (Zofran Inj) 4 mg Q6H PRN IV PUSH 07/16/17 19:00 (Restoril) 15 mg HS PRN PO 07/16/17 19:00 (Duoneb Neb) 1 ampule Q2HR NEB PRN INH 07/16/17 19:00 07/18/17 16:49 Miscellaneous Information 1 Q361D XX 07/16/17 19:00 07/16/17 22:59 (Chlorhexidine 2% Cloth) Taper DAILY@04 TOP 07/17/17 04:00 07/13/18 03:59 (Chlorhexidine 2% Cloth) 3 pack UNSCH PRN TOP 07/16/17 19:00 (Karlie-Colace) 1 tab BID PO 07/16/17 21:00 07/27/17 21:52 (Milk Of Magnesia Liq) 30 ml Q12H PRN PO 07/16/17 19:00 (Senokot) 17.2 mg Q12H PRN PO 07/16/17 19:00 (Dulcolax Supp) 10 mg DAILY PRN RECTAL 07/16/17 19:00 (Lactulose Liq) 30 ml DAILY PRN PO 07/16/17 19:00 (Keppra) 500 mg Q12HR PO 07/17/17 21:00 07/29/17 09:09 (Decadron) 4 mg Q8HR PO 07/20/17 14:00 07/29/17 04:30 (Pepcid) 20 mg BID PO 07/20/17 21:00 07/29/17 09:09 (Folate) 1 mg DAILY PO 07/28/17 15:45 07/29/17 09:09 Family Psych History No family psychiatric history Social History Patient was born and raised in [place]. Patient's highest level of education is sixth-grade. Patient has 4 brothers and 1 sister. Patient never . He had 2 sons both name after him. One son Virgil Umanzor Jr mostly at age 32 from a motor cycle accident. His other son who is also named Virgil Umanzor Jr is currently incarcerated at [facility] Patient's Strengths (min. 2) Verbal communication Physical Exam Vital Signs Vital Signs Date Time Temp Pulse Resp B/P (MAP) Pulse Ox O2 Delivery O2 Flow Rate FiO2 07/29/17 11:00 79 07/29/17 08:00 98.5 16 106/66 (79) 99 I/O 07/29/17 07/29/17 07/30/17 08:00 16:00 00:00 Intake Total 240 ml Output Total 250 ml Balance -10 ml Lab Results Date/Time Source Procedure Growth Status 07/27/17 14:21 Blood Peripheral Aerobic Blood Culture - Preliminary NO GROWTH IN 2 DAYS Resulted 07/27/17 14:21 Blood Peripheral Anaerobic Blood Culture - Preliminary NO GROWTH IN 2 DAYS Resulted 07/19/17 06:52 Stool Stool Stool Occult Blood (LIDIA) - Final HEMOCCULT NEGATIVE Complete 07/27/17 13:36 Urine Clean Catch Urine Culture - Final NO GROWTH IN 48 HOURS. Complete Mental Status Examination Appearance: Appropriate Consciousness: Alert Orientation: x4 Motor Activity: Normal gait Speech: Unremarkable Language: Adequate Fund of Knowledge: Adequate Attention and Concentration: Adequate Memory: Unremarkable Mood: Appropriate Affect: Appropriate Thought Process & Associations: Intact Thought Content: Appropriate Hallucination Type: None Delusion Type: None Suicidal Ideation: No Suicidal Plan: No Suicidal Intention: No Homicidal Ideation: No Homicidal Plan: No Homicidal Intention: No Insight: Adequate Judgment: Adequate Assessment & Plan Problem List: (1) Psychological factors affecting medical condition ICD Codes: F54 - Psychological and behavioral factors associated with disorders or diseases classified elsewhere Assessment & Plan: On psychiatric evaluation today the patient does not present any subjective, objective, concerning, acute evidence of depression, anxiety amee or psychosis. At this moment the patient is logical, coherent and relevant, oriented 3. Denies suicidal and homicidal ideation, he denies visual and auditory hallucinations. Patient seems to be aware of complications of his discharge, however for appreciation and understanding of current medical conditions, he does express concern about his outpatient living situations, he might face some problems getting out of his house to his outpatient appointments and chemotherapy. At the moment of this evaluation I do not see any reason to the pride this patient of his mental capacity to take decisions, even though I understand that this capacity can vary according with his mental status and his subjective 2 acuity office multiple underlying medical conditions. Patient holds his decision-making capacity to participate in discharge planning. Psychotropics indicated at this moment. Brief supportive psychotherapy, motivation and psychoeducation provided. Consult appreciated. (2) Debility ICD Codes: R53.81 - Other malaise (3) Brain mass ICD Codes: G93.9 - Disorder of brain, unspecified Status: Acute Assessment & Plan Estimated LOS: Rajesh Francisco MD Jul 29, 2017 12:25
--- NOTE | 2017-07-29 13:39 | HHI.HCPN ---
Reason for visit a. To assist with evaluation and management of symptoms including:Confusion , pain, debility b. To assist medical decision maker(s) with: better understanding of current medical conditions; weighing benefits/burdens of medical treatment options; making medical treatment decisions. Subjective/Interval History Patient seen and examined in earlier at noon in his room, was sleeping but easily arousable. Patient is alert, oriented to person, place, time and situation. Patient was able to tell me that he is in the hospital because they found cancer in his brain and lungs. Patient denies pain. He is afebrile and other vital signs are stable. Patient endorsing good appetite. Due to concerns of patient being unable to understand his diagnosis and proposed treatment plan, psychiatry was today consulted to evaluate patient for competency and capacity. Case management following, assisting with placement for patient. Currently in communication with someone from [facility] in regards to availability of medical bed at a long-term while patient is undergoing treatment. . Family/friend interactions No family at bedside . Advance Directives Living Will: Never completed Health Care Surrogate: Copy in medical record Durable Power of Weather Analyst: Never completed Advance Directive Specifics Date completed: 07/19/2017 . Health Care Surrogate(s): Sister-healthcare surrogate-Zack UmanzorPfsgxfj-[phone] /[phone] Niece-alternate healthcare surrogate-Dana Umanzor [phone] . Objective Vital Signs Date Time Temp Pulse Resp B/P (MAP) Pulse Ox O2 Delivery O2 Flow Rate FiO2 07/29/17 12:00 98.3 88 16 117/71 (86) 97 07/29/17 11:00 79 07/29/17 10:00 76 07/29/17 09:00 72 07/29/17 08:00 73 07/29/17 08:00 98.5 70 16 106/66 (79) 99 07/29/17 07:00 74 07/29/17 05:17 98 07/29/17 04:27 98.6 78 16 108/68 (81) 98 07/29/17 03:06 80 07/29/17 02:12 86 07/29/17 00:20 86 16 123/71 (88) 98 07/29/17 00:00 100 07/29/17 00:00 86 07/28/17 23:00 88 07/28/17 22:00 92 07/28/17 21:00 88 07/28/17 20:30 98.3 89 16 115/69 (84) 98 07/28/17 20:00 87 07/28/17 20:00 92 07/28/17 19:00 88 07/28/17 18:00 90 07/28/17 17:00 88 07/28/17 16:00 91 07/28/17 16:00 98.6 91 18 117/71 (86) 98 07/28/17 15:00 88 07/28/17 14:00 94 Intake & Output 07/29/17 07/29/17 06:59 18:59 Intake Total 240 ml Output Total 250 ml Balance -10 ml Intake Oral 240 ml Output Urine Total 250 ml Physical Exam CONSTITUTIONAL/GENERAL: This is an adequately nourished patient, in no apparent distress. Denies pain. TUBES/LINES/DRAINS: PIV, Right IJ Infusaport SKIN: No jaundice, rashes, or lesions. Ecchymoses on upper extremities. No wounds seen anteriorly. Skin temperature appropriate. Not diaphoretic. HEAD: Atraumatic. Normocephalic. EYES: Pupils equal and round and reactive. Extraocular motions intact. No scleral icterus. No injection or drainage. Fundi not examined. ENT: Hearing grossly normal. Nose without bleeding or purulent drainage. Throat without visible erythema, exudates, masses, or lesions. NECK: Trachea midline. Supple, nontender. CARDIOVASCULAR: Regular rate and rhythm without murmurs, gallops, or rubs. No JVD. Peripheral pulses symmetric. RESPIRATORY/CHEST: Symmetric, unlabored respirations. Unable to auscultate breath sounds to AIRAM otherwise diminished in other crocker. No wheezes, rales, or rhonchi. GASTROINTESTINAL: Abdomen soft, non-tender, nondistended No guarding. Bowel sounds present. GENITOURINARY: Without palpable bladder distension. MUSCULOSKELETAL: Extremities without clubbing, cyanosis, or edema. No joint tenderness or effusion noted. No calf tenderness. No mottling or clubbing. NEUROLOGICAL: Sleeping, easily arousable. A and O 3 follows commands with left side. RUE weaker than RLE PSYCHIATRIC: No obvious anxiety/depression. no apparent hallucinations or other psychotic thought process. . Diagnostic Tests Laboratory Laboratory Tests Test 07/27/17 13:36 07/27/17 14:21 07/28/17 06:00 Urine Color YELLOW (YELLW/STRAW) Urine Turbidity CLEAR (CLEAR) Urine pH 7.0 (5.0-8.5) Urine Specific [place] 1.026 (1.002-1.035) Urine Protein TRACE mg/dL (NEG-TRACE) Urine Glucose (UA) NEG mg/dL (NEG) Urine Ketones NEG mg/dL (NEG) Urine Occult Blood NEG (NEG) Urine Nitrite NEG (NEG) Urine Bilirubin NEG (NEG) Urine Urobilinogen LESS THAN 2.0 MG/DL (LESS Urine Leukocyte Esterase NEG (NEG) Urine RBC 1 /hpf (0-3) Urine WBC 1 /hpf (0-5) Urine Squamous Epithelial Cells <1 /hpf (0-5) Urine Mucus FEW /lpf (OCC) Microscopic Urinalysis Comment CULT NOT INDICATED White Blood Count 41.5 TH/MM3 (4.0-11.0) 38.2 TH/MM3 (4.0-11.0) Red Blood Count 3.25 MIL/MM3 (4.50-5.90) 3.25 MIL/MM3 (4.50-5.90) Hemoglobin 8.7 GM/DL (13.0-17.0) 9.1 GM/DL (13.0-17.0) Hematocrit 27.8 % (39.0-51.0) 27.5 % (39.0-51.0) Mean Corpuscular Volume 85.6 FL (80.0-100.0) 84.6 FL (80.0-100.0) Mean Corpuscular Hemoglobin 26.6 PG (27.0-34.0) 27.9 PG (27.0-34.0) Mean Corpuscular Hemoglobin Concent 31.1 % (32.0-36.0) 32.9 % (32.0-36.0) Red Cell Distribution Width 25.8 % (11.6-17.2) 24.9 % (11.6-17.2) Platelet Count 585 TH/MM3 (150-450) 551 TH/MM3 (150-450) Mean Platelet Volume 5.8 FL (7.0-11.0) 5.8 FL (7.0-11.0) Blood Urea Nitrogen 14 MG/DL (7-18) 11 MG/DL (7-18) Creatinine 0.73 MG/DL (0.60-1.30) 0.53 MG/DL (0.60-1.30) Random Glucose 178 MG/DL (74-106) 118 MG/DL (74-106) Calcium Level 8.5 MG/DL (8.5-10.1) 8.7 MG/DL (8.5-10.1) Sodium Level 138 MEQ/L (136-145) 136 MEQ/L (136-145) Potassium Level 4.1 MEQ/L (3.5-5.1) 4.3 MEQ/L (3.5-5.1) Chloride Level 103 MEQ/L (98-107) 100 MEQ/L (98-107) Carbon Dioxide Level 25.9 MEQ/L (21.0-32.0) 29.6 MEQ/L (21.0-32.0) Anion Gap 9 MEQ/L (5-15) 6 MEQ/L (5-15) Estimat Glomerular Filtration Rate 137 ML/MIN (>89) 198 ML/MIN (>89) Lactic Acid Level 3.7 mmol/L (0.4-2.0) 1.5 mmol/L (0.4-2.0) Result Diagram: 07/28/17 0600 07/28/17 0600 Microbiology Microbiology Date/Time Source Procedure Growth Status 07/27/17 14:21 Blood Peripheral Aerobic Blood Culture - Preliminary NO GROWTH IN 2 DAYS Resulted 07/27/17 14:21 Blood Peripheral Anaerobic Blood Culture - Preliminary NO GROWTH IN 2 DAYS Resulted 07/27/17 14:16 Blood Peripheral Aerobic Blood Culture - Preliminary NO GROWTH IN 2 DAYS Resulted 07/27/17 14:16 Blood Peripheral Anaerobic Blood Culture - Preliminary NO GROWTH IN 2 DAYS Resulted 07/27/17 13:36 Urine Clean Catch Urine Culture - Final NO GROWTH IN 48 HOURS. Complete Procedures 07/18/17-bronchoscopy with biopsy 07/25/2017-Right IJ [id number] placement . Assessment and Plan Disease Oriented Problem List: (1) Brain mass (2) Lung mass (3) Tobacco use disorder Symptom Scale: (1) Confusion 0-10 Scale: Unable to quantify Comment: Brain mass . (2) Debility 0-10 Scale: Unable to quantify Comment: Progressive . (3) Pain Comment: Patient has a brain and lung masses. Patient is at risk for headaches. . Pertinent Non-Medical Issues Psychosocial:Patient was born and raised in [place]. Patient's highest level of education is sixth-grade. Patient has 4 brothers and 1 sister. Patient never . He had 2 sons both name after him. One son Virgil Umanzor Jr mostly at age 32 from a motor cycle accident. His other son who is also named Virgil Umanzor Jr is currently incarcerated at [facility]. Spiritual: No quaker affiliation Legal: Completed healthcare surrogate form Ethical issues impacting care: None identified at this time . Important Contacts Sister-healthcare surrogate-Dana Umanzor-[phone] /[phone] Niece-alternate healthcare surrogate-Dana Umanzor [phone] . Prognosis Mr. Umanzor is a 51 years old male was brought to the emergency department by his family on 07/16/17 after they noted that he had right sided extremity weakness with confusion and difficulty with ambulation. Patient was found to have an endobronchial lesion in his left upper lobe is well is seen intracranial lesion with vasogenic edema. Patient remains at risk for further complications, deterioration and decline. . Code Status: Full Code Plan PLAN: Legal decision maker: Given that patient came in with some confusion, though improving. Recommending shared decision making with his sister Dana Umanzor who is his designated Health Care Surrogate. Goals: Remain Aggressive CODE STATUS: Full Code SYMPTOMS: * Confusion: Patient came in with complaints of confusion. CT head revealed eft posterior frontoparietal lobe mass with surrounding vasogenic edema causing 4mm of left to right midline shift. Patient oriented to self, place, situation with some confusion. Resolving. Patient on Decadron. no recommendations at this time. * Pain: Patient has a brain mass and lung mass. Patient is at risk for headaches. Hydromorphone 1 mg Q 4 HRS PRN available. Patient has not required use of hydromorphone. Patient denies pain at this time. No recommendations at this time * Debility: Progressive. Patient has been increasingly getting weak and having difficulty with ambulation. Came in with right sided weakness. Weight loss he has been reported. Patient is showing some improvement with his right side. Recommending consulting physical therapy . Patient may also benefit from occupational therapy services. Palliative care will continue to follow the patient during hospital course as condition evolves, to assist patient/decision-maker with understanding of their medical conditions, weighing benefits/burdens of treatment options, for clarification of goals of treatment. Additionally will assist with any symptoms of palliative concern. Attestation To help prompt me to consider important information that might be impacting today's encounter and assessment, information from prior notes written by myself or my colleagues may have been "brought forward" into today's note. My signature on this note, however, is an attestation that I personally performed the exam, history, and/or decision-making noted today, and, unless otherwise indicated, the interactions with patient, family, and staff as well as the review of records all occurred today. I also attest that the listed assessment and stated plan reflect my best clinical judgment today based on the combination of historical information, prior notes, and today's exam/ interactions. When time spent is documented, it refers only to time spent today by the signer, or if indicated, combined time spent today by collaborating physician/nurse practitioner. Brian Valadez Jul 29, 2017 13:39
[2017-07-29] MEDS ORDERED: SODIUM CHLORID 0.9% 500 ML INJ 500 ML IV ONE (17:00)
[2017-07-29] MEDS ORDERED: GRANISETRON HCL 1 MG/ML VIAL IV PUSH ONE (17:30)
[2017-07-29] MEDS ORDERED: SODIUM CHLOR 0.9% IV ONE (18:00)
[2017-07-29] MEDS ORDERED: CARBOPLATIN IV ONE (18:00)
[2017-07-29] MEDS ORDERED: SODIUM CHLOR 0.9% 250 ML INJ 250 ML IV ONE (18:00)
[2017-07-29] MEDS ORDERED: SODIUM CHLORIDE 0.9% IV ONE (18:30)
[2017-07-29] MEDS ORDERED: PEMETREXED IV ONE (18:30)
[2017-07-29] MEDS ORDERED: SODIUM CHLOR 0.9% 1000 ML INJ 1,000 ML IV ONE (19:00)
[2017-07-30] VITALS (25 sets, daily range): BP systolic 108–124; BP diastolic 66–73; PULSE 64–94; RESP 16; TEMP 97.3–98.4; O2SAT 97–99
[2017-07-30] MEDS: CHLORHEXIDINE GLUCONATE 2 % 1 PACK (2 CLOTHS) TOP SCH (04:00)
[2017-07-30] MEDS: DEXAMETHASONE 4 MG TAB PO SCH ×3 (05:14→20:16)
--- NOTE | 2017-07-30 08:01 | HHI.PR ---
Subjective Remarks This is a pleasant 52 y/o Male followed due to Lung and Brain Cancer. the patient has Stage IV adenocarcinoma with Brain metastasis. Psychiatry was consulted due to competence the patient is able to take his own decisions. to continue Palliative chemotherapy. Poor prognosis. will be receiving Carbo/ Alimta. Objective Vital Signs Date Time Temp Pulse Resp B/P (MAP) Pulse Ox O2 Delivery O2 Flow Rate FiO2 07/30/17 06:00 64 07/30/17 05:11 98.4 79 108/72 (84) 97 07/30/17 05:00 66 07/30/17 04:12 65 07/30/17 03:00 66 07/30/17 02:00 66 07/30/17 01:00 64 07/30/17 00:27 67 07/30/17 00:27 97.9 68 16 108/66 (80) 98 07/29/17 23:00 84 07/29/17 22:00 72 07/29/17 21:00 78 07/29/17 20:20 98.5 77 18 122/77 (92) 97 07/29/17 20:12 82 07/29/17 17:00 78 07/29/17 16:00 105 07/29/17 16:00 98.4 89 18 110/75 (87) 98 07/29/17 15:00 88 07/29/17 14:00 89 07/29/17 13:00 104 07/29/17 12:00 94 07/29/17 12:00 98.3 88 16 117/71 (86) 97 07/29/17 11:00 79 07/29/17 10:00 76 07/29/17 09:00 72 07/29/17 08:00 73 07/29/17 08:00 98.5 70 16 106/66 (79) 99 I/O 07/29/17 07/29/17 07/29/17 07/30/17 07/30/17 07/30/17 07:00 15:00 23:00 07:00 15:00 23:00 Intake Total 240 ml 3330 ml 1000 ml Output Total 250 ml 650 ml Balance -10 ml 3330 ml 350 ml Intake Oral 240 ml 1080 ml IV Total 2250 ml 1000 ml Output Urine Total 250 ml 650 ml # Voids 4 # Bowel Movements 3 Result Diagram: 07/28/17 0600 07/28/17 0600 Imaging Last Impressions Chest X-Ray 07/27/17 0000 Signed Impressions: Service Date/Time: Thursday, July 27, 2017 11:14 - CONCLUSION: 1. Large mass filling the left lung apex. The remainder of the pulmonary parenchyma is clear. 2. [id number] in satisfactory position. Jason Aguirre MD Port Line Insertion 07/25/17 0000 Signed Impressions: Service Date/Time: Tuesday, July 25, 2017 11:38 - CONCLUSION: Uncomplicated ultrasound and fluoroscopic guided implanted central venous port catheter placement as described in detail above. An 8 [place]ym[place] Power port was placed. Fredy Quinn MD Abdomen/Pelvis CT 07/18/17 0000 Signed Impressions: Service Date/Time: Tuesday, July 18, 2017 20:57 - CONCLUSION: 1. No acute findings within the abdomen and pelvis. 2. 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 3. Tiny nonobstructing bilateral renal calculi. Jaquan Norton MD Brain MRI 07/17/17 0000 Signed Impressions: Service Date/Time: Monday, July 17, 2017 14:35 - CONCLUSION: 1. There is a irregular ring-enhancing lesion measuring approximately 3.4 cm in the left posterior parietal lobe surrounded by prominent vasogenic edema characteristic for neoplastic disease. Primary versus metastatic disease are considerations. 2. Mild mass effect and midline shift to the right by approximately 5 mm. Reginaldo Shahid MD Head CT 07/16/17 1600 Signed Impressions: Service Date/Time: Sunday, July 16, 2017 17:42 - CONCLUSION: There is an apparent mass in the left frontoparietal high convexity white matter measuring approximately 2.5 cm. There is marked surrounding vasogenic edema causing mild local mass effect and approximately 4 mm of left to right midline shift. Given the chest x-ray findings, this is highly suspicious for a metastatic lesion. Oleg Green MD CT Angiography 07/16/17 0000 Signed Impressions: Service Date/Time: Sunday, July 16, 2017 17:45 - CONCLUSION: 1. No evidence of pulmonary embolism. 2. Complete collapse and airlessness of the entire left upper lung. An endobronchial lesion in the left upper lobe bronchus causing obstruction is the primary consideration. Recommend bronchoscopy for further evaluation. 3. The right lung and left lower lung are grossly clear. There is some central lobar emphysema. Reginaldo Shahid MD Procedures Bronchoscopy 07/18/17 Other Results Laboratory Tests Test 07/16/17 16:15 07/16/17 18:15 07/16/17 22:00 07/17/17 04:05 Total Creatine Kinase 66 U/L Troponin I LESS THAN 0.02 NG/ML Thyroid Stimulating Hormone 3rd Gen 2.160 uIU/ML Salicylates Level 9.9 MG/DL Acetaminophen Level LESS THAN 2.0 MCG/ML Ethyl Alcohol Level 37 MG/DL Urine Opiates Screen NEG Urine Barbiturates Screen NEG Urine Amphetamines Screen NEG Urine Benzodiazepines Screen NEG Urine Cocaine Screen NEG Urine Cannabinoids Screen NEG Nasal Screen MRSA (PCR) MRSA NOT DETECTED Activated Partial Thromboplast Time 36.0 SEC Blood Urea Nitrogen 5 MG/DL Creatinine 0.53 MG/DL Random Glucose 153 MG/DL Total Protein 7.8 GM/DL Albumin 2.0 GM/DL Calcium Level 8.5 MG/DL Phosphorus Level 3.1 MG/DL Magnesium Level 2.1 MG/DL Alkaline Phosphatase 136 U/L Aspartate Amino Transf (AST/SGOT) 14 U/L Alanine Aminotransferase (ALT/SGPT) LESS THAN 6 U/L Total Bilirubin 0.2 MG/DL Sodium Level 136 MEQ/L Potassium Level 4.2 MEQ/L Chloride Level 102 MEQ/L Carbon Dioxide Level 26.3 MEQ/L Test 07/17/17 16:46 07/18/17 06:47 07/19/17 02:50 07/22/17 06:52 Prothrombin Time 11.9 SEC Prothromb Time International Ratio 1.2 RATIO HIV (1&2) Antibody NEGATIVE Reticulocyte Count 4.4 % Absolute Reticulocyte Count 131.4 MIL/L Haptoglobin 381 MG/DL Iron Level 27 MCG/DL Total Iron Binding Capacity 235 MCG/DL Percent Iron Saturation 11.5 % Transferrin 168 MG/DL Lactate Dehydrogenase 125 U/L Hepatitis B Surface Antigen NEGATIVE Hepatitis B Core IgM Antibody NEGATIVE Hepatitis C Antibody NEGATIVE Vancomycin Level Trough 17.1 MCG/ML Neutrophils (%) (Auto) 91.5 % Lymphocytes (%) (Auto) 4.4 % Monocytes (%) (Auto) 4.0 % Eosinophils (%) (Auto) 0.0 % Basophils (%) (Auto) 0.1 % Neutrophils # (Auto) 42.9 TH/MM3 Lymphocytes # (Auto) 2.1 TH/MM3 Monocytes # (Auto) 1.9 TH/MM3 Eosinophils # (Auto) 0.0 TH/MM3 Basophils # (Auto) 0.0 TH/MM3 Monocytes % 6 % Myelocytes 1 % Nucleated Red Blood Cells 2 /100 WBC Test 07/24/17 09:32 07/27/17 13:36 07/28/17 06:00 CBC Comment AUTO DIFF Differential Total Cells Counted 100 Neutrophils % (Manual) 96 % Band Neutrophils % 3 % Lymphocytes % 1 % Neutrophils # (Manual) 46.2 TH/MM3 Differential Comment FINAL DIFF MANUAL Toxic Granulation 1+ Toxic Vacuolation PRESENT Platelet Estimate HIGH Platelet Morphology Comment NORMAL Polychromasia 2.0 % Blood Urea Nitrogen 11 MG/DL 11 MG/DL Creatinine 0.60 MG/DL 0.53 MG/DL Random Glucose 116 MG/DL 118 MG/DL Albumin 2.7 GM/DL Calcium Level 8.9 MG/DL 8.7 MG/DL Phosphorus Level 3.4 MG/DL Magnesium Level 2.0 MG/DL Sodium Level 137 MEQ/L 136 MEQ/L Potassium Level 4.1 MEQ/L 4.3 MEQ/L Chloride Level 101 MEQ/L 100 MEQ/L Carbon Dioxide Level 28.2 MEQ/L 29.6 MEQ/L Urine Color YELLOW Urine Turbidity CLEAR Urine pH 7.0 Urine Specific [place] 1.026 Urine Protein TRACE mg/dL Urine Glucose (UA) NEG mg/dL Urine Ketones NEG mg/dL Urine Occult Blood NEG Urine Nitrite NEG Urine Bilirubin NEG Urine Urobilinogen LESS THAN 2.0 MG/DL Urine Leukocyte Esterase NEG Urine RBC 1 /hpf Urine WBC 1 /hpf Urine Squamous Epithelial Cells <1 /hpf Urine Mucus FEW /lpf Microscopic Urinalysis Comment CULT NOT INDICATED White Blood Count 38.2 TH/MM3 Red Blood Count 3.25 MIL/MM3 Hemoglobin 9.1 GM/DL Hematocrit 27.5 % Mean Corpuscular Volume 84.6 FL Mean Corpuscular Hemoglobin 27.9 PG Mean Corpuscular Hemoglobin Concent 32.9 % Red Cell Distribution Width 24.9 % Platelet Count 551 TH/MM3 Mean Platelet Volume 5.8 FL Anion Gap 6 MEQ/L Estimat Glomerular Filtration Rate 198 ML/MIN Lactic Acid Level 1.5 mmol/L Objective Remarks GENERAL: in NAD SKIN: port in place. CARDIOVASCULAR: Regular rate and rhythm without murmurs, gallops, or rubs. RESPIRATORY: Breath sounds equal bilaterally. No accessory muscle use. GASTROINTESTINAL: Abdomen soft, non-tender, nondistended. NEURO: AAO x3. no Neurologic deficit. Medications and IVs Current Medications Medications (Trade) Dose Ordered Sig/Dillan Route Start Time Stop Time Status Last Admin (NS Flush) 2 ml UNSCH PRN IV FLUSH 07/16/17 19:00 (NS Flush) 2 ml BID IV FLUSH 07/16/17 21:00 07/29/17 09:11 (Tylenol) 650 mg Q6H PRN PO 07/16/17 19:00 (Dilaudid Pf Inj) 1 mg Q4H PRN IV 07/16/17 19:15 (Zofran Inj) 4 mg Q6H PRN IV PUSH 07/16/17 19:00 (Restoril) 15 mg HS PRN PO 07/16/17 19:00 (Duoneb Neb) 1 ampule Q2HR NEB PRN INH 07/16/17 19:00 07/18/17 16:49 Miscellaneous Information 1 Q361D XX 07/16/17 19:00 07/16/17 22:59 (Chlorhexidine 2% Cloth) Taper DAILY@04 TOP 07/17/17 04:00 07/13/18 03:59 (Chlorhexidine 2% Cloth) 3 pack UNSCH PRN TOP 07/16/17 19:00 (Karlie-Colace) 1 tab BID PO 07/16/17 21:00 07/27/17 21:52 (Milk Of Magnesia Liq) 30 ml Q12H PRN PO 07/16/17 19:00 (Senokot) 17.2 mg Q12H PRN PO 07/16/17 19:00 (Dulcolax Supp) 10 mg DAILY PRN RECTAL 07/16/17 19:00 (Lactulose Liq) 30 ml DAILY PRN PO 07/16/17 19:00 (Keppra) 500 mg Q12HR PO 07/17/17 21:00 07/29/17 20:11 (Decadron) 4 mg Q8HR PO 07/20/17 14:00 07/30/17 05:14 (Pepcid) 20 mg BID PO 07/20/17 21:00 07/29/17 20:11 (Folate) 1 mg DAILY PO 07/28/17 15:45 07/29/17 09:09 A/P Assessment and Plan This is a 51-year-old male presented with altered mental status and right hemiplegia Subjective fevers/chills -Patient is afebrile at the moment. This is most likely due to malignancy but since this is a new onset symptoms need to rule out infectious etiology. Chest x-ray shows large mass filling the left apical area. Blood and urine cultures negative. Encephalopathy with hemiplegia due to brain mass. -At baseline. - MRI of brain shows brain mass. Neurosurgeon on board and ff. -per NS not a candidate for surgery and radiation oncologist consulted. - Continue Decadron and Keppra - palliative care ff. -Psych was consulted and stated patient has a capacity to make medical decision. lung cancer ( adenocarcinoma) with mets. - pulmonary and oncologist consulted. -s/p bronchoscopy on 07/18 - pathology ; suspicious for adenocarcinoma. -oncology and radiation oncology following; for chemo and radiation. -Status post port placement on 07/25/2017 by IR -Status post Chemotherapy performed. Severe microcytic anemia, hemoglobin is 7.5 and MCV 79. -Stable. No active bleeding. -Oncologist following. Most likely iron deficiency. - on IV Iron. Hemoglobin improving now 9.1 Leukocytosis -Most likely reactive due to malignancy/steroids. No signs of infection. Thrombocytosis -Most likely secondary to malignancy. Tobacco use disorder - DuoNeb scheduled and when necessary DVT GI prophylaxis - Teds SCDs - Pepcid Discharge Planning SSI pending. awaiting final by Rehabilitation Clerk for discharge, will continue Chemo/radiation as outpatient. Discussed on MDR and the patient is Homeless awaiting for arrangement for discharge. Munir Tamez MD Jul 30, 2017 08:00
[2017-07-30] MEDS: DOCUSATE SODIUM 50 MG/SENNA 8.6 MG TAB PO SCH ×2 (09:00→20:13)
[2017-07-30] MEDS: levETIRAcetam 500 MG TAB PO SCH ×2 (10:12→20:15)
[2017-07-30] MEDS: FAMOTIDINE 20 MG TAB PO SCH ×2 (10:12→20:15)
[2017-07-30] MEDS: FOLIC ACID 1 MG TAB PO SCH (10:12)
[2017-07-30] MEDS: SODIUM CHLORIDE 0.9% FLUSH 10 ML FLUSH IV FLUSH SCH ×2 (10:13→20:17)
[2017-07-30] MEDS ORDERED: SODIUM CHLORIDE 0.9% FLUSH 10 ML FLUSH IV FLUSH PRN (14:15)
[2017-07-30] MEDS: guaiFENesin E.R. 600 MG TAB PO SCH (20:15)
[2017-07-31] VITALS (27 sets, daily range): BP systolic 107–118; BP diastolic 68–72; PULSE 64–96; RESP 16–17; TEMP 97.7–98.6; O2SAT 95–98
[2017-07-31] MEDS: DEXAMETHASONE 4 MG TAB PO SCH ×3 (05:00→21:15)
[2017-07-31 06:01] LABS: AUTOMATED NEUTROPHIL # 34.9 TH/MM3 (1.8-7.7); HEMATOCRIT 28.7 % (39.0-51.0); HEMOGLOBIN 9.1 GM/DL (13.0-17.0); LYMPH % 3.1 % (9.0-44.0); LYMPHOCYTE # 1.1 TH/MM3 (1.0-4.8); MEAN CELL VOLUME 85.5 FL (80.0-100.0); MEAN CORPUSCULAR HEMOGLOBIN 27.1 PG (27.0-34.0); MEAN CORPUSCULAR HGB CONC 31.7 % (32.0-36.0); MEAN PLATELET VOLUME 6.1 FL (7.0-11.0); MONO % 2.9 % (0.0-8.0); MONOCYTE # 1.1 TH/MM3 (0-0.9); PLATELET COUNT 562 TH/MM3 (150-450); RED BLOOD COUNT 3.36 MIL/MM3 (4.50-5.90); RED CELL DISTRIBUTION WIDTH 25.3 % (11.6-17.2); WHITE BLOOD COUNT 37.1 TH/MM3 (4.0-11.0)
[2017-07-31 06:20] LABS: ALBUMIN 2.6 GM/DL (3.4-5.0); AST (GOT) 14 U/L (15-37); BICARBONATE 28.6 MEQ/L (21.0-32.0); BLOOD UREA NITROGEN 15 MG/DL (7-18); CHLORIDE 98 MEQ/L (98-107); CREATININE 0.45 MG/DL (0.60-1.30); GLOMERULAR FILTRATION RATE 239 ML/MIN (>89); GLUCOSE,RANDOM 113 MG/DL (74-106); SODIUM (NA) 135 MEQ/L (136-145)
[2017-07-31 06:21] LABS: ALT (GPT) 64 U/L (12-78)
[2017-07-31 06:23] LABS: ALKALINE PHOSPHATASE 147 U/L (45-117); TOTAL BILIRUBIN ADULT 0.2 MG/DL (0.2-1.0); TOTAL PROTEIN 6.6 GM/DL (6.4-8.2)
[2017-07-31 06:46] LABS: CORRECTED NUCLEATED RBC 1 /100 WBC (0-0); LYMPHOCYTES 4 % (9-44); MONOCYTES 4 % (0-8); NEUTROPHIL # MANUAL DIFF 34.1 TH/MM3 (1.8-7.7); NUCLEATED RED BLOOD CELL 1 (0-0); POLYS (SEG NEUTROPHILS) 92 % (16-70)
--- NOTE | 2017-07-31 08:14 | HHI.PR ---
Subjective Remarks This is a pleasant 52 y/o Male followed due to Lung and Brain Cancer. the patient has Stage IV adenocarcinoma with Brain metastasis. Psychiatry was consulted due to competence the patient is able to take his own decisions. to continue Palliative chemotherapy. Poor prognosis. will be receiving Carbo/ Alimta. 07/31: Seen in his bedroom and discussed on MDR and not yet found placement order for discharge placed from our standpoint. for discharge. Objective Vital Signs Date Time Temp Pulse Resp B/P (MAP) Pulse Ox O2 Delivery O2 Flow Rate FiO2 07/31/17 06:00 64 07/31/17 05:00 72 07/31/17 04:00 68 07/31/17 04:00 98.4 74 17 112/72 (85) 98 07/31/17 02:00 70 07/31/17 01:00 70 07/31/17 00:00 97.7 69 16 110/70 (83) 98 07/31/17 00:00 70 07/30/17 23:00 72 07/30/17 22:00 70 07/30/17 21:00 74 07/30/17 20:00 97.7 74 16 112/70 (84) 97 07/30/17 20:00 70 07/30/17 19:00 72 07/30/17 17:33 97.3 79 16 115/70 (85) 97 07/30/17 16:50 84 07/30/17 15:00 76 07/30/17 14:00 82 07/30/17 13:00 90 07/30/17 12:00 76 07/30/17 12:00 98.0 16 118/70 (86) 99 07/30/17 11:00 74 07/30/17 10:00 84 07/30/17 09:00 84 07/30/17 08:30 97.6 80 16 124/73 (90) 98 I/O 07/30/17 07/30/17 07/30/17 07/31/17 07/31/17 07/31/17 07:00 15:00 23:00 07:00 15:00 23:00 Intake Total 1000 ml 1200 ml 480 ml Output Total 650 ml Balance 350 ml 1200 ml 480 ml Intake Oral 1200 ml 480 ml IV Total 1000 ml Output Urine Total 650 ml # Voids 4 4 # Bowel Movements 1 Result Diagram: 07/31/17 0500 07/31/17 0500 Imaging Last Impressions Chest X-Ray 07/27/17 0000 Signed Impressions: Service Date/Time: Thursday, July 27, 2017 11:14 - CONCLUSION: 1. Large mass filling the left lung apex. The remainder of the pulmonary parenchyma is clear. 2. [id number] in satisfactory position. Jason Aguirre MD Port Line Insertion 07/25/17 0000 Signed Impressions: Service Date/Time: Tuesday, July 25, 2017 11:38 - CONCLUSION: Uncomplicated ultrasound and fluoroscopic guided implanted central venous port catheter placement as described in detail above. An 8 [place] Power port was placed. Fredy Quinn MD Abdomen/Pelvis CT 07/18/17 0000 Signed Impressions: Service Date/Time: Tuesday, July 18, 2017 20:57 - CONCLUSION: 1. No acute findings within the abdomen and pelvis. 2. 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 3. Tiny nonobstructing bilateral renal calculi. Jaquan Norton MD Brain MRI 07/17/17 0000 Signed Impressions: Service Date/Time: Monday, July 17, 2017 14:35 - CONCLUSION: 1. There is a irregular ring-enhancing lesion measuring approximately 3.4 cm in the left posterior parietal lobe surrounded by prominent vasogenic edema characteristic for neoplastic disease. Primary versus metastatic disease are considerations. 2. Mild mass effect and midline shift to the right by approximately 5 mm. Reginaldo Shahid MD Head CT 07/16/17 1600 Signed Impressions: Service Date/Time: Sunday, July 16, 2017 17:42 - CONCLUSION: There is an apparent mass in the left frontoparietal high convexity white matter measuring approximately 2.5 cm. There is marked surrounding vasogenic edema causing mild local mass effect and approximately 4 mm of left to right midline shift. Given the chest x-ray findings, this is highly suspicious for a metastatic lesion. Oleg Green MD CT Angiography 07/16/17 0000 Signed Impressions: Service Date/Time: Sunday, July 16, 2017 17:45 - CONCLUSION: 1. No evidence of pulmonary embolism. 2. Complete collapse and airlessness of the entire left upper lung. An endobronchial lesion in the left upper lobe bronchus causing obstruction is the primary consideration. Recommend bronchoscopy for further evaluation. 3. The right lung and left lower lung are grossly clear. There is some central lobar emphysema. Reginaldo Shahid MD Procedures Bronchoscopy 07/18/17 Other Results Laboratory Tests Test 07/16/17 16:15 07/16/17 18:15 07/16/17 22:00 07/17/17 04:05 Total Creatine Kinase 66 U/L Troponin I LESS THAN 0.02 NG/ML Thyroid Stimulating Hormone 3rd Gen 2.160 uIU/ML Salicylates Level 9.9 MG/DL Acetaminophen Level LESS THAN 2.0 MCG/ML Ethyl Alcohol Level 37 MG/DL Urine Opiates Screen NEG Urine Barbiturates Screen NEG Urine Amphetamines Screen NEG Urine Benzodiazepines Screen NEG Urine Cocaine Screen NEG Urine Cannabinoids Screen NEG Nasal Screen MRSA (PCR) MRSA NOT DETECTED Activated Partial Thromboplast Time 36.0 SEC Test 07/17/17 16:46 07/18/17 06:47 07/19/17 02:50 07/22/17 06:52 Prothrombin Time 11.9 SEC Prothromb Time International Ratio 1.2 RATIO HIV (1&2) Antibody NEGATIVE Reticulocyte Count 4.4 % Absolute Reticulocyte Count 131.4 MIL/L Haptoglobin 381 MG/DL Iron Level 27 MCG/DL Total Iron Binding Capacity 235 MCG/DL Percent Iron Saturation 11.5 % Transferrin 168 MG/DL Lactate Dehydrogenase 125 U/L Hepatitis B Surface Antigen NEGATIVE Hepatitis B Core IgM Antibody NEGATIVE Hepatitis C Antibody NEGATIVE Vancomycin Level Trough 17.1 MCG/ML Myelocytes 1 % Test 07/24/17 09:32 07/27/17 13:36 07/28/17 06:00 07/31/17 05:00 Band Neutrophils % 3 % Toxic Granulation 1+ Toxic Vacuolation PRESENT Polychromasia 2.0 % Blood Urea Nitrogen 11 MG/DL 15 MG/DL Creatinine 0.60 MG/DL 0.45 MG/DL Random Glucose 116 MG/DL 113 MG/DL Albumin 2.7 GM/DL 2.6 GM/DL Calcium Level 8.9 MG/DL 9.0 MG/DL Phosphorus Level 3.4 MG/DL Magnesium Level 2.0 MG/DL Sodium Level 137 MEQ/L 135 MEQ/L Potassium Level 4.1 MEQ/L 4.4 MEQ/L Chloride Level 101 MEQ/L 98 MEQ/L Carbon Dioxide Level 28.2 MEQ/L 28.6 MEQ/L Urine Color YELLOW Urine Turbidity CLEAR Urine pH 7.0 Urine Specific [place] 1.026 Urine Protein TRACE mg/dL Urine Glucose (UA) NEG mg/dL Urine Ketones NEG mg/dL Urine Occult Blood NEG Urine Nitrite NEG Urine Bilirubin NEG Urine Urobilinogen LESS THAN 2.0 MG/DL Urine Leukocyte Esterase NEG Urine RBC 1 /hpf Urine WBC 1 /hpf Urine Squamous Epithelial Cells <1 /hpf Urine Mucus FEW /lpf Microscopic Urinalysis Comment CULT NOT INDICATED Lactic Acid Level 1.5 mmol/L White Blood Count 37.1 TH/MM3 Red Blood Count 3.36 MIL/MM3 Hemoglobin 9.1 GM/DL Hematocrit 28.7 % Mean Corpuscular Volume 85.5 FL Mean Corpuscular Hemoglobin 27.1 PG Mean Corpuscular Hemoglobin Concent 31.7 % Red Cell Distribution Width 25.3 % Platelet Count 562 TH/MM3 Mean Platelet Volume 6.1 FL Neutrophils (%) (Auto) 94.0 % Lymphocytes (%) (Auto) 3.1 % Monocytes (%) (Auto) 2.9 % Eosinophils (%) (Auto) 0.0 % Basophils (%) (Auto) 0.0 % Neutrophils # (Auto) 34.9 TH/MM3 Lymphocytes # (Auto) 1.1 TH/MM3 Monocytes # (Auto) 1.1 TH/MM3 Eosinophils # (Auto) 0.0 TH/MM3 Basophils # (Auto) 0.0 TH/MM3 CBC Comment AUTO DIFF Differential Total Cells Counted 100 Neutrophils % (Manual) 92 % Lymphocytes % 4 % Monocytes % 4 % Neutrophils # (Manual) 34.1 TH/MM3 Nucleated Red Blood Cells 1 /100 WBC Differential Comment FINAL DIFF MANUAL Platelet Estimate HIGH Platelet Morphology Comment NORMAL Red Cell Morphology Comment NORMAL Total Protein 6.6 GM/DL Alkaline Phosphatase 147 U/L Aspartate Amino Transf (AST/SGOT) 14 U/L Alanine Aminotransferase (ALT/SGPT) 64 U/L Total Bilirubin 0.2 MG/DL Anion Gap 8 MEQ/L Estimat Glomerular Filtration Rate 239 ML/MIN Objective Remarks GENERAL: in NAD SKIN: port in place. CARDIOVASCULAR: Regular rate and rhythm without murmurs, gallops, or rubs. RESPIRATORY: Breath sounds equal bilaterally. No accessory muscle use. GASTROINTESTINAL: Abdomen soft, non-tender, nondistended. NEURO: AAO x3. no Neurologic deficit. Medications and IVs Current Medications Medications (Trade) Dose Ordered Sig/Dillan Route Start Time Stop Time Status Last Admin (NS Flush) 2 ml UNSCH PRN IV FLUSH 07/16/17 19:00 (NS Flush) 2 ml BID IV FLUSH 07/16/17 21:00 07/30/17 20:17 (Tylenol) 650 mg Q6H PRN PO 07/16/17 19:00 (Dilaudid Pf Inj) 1 mg Q4H PRN IV 07/16/17 19:15 (Zofran Inj) 4 mg Q6H PRN IV PUSH 07/16/17 19:00 (Restoril) 15 mg HS PRN PO 07/16/17 19:00 (Duoneb Neb) 1 ampule Q2HR NEB PRN INH 07/16/17 19:00 07/18/17 16:49 Miscellaneous Information 1 Q361D XX 07/16/17 19:00 07/16/17 22:59 (Chlorhexidine 2% Cloth) Taper DAILY@04 TOP 07/17/17 04:00 07/13/18 03:59 (Chlorhexidine 2% Cloth) 3 pack UNSCH PRN TOP 07/16/17 19:00 (Karlie-Colace) 1 tab BID PO 07/16/17 21:00 07/27/17 21:52 (Milk Of Magnesia Liq) 30 ml Q12H PRN PO 07/16/17 19:00 (Senokot) 17.2 mg Q12H PRN PO 07/16/17 19:00 (Dulcolax Supp) 10 mg DAILY PRN RECTAL 07/16/17 19:00 (Lactulose Liq) 30 ml DAILY PRN PO 07/16/17 19:00 (Keppra) 500 mg Q12HR PO 07/17/17 21:00 07/30/17 20:15 (Decadron) 4 mg Q8HR PO 07/20/17 14:00 07/31/17 05:00 (Pepcid) 20 mg BID PO 07/20/17 21:00 07/30/17 20:15 (Folate) 1 mg DAILY PO 07/28/17 15:45 07/30/17 10:12 (NS Flush) 5 ml UNSCH PRN IV FLUSH 07/30/17 14:15 (Heparin Central Flush) 250 units UNSCH PRN IV FLUSH 07/30/17 14:15 (Heparin Central Flush) 500 units UNSCH IV FLUSH 07/30/17 14:15 (Mucinex Er) 600 mg BID PO 07/30/17 21:00 07/30/17 20:15 A/P Assessment and Plan This is a 51-year-old male presented with altered mental status and right hemiplegia Subjective fevers/chills -Patient is afebrile at the moment. This is most likely due to malignancy but since this is a new onset symptoms need to rule out infectious etiology. Chest x-ray shows large mass filling the left apical area. Blood and urine cultures negative. Encephalopathy with hemiplegia due to brain mass. -At baseline. - MRI of brain shows brain mass. Neurosurgeon on board and ff. -per NS not a candidate for surgery and radiation oncologist consulted. - Continue Decadron and Keppra - palliative care ff. -Psych was consulted and stated patient has a capacity to make medical decision. lung cancer ( adenocarcinoma) with mets. - pulmonary and oncologist consulted. -s/p bronchoscopy on 07/18 - pathology ; suspicious for adenocarcinoma. -oncology and radiation oncology following; for chemo and radiation. -Status post port placement on 07/25/2017 by IR -Status post Chemotherapy performed. Severe microcytic anemia, hemoglobin is 7.5 and MCV 79. -Stable. No active bleeding. -Oncologist following. Most likely iron deficiency. - on IV Iron. Hemoglobin improving now 9.1 Leukocytosis -Most likely reactive due to malignancy/steroids. No signs of infection. Thrombocytosis -Most likely secondary to malignancy. Tobacco use disorder - DuoNeb scheduled and when necessary DVT GI prophylaxis - Teds SCDs - Pepcid Discharge Planning SSI pending. awaiting final by Lbd Teacher for discharge, will continue Chemo/radiation as outpatient. Discussed on MDR and the patient is Homeless awaiting for arrangement for discharge. Munir Tamez MD Jul 31, 2017 08:14
[2017-07-31] MEDS: DOCUSATE SODIUM 50 MG/SENNA 8.6 MG TAB PO SCH ×2 (09:00→21:00)
[2017-07-31] MEDS: levETIRAcetam 500 MG TAB PO SCH ×2 (09:03→21:15)
[2017-07-31] MEDS: FAMOTIDINE 20 MG TAB PO SCH ×2 (09:03→21:15)
[2017-07-31] MEDS: FOLIC ACID 1 MG TAB PO SCH (09:03)
[2017-07-31] MEDS: guaiFENesin E.R. 600 MG TAB PO SCH ×2 (09:03→21:15)
[2017-07-31] MEDS: SODIUM CHLORIDE 0.9% FLUSH 10 ML FLUSH IV FLUSH SCH ×2 (10:37→21:19)
[2017-07-31] MEDS: CHLORHEXIDINE GLUCONATE 2 % 1 PACK (2 CLOTHS) TOP SCH ×2 (21:19)
[2017-08-01] VITALS (30 sets, daily range): BP systolic 99–113; BP diastolic 68–74; PULSE 66–99; RESP 16; TEMP 97.7–98.5; O2SAT 95–98
[2017-08-01] MEDS: DEXAMETHASONE 4 MG TAB PO SCH ×3 (05:54→21:54)
--- NOTE | 2017-08-01 08:30 | HHI.PR ---
Subjective Remarks This is a pleasant 52 y/o Male followed due to Lung and Brain Cancer. the patient has Stage IV adenocarcinoma with Brain metastasis. Psychiatry was consulted due to competence the patient is able to take his own decisions. to continue Palliative chemotherapy. Poor prognosis. will be receiving Carbo/ Alimta. 07/31: Seen in his bedroom and discussed on MDR and not yet found placement order for discharge placed from our standpoint. for discharge. 08/01: Seen in his bedroom again discussed on Multidisciplinary round and not yet found placement Objective Vital Signs Date Time Temp Pulse Resp B/P (MAP) Pulse Ox O2 Delivery O2 Flow Rate FiO2 08/01/17 06:06 72 08/01/17 06:05 71 08/01/17 06:05 99 08/01/17 06:05 84 08/01/17 05:03 73 08/01/17 04:44 98.5 70 16 99/72 (81) 97 08/01/17 04:03 68 08/01/17 03:06 69 08/01/17 02:05 79 08/01/17 01:09 75 08/01/17 00:56 98.5 70 16 102/72 (82) 95 08/01/17 00:08 72 07/31/17 23:05 76 07/31/17 22:00 75 07/31/17 21:04 73 07/31/17 20:06 75 07/31/17 20:01 98.6 71 16 110/69 (83) 96 07/31/17 19:33 72 07/31/17 18:18 97.8 74 16 118/68 (85) 95 07/31/17 18:00 82 07/31/17 17:00 74 07/31/17 16:00 96 07/31/17 15:00 84 07/31/17 14:00 84 07/31/17 13:01 98.3 79 16 107/71 (83) 98 07/31/17 13:00 88 07/31/17 12:00 81 07/31/17 11:00 76 07/31/17 10:00 76 07/31/17 09:04 98.0 85 16 107/71 (83) 96 07/31/17 09:00 76 I/O 07/31/17 07/31/17 07/31/17 08/01/17 08/01/17/12/18 06:59 14:59 22:59 06:59 14:59 22:59 Intake Total 480 ml 1200 ml 280 ml Balance 480 ml 1200 ml 280 ml Intake Oral 480 ml 1200 ml 280 ml # Voids 4 5 2 # Bowel Movements 2 1 Result Diagram: 07/31/17 0500 07/31/17 0500 Imaging Last Impressions Chest X-Ray 07/27/17 0000 Signed Impressions: Service Date/Time: Thursday, July 27, 2017 11:14 - CONCLUSION: 1. Large mass filling the left lung apex. The remainder of the pulmonary parenchyma is clear. 2. [id number] in satisfactory position. Jason Aguirre MD Port Line Insertion 07/25/17 0000 Signed Impressions: Service Date/Time: Tuesday, July 25, 2017 11:38 - CONCLUSION: Uncomplicated ultrasound and fluoroscopic guided implanted central venous port catheter placement as described in detail above. An 8 Nepali Power port was placed. Fredy Quinn MD Abdomen/Pelvis CT 07/18/17 0000 Signed Impressions: Service Date/Time: Tuesday, July 18, 2017 20:57 - CONCLUSION: 1. No acute findings within the abdomen and pelvis. 2. 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 3. Tiny nonobstructing bilateral renal calculi. Jaquan Norton MD Brain MRI 07/17/17 0000 Signed Impressions: Service Date/Time: Monday, July 17, 2017 14:35 - CONCLUSION: 1. There is a irregular ring-enhancing lesion measuring approximately 3.4 cm in the left posterior parietal lobe surrounded by prominent vasogenic edema characteristic for neoplastic disease. Primary versus metastatic disease are considerations. 2. Mild mass effect and midline shift to the right by approximately 5 mm. Reginaldo Shahid MD Head CT 07/16/17 1600 Signed Impressions: Service Date/Time: Sunday, July 16, 2017 17:42 - CONCLUSION: There is an apparent mass in the left frontoparietal high convexity white matter measuring approximately 2.5 cm. There is marked surrounding vasogenic edema causing mild local mass effect and approximately 4 mm of left to right midline shift. Given the chest x-ray findings, this is highly suspicious for a metastatic lesion. Oleg Green MD CT Angiography 07/16/17 0000 Signed Impressions: Service Date/Time: Sunday, July 16, 2017 17:45 - CONCLUSION: 1. No evidence of pulmonary embolism. 2. Complete collapse and airlessness of the entire left upper lung. An endobronchial lesion in the left upper lobe bronchus causing obstruction is the primary consideration. Recommend bronchoscopy for further evaluation. 3. The right lung and left lower lung are grossly clear. There is some central lobar emphysema. Reginaldo Shahid MD Procedures Bronchoscopy 07/18/17 Other Results Laboratory Tests Test 07/16/17 16:15 07/16/17 18:15 07/16/17 22:00 07/17/17 04:05 Total Creatine Kinase 66 U/L Troponin I LESS THAN 0.02 NG/ML Thyroid Stimulating Hormone 3rd Gen 2.160 uIU/ML Salicylates Level 9.9 MG/DL Acetaminophen Level LESS THAN 2.0 MCG/ML Ethyl Alcohol Level 37 MG/DL Urine Opiates Screen NEG Urine Barbiturates Screen NEG Urine Amphetamines Screen NEG Urine Benzodiazepines Screen NEG Urine Cocaine Screen NEG Urine Cannabinoids Screen NEG Nasal Screen MRSA (PCR) MRSA NOT DETECTED Activated Partial Thromboplast Time 36.0 SEC Test 07/17/17 16:46 07/18/17 06:47 07/19/17 02:50 07/22/17 06:52 Prothrombin Time 11.9 SEC Prothromb Time International Ratio 1.2 RATIO HIV (1&2) Antibody NEGATIVE Reticulocyte Count 4.4 % Absolute Reticulocyte Count 131.4 MIL/L Haptoglobin 381 MG/DL Iron Level 27 MCG/DL Total Iron Binding Capacity 235 MCG/DL Percent Iron Saturation 11.5 % Transferrin 168 MG/DL Lactate Dehydrogenase 125 U/L Hepatitis B Surface Antigen NEGATIVE Hepatitis B Core IgM Antibody NEGATIVE Hepatitis C Antibody NEGATIVE Vancomycin Level Trough 17.1 MCG/ML Myelocytes 1 % Test 07/24/17 09:32 07/27/17 13:36 07/28/17 06:00 07/31/17 05:00 Band Neutrophils % 3 % Toxic Granulation 1+ Toxic Vacuolation PRESENT Polychromasia 2.0 % Blood Urea Nitrogen 11 MG/DL 15 MG/DL Creatinine 0.60 MG/DL 0.45 MG/DL Random Glucose 116 MG/DL 113 MG/DL Albumin 2.7 GM/DL 2.6 GM/DL Calcium Level 8.9 MG/DL 9.0 MG/DL Phosphorus Level 3.4 MG/DL Magnesium Level 2.0 MG/DL Sodium Level 137 MEQ/L 135 MEQ/L Potassium Level 4.1 MEQ/L 4.4 MEQ/L Chloride Level 101 MEQ/L 98 MEQ/L Carbon Dioxide Level 28.2 MEQ/L 28.6 MEQ/L Urine Color YELLOW Urine Turbidity CLEAR Urine pH 7.0 Urine Specific [place] 1.026 Urine Protein TRACE mg/dL Urine Glucose (UA) NEG mg/dL Urine Ketones NEG mg/dL Urine Occult Blood NEG Urine Nitrite NEG Urine Bilirubin NEG Urine Urobilinogen LESS THAN 2.0 MG/DL Urine Leukocyte Esterase NEG Urine RBC 1 /hpf Urine WBC 1 /hpf Urine Squamous Epithelial Cells <1 /hpf Urine Mucus FEW /lpf Microscopic Urinalysis Comment CULT NOT INDICATED Lactic Acid Level 1.5 mmol/L White Blood Count 37.1 TH/MM3 Red Blood Count 3.36 MIL/MM3 Hemoglobin 9.1 GM/DL Hematocrit 28.7 % Mean Corpuscular Volume 85.5 FL Mean Corpuscular Hemoglobin 27.1 PG Mean Corpuscular Hemoglobin Concent 31.7 % Red Cell Distribution Width 25.3 % Platelet Count 562 TH/MM3 Mean Platelet Volume 6.1 FL Neutrophils (%) (Auto) 94.0 % Lymphocytes (%) (Auto) 3.1 % Monocytes (%) (Auto) 2.9 % Eosinophils (%) (Auto) 0.0 % Basophils (%) (Auto) 0.0 % Neutrophils # (Auto) 34.9 TH/MM3 Lymphocytes # (Auto) 1.1 TH/MM3 Monocytes # (Auto) 1.1 TH/MM3 Eosinophils # (Auto) 0.0 TH/MM3 Basophils # (Auto) 0.0 TH/MM3 CBC Comment AUTO DIFF Differential Total Cells Counted 100 Neutrophils % (Manual) 92 % Lymphocytes % 4 % Monocytes % 4 % Neutrophils # (Manual) 34.1 TH/MM3 Nucleated Red Blood Cells 1 /100 WBC Differential Comment FINAL DIFF MANUAL Platelet Estimate HIGH Platelet Morphology Comment NORMAL Red Cell Morphology Comment NORMAL Total Protein 6.6 GM/DL Alkaline Phosphatase 147 U/L Aspartate Amino Transf (AST/SGOT) 14 U/L Alanine Aminotransferase (ALT/SGPT) 64 U/L Total Bilirubin 0.2 MG/DL Anion Gap 8 MEQ/L Estimat Glomerular Filtration Rate 239 ML/MIN Objective Remarks GENERAL: in NAD SKIN: port in place. CARDIOVASCULAR: Regular rate and rhythm without murmurs, gallops, or rubs. RESPIRATORY: Breath sounds equal bilaterally. No accessory muscle use. GASTROINTESTINAL: Abdomen soft, non-tender, nondistended. NEURO: AAO x3. no Neurologic deficit. Medications and IVs Current Medications Medications (Trade) Dose Ordered Sig/Dillan Route Start Time Stop Time Status Last Admin (NS Flush) 2 ml UNSCH PRN IV FLUSH 07/16/17 19:00 (NS Flush) 2 ml BID IV FLUSH 07/16/17 21:00 07/31/17 21:19 (Tylenol) 650 mg Q6H PRN PO 07/16/17 19:00 (Dilaudid Pf Inj) 1 mg Q4H PRN IV 07/16/17 19:15 (Zofran Inj) 4 mg Q6H PRN IV PUSH 07/16/17 19:00 (Restoril) 15 mg HS PRN PO 07/16/17 19:00 (Duoneb Neb) 1 ampule Q2HR NEB PRN INH 07/16/17 19:00 07/18/17 16:49 Miscellaneous Information 1 Q361D XX 07/16/17 19:00 07/16/17 22:59 (Chlorhexidine 2% Cloth) Taper DAILY@04 TOP 07/17/17 04:00 07/13/18 03:59 (Chlorhexidine 2% Cloth) 3 pack UNSCH PRN TOP 07/16/17 19:00 (Karlie-Colace) 1 tab BID PO 07/16/17 21:00 07/27/17 21:52 (Milk Of Magnesia Liq) 30 ml Q12H PRN PO 07/16/17 19:00 (Senokot) 17.2 mg Q12H PRN PO 07/16/17 19:00 (Dulcolax Supp) 10 mg DAILY PRN RECTAL 07/16/17 19:00 (Lactulose Liq) 30 ml DAILY PRN PO 07/16/17 19:00 (Keppra) 500 mg Q12HR PO 07/17/17 21:00 07/31/17 21:15 (Decadron) 4 mg Q8HR PO 07/20/17 14:00 08/01/17 05:54 (Pepcid) 20 mg BID PO 07/20/17 21:00 07/31/17 21:15 (Folate) 1 mg DAILY PO 07/28/17 15:45 07/31/17 09:03 (NS Flush) 5 ml UNSCH PRN IV FLUSH 07/30/17 14:15 (Heparin Central Flush) 250 units UNSCH PRN IV FLUSH 07/30/17 14:15 (Heparin Central Flush) 500 units UNSCH IV FLUSH 07/30/17 14:15 (Mucinex Er) 600 mg BID PO 07/30/17 21:00 07/31/17 21:15 A/P Assessment and Plan This is a 51-year-old male presented with altered mental status and right hemiplegia Subjective fevers/chills -Patient is afebrile at the moment. This is most likely due to malignancy but since this is a new onset symptoms need to rule out infectious etiology. Chest x-ray shows large mass filling the left apical area. Blood and urine cultures negative. Encephalopathy with hemiplegia due to brain mass. -At baseline. - MRI of brain shows brain mass. Neurosurgeon on board and ff. -per NS not a candidate for surgery and radiation oncologist consulted. - Continue Decadron and Keppra - palliative care ff. -Psych was consulted and stated patient has a capacity to make medical decision. lung cancer ( adenocarcinoma) with mets. - pulmonary and oncologist consulted. -s/p bronchoscopy on 07/18 - pathology ; suspicious for adenocarcinoma. -oncology and radiation oncology following; for chemo and radiation. -Status post port placement on 07/25/2017 by IR -Status post Chemotherapy performed. Severe microcytic anemia, hemoglobin is 7.5 and MCV 79. -Stable. No active bleeding. -Oncologist following. Most likely iron deficiency. - on IV Iron. Hemoglobin improving now 9.1 Leukocytosis -Most likely reactive due to malignancy/steroids. No signs of infection. Thrombocytosis -Most likely secondary to malignancy. Tobacco use disorder - DuoNeb scheduled and when necessary DVT GI prophylaxis - Teds SCDs - Pepcid Not change to the actual assessment. Discharge Planning SSI pending. awaiting final by Master Rigger for discharge, will continue Chemo/radiation as outpatient. Discussed on MDR and the patient is Homeless awaiting for arrangement for discharge. Munir Tamez MD Aug 01, 2017 08:30
[2017-08-01] MEDS: DOCUSATE SODIUM 50 MG/SENNA 8.6 MG TAB PO SCH ×2 (09:00→21:00)
[2017-08-01] MEDS: levETIRAcetam 500 MG TAB PO SCH ×2 (09:27→21:54)
[2017-08-01] MEDS: FOLIC ACID 1 MG TAB PO SCH (09:27)
[2017-08-01] MEDS: FAMOTIDINE 20 MG TAB PO SCH ×2 (09:27→21:54)
[2017-08-01] MEDS: guaiFENesin E.R. 600 MG TAB PO SCH ×2 (09:27→21:54)
[2017-08-01] MEDS: SODIUM CHLORIDE 0.9% FLUSH 10 ML FLUSH IV FLUSH SCH ×2 (09:29→21:58)
[2017-08-01 09:44] LABS: AUTOMATED NEUTROPHIL # 24.9 TH/MM3 (1.8-7.7); HEMATOCRIT 30.7 % (39.0-51.0); LYMPHOCYTE # 0.5 TH/MM3 (1.0-4.8); MEAN CELL VOLUME 84.6 FL (80.0-100.0); MEAN CORPUSCULAR HEMOGLOBIN 27.7 PG (27.0-34.0); MEAN CORPUSCULAR HGB CONC 32.7 % (32.0-36.0); MEAN PLATELET VOLUME 5.8 FL (7.0-11.0); MONO % 1.3 % (0.0-8.0); MONOCYTE # 0.3 TH/MM3 (0-0.9); NEUT % 96.7 % (16.0-70.0); PLATELET COUNT 595 TH/MM3 (150-450); RED BLOOD COUNT 3.63 MIL/MM3 (4.50-5.90); RED CELL DISTRIBUTION WIDTH 25.5 % (11.6-17.2); WHITE BLOOD COUNT 25.8 TH/MM3 (4.0-11.0)
[2017-08-01 09:58] LABS: ALBUMIN 2.9 GM/DL (3.4-5.0); BICARBONATE 28.5 MEQ/L (21.0-32.0); CALCIUM 9.3 MG/DL (8.5-10.1); CREATININE 0.51 MG/DL (0.60-1.30); DIRECT BILIRUBIN ADULT 0.1 MG/DL (0.0-0.2); MAGNESIUM 2.1 MG/DL (1.5-2.5)
[2017-08-01 10:01] LABS: INDIRECT BILIRUBIN 0.2 MG/DL (0.0-0.8); TOTAL BILIRUBIN ADULT 0.3 MG/DL (0.2-1.0); TOTAL PROTEIN 7.3 GM/DL (6.4-8.2)
[2017-08-01 10:38] LABS: ACANTHOCYTES OCC (NORMAL); OVALOCYTES 1+ (NORMAL); POLYCHROMASIA 2.1 % (0.0-1.9)
--- NOTE | 2017-08-01 13:32 | PD.ONC.PN ---
Subjective Subjective Remarks Afebrile overnight. Patient resting in room. He has no complaints and he denies pain, nausea, vomiting or shortness of breath. Objective Data Date Time Temp Pulse Resp B/P (MAP) Pulse Ox O2 Delivery O2 Flow Rate FiO2 08/01/17 11:45 97.9 86 16 111/70 (84) 08/01/17 08:00 97.7 76 16 106/74 (85) 96 08/01/17 06:06 72 08/01/17 06:05 71 08/01/17 06:05 99 08/01/17 06:05 84 08/01/17 05:03 73 08/01/17 04:44 98.5 70 16 99/72 (81) 97 08/01/17 04:03 68 08/01/17 03:06 69 08/01/17 02:05 79 08/01/17 01:09 75 08/01/17 00:56 98.5 70 16 102/72 (82) 95 08/01/17 00:08 72 07/31/17 23:05 76 07/31/17 22:00 75 07/31/17 21:04 73 07/31/17 20:06 75 07/31/17 20:01 98.6 71 16 110/69 (83) 96 07/31/17 19:33 72 07/31/17 18:18 97.8 74 16 118/68 (85) 95 07/31/17 18:00 82 07/31/17 17:00 74 07/31/17 16:00 96 07/31/17 15:00 84 07/31/17 14:00 84 08/01/17 08/01/17 08/01/17 06:59 14:59 22:59 Intake Total 280 ml Balance 280 ml Result Diagram: 08/01/1792008/01/17920 Laboratory Results Laboratory Tests Test 08/01/17 09:21 White Blood Count 25.8 TH/MM3 Red Blood Count 3.63 MIL/MM3 Hemoglobin 10.0 GM/DL Hematocrit 30.7 % Mean Corpuscular Volume 84.6 FL Mean Corpuscular Hemoglobin 27.7 PG Mean Corpuscular Hemoglobin Concent 32.7 % Red Cell Distribution Width 25.5 % Platelet Count 595 TH/MM3 Mean Platelet Volume 5.8 FL Neutrophils (%) (Auto) 96.7 % Lymphocytes (%) (Auto) 2.0 % Monocytes (%) (Auto) 1.3 % Eosinophils (%) (Auto) 0.0 % Basophils (%) (Auto) 0.0 % Neutrophils # (Auto) 24.9 TH/MM3 Lymphocytes # (Auto) 0.5 TH/MM3 Monocytes # (Auto) 0.3 TH/MM3 Eosinophils # (Auto) 0.0 TH/MM3 Basophils # (Auto) 0.0 TH/MM3 CBC Comment AUTO DIFF Differential Comment AUTO DIFF CONFIRMED Polychromasia 2.1 % Ovalocytes 1+ Acanthocytes OCC Blood Urea Nitrogen 17 MG/DL Creatinine 0.51 MG/DL Random Glucose 99 MG/DL Total Protein 7.3 GM/DL Albumin 2.9 GM/DL Calcium Level 9.3 MG/DL Magnesium Level 2.1 MG/DL Alkaline Phosphatase 137 U/L Aspartate Amino Transf (AST/SGOT) 15 U/L Alanine Aminotransferase (ALT/SGPT) 59 U/L Total Bilirubin 0.3 MG/DL Direct Bilirubin 0.1 MG/DL Sodium Level 131 MEQ/L Potassium Level 4.2 MEQ/L Chloride Level 95 MEQ/L Carbon Dioxide Level 28.5 MEQ/L Anion Gap 8 MEQ/L Estimat Glomerular Filtration Rate 207 ML/MIN Indirect Bilirubin 0.2 MG/DL Administered Medications Medications (Trade) Dose Ordered Sig/Dillan Route PRN Reason Start Time Stop Time Status Last Admin Dose Admin Sodium Chloride (NS Flush) 2 ml BID IV FLUSH 07/16/17 21:00 08/01/17 09:29 Albuterol/ Ipratropium (Duoneb Neb) 1 ampule Q2HR NEB PRN INH WHEEZING 07/16/17 19:00 07/18/17 16:49 Miscellaneous Information 1 Q361D XX 07/16/17 19:00 07/16/17 22:59 Senna/Docusate Sodium (Karlie-Colace) 1 tab BID PO 07/16/17 21:00 07/27/17 21:52 Levetriacetam (Keppra) 500 mg Q12HR PO 07/17/17 21:00 08/01/17 09:27 Dexamethasone (Decadron) 4 mg Q8HR PO 07/20/17 14:00 08/01/17 13:16 Famotidine (Pepcid) 20 mg BID PO 07/20/17 21:00 08/01/17 09:27 Folic Acid (Folate) 1 mg DAILY PO 07/28/17 15:45 08/01/17 09:27 Guaifenesin (Mucinex Er) 600 mg BID PO 07/30/17 21:00 08/01/17 09:27 Objective Remarks GENERAL: Pleasant male, sitting up in bed in nad. SKIN: Warm and dry. HEAD: Normocephalic. EYES: No injection or drainage. NECK: Supple, trachea midline. CARDIOVASCULAR: Regular rate and rhythm RESPIRATORY: Breath sounds equal bilaterally. No accessory muscle use. GASTROINTESTINAL: Abdomen soft, non-tender, nondistended. EXTREMITIES: No cyanosis, or edema. NEUROLOGICAL: awake and alert. normal speech. moving all extremities. Assessment/Plan Problem List: (1) Adenocarcinoma of lung ICD Codes: C34.90 - Malignant neoplasm of unspecified part of unspecified bronchus or lung Plan: --this is a newly diagnosed stage IV lung cancer, adenocarcinoma with mets to the brain --will need brain XRT, radon is following and plans SRT --s/p Carboplatin/Alimta on 07/29 (2) Microcytic anemia ICD Codes: D50.9 - Iron deficiency anemia, unspecified Plan: --iron studies show low TIBC, serum iron and percent saturation and mildly elevated ferritin, more consistent with anemia of chronic disease or a mixed picture. --monitor and transfuse as needed. --Hemoccult negative. (3) Thrombocythemia ICD Codes: D47.3 - Essential (hemorrhagic) thrombocythemia Plan: -- likely reactive from anemia as well as underlying malignancy. (4) Leukocytosis ICD Codes: D72.829 - Elevated white blood cell count, unspecified Plan: --reactive versus underlying infection. --also contributing PO Decadron. Assessment 51y/o male with new diagnosis stage IV adenocarcinoma of lung primary. HPI (brought forward for continuity of care): 51-year-old homeless male who has not had medical care for quite some time. +tobacco abuse 30 pack years. presented to the emergency department with right-sided weakness, confusion and difficulty with his gait. CT head + 2.5 cm left posterior frontotemporal mass with surrounding lymphogenic edema. CT angiogram chest showed a collapse of the left upper lobe with an endotracheal mass obstructing the bronchus. Plan 1. monitor CBC, CMP 2. patient can be discharged from oncology perspective, awaiting case management discharge. Attending Statement Patient seen earlier in the day resting in bed received chemotherapy last Tuesday. next treatment due 08/19/17 labs reviewed awaiting discharge o/p f/u for further treatments Linda Beltran Aug 01, 2017 13:32 Stephane Sexton MD Aug 01, 2017 22:05
[2017-08-01] MEDS: CHLORHEXIDINE GLUCONATE 2 % 1 PACK (2 CLOTHS) TOP SCH (22:01)
[2017-08-02] VITALS (19 sets, daily range): BP systolic 106–121; BP diastolic 71–75; PULSE 66–97; RESP 16–18; TEMP 97.2–99.3; O2SAT 97–100
[2017-08-02] MEDS: DEXAMETHASONE 4 MG TAB PO SCH ×2 (05:57→13:25)
--- NOTE | 2017-08-02 08:22 | HHI.PR ---
Subjective Remarks This is a pleasant 52 y/o Male followed due to Lung and Brain Cancer. the patient has Stage IV adenocarcinoma with Brain metastasis. Psychiatry was consulted due to competence the patient is able to take his own decisions. to continue Palliative chemotherapy. Poor prognosis. will be receiving Carbo/ Alimta. 08/02: Seen in his bedroom, discussed with his relatives all questions answered to satisfaction about placement issues and insurance I will leave that information to be given by Ornament Maker Hand no nausea, vomit or diarrhea already recommended for discharge by drilling field specialist and follow as outpatient. Objective Vital Signs Date Time Temp Pulse Resp B/P (MAP) Pulse Ox O2 Delivery O2 Flow Rate FiO2 08/02/17 07:06 76 08/02/17 06:06 78 08/02/17 05:05 70 08/02/17 04:39 97.8 68 16 106/73 (84) 99 08/02/17 04:07 67 08/02/17 03:02 72 08/02/17 02:00 76 08/02/17 01:01 79 08/02/17 00:35 98.3 76 16 112/71 (85) 97 08/02/17 00:05 71 08/01/17 23:08 66 08/01/17 22:00 83 08/01/17 21:05 91 08/01/17 20:49 98.5 81 16 113/68 (83) 98 08/01/17 20:11 84 08/01/17 19:10 93 08/01/17 19:00 92 08/01/17 18:00 92 08/01/17 17:00 82 08/01/17 16:00 86 08/01/17 15:00 86 08/01/17 14:00 86 08/01/17 13:00 90 08/01/17 12:00 78 08/01/17 11:45 97.9 86 16 111/70 (84) 08/01/17 11:00 86 08/01/17 10:00 86 08/01/17 09:00 78 I/O 08/01/17 08/01/17 08/01/17 08/02/17 08/02/17 08/02/17 07:00 15:00 23:00 07:00 15:00 23:00 Intake Total 280 ml 240 ml Output Total 600 ml 350 ml Balance 280 ml -600 ml -110 ml Intake Oral 280 ml 240 ml Output Urine Total 600 ml 350 ml # Voids 2 # Bowel Movements 1 1 1 Result Diagram: 08/01/1721 08/01/1721 Imaging Last Impressions Chest X-Ray 07/27/17 0000 Signed Impressions: Service Date/Time: Thursday, July 27, 2017 11:14 - CONCLUSION: 1. Large mass filling the left lung apex. The remainder of the pulmonary parenchyma is clear. 2. [id number] in satisfactory position. Jason Aguirre MD Port Line Insertion 07/25/17 0000 Signed Impressions: Service Date/Time: Tuesday, July 25, 2017 11:38 - CONCLUSION: Uncomplicated ultrasound and fluoroscopic guided implanted central venous port catheter placement as described in detail above. An 8 [employer] port was placed. Fredy Quinn MD Abdomen/Pelvis CT 07/18/17 0000 Signed Impressions: Service Date/Time: Tuesday, July 18, 2017 20:57 - CONCLUSION: 1. No acute findings within the abdomen and pelvis. 2. 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 3. Tiny nonobstructing bilateral renal calculi. Jaquan Norton MD Brain MRI 07/17/17 0000 Signed Impressions: Service Date/Time: Monday, July 17, 2017 14:35 - CONCLUSION: 1. There is a irregular ring-enhancing lesion measuring approximately 3.4 cm in the left posterior parietal lobe surrounded by prominent vasogenic edema characteristic for neoplastic disease. Primary versus metastatic disease are considerations. 2. Mild mass effect and midline shift to the right by approximately 5 mm. Reginaldo Shahid MD Head CT 07/16/17 1600 Signed Impressions: Service Date/Time: Sunday, July 16, 2017 17:42 - CONCLUSION: There is an apparent mass in the left frontoparietal high convexity white matter measuring approximately 2.5 cm. There is marked surrounding vasogenic edema causing mild local mass effect and approximately 4 mm of left to right midline shift. Given the chest x-ray findings, this is highly suspicious for a metastatic lesion. Oleg Green MD CT Angiography 07/16/17 0000 Signed Impressions: Service Date/Time: Sunday, July 16, 2017 17:45 - CONCLUSION: 1. No evidence of pulmonary embolism. 2. Complete collapse and airlessness of the entire left upper lung. An endobronchial lesion in the left upper lobe bronchus causing obstruction is the primary consideration. Recommend bronchoscopy for further evaluation. 3. The right lung and left lower lung are grossly clear. There is some central lobar emphysema. Reginaldo Shahid MD Procedures Bronchoscopy 07/18/17 Other Results Laboratory Tests Test 07/16/17 16:15 07/16/17 18:15 07/16/17 22:00 07/17/17 04:05 Total Creatine Kinase 66 U/L Troponin I LESS THAN 0.02 NG/ML Thyroid Stimulating Hormone 3rd Gen 2.160 uIU/ML Salicylates Level 9.9 MG/DL Acetaminophen Level LESS THAN 2.0 MCG/ML Ethyl Alcohol Level 37 MG/DL Urine Opiates Screen NEG Urine Barbiturates Screen NEG Urine Amphetamines Screen NEG Urine Benzodiazepines Screen NEG Urine Cocaine Screen NEG Urine Cannabinoids Screen NEG Nasal Screen MRSA (PCR) MRSA NOT DETECTED Activated Partial Thromboplast Time 36.0 SEC Test 07/17/17 16:46 07/18/17 06:47 07/19/17 02:50 07/22/17 06:52 Prothrombin Time 11.9 SEC Prothromb Time International Ratio 1.2 RATIO HIV (1&2) Antibody NEGATIVE Reticulocyte Count 4.4 % Absolute Reticulocyte Count 131.4 MIL/L Haptoglobin 381 MG/DL Iron Level 27 MCG/DL Total Iron Binding Capacity 235 MCG/DL Percent Iron Saturation 11.5 % Transferrin 168 MG/DL Lactate Dehydrogenase 125 U/L Hepatitis B Surface Antigen NEGATIVE Hepatitis B Core IgM Antibody NEGATIVE Hepatitis C Antibody NEGATIVE Vancomycin Level Trough 17.1 MCG/ML Myelocytes 1 % Test 07/24/17 09:32 07/27/17 13:36 07/28/17 06:00 07/31/17 05:00 Band Neutrophils % 3 % Toxic Granulation 1+ Toxic Vacuolation PRESENT Blood Urea Nitrogen 11 MG/DL Creatinine 0.60 MG/DL Random Glucose 116 MG/DL Albumin 2.7 GM/DL Calcium Level 8.9 MG/DL Phosphorus Level 3.4 MG/DL Magnesium Level 2.0 MG/DL Sodium Level 137 MEQ/L Potassium Level 4.1 MEQ/L Chloride Level 101 MEQ/L Carbon Dioxide Level 28.2 MEQ/L Urine Color YELLOW Urine Turbidity CLEAR Urine pH 7.0 Urine Specific [place] 1.026 Urine Protein TRACE mg/dL Urine Glucose (UA) NEG mg/dL Urine Ketones NEG mg/dL Urine Occult Blood NEG Urine Nitrite NEG Urine Bilirubin NEG Urine Urobilinogen LESS THAN 2.0 MG/DL Urine Leukocyte Esterase NEG Urine RBC 1 /hpf Urine WBC 1 /hpf Urine Squamous Epithelial Cells <1 /hpf Urine Mucus FEW /lpf Microscopic Urinalysis Comment CULT NOT INDICATED Lactic Acid Level 1.5 mmol/L Differential Total Cells Counted 100 Neutrophils % (Manual) 92 % Lymphocytes % 4 % Monocytes % 4 % Neutrophils # (Manual) 34.1 TH/MM3 Nucleated Red Blood Cells 1 /100 WBC Platelet Estimate HIGH Platelet Morphology Comment NORMAL Red Cell Morphology Comment NORMAL Test 08/01/17 09:21 White Blood Count 25.8 TH/MM3 Red Blood Count 3.63 MIL/MM3 Hemoglobin 10.0 GM/DL Hematocrit 30.7 % Mean Corpuscular Volume 84.6 FL Mean Corpuscular Hemoglobin 27.7 PG Mean Corpuscular Hemoglobin Concent 32.7 % Red Cell Distribution Width 25.5 % Platelet Count 595 TH/MM3 Mean Platelet Volume 5.8 FL Neutrophils (%) (Auto) 96.7 % Lymphocytes (%) (Auto) 2.0 % Monocytes (%) (Auto) 1.3 % Eosinophils (%) (Auto) 0.0 % Basophils (%) (Auto) 0.0 % Neutrophils # (Auto) 24.9 TH/MM3 Lymphocytes # (Auto) 0.5 TH/MM3 Monocytes # (Auto) 0.3 TH/MM3 Eosinophils # (Auto) 0.0 TH/MM3 Basophils # (Auto) 0.0 TH/MM3 CBC Comment AUTO DIFF Differential Comment AUTO DIFF CONFIRMED Polychromasia 2.1 % Ovalocytes 1+ Acanthocytes OCC Blood Urea Nitrogen 17 MG/DL Creatinine 0.51 MG/DL Random Glucose 99 MG/DL Total Protein 7.3 GM/DL Albumin 2.9 GM/DL Calcium Level 9.3 MG/DL Magnesium Level 2.1 MG/DL Alkaline Phosphatase 137 U/L Aspartate Amino Transf (AST/SGOT) 15 U/L Alanine Aminotransferase (ALT/SGPT) 59 U/L Total Bilirubin 0.3 MG/DL Direct Bilirubin 0.1 MG/DL Sodium Level 131 MEQ/L Potassium Level 4.2 MEQ/L Chloride Level 95 MEQ/L Carbon Dioxide Level 28.5 MEQ/L Anion Gap 8 MEQ/L Estimat Glomerular Filtration Rate 207 ML/MIN Indirect Bilirubin 0.2 MG/DL Objective Remarks GENERAL: in NAD SKIN: port in place. CARDIOVASCULAR: Regular rate and rhythm without murmurs, gallops, or rubs. RESPIRATORY: Breath sounds equal bilaterally. No accessory muscle use. GASTROINTESTINAL: Abdomen soft, non-tender, nondistended. NEURO: AAO x3. no Neurologic deficit. Medications and IVs Current Medications Medications (Trade) Dose Ordered Sig/Dillan Route Start Time Stop Time Status Last Admin (NS Flush) 2 ml UNSCH PRN IV FLUSH 07/16/17 19:00 (NS Flush) 2 ml BID IV FLUSH 07/16/17 21:00 08/01/17 21:58 (Tylenol) 650 mg Q6H PRN PO 07/16/17 19:00 (Dilaudid Pf Inj) 1 mg Q4H PRN IV 07/16/17 19:15 (Zofran Inj) 4 mg Q6H PRN IV PUSH 07/16/17 19:00 (Restoril) 15 mg HS PRN PO 07/16/17 19:00 (Duoneb Neb) 1 ampule Q2HR NEB PRN INH 07/16/17 19:00 07/18/17 16:49 Miscellaneous Information 1 Q361D XX 07/16/17 19:00 07/16/17 22:59 (Chlorhexidine 2% Cloth) Taper DAILY@04 TOP 07/17/17 04:00 07/13/18 03:59 (Chlorhexidine 2% Cloth) 3 pack UNSCH PRN TOP 07/16/17 19:00 (Karlie-Colace) 1 tab BID PO 07/16/17 21:00 07/27/17 21:52 (Milk Of Magnesia Liq) 30 ml Q12H PRN PO 07/16/17 19:00 (Senokot) 17.2 mg Q12H PRN PO 07/16/17 19:00 (Dulcolax Supp) 10 mg DAILY PRN RECTAL 07/16/17 19:00 (Lactulose Liq) 30 ml DAILY PRN PO 07/16/17 19:00 (Keppra) 500 mg Q12HR PO 07/17/17 21:00 08/01/17 21:54 (Decadron) 4 mg Q8HR PO 07/20/17 14:00 08/02/17 05:57 (Pepcid) 20 mg BID PO 07/20/17 21:00 08/01/17 21:54 (Folate) 1 mg DAILY PO 07/28/17 15:45 08/01/17 09:27 (NS Flush) 5 ml UNSCH PRN IV FLUSH 07/30/17 14:15 (Heparin Central Flush) 250 units UNSCH PRN IV FLUSH 07/30/17 14:15 (Heparin Central Flush) 500 units UNSCH IV FLUSH 07/30/17 14:15 (Mucinex Er) 600 mg BID PO 07/30/17 21:00 08/01/17 21:54 A/P Assessment and Plan This is a 51-year-old male presented with altered mental status and right hemiplegia Subjective fevers/chills -Patient is afebrile at the moment. This is most likely due to malignancy but since this is a new onset symptoms need to rule out infectious etiology. Chest x-ray shows large mass filling the left apical area. Blood and urine cultures negative. Encephalopathy with hemiplegia due to brain mass. -At baseline. - MRI of brain shows brain mass. Neurosurgeon on board and ff. -per NS not a candidate for surgery and radiation oncologist consulted. - Continue Decadron and Keppra - palliative care ff. -Psych was consulted and stated patient has a capacity to make medical decision. lung cancer ( adenocarcinoma) with mets. - pulmonary and oncologist consulted. -s/p bronchoscopy on 07/18 - pathology ; suspicious for adenocarcinoma. -oncology and radiation oncology following; for chemo and radiation. -Status post port placement on 07/25/2017 by IR -Status post Chemotherapy performed. 07/29/17 next treatment 08/19/17 Severe microcytic anemia, hemoglobin is 7.5 and MCV 79. -Stable. No active bleeding. -Oncologist following. Most likely iron deficiency. - on IV Iron. Hemoglobin improving now 9.1 Leukocytosis -Most likely reactive due to malignancy/steroids. No signs of infection. Thrombocytosis -Most likely secondary to malignancy. Tobacco use disorder - DuoNeb scheduled and when necessary DVT GI prophylaxis - Teds SCDs - Pepcid Discharge Planning SSI pending. awaiting final by Ornament Maker Hand for discharge, will continue Chemo/radiation as outpatient. Discussed on MDR and the patient is Homeless awaiting for arrangement for discharge. Discharge to SNF now Munir Tamez MD Aug 02, 2017 08:22
[2017-08-02] MEDS: DOCUSATE SODIUM 50 MG/SENNA 8.6 MG TAB PO SCH (09:00)
[2017-08-02] MEDS: FOLIC ACID 1 MG TAB PO SCH (09:35)
[2017-08-02] MEDS: FAMOTIDINE 20 MG TAB PO SCH (09:35)
[2017-08-02] MEDS: guaiFENesin E.R. 600 MG TAB PO SCH (09:35)
[2017-08-02] MEDS: levETIRAcetam 500 MG TAB PO SCH (09:35)
[2017-08-02] MEDS: SODIUM CHLORIDE 0.9% FLUSH 10 ML FLUSH IV FLUSH SCH (09:36)
[2017-08-02] MEDS ORDERED: PANTOPRAZOLE SOD 40 MG DELAYED RELEASE TAB PO SCH (12:30)
[2017-08-02] MEDS ORDERED: LEVE500 PO (15:20)
[2017-08-02] MEDS ORDERED: guaiFENesin ER PO (15:20)
[2017-08-02] MEDS ORDERED: FAMO20TA2 PO (15:20)
[2017-08-02] MEDS ORDERED: FOLI1TAB6 PO (15:20)
[2017-08-02] MEDS ORDERED: DEXA4TAB PO ×2 (15:20→15:24)
--- NOTE | 2017-08-02 15:20 | HHI.DS ---
Discharge Summary Admission Date Jul 16, 2017 at 18:24 Discharge Date: Aug 02, 2017 Admitting Diagnosis Brain mass, Lung mass, Cerebral edema. (1) Cerebral edema ICD Code: G93.6 - Cerebral edema Diagnosis: Principal Status: Acute (2) Brain mass ICD Code: G93.9 - Disorder of brain, unspecified Diagnosis: Principal Status: Acute (3) Tobacco use disorder ICD Code: F17.200 - Nicotine dependence, unspecified, uncomplicated Diagnosis: Secondary (4) Adenocarcinoma of lung ICD Code: C34.90 - Malignant neoplasm of unspecified part of unspecified bronchus or lung Diagnosis: Principal Procedures Bronchoscopy 07/18/17 Brief History - From Admission 51-year-old male who lives in abandoned house presents emergency department with 3 day history of right-sided extremity weakness, unclear as to when exactly his last seen normal time was. Patient's sister arrives and states that the family checks on him from time to time because he refuses to live with them they went to get him today to place [place] on his son's grave and found him to be significantly altered and was not able to ambulate and so they brought him into the emergency department to be seen. No headaches no nausea no vomiting no chest pain or shortness of breath. CT of the head shows a mass in the left frontoparietal white matter measuring approximately 2.5 cm with marked surrounding vasogenic edema. CT of the chest shows complete collapse and adolescence of the entire left upper lung due to most likely endobronchial lesion. CBC/BMP: 08/01/17 0921 08/01/17 0921 Significant Findings Laboratory Tests Test 07/31/17 05:00 08/01/17 09:21 White Blood Count 37.1 TH/MM3 (4.0-11.0) 25.8 TH/MM3 (4.0-11.0) Red Blood Count 3.36 MIL/MM3 (4.50-5.90) 3.63 MIL/MM3 (4.50-5.90) Hemoglobin 9.1 GM/DL (13.0-17.0) 10.0 GM/DL (13.0-17.0) Hematocrit 28.7 % (39.0-51.0) 30.7 % (39.0-51.0) Mean Corpuscular Hemoglobin Concent 31.7 % (32.0-36.0) Red Cell Distribution Width 25.3 % (11.6-17.2) 25.5 % (11.6-17.2) Platelet Count 562 TH/MM3 (150-450) 595 TH/MM3 (150-450) Mean Platelet Volume 6.1 FL (7.0-11.0) 5.8 FL (7.0-11.0) Neutrophils (%) (Auto) 94.0 % (16.0-70.0) 96.7 % (16.0-70.0) Lymphocytes (%) (Auto) 3.1 % (9.0-44.0) 2.0 % (9.0-44.0) Neutrophils # (Auto) 34.9 TH/MM3 (1.8-7.7) 24.9 TH/MM3 (1.8-7.7) Monocytes # (Auto) 1.1 TH/MM3 (0-0.9) Neutrophils % (Manual) 92 % (16-70) Lymphocytes % 4 % (9-44) Neutrophils # (Manual) 34.1 TH/MM3 (1.8-7.7) Nucleated Red Blood Cells 1 /100 WBC (0-0) Platelet Estimate HIGH (NORMAL) Creatinine 0.45 MG/DL (0.60-1.30) 0.51 MG/DL (0.60-1.30) Random Glucose 113 MG/DL (74-106) Albumin 2.6 GM/DL (3.4-5.0) 2.9 GM/DL (3.4-5.0) Alkaline Phosphatase 147 U/L (45-117) 137 U/L (45-117) Aspartate Amino Transf (AST/SGOT) 14 U/L (15-37) Sodium Level 135 MEQ/L (136-145) 131 MEQ/L (136-145) Lymphocytes # (Auto) 0.5 TH/MM3 (1.0-4.8) Polychromasia 2.1 % (0.0-1.9) Ovalocytes 1+ (NORMAL) Chloride Level 95 MEQ/L (98-107) PE at Discharge GENERAL: in NAD SKIN: port in place. CARDIOVASCULAR: Regular rate and rhythm without murmurs, gallops, or rubs. RESPIRATORY: Breath sounds equal bilaterally. No accessory muscle use. GASTROINTESTINAL: Abdomen soft, non-tender, nondistended. NEURO: AAO x3. no Neurologic deficit. Hospital Course This is a pleasant 52 y/o Male followed due to Lung and Brain Cancer. the patient has Stage IV adenocarcinoma with Brain metastasis. Psychiatry was consulted due to competence the patient is able to take his own decisions. to continue Palliative chemotherapy. Poor prognosis. will be receiving Carbo/ Alimta. 08/02: Seen in his bedroom, discussed with his relatives all questions answered to satisfaction about placement issues and insurance I will leave that information to be given by Deburring Machine Operator no nausea, vomit or diarrhea already recommended for discharge by business account specialist and follow as outpatient. Assessment and Plan This is a 51-year-old male presented with altered mental status and right hemiplegia Subjective fevers/chills -Patient is afebrile at the moment. This is most likely due to malignancy but since this is a new onset symptoms need to rule out infectious etiology. Chest x-ray shows large mass filling the left apical area. Blood and urine cultures negative. Encephalopathy with hemiplegia due to brain mass. -At baseline. - MRI of brain shows brain mass. Neurosurgeon on board and ff. -per NS not a candidate for surgery and radiation oncologist consulted. - Continue Decadron and Keppra - palliative care ff. -Psych was consulted and stated patient has a capacity to make medical decision. lung cancer ( adenocarcinoma) with mets. - pulmonary and oncologist consulted. -s/p bronchoscopy on 07/18 - pathology ; suspicious for adenocarcinoma. -oncology and radiation oncology following; for chemo and radiation. -Status post port placement on 07/25/2017 by IR -Status post Chemotherapy performed. 07/29/17 next treatment 08/19/17 Severe microcytic anemia, hemoglobin is 7.5 and MCV 79. -Stable. No active bleeding. -Oncologist following. Most likely iron deficiency. - on IV Iron. Hemoglobin improving now 9.1 Leukocytosis -Most likely reactive due to malignancy/steroids. No signs of infection. Thrombocytosis -Most likely secondary to malignancy. Tobacco use disorder - DuoNeb scheduled and when necessary DVT GI prophylaxis - Teds SCDs - Pepcid Discharge Planning SSI pending. awaiting final by Deburring Machine Operator for discharge, will continue Chemo/radiation as outpatient. Discussed on MDR and the patient is Homeless awaiting for arrangement for discharge. Discharge to SNF now Pt Condition on Discharge: Good Discharge Disposition: Discharge Home Discharge Time: > 30 minutes Discharge Instructions DIET: Follow Instructions for: Heart Healthy Diet Activities you can perform: Regular-No Restrictions Munir Tamez MD Aug 02, 2017 15:20
== END 2017-08-02 18:01 | disposition home or self-care (01) | DRG 180 ==
LOC: EDBD → NEPE 15:56 → NEDA 18:24 → N03B 20:23 → N05B 07-17 18:00 → HCIN 07-23 00:31
PROVIDERS: ADMIT Internal Medicine; ATTEND Internal Medicine
PROC: 0BB78ZX Excision of Left Main Bronchus, Via Natural or Artificial Opening Endoscopic, Diagnostic (ICD-10-PCS; 2017-07-18)
PROC: 0BD78ZX Extraction of Left Main Bronchus, Via Natural or Artificial Opening Endoscopic, Diagnostic (ICD-10-PCS; 2017-07-18)
PROC: 0B978ZX Drainage of Left Main Bronchus, Via Natural or Artificial Opening Endoscopic, Diagnostic (ICD-10-PCS; 2017-07-18)
PROC: 30233N1 Transfusion of Nonautologous Red Blood Cells into Peripheral Vein, Percutaneous Approach (ICD-10-PCS; 2017-07-20)
PROC: 0JH60WZ Insertion of Totally Implantable Vascular Access Device into Chest Subcutaneous Tissue and Fascia, Open Approach (ICD-10-PCS; principal; 2017-07-25)
PROC: 02HV33Z Insertion of Infusion Device into Superior Vena Cava, Percutaneous Approach (ICD-10-PCS; 2017-07-25)
DX: C34.12 Malignant neoplasm of upper lobe, left bronchus or lung (principal); G93.6 Cerebral edema; G93.40 Encephalopathy, unspecified; J18.9 Pneumonia, unspecified organism; C79.31 Secondary malignant neoplasm of brain; G81.91 Hemiplegia, unspecified affecting right dominant side; F17.210 Nicotine dependence, cigarettes, uncomplicated; D50.9 Iron deficiency anemia, unspecified; J98.11 Atelectasis; D47.3 Essential (hemorrhagic) thrombocythemia; R63.4 Abnormal weight loss; J43.9 Emphysema, unspecified; H91.90 Unspecified hearing loss, unspecified ear; H54.7 Unspecified visual loss; F54 Psychological and behavioral factors associated with disorders or diseases classified elsewhere; R53.81 Other malaise; Z59.0 Homelessness
CPT/HCPCS: 31625; 36430; 36561; 70450; 70553; 71045; 71046; 71275; 74177; 76937; 77001; 77263; 77290; 77334; 80048; 80053; 80069; 80076; 80202; 80307; 81001; 82272; 82550; 82565; 83010; 83540; 83550; 83605; 83615; 83735; 84100; 84443; 84466; 84484; 85007; 85025; 85027; 85044; 85610; 85730; 86703; 86705; 86803; 86850; 86900; 86901; 86920; 87040; 87086; 87340; 87641; 88112; 88305; 93005; 94664; 96374; 99152; 99222; A9579; C1788; J0690; J0692; J1100; J1626; J1642; J1644; J1756; J2250; J2543; J3010; J3370; J3420; J7030; J7040; J7050; J8540; J9045; J9305; P9016; Q9963; Q9967

== ENCOUNTER 2017-08-28 10:31 | Emergency (ER) | payer OTHER ==
[~2017-08-28] VITALS: Ht 172.7 cm; Wt 68.0 kg
[~2017-08-28 10:31] MED LIST: DEXA4TAB PO; FAMO20TA2 PO; FOLI1TAB6 PO; LEVE500 PO; guaiFENesin ER PO
[2017-08-28 10:37] VITALS: BP 116/60; PULSE 88; RESP 22; TEMP 98.7; O2SAT 99
[2017-08-28 11:14] VITALS: BP 134/74; PULSE 70; RESP 18; TEMP 98; O2SAT 100
[2017-08-28] MEDS ORDERED: RANI150T PO (12:59)
[2017-08-28] MEDS ORDERED: DEXA4TAB PO (12:59)
[2017-08-28 13:01] VITALS: BP 131/81; PULSE 91; RESP 25; O2SAT 97
--- NOTE | 2017-08-28 13:02 | PD ---
HPI Chief Complaint: Respiratory Symptoms Time Seen by Provider: 12:48 Travel History International Travel<30 days: No Contact w/Intl Traveler<30days: No Traveled to known affect area: No History of Present Illness HPI 52-year-old male with PMH of stage IV non-small cell lung cancer with brain metastasis presents to the ED for evaluation of cough. Cough is persistent for weeks, productive of "stringy mucus." Patient states that the cough keeps him from sleeping. He states that he had a prescription for Mucinex which was helpful but he has run out. Patient states that he is undergoing chemotherapy with carboplatin and Alimta, last treatment 2 weeks ago. Patient is followed by Dr. Sexton, last visit 08/24. He states that Dr. Sexton prescribed him Robitussin which is not helping. The patient is requesting refill of Mucinex. He endorses decreased appetite, ongoing. He denies fever, chills, chest pain, palpitations, nausea, vomiting. Next treatment scheduled for 09/08. Patient did not contact Dr. Sexton's office before presenting to the ED. PFSH Past Medical History Anxiety: No Depression: No Cancer: No Cardiovascular Problems: No Chemotherapy: Yes (LAST 08/08/17) Endocrine: No Genitourinary: No Immune Disorder: No Musculoskeletal: No Neurologic: No Psychiatric: No Reproductive: No Respiratory: No Social History Alcohol Use: Yes (occassoanly ) Tobacco Use: Yes (1/2 pack ) Substance Use: No Allergies-Medications (Allergen,Severity, Reaction): Coded Allergies: No Known Allergies (Unverified , 07/16/17) Reported Meds & Prescriptions Reported Meds & Active Scripts Active [guaiFENesin ER] 600 MG Tabcr 600 Mg PO BID Folic Acid 1 Mg Tablet 1 Mg PO DAILY Famotidine 20 Mg Tab 20 Mg PO BID Keppra (Levetiracetam) 500 Mg Tab 500 Mg PO Q12HR Reported Dexamethasone 4 Mg Tab 4 Mg PO DIRECTED Ranitidine (Ranitidine HCl) 150 Mg Tab 150 Mg PO HS Review of Systems Except as stated in HPI: all other systems reviewed are Neg Physical Exam Narrative GENERAL: Well-nourished, well-developed pleasant -Citizen Of [place] male in no acute distress. SKIN: Focused skin assessment warm/dry. HEAD: Normocephalic. EYES: No scleral icterus. No injection or drainage. NECK: Supple, trachea midline. No JVD or lymphadenopathy. CARDIOVASCULAR: Regular rate and rhythm without murmurs, gallops, or rubs. RESPIRATORY: Breath sounds diminished in the left ovary lobe, mild end expiratory wheezing throughout. No accessory muscle use. GASTROINTESTINAL: Abdomen soft, non-tender, nondistended. MUSCULOSKELETAL: No cyanosis, or edema. Patient noted to walk with a normal gait. BACK: Nontender without obvious deformity. No CVA tenderness. Data Data Last Documented VS Vital Signs Date Time Temp Pulse Resp B/P (MAP) Pulse Ox O2 Delivery O2 Flow Rate FiO2 08/28/17 13:01 91 25 131/81 (98) 97 Room Air 08/28/17 10:37 98.7 Orders Orders Ed Discharge Order (08/28/17 13:04) Guaifenesin Er (Mucinex Er) (08/28/17 13:15) Guaifenesin Er (Mucinex Er) (08/28/17 14:00) [facility] Medical Decision Making Medical Screen Exam Complete: Yes Emergency Medical Condition: Yes Medical Record Reviewed: Yes Differential Diagnosis Chronic cough versus COPD versus lung CA versus other Narrative Course 52-year-old male with PMH of stage IV non-small cell lung cancer with brain metastasis presents to the ED for evaluation of cough. Cough is persistent for weeks, productive of "stringy mucus." Patient states that the cough keeps him from sleeping. He states that he had a prescription for Mucinex which was helpful but he has run out. Patient states that he is undergoing chemotherapy with carboplatin and Alimta, last treatment 2 weeks ago. Patient is followed by Dr. Sexton, last visit 08/24. The patient is requesting refill of Mucinex. Next treatment scheduled for 09/08. Patient is afebrile, pulse 88, BP 116/60, pulse ox 99% on room air respiratory rate of 22 on presentation. On exam this is a nontoxic-appearing -Citizen Of [place] male in no acute distress. He does have diminished lung sounds in the left upper lobe and mild end expiratory wheezing but the exam is otherwise unremarkable. I reviewed the patient's record. He underwent CTA of the chest 07/16 which revealed no evidence of PE. I discussed goals with the patient. He is simply requesting med refill. Patient was provided a refill of 600mg guaifenesin twice daily 30 days. First dose administered in the ED. He is instructed to follow-up with Dr. Sexton as planned. He is stable and discharged home. Diagnosis Primary Impression: Cough Referrals: Stephane Sexton MD Additional Instructions: Rest, hydrate. Resume at home medications as previously prescribed. Take Mucinex as prescribed. Follow up with Dr. Sexton as planned. Return to the ED for worsening symptoms or any urgent/ emergent medical condition. Med/Other Pt SpecificInfo: Prescription(s) given Scripts [guaiFENesin ER] 600 MG TABCR No Conflict Check 600 MG PO BID for COPD, #30 TAB 0 Refills Prov: Lyndon Jacob MD 08/28/17 Disposition: 01 DISCHARGE HOME Condition: Stable Jasmin Brenner Aug 28, 2017 13:02
[2017-08-28] MEDS ORDERED: guaiFENesin ER PO (13:04)
[2017-08-28] MEDS ORDERED: guaiFENesin E.R. 600 MG TAB PO ONE (13:15)
[2017-08-28] MEDS ORDERED: guaiFENesin E.R. 600 MG TAB PO SCH (14:00)
== END 2017-08-28 13:47 | disposition home or self-care (01) ==
LOC: NEPE 10:31
DX: C34.90 Malignant neoplasm of unspecified part of unspecified bronchus or lung (principal); C79.31 Secondary malignant neoplasm of brain; F17.200 Nicotine dependence, unspecified, uncomplicated
CPT/HCPCS: 99283